=== PATIENT | female | born 1965 ===

== ENCOUNTER 2021-04-27 13:39 | Emergency (ER) | payer OTHER, SELFPAY ==
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
[2021-04-27 13:58] VITALS: BP 181/94; PULSE 96; RESP 19; TEMP 36.1; O2SAT 95; BMI 24.3
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
== END 2021-04-27 16:57 | disposition home or self-care (01) ==
PROVIDERS: Emergency Provider Emergency Medicine
DX: S39.012A Strain of muscle, fascia and tendon of lower back, initial encounter (principal); S39.011A Strain of muscle, fascia and tendon of abdomen, initial encounter; V43.62XA Car passenger injured in collision with other type car in traffic accident, initial encounter; Y93.89 Activity, other specified; Y92.414 Local residential or business street as the place of occurrence of the external cause; Y99.9 Unspecified external cause status
CPT/HCPCS: 74176; 99283; 99284

== ENCOUNTER 2021-10-04 08:56 | Outpatient (REF) | payer MEDICAID, SELFPAY ==
[2021-10-04 09:34] LABS: MANUAL DIFF FLAG NO
[2021-10-04 10:18] LABS: Basophils Percent Auto 0.4 % (0-2); Eosinophils Absolute Auto 0.1 X10*3/uL (0.0-0.4); Eosinophils Percent Auto 1.7 % (0-4); Hematocrit 46.7 % (37.0-47.0); Hemoglobin 15.2 g/dl (12.0-16.0); Imm Gran Abs Auto 0.02 X10*3/uL (0.00-0.03); Imm Gran Pct Auto 0.3 % (0.0-0.4); Lymphocytes Absolute Auto 2.1 X10*3/uL (1.2-4.9); Lymphocytes Percent Auto 29.7 % (20-40); Mean Corpuscular HGB Conc 32.5 g/dl (31.0-35.0); Mean Corpuscular Hemoglobin 27.6 pg (27.0-33.0); Mean Corpuscular Volume 84.9 fL (80.0-98.0); Mean Platelet Volume 9.5 fL (9.4-12.3); Monocytes Absolute Auto 0.4 X10*3/uL (0.1-1.2); Monocytes Percent Auto 5.3 % (2-11); Neutrophils Absolute Auto 4.3 x10*3/uL (2.0-8.3); Neutrophils Percent Auto 62.6 % (45-73); Platelet Count 249 X10*3/uL (160-400); Red Cell Distribution Width 12.8 % (11.0-16.0); White Blood Count 6.9 X10*3/uL (4.8-10.8)
[2021-10-04 10:41] LABS: Alanine Aminotransferase 21 U/L (0-31); Albumin Level 4.3 g/dL (3.5-5.0); Alkaline Phosphatase 98 U/L (39-117); Anion Gap 15 (12-20); Aspartate Amino Transferase 17 U/L (5-31); Blood Urea Nitrogen 14 mg/dL (9-16); Calcium 9.6 mg/dL (8.4-10.2); Carbon Dioxide 23 mmol/L (22-29); Chloride 106 mmol/L (96-108); Cholesterol 237 mg/dL; Estimated Glomerular Filt Rate > 60; Glucose Random 147 mg/dL (60-115); HDL Cholesterol 43 mg/dL; LDL Cholesterol Calculated 138 mg/dl; Potassium 4.4 mmol/L (3.3-5.1); Sodium 140 mmol/L (135-145); Total Protein 7.5 g/dL (6.5-8.0); Triglycerides 283 mg/dL
[2021-10-04 10:48] LABS: Bilirubin Total 0.9 mg/dL (0.0-1.0)
[2021-10-04 10:58] LABS: HIV AB/AG Nonreactive (Nonreactive); HIV Num 1 0.08 S/CO (0.00-0.99)
[2021-10-04 10:59] LABS: ~HepC Num1 0.19 S/CO (0.00-0.79); ~Hepatitis C Antibody Nonreactive (Nonreactive)
[2021-10-04 11:12] LABS: Creatinine Urine 111.68 mg/dL; Microalbum/Creatinine Ratio Ur 42.9 ug/mg cr
== END 2021-10-04 08:57 | disposition home or self-care (01) ==
LOC: HO.CT 08:56
PROVIDERS: PCP Internal Medicine; Visit Provider Internal Medicine
DX: Z11.4 Encounter for screening for human immunodeficiency virus [HIV] (principal); R10.32 Left lower quadrant pain; R19.04 Left lower quadrant abdominal swelling, mass and lump; E11.9 Type 2 diabetes mellitus without complications; E78.5 Hyperlipidemia, unspecified; F33.0 Major depressive disorder, recurrent, mild; I10 Essential (primary) hypertension
CPT/HCPCS: 36415; 80053; 80061; 82043; 84443; 85025; 86803; 87389

== ENCOUNTER 2021-10-26 08:22 | Outpatient (REF) | payer MEDICAID, SELFPAY ==
--- NOTE | ~2021-10-26 | CT_ITS ---
EXAMINATION: CT ABDOMEN AND PELVIS WITH CONTRAST CLINICAL INFORMATION: Left lower quadrants swelling, mass COMPARISON: 04/27/2021 TECHNIQUE: Multidetector volumetric images were obtained from the superior aspect of the liver through the pubic symphysis following administration 85 mL of Omnipaque 350 intravenous contrast. Sagittal and coronal reformatted images were obtained on the technologist's workstation. Oral contrast: No This CT examination was performed using dose optimization techniques as appropriate, variously including the following: *Automated exposure control *Adjustment of mA and/or kV according to patient size (this includes techniques or standardized protocols for targeted exams where dose is matched to indication/reason for exam; i.e. extremities or head) *Use of iterative reconstruction technique DLP: 407 mGy-cm FINDINGS: LUNG BASES: No suspicious finding LIVER, GALLBLADDER, AND BILIARY TREE: Liver is incompletely visualized. The superior aspect of the right lobe is not included in the imaging. On the imaging submitted there is no suspicious finding. Status post cholecystectomy PANCREAS: Unremarkable. SPLEEN: Unremarkable. ADRENAL GLANDS: Unremarkable. KIDNEYS AND URETERS: 3 mm nonobstructing calculus mid to upper pole right kidney. There is no hydronephrosis. BLADDER: Unremarkable. GASTROINTESTINAL TRACT: Nonobstructing bowel pattern. ABDOMINAL WALL: No significant hernia is appreciated. LYMPH NODES: Normal. VASCULAR: Atherosclerotic changes. No aneurysmal change PELVIC VISCERA: Once again mildly prominent uterus for age. Associated with the uterine structure in the area with peripheral calcification extending off the fundal region on the left. This measures 3.2 x 2.1 cm. Etiology indeterminate OSSEOUS STRUCTURES: Unremarkable. CT/CT abdomen pelvis w con IMPRESSION: Liver is incompletely imaged. Again prominent uterus for age. In addition extending off the superior lateral aspect of the uterus on the left is a solid-appearing structure which with a peripheral calcification. This could be related to the uterus, ligament or ovarian in etiology. Consider ultrasound to further evaluate. Otherwise as described the bowel pattern is within normal limits. Also partially imaged here is a fatty density within the anterior musculature anterior to the proximal left femur. This was partially imaged here previously. No change in this partially imaged appearance which is likely lipomatous change but again the entire area is not seen and is only seen on the inferior most cuts. If further evaluation is warranted consider MR Medeiros guidelines were followed.
[2021-10-26] MEDS: iohexoL 350 MG/ML 100 ML INFUS..BTL IV (11:14)
[2021-10-26] MEDS: Barium Sulfate Oral (Berry) 450 ML ORAL.SUSP 900 ML PO (11:15)
== END 2021-10-26 08:23 | disposition home or self-care (01) ==
LOC: HO.CT 08:22
PROVIDERS: PCP Internal Medicine; Visit Provider Internal Medicine
DX: R10.32 Left lower quadrant pain (principal); R19.04 Left lower quadrant abdominal swelling, mass and lump; E11.9 Type 2 diabetes mellitus without complications; E78.5 Hyperlipidemia, unspecified; F33.0 Major depressive disorder, recurrent, mild; I10 Essential (primary) hypertension
CPT/HCPCS: 74177; Q9967

== ENCOUNTER 2022-01-27 15:56 | Emergency (ER) | payer MEDICAID, SELFPAY ==
--- NOTE | ~2022-01-27 | XR_ITS ---
EXAMINATION: XR KNEE, LEFT CLINICAL INFORMATION: Pain COMPARISON: None TECHNIQUE: Four views of the left knee. FINDINGS: Bones and soft tissues are normal. There is a small knee joint effusion.. Alignment is anatomic. Joint spaces are well maintained. No abnormal soft tissue calcification. XR/XR knee LT 4V IMPRESSION: Small knee joint effusion. No fracture.
[2022-01-27 16:10] VITALS: BP 198/93; PULSE 85; RESP 18; TEMP 36.2; O2SAT 98; BMI 28.8
[2022-01-27] MEDS: Ketorolac Tromethamine 15 MG/ML VIAL 30 MG IM (21:04)
--- NOTE | 2022-01-27 21:14 | ED.EXTPRO ---
HPI - Extremity Problem General Chief complaint: Extremity Problem Stated complaint: L Knee Pain S/P Fall 01/24/22 Time Seen by Provider: 01/27/22 20:40 Source: patient Mode of arrival: ambulatory Limitations: no limitations History of Present Illness HPI Narrative: 56 year old female presents to the emergency department with complaints of a atraumatic left knee pain X3 days. Reports this has happened before. Patient tells me she is able to walk however has some discomfort. She notices that her left knee is more swollen on the right. Denies fevers, chills, numbness, tingling. Denies blunt trauma to the area. MD Complaint: joint swelling Related Data Previous Rx's Medication Instructions Recorded acetaminophen 500 mg tablet 1,000 mg PO QID PRN fever or pain 04/27/21 (Tylenol Extra Strength) #14 tabs cyclobenzaprine 10 mg tablet 10 mg PO Q8H PRN Muscle spasm #14 04/27/21 tabs ibuprofen 800 mg tablet 800 mg PO Q8H PRN pain #14 tabs 04/27/21 prednisone 20 mg tablet 40 mg PO DAILY 5 days #10 tabs 01/27/22 Allergies Allergy/AdvReac Type Severity Reaction Status Date / Time No Known Allergies Allergy Verified 04/27/21 14:00 Review of Systems Review of Systems: Constitutional : No Weight loss, No Fever, No Chills, No Fatigue, No Malaise ENT/Mouth : No sore throat, No Rhinorrhea Eyes: No Eye Pain, No Swelling, No Redness Cardiovascular : No Chest Pain, No SOB, No Dyspnea on Exertion, No Orthopnea, No Edema, No Palpitations Respiratory : No Cough, No Sputum, No Wheezing Gastrointestinal : No Nausea, No Vomiting, No Diarrhea, No Constipation, No abdominal Pain, No Hematochezia, No Melena Genitourinary : No Dysuria, No Urinary Frequency, No Hematuria, Musculoskeletal : + joint pain, No Myalgias, + Joint Swelling Skin : No Skin Lesions, No rash Neuro : No Weakness, No Numbness, No Dizziness, No Headache Psych : No Anxiety/Panic, No Depression All other systems reviewed and are negative Yes all other systems are reviewed and are negative PMFSH Past Medical History Attestation statement: The following information was validated with the patient. Source: old records reviewed and nursing notes reviewed Medical History Diabetes High blood pressure Social History Social History (Updated 10/30/21 @ 09:44 by Fernanda Quinonez) Household Members: Family Patient Tobacco Use Status: Current everyday Tobacco user Advance Directives: No Advance Directives Information Provided: No Physical Exam Vital Signs: Vital Signs: Last Vital Signs Temp 97.2 F 01/27/22 16:10 Pulse 85 01/27/22 16:10 Resp 18 01/27/22 16:10 BP 198/93 H 01/27/22 16:10 Pulse Ox 98 01/27/22 16:10 O2 Del Method 01/27/22 16:10 BMI result Body Mass Index 28.8 Vital signs stable Appearance: Alert.? Oriented X3.? No acute distress.? Head: Normocephalic, atraumatic, no step-offs or deformities Eyes: Pupils equal, round and reactive to light.? CVS: Normal heart rate and rhythm.? Pulses normal.? Respiratory: No respiratory distress.? Breath sounds normal.? Abdomen: Soft and nontender.? Skin: Skin warm and dry.? Normal skin color.? Normal skin turgor.? Extremities: No lower extremity edema.? No calf ttp. 5/5 strength to bilateral upper and lower extremities full range of motion to bilateral knees. Left knee appears to have a small joint effusion, slightly more swollen than the right. 2+ patellar pulses equal bilateral. 2+ dorsalis pedis, posterior tibialis and anterior tibialis pulses. No evidence of ligament or tendon injury on exam. Back: No midline tenderness, no C-spine tenderness, full range of motion, no CVA tenderness bilaterally Neuro: Oriented X 3.? No motor deficit.? No sensory deficit. CN 2-12 intact. Patient ambulating with steady gait. Course Reevaluation(s) Reevaluation #1: Patient was given an Luis Carlos wrap and Toradol. I will send patient home on prednisone, advised to take Tylenol every 4 hours, ibuprofen every 6. I advised her to follow-up with PCP and follow-up with orthopedics. At this time I feel comfortable with discharge home. Patient was able to ambulate out of the emergency department. Time: 21:19 MDM - Extremity (Nontraumatic) MDM Narrative Medical decision making narrative: 2114 56-year-old female presents with atraumatic left-sided knee pain x3 days worsening. Physical examination significant for No lower extremity edema.? No calf ttp. 5/5 strength to bilateral upper and lower extremities full range of motion to bilateral knees. Left knee appears to have a small joint effusion, slightly more swollen than the right. 2+ patellar pulses equal bilateral. 2+ dorsalis pedis, posterior tibialis and anterior tibialis pulses. No evidence of ligament or tendon injury on exam. History and physical examination likely joint effusion, unlikely that this is a septic joint. No signs of ligament or tendon injury at this time. Plan at this time is to give patient Toradol and an Luis Carlos wrap. Medical Records Attestation: I reviewed the patient's medical records. Lab Data Attestation: I reviewed the patient's lab results. Critical Care Time Critical Care Time Critical Care Time: No Discharge Plan Discharge Clinical Impression: Joint effusion Patient Disposition: Home, Self-Care Instructions: R.I.C.E. Treatment (ED) Additional Instructions: Take your medications as prescribed. If you were prescribed antibiotics today, it is important that you take your medication to their entirety, do not skip any doses, do not finish them early. Follow-up with your primary care provider this week. Return to the emergency department with new or worsening symptoms. Such as fevers, chills, chest pain, shortness of breath, nausea, vomiting, dizziness, headache, vision changes, lethargy In case of emergency call 911 You can take ibuprofen every 6 hours, Tylenol every 4 as needed for pain or discomfort. Rest, ice, compress and elevate extremity. Please follow-up with your PCP if your knee is still hurting you in a week or 2, I will also give you information for Orthopedic group, x-rays look at alignment, fractures, dislocation and significant swelling however if the pain persist you may benefit from further imaging such as an MRI. Prescriptions: New prednisone 20 mg tablet 40 mg PO DAILY 5 Days Qty: 10 0RF No Action cyclobenzaprine 10 mg tablet 10 mg PO Q8H PRN (Reason: Muscle spasm) Qty: 14 0RF ibuprofen 800 mg tablet 800 mg PO Q8H PRN (Reason: pain) Qty: 14 0RF acetaminophen [Tylenol Extra Strength] 500 mg tablet 1,000 mg PO QID PRN (Reason: fever or pain) Qty: 14 0RF Referrals: [facility] [place] [facility] [Provider Group] - 2 weeks Ricardo Farley MD [Primary Care Provider] - ED Physician,Generic [Physician] - 2 days Stand Alone Forms: Work/School Release
== END 2022-01-27 21:28 | disposition home or self-care (01) ==
PROVIDERS: Emergency Provider Student in an Organized Health Care Education/Training Program; PCP Internal Medicine
DX: M25.462 Effusion, left knee (principal); M25.562 Pain in left knee
CPT/HCPCS: 73564; 96372; 99283; 99284; J1885

== ENCOUNTER 2022-02-11 08:25 | Outpatient (REF) | payer MEDICAID, SELFPAY ==
--- NOTE | ~2022-02-11 | XR_ITS ---
EXAMINATION: 1. RADIOGRAPHS LEFT KNEE 2. RADIOGRAPHS STANDING BILATERAL KNEES CLINICAL INFORMATION: Bilateral knee pain COMPARISON: Left knee x-rays January 27, 2022 TECHNIQUE: Standing frontal views of both knees were obtained. Additional lateral and patellar sunrise views of the left knee were obtained. FINDINGS: Small left-sided suprapatellar joint effusion again appreciated. Joint spaces of the left knee are maintained. No significant osteophytes of the left knee. Standing frontal view of the right knee demonstrates minimal narrowing of the medial joint space height. XR/XR knee LT 2V IMPRESSION: -Stable small left-sided suprapatellar joint effusion. -Otherwise grossly unremarkable radiographs of the bilateral knees.
--- NOTE | ~2022-02-11 | XR_ITS ---
EXAMINATION: 1. RADIOGRAPHS LEFT KNEE 2. RADIOGRAPHS STANDING BILATERAL KNEES CLINICAL INFORMATION: Bilateral knee pain COMPARISON: Left knee x-rays January 27, 2022 TECHNIQUE: Standing frontal views of both knees were obtained. Additional lateral and patellar sunrise views of the left knee were obtained. FINDINGS: Small left-sided suprapatellar joint effusion again appreciated. Joint spaces of the left knee are maintained. No significant osteophytes of the left knee. Standing frontal view of the right knee demonstrates minimal narrowing of the medial joint space height. XR/XR knee standing BI IMPRESSION: -Stable small left-sided suprapatellar joint effusion. -Otherwise grossly unremarkable radiographs of the bilateral knees.
== END 2022-02-11 08:26 | disposition home or self-care (01) ==
LOC: HO.HOSX 08:25
PROVIDERS: Visit Provider Physician Assistant
DX: M17.12 Unilateral primary osteoarthritis, left knee (principal); M25.561 Pain in right knee
CPT/HCPCS: 73560; 73565; 99202

== ENCOUNTER 2022-03-14 11:40 | Outpatient (REF) | payer MEDICAID, SELFPAY ==
[2022-03-14 19:50] LABS: CT PCR NOT DETECTED (Not Detect.); NG PCR NOT DETECTED (Not Detect.)
[2022-03-15 09:47] LABS: BV Int Neg Control Negative (Negative); BV Int Pos Control Positive (Positive)
== END 2022-03-14 11:41 | disposition home or self-care (01) ==
LOC: HO.LNP 11:40
PROVIDERS: Visit Provider Advanced Practice Midwife
DX: Z11.3 Encounter for screening for infections with a predominantly sexual mode of transmission (principal); R10.2 Pelvic and perineal pain; Q51.9 Congenital malformation of uterus and cervix, unspecified
CPT/HCPCS: 87480; 87491; 87510; 87591; 87660; 99202

== ENCOUNTER 2022-04-22 11:19 | Outpatient (REF) | payer MEDICAID, SELFPAY ==
--- NOTE | ~2022-04-22 | US_ITS ---
EXAMINATION: US PELVIS CLINICAL INFORMATION: Leiomyoma of uterus COMPARISON: Previous CT of the abdomen and pelvis October 2021 TECHNIQUE: Ultrasound of the pelvis is performed using both transabdominal and transvaginal transducers along with Doppler. Transvaginal imaging is performed due to inadequate visualization transabdominally. FINDINGS: The uterus is anteverted and measures 10.4 x 4.3 x 5.2 cm. No focal uterine lesion is seen. Endometrial thickness is normal measuring 0.6 cm. There are nabothian cysts in the cervix. The ovaries are normal. The right ovary measures 2.4 x 2 x 1.1 cm and the left ovary measures 2 x 2.7 x 1.8 cm. There is no fluid in the pelvis. US/US pelvic and transvaginal IMPRESSION: Unremarkable exam.
== END 2022-04-22 11:20 | disposition home or self-care (01) ==
LOC: HO.US 11:19
PROVIDERS: Visit Provider Advanced Practice Midwife
DX: D25.9 Leiomyoma of uterus, unspecified (principal); R10.2 Pelvic and perineal pain; N85.2 Hypertrophy of uterus
CPT/HCPCS: 76830; 76856

== ENCOUNTER 2022-04-26 08:58 | Outpatient (REF) | payer MEDICAID, SELFPAY ==
[2022-04-30 09:02] LABS: CA-125 7 U/mL (<35)
== END 2022-04-26 08:59 | disposition home or self-care (01) ==
LOC: HO.LAB 08:58
PROVIDERS: PCP Internal Medicine; Visit Provider Advanced Practice Midwife
DX: N85.2 Hypertrophy of uterus (principal)
CPT/HCPCS: 36415; 86304

== ENCOUNTER → 2022-05-22 11:49 | Outpatient (BNVA) | payer MEDICAID, SELFPAY | PROVIDERS: PCP Internal Medicine; Referring Provider Internal Medicine; Visit Provider Nurse Practitioner Family | DX: Z12.11 Encounter for screening for malignant neoplasm of colon (principal) | CPT/HCPCS: 99202 ==

== ENCOUNTER 2022-05-27 08:47 | Outpatient (REF) | payer MEDICAID, SELFPAY ==
--- NOTE | ~2022-05-27 | MR_ITS ---
EXAMINATION: MRI FEMUR WITHOUT AND WITH CONTRAST, LEFT CLINICAL INFORMATION: Fatty density in anterior musculature proximal femur on the prior CT. COMPARISON: CT abdomen 10/26/2021 TECHNIQUE: MRI in a 1.5 Teresa magnet without and with contrast. 8 mL Gadavist. FINDINGS: There is a mass seen in the proximal vastus lateralis muscle. This measures 3.2 x 2.1 x 5.3 cm (AP, transverse, length). This mass is bright on T1, low on the T1 fat-sat sequence, low on the T2 fat-sat sequence, compatible with a fatty mass. There are subtle scattered internal low T1 signal foci, which could reflect muscle strands or perhaps thin septations. Question faint linear enhancement within the mass, which could represent a vessel versus an enhancing septation. No nodular or suspicious enhancement is identified. Margins are well-defined. No edema in the surrounding muscle. The imaging findings have the appearance of a low-grade lipomatous lesion/lipoma. Findings correlate with the fatty density seen on the prior CT scan. The remainder of the visualized musculature appears unremarkable. The visualized tendons intact. Cystic focus in the anterior femoral head and neck junction femur, suggestive of a synovial herniation pit. No suspicious marrow signal changes. No acute fracture. No groin lymphadenopathy. No acute findings in the pelvis. MR/MR femur LT wo/w con IMPRESSION: A 5.3 cm fat-containing mass in the left vastus lateralis muscle, has imaging features of a a nonaggressive fatty lesion. No suspicious lesions or suspicious enhancement is evident. Findings are suggestive of a low-grade lipomatous lesion/lipoma. Clinically correlate and manage. Recommend ongoing clinical follow-up. Follow-up imaging to ensure stability can be considered. If there is clinical concern, worrisome changes such as change in the size, consistency or symptoms related to the mass, repeat MRI should be obtained.
== END 2022-05-27 08:48 | disposition home or self-care (01) ==
LOC: HO.MRI 08:47
PROVIDERS: Visit Provider Internal Medicine
DX: M79.89 Other specified soft tissue disorders (principal)
CPT/HCPCS: 73720; A9585

== ENCOUNTER → 2022-06-13 12:59 | Outpatient (BNVA) | payer MEDICAID, SELFPAY | PROVIDERS: PCP Internal Medicine; Visit Provider Advanced Practice Midwife | DX: Z71.2 Person consulting for explanation of examination or test findings (principal); R10.2 Pelvic and perineal pain | CPT/HCPCS: 99212 ==

== ENCOUNTER 2022-07-20 22:54 | Emergency (ER) | payer MEDICAID, SELFPAY ==
--- NOTE | 2022-07-20 23:18 | ED.GENADULT ---
HPI - General Adult General Chief complaint: General Medical Stated complaint: High Bp/ Dental pain Time Seen by Provider: 07/20/22 23:16 Source: patient Mode of arrival: ambulatory Limitations: no limitations History of Present Illness HPI narrative: Patient with history of hypertension on losartan hydralazine and metoprolol been having pain in the left lower molar for last few days taking Advil 400 mg for the pain check the blood pressure was 230's/100s and patient are blood pressure of 253/124 with pulse rate of 74 no fever no chills no chest pain no headache no vomiting or abdominal pain Related Data Home Medications Medication Instructions Recorded Confirmed blood sugar diagnostic (FreeStyle #10 ea 03/14/22 Lite Strips) fluoxetine 20 mg tablet 20 mg PO QAM 03/14/22 glimepiride 2 mg tablet 2 mg PO DAILY 03/14/22 hydralazine 25 mg tablet 25 mg PO BID 03/14/22 lancets 28 gauge (FreeStyle #100 ea 03/14/22 Lancets) losartan 100 mg tablet 100 mg PO DAILY 03/14/22 metformin 500 mg tablet 500 mg PO 03/14/22 metoprolol succinate 100 mg 100 mg PO DAILY 03/14/22 tablet,extended release 24 hr trazodone 100 mg tablet 100 mg PO QPM 03/14/22 Previous Rx's Medication Instructions Recorded acetaminophen 500 mg tablet 1,000 mg PO QID PRN fever or pain 04/27/21 (Tylenol Extra Strength) #14 tabs cyclobenzaprine 10 mg tablet 10 mg PO Q8H PRN Muscle spasm #14 04/27/21 tabs prednisone 20 mg tablet 40 mg PO DAILY 5 days #10 tabs 01/27/22 bisacodyl 5 mg tablet,delayed 10 mg PO ONCE 1 day #2 tabs 05/22/22 release (Dulcolax (bisacodyl)) polyethylene glycol 3350 17 238 g PO ONCE #238 grams 05/22/22 gram/dose oral powder (Miralax) amoxicillin 875 mg-potassium 1 tab PO BID #20 tabs 07/21/22 clavulanate 125 mg tablet oxycodone 5 mg tablet 5 mg PO Q6H PRN pain #20 tabs 07/21/22 Allergies Allergy/AdvReac Type Severity Reaction Status Date / Time No Known Allergies Allergy Verified 06/13/22 13:20 Review of Systems Review of Systems: Yes all other systems are reviewed and are negative [facility] Past Medical History Medical History Diabetes Fibroid High blood pressure History of depression Surgical History Hx of appendectomy Social History Social History Household Members: Family Patient Tobacco Use Status: Current everyday Tobacco user Advance Directives: No Advance Directives Information Provided: Yes Current occupational status: unemployed 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 Oriented X3. No acute distress. Eyes: No pallor or icterus ENT: Pharynx normal. Oral Mucosa moist tender left 2nd lower molar with surrounding gum swelling no fluctuation Neck: Normal inspection. Neck supple. CVS: Normal heart rate and rhythm. Pulses normal. Respiratory: No respiratory distress. Equal air entry bilateral, no wheezing/rales/rhonchi Abdomen: Soft and nontender. Bowel sounds are present, no mass palpable, no CVA tenderness Skin: Skin warm and dry. Normal skin color. Normal skin turgor. Extremities: No lower extremity edema. No calf tenderness Neuro: Oriented X 3. No motor deficit. No sensory deficit.No cerebellar signs , cranial nerves II-XII intact Medications Administered Discontinued Medications Generic Name Dose Route Start Last Admin Trade Name Freq PRN Reason Stop Dose Admin Amoxicillin/Clavulanate Potassium 875 mg 07/21/22 00:23 07/21/22 00:35 Amoxicillin/Potassium Clav 875 Mg Tablet PO 07/21/22 00:24 875 mg ONCE ONE Administration Labetalol HCl 20 mg 07/20/22 23:29 07/20/22 23:41 Labetalol Hcl 100 Mg/20 Ml Vial IVPUSH 07/20/22 23:30 20 mg ONCE ONE Administration Morphine Sulfate 4 mg 07/20/22 23:29 07/20/22 23:41 Morphine Sulfate 4 Mg/Ml Cartridge IVPUSH 07/20/22 23:30 4 mg ONCE ONE Administration Protocol Ondansetron HCl 4 mg 07/20/22 23:29 07/20/22 23:41 Ondansetron Hcl 4 Mg/2 Ml Vial IVPUSH 07/20/22 23:30 4 mg ONCE ONE Administration Medical Decision Making Medical Decision Making [facility] Narrative: Patient with accelerated hypertension with dental caries will give her Augmentin labetalol for blood pressure control repeat blood pressure was 150/83 patient feeling much better now will decide labs are stable Lab Data [facility] Lab Attestation statement: I reviewed the patient's lab results. 07/20/22 23:37 07/20/22 23:37 Labs: Lab Results 07/20/22 07/20/22 Range/Units 23:37 23:37 WBC 7.7 (4.8-10.8) X10*3/uL RBC 5.48 (4.20-5.50) X10*6/uL Hgb 15.0 (12.0-16.0) g/dl Hct 45.5 (37.0-47.0) % MCV 83.0 (80.0-98.0) fL MCH 27.4 (27.0-33.0) pg MCHC 33.0 (31.0-35.0) g/dl RDW 12.4 (11.0-16.0) % Plt Count 293 (160-400) X10*3/uL MPV 9.0 L (9.4-12.3) fL Immature Gran % (Auto) 0.3 (0.0-0.4) % Neut % (Auto) 45.2 (45-73) % Lymph % (Auto) 44.1 H (20-40) % Dyer % (Auto) 7.0 (2-11) % Eos % (Auto) 3.0 (0-4) % Baso % (Auto) 0.4 (0-2) % Lymph # (Auto) 3.4 (1.2-4.9) X10*3/uL Dyer # (Auto) 0.5 (0.1-1.2) X10*3/uL Eos # (Auto) 0.2 (0.0-0.4) X10*3/uL Baso # (Auto) 0.0 (0.0-0.2) X10*3/uL Abs Immat Gran (auto) 0.02 (0.00-0.03) X10*3/uL Absolute Neuts (auto) 3.5 (2.0-8.3) x10*3/uL Absolute Nucleated RBC 0.000 (0.0-0.012) X10*3/uL Nucleated RBC % (auto) 0.0 (0.0-0.2) /100WBC Sodium 135 (135-145) mmol/L Potassium 4.7 (3.3-5.1) mmol/L Chloride 102 (96-108) mmol/L Carbon Dioxide 23 (22-29) mmol/L Anion Gap 15 (12-20) BUN 21 H (9-16) mg/dL Creatinine 0.86 (0.5-1.4) mg/dL Estim Creat Clear Calc 83.8 Estimated GFR > 60 Random Glucose 221 H (60-115) mg/dL Calcium 9.7 (8.4-10.2) mg/dL Discharge Plan Discharge Clinical Impression: Toothache, Hypertension Patient Disposition: Home, Self-Care Instructions: Chronic Hypertension (ED), Toothache (ED) Additional Instructions: Continue to take blood pressure medication as prescribed You may take extra dose of hydralazine 25 mg if blood pressure is higher than 160/100 and report to your PCP Antibiotic and pain medication as advised for dental caries Prescriptions: New amoxicillin-pot clavulanate 875-125 mg tablet 1 tab PO BID Qty: 20 0RF oxycodone 5 mg tablet 5 mg PO Q6H PRN (Reason: pain) Qty: 20 0RF Rx Instructions: Partial Fill upon patient request. No Action prednisone 20 mg tablet 40 mg PO DAILY 5 Days Qty: 10 0RF cyclobenzaprine 10 mg tablet 10 mg PO Q8H PRN (Reason: Muscle spasm) Qty: 14 0RF acetaminophen [Tylenol Extra Strength] 500 mg tablet 1,000 mg PO QID PRN (Reason: fever or pain) Qty: 14 0RF hydralazine 25 mg tablet 25 mg PO BID losartan 100 mg tablet 100 mg PO DAILY glimepiride 2 mg tablet 2 mg PO DAILY metformin 500 mg tablet 500 mg PO metoprolol succinate 100 mg tablet extended release 24 hr 100 mg PO DAILY fluoxetine 20 mg tablet 20 mg PO QAM trazodone 100 mg tablet 100 mg PO QPM (DME) FreeStyle Lite Strips Strip See Rx Instructions .ROUTE BID Qty: 10 Rx Instructions: As directed (DME) lancets [FreeStyle Lancets] 28 gauge misc See Rx Instructions .ROUTE BID Qty: 100 Rx Instructions: As directed bisacodyl [Dulcolax (bisacodyl)] 5 mg tablet,delayed release (DR/EC) 10 mg PO ONCE 1 Days Qty: 2 0RF Rx Instructions: take 2 tabs at noon the day before your colonoscopy polyethylene glycol 3350 [Miralax] 17 gram/dose powder 238 g PO ONCE Qty: 238 0RF Rx Instructions: As directed by gastroenterology department at [facility] Interventions: ED Discharge Assessment Last Done: 07/21/22 01:39 Discharge Date/Time: 07/21/22 01:40
[2022-07-20 23:19] VITALS: BP 253/124; PULSE 74; RESP 16; TEMP 37.2; O2SAT 98; BMI 37.8
--- NOTE | 2022-07-20 23:29 | ECG_ITS ---
Test Reason : hypertension Blood Pressure : / mmHG Vent. Rate : 071 BPM Atrial Rate : 071 BPM P-R Int : 158 ms QRS Dur : 084 ms QT Int : 398 ms P-R-T Axes : 041 -02 007 degrees QTc Int : 432 ms Normal sinus rhythm Possible Inferior infarct , age undetermined Nonspecific ST and T wave abnormality Abnormal ECG No previous ECGs available Referred By: Salty Garcia Electronically Signed By:LÁZARO BELCHER
[2022-07-20 23:41] VITALS: BP 209/104; PULSE 79; RESP 23; O2SAT 93
[2022-07-20] MEDS: ondansetron HCL 4 MG/2 ML VIAL IVPUSH (23:41)
[2022-07-20] MEDS: Labetalol HCL 100 MG/20 ML VIAL 20 MG IVPUSH (23:41)
[2022-07-20] MEDS: Morphine Sulfate 4 MG/ML CARTRIDGE IVPUSH (23:41)
[2022-07-20 23:42] LABS: MANUAL DIFF FLAG NO
[2022-07-20 23:43] LABS: Basophils Percent Auto 0.4 % (0-2); Eosinophils Absolute Auto 0.2 X10*3/uL (0.0-0.4); Hematocrit 45.5 % (37.0-47.0); Imm Gran Abs Auto 0.02 X10*3/uL (0.00-0.03); Imm Gran Pct Auto 0.3 % (0.0-0.4); Lymphocytes Absolute Auto 3.4 X10*3/uL (1.2-4.9); Lymphocytes Percent Auto 44.1 % (20-40); Mean Corpuscular Hemoglobin 27.4 pg (27.0-33.0); Monocytes Absolute Auto 0.5 X10*3/uL (0.1-1.2); Neutrophils Absolute Auto 3.5 x10*3/uL (2.0-8.3); Neutrophils Percent Auto 45.2 % (45-73); Platelet Count 293 X10*3/uL (160-400); Red Blood Count 5.48 X10*6/uL (4.20-5.50); Red Cell Distribution Width 12.4 % (11.0-16.0); White Blood Count 7.7 X10*3/uL (4.8-10.8)
--- NOTE | 2022-07-20 23:49 | PC.NURSE ---
pt resting on stretcher, respirations are even and unlabored. Labetolol, morphine and zofran administered per aug. pt tolerating well at this point. blood work and ekg complete
[2022-07-20 23:52] VITALS: BP 151/77; PULSE 81; RESP 21; O2SAT 94
[2022-07-21 00:03] LABS: Anion Gap 15 (12-20); Blood Urea Nitrogen 21 mg/dL (9-16); Calcium 9.7 mg/dL (8.4-10.2); Carbon Dioxide 23 mmol/L (22-29); Chloride 102 mmol/L (96-108); Creatinine Clr Calc Pharmacy 83.8; Estimated Glomerular Filt Rate > 60; Glucose Random 221 mg/dL (60-115); Potassium 4.7 mmol/L (3.3-5.1); Sodium 135 mmol/L (135-145)
[2022-07-21 00:19] VITALS: BP 150/83; PULSE 80; RESP 14; O2SAT 94
[2022-07-21] MEDS: Amoxicillin/Potassium Clav 875 MG TABLET PO (00:35)
[2022-07-21 00:36] VITALS: BP 164/80; PULSE 88; RESP 22; O2SAT 97
--- NOTE | 2022-07-21 00:41 | PC.NURSE ---
pt reports decreased pain in mouth, blood pressure has also decreased. pt medicated per MAR
[2022-07-21 01:32] VITALS: BP 162/73; PULSE 63; RESP 21; O2SAT 97
== END 2022-07-21 01:40 | disposition home or self-care (01) ==
PROVIDERS: Emergency Provider Internal Medicine; PCP Internal Medicine
DX: K08.89 Other specified disorders of teeth and supporting structures (principal); K02.9 Dental caries, unspecified; I10 Essential (primary) hypertension; E11.9 Type 2 diabetes mellitus without complications; F17.200 Nicotine dependence, unspecified, uncomplicated; Z79.899 Other long term (current) drug therapy; Z79.84 Long term (current) use of oral hypoglycemic drugs
CPT/HCPCS: 36415; 80048; 85025; 93005; 96374; 96375; 99284; J2270; J2405

== ENCOUNTER 2022-08-19 11:41 | Emergency (ER) | payer MEDICAID, SELFPAY ==
[2022-08-19 11:57] VITALS: BP 210/150; BP 232/111; PULSE 101; PULSE 91; RESP 18; TEMP 37; O2SAT 100; O2SAT 98; BMI 27.7
[2022-08-19 12:30] VITALS: BP 175/98; PULSE 84; RESP 18; O2SAT 98
[2022-08-19] MEDS: LORazepam 1 MG TABLET 2 MG PO (12:30)
--- NOTE | 2022-08-19 12:43 | ED_ITS ---
HPI - Anxiety General Chief Complaint: Anxiety Stated Complaint: Anxiety Time Seen by Provider: 08/19/22 12:10 Source: patient, family and EMS Mode of arrival: EMS Limitations: language barrier (Guyanese-speaking) History of Present Illness HPI narrative: 57-year-old female who is Guyanese-speaking with a past medical history of anxiety and hypertension who reports she took her blood pressure medication prior to arrival who is presenting to the ED via EMS after she had a verbal altercation with some family members prior to arrival which made her very anxious. She reports she takes anxiety medication which helps her although she does not know the name of the anxiety medication. When I look through early patient's list I do not see any anxiety medication only blood pressure medication and trazodone. She denies any dizziness, headaches, neck pain/stiffness, trouble swallowing breathing, sore throat, cough, chest pain or shortness of breath, palpitations, paresthesias, dyspnea on exertion, orthopnea, nausea/vomiting/diarrhea, abdominal pain, SI, HI, auditory or visual hallucinations thoughts of self-injury, recent drug or alcohol usage or any other symptoms complaints or concerns at this time. Reports that she feels safe at home. Family member at bedside. MD complaint: anxiety and heart racing Onset (ago): minute(s) (Prior to arrival) Severity: moderate Quality: constant Place: home History of similar episodes: Yes Provoking factors: emotional stress Relieving factors: medication Exacerbating factors: nothing Associated symptoms: denies other symptoms Related Data Home Medications Medication Instructions Recorded Confirmed blood sugar diagnostic (FreeStyle #10 ea 03/14/22 Lite Strips) fluoxetine 20 mg tablet 20 mg PO QAM 03/14/22 glimepiride 2 mg tablet 2 mg PO DAILY 03/14/22 hydralazine 25 mg tablet 25 mg PO BID 03/14/22 lancets 28 gauge (FreeStyle #100 ea 03/14/22 Lancets) losartan 100 mg tablet 100 mg PO DAILY 03/14/22 metformin 500 mg tablet 500 mg PO 03/14/22 metoprolol succinate 100 mg 100 mg PO DAILY 03/14/22 tablet,extended release 24 hr trazodone 100 mg tablet 100 mg PO QPM 03/14/22 Previous Rx's Medication Instructions Recorded acetaminophen 500 mg tablet 1,000 mg PO QID PRN fever or pain 04/27/21 (Tylenol Extra Strength) #14 tabs cyclobenzaprine 10 mg tablet 10 mg PO Q8H PRN Muscle spasm #14 04/27/21 tabs prednisone 20 mg tablet 40 mg PO DAILY 5 days #10 tabs 01/27/22 bisacodyl 5 mg tablet,delayed 10 mg PO ONCE 1 day #2 tabs 05/22/22 release (Dulcolax (bisacodyl)) polyethylene glycol 3350 17 238 g PO ONCE #238 grams 05/22/22 gram/dose oral powder (Miralax) amoxicillin 875 mg-potassium 1 tab PO BID #20 tabs 07/21/22 clavulanate 125 mg tablet oxycodone 5 mg tablet 5 mg PO Q6H PRN pain #20 tabs 07/21/22 lorazepam 2 mg tablet (Ativan) 2 mg PO TID PRN anxiety #7 tabs 08/19/22 Allergies Allergy/AdvReac Type Severity Reaction Status Date / Time No Known Allergies Allergy Verified 06/13/22 13:20 Review of Systems Review of Systems: Constitutional : No Fever, No Chills ENT/Mouth : No Ear Pain, No Nasal Congestion, No sore throat Eyes: No Eye Pain, No Swelling, No Redness Cardiovascular : No Chest Pain, No SOB Respiratory : No Cough, No Sputum, No Dyspnea Gastrointestinal : No ingestions, No Nausea, No Vomiting, No Diarrhea, No Hematochezia, No Melena Genitourinary : No Dysuria, No Urinary Frequency, No Hematuria Musculoskeletal : No Myalgias Skin : No Skin Lesions, No rash Neuro : No Weakness, No Numbness, No Paresthesias, No Dizziness, No Headache Psych : + Anxiety, No Depression, No SI/HI, No AVH, No thoughts of self injury Heme/Lymph: No Lymphadenopathy Endocrine : No Polyuria, No Polydipsia Yes all other systems are reviewed and are negative [facility] Past Medical History Attestation statement: The following information was validated with the patient. 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 Blood pressure 232/111. Heart rate normal. Respiration rate normal. Temperature normal. Oxygen saturation normal. Appearance: Alert. Oriented X3. No acute distress. Head: Normal external exam. Normocephalic. Atraumatic. No Walker signs noted. No raccoon eyes noted Eyes: PERRLA. EOMI. Conjunctiva and sclera normal. Eyelids normal. ENT: EAC normal. TM's Normal. Pharynx normal. Uvula midline. Moist mucous membranes. No trismus noted. No drooling noted. No muffled voice noted. Neck: Normal inspection. Neck supple. FROM. No adenopathy. Thyroid Normal. No meningeal signs. No neck mass noted. CVS: Normal heart rate and rhythm. Heart sound normal. No murmurs noted. Pulses normal throughout. Respiratory: No respiratory distress. Painless inspiration. Breath sounds normal. No wheezes/rales/rhonchi noted. Chest nontender. No accessory muscle usage noted or decreased air movement noted. Abdomen: Soft and nontender. Bowel sounds normal in all 4 quadrants. No distention noted. No organomegaly noted. No visible injury noted. Back: No CVA tenderness. Full range of motion noted. Skin: Skin warm and dry. Normal skin color. Normal skin turgor. No rashes/lesions/lacerations noted. Extremities: No lower extremity edema. Extremities exhibit normal range of motion. Extremities nontender. Neuro: Oriented X 3. No motor deficit. No sensory deficit. Reflexes normal. CN's II-XII intact bilaterally? Psych: Appearance grossly normal, well-kept, mental status normal, speech and movement normal, speech clear, patient appears very sad and anxious. Is cooperative. Normal thought process. Normal thought content. Normal good insight. Judgment good. Course Course Course Narrative: Patient presenting with anxiety. I gave her 2 mg of Ativan. She reports she feels much better. Her blood pressures improved. No labs or imaging indicated. Patient denies any SI or HI/auditory or visual hallucination or thoughts of self-injury. Reports she feels safe at home. Family member at bedside. Therefore at this time patient will be discharged with a short course of Ativan with instructions return if any new or worsening symptoms to follow up with primary care provider. Patient understands agrees with this plan. Medications Administered Discontinued Medications Generic Name Dose Route Start Last Admin Trade Name Freq PRN Reason Stop Dose Admin Lorazepam 2 mg 08/19/22 12:13 08/19/22 12:30 Lorazepam 1 Mg Tablet PO 08/19/22 12:14 2 mg ONCE ONE Administration Medical Decision Making Independent Historian Clinical information obtained from an independent historian. History obtained from or confirmed by: Other (Family member) Prescription Management I considered prescription management with: Other (Anxiety medication) Discharge Plan Discharge Clinical Impression: Acute anxiety Patient Disposition: Home, Self-Care Instructions: Anxiety (ED) Prescriptions: New lorazepam [Ativan] 2 mg tablet 2 mg PO TID PRN (Reason: anxiety) Qty: 7 0RF No Action prednisone 20 mg tablet 40 mg PO DAILY 5 Days Qty: 10 0RF amoxicillin-pot clavulanate 875-125 mg tablet 1 tab PO BID Qty: 20 0RF oxycodone 5 mg tablet 5 mg PO Q6H PRN (Reason: pain) Qty: 20 0RF Rx Instructions: Partial Fill upon patient request. cyclobenzaprine 10 mg tablet 10 mg PO Q8H PRN (Reason: Muscle spasm) Qty: 14 0RF acetaminophen [Tylenol Extra Strength] 500 mg tablet 1,000 mg PO QID PRN (Reason: fever or pain) Qty: 14 0RF hydralazine 25 mg tablet 25 mg PO BID losartan 100 mg tablet 100 mg PO DAILY glimepiride 2 mg tablet 2 mg PO DAILY metformin 500 mg tablet 500 mg PO metoprolol succinate 100 mg tablet extended release 24 hr 100 mg PO DAILY fluoxetine 20 mg tablet 20 mg PO QAM trazodone 100 mg tablet 100 mg PO QPM (DME) FreeStyle Lite Strips Strip See Rx Instructions .ROUTE BID Qty: 10 Rx Instructions: As directed (DME) lancets [FreeStyle Lancets] 28 gauge misc See Rx Instructions .ROUTE BID Qty: 100 Rx Instructions: As directed bisacodyl [Dulcolax (bisacodyl)] 5 mg tablet,delayed release (DR/EC) 10 mg PO ONCE 1 Days Qty: 2 0RF Rx Instructions: take 2 tabs at noon the day before your colonoscopy polyethylene glycol 3350 [Miralax] 17 gram/dose powder 238 g PO ONCE Qty: 238 0RF Rx Instructions: As directed by gastroenterology department at [facility] Referrals: Ricardo Farley MD [Primary Care Provider] - 2 days Print Language: Guyanese
== END 2022-08-19 13:26 | disposition home or self-care (01) ==
PROVIDERS: Emergency Provider Emergency Medicine; PCP Internal Medicine
DX: F41.9 Anxiety disorder, unspecified (principal); E11.9 Type 2 diabetes mellitus without complications; I10 Essential (primary) hypertension; F17.200 Nicotine dependence, unspecified, uncomplicated; Z79.899 Other long term (current) drug therapy; Z79.84 Long term (current) use of oral hypoglycemic drugs
CPT/HCPCS: 99282; 99283

== ENCOUNTER → 2022-09-17 09:39 | Outpatient (BNVA) | payer MEDICAID, SELFPAY | PROVIDERS: PCP Internal Medicine; Visit Provider Surgery | DX: M17.12 Unilateral primary osteoarthritis, left knee (principal); E11.9 Type 2 diabetes mellitus without complications | CPT/HCPCS: 99202 ==

== ENCOUNTER 2023-03-05 15:41 | Outpatient (AMB) | payer MEDICAID, SELFPAY ==
--- NOTE | 2023-03-05 15:46 | A.OFFVIS_ITS ---
Intake Vital Signs 03/05/23 15:47 Height 5 ft 5.5 in Weight 167 lb BMI 27.4 Intake Visit Reasons: OV- Lt knee oa Intake Note: Opal a 57 year old female who presents today for a follow up of left knee OA. Patient reports her knee brace is not helping her. She states having a lot of pain on her knee. She is interested in a injection. Sand Tester Name: Annamaria [id number] Allergies No Known Allergies Allergy (Verified 03/05/23 15:51) HPI OV- Lt knee oa HPI Details 57-year-old female who returns to the [facility] today for a follow-up of left knee pain. She continues to have chronic pain in her knee which is aggravated in the morning and with stair use. She finds no relief with the knee brace. She has not had physical therapy or injection in the past. She is interested in having an injection. 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 Lateral retropatellar tenderness present. ROM full with crepitus. Negative Leann's. No ligamentous laxity. NVI. Office Procedures Joint Injection/Drain Joint Injection/Drain Primary Site: left knee Prep: site was prepped using aseptic technique, ethochloride spray was applied and injection warnings given Injected: 80 mg of, DepoMedrol, with 8 mL of, 1% plain lidocaine and in the j oint Approach Used: anterolateral Procedure: The patient tolerated the procedure well and there was some relief with the local anesthesia Coding 78525 - Glenohumeral/Tronchanteric Bursa/Intraarticular Procedure code (CPT) selection complete Results Reviewed Results Reviewed: 03/05/23 15:47 Lidocaine HCl 2 % MPF [Xylocaine 2 % MPF] 5 ml .ROUTE .STK-MED ONE 03/05/23 15:48 methylPREDNISolone acetate [DEPO-MedroL] 40 mg .ROUTE .STK-MED ONE Assessment & Plan Assessment & Plan (1) Patellofemoral arthritis of left knee: Code(s): M17.12 - Unilateral primary osteoarthritis, left knee Plan We discussed options today which include steroid injection. They did consent to move forward with the left knee injection, which was tolerated well. I recommended rest, ice and elevation and OTC anti-inflammatories PRN for discomfort. She was also given a course of physical therapy in the office today. If symptoms persist or worsens over the next 6-8 weeks, patient will contact the office, otherwise follow-up as needed. Orders: Orders PT Evaluation and Treatment Today M17.12 - Unilateral primary osteoarthritis, left knee Patient Instructions: Scribed for Jericho Heredia PA-C, by [facility] director, on 03/05/2023 at 3:30 PM EST. I, Jericho Heredia PA-C, have personally reviewed and agree with the information entered by the scribe. Coding Level of Care Code Est Pt Level 3 (44922) Diagnoses Patellofemoral arthritis of left knee M17.12 CPT Codes Coding - Joint 7: 88588 - Glenohumeral/Tronchanteric Bursa/Intraarticular ([id number])
[2023-03-05 15:47] VITALS: BMI 27.4
== END 2023-03-05 16:05 | disposition home or self-care (01) ==
PROVIDERS: PCP Internal Medicine; Visit Provider Physician Assistant
DX: M17.12 Unilateral primary osteoarthritis, left knee (principal)
CPT/HCPCS: 20610; 99214

== ENCOUNTER → 2023-03-05 15:41 | Outpatient (BNVA) | payer MEDICAID, SELFPAY | PROVIDERS: PCP Internal Medicine; Visit Provider Physician Assistant | DX: M17.12 Unilateral primary osteoarthritis, left knee (principal) | CPT/HCPCS: 20610; 99214; J1020 ==

== ENCOUNTER 2023-07-05 13:11 | Emergency (ER) | payer MEDICAID, SELFPAY ==
--- NOTE | 2023-07-05 15:03 | ED_ITS ---
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 Patient denies any known cause. No changes in foods, medications, products. No recent illnesses. No pain or burning with the rash. No associated fevers or chills. Patient was seen at [facility] this last week and prescribed a topical steroid which patient tells me made the rash much worse. She is not using any [id number]-[id number] medications Related Data Home Medications Medication Instructions Recorded Confirmed blood sugar diagnostic (FreeStyle #10 ea 03/14/22 09/17/22 Lite Strips) fluoxetine 20 mg tablet 20 mg PO QAM 03/14/22 09/17/22 glimepiride 2 mg tablet 2 mg PO DAILY 03/14/22 09/17/22 hydralazine 25 mg tablet 25 mg PO BID 03/14/22 09/17/22 lancets 28 gauge (FreeStyle #100 ea 03/14/22 Lancets) losartan 100 mg tablet 100 mg PO DAILY 03/14/22 09/17/22 metformin 500 mg tablet 500 mg PO 03/14/22 09/17/22 metoprolol succinate 100 mg 100 mg PO DAILY 03/14/22 09/17/22 tablet,extended release 24 hr trazodone 100 mg tablet 100 mg PO QPM 03/14/22 09/17/22 Previous Rx's Medication Instructions Recorded acetaminophen 500 mg tablet 1,000 mg (2 x 500 mg) PO QID PRN 04/27/21 (Tylenol Extra Strength) fever or pain #14 tabs cyclobenzaprine 10 mg tablet 10 mg PO Q8H PRN Muscle spasm #14 04/27/21 tabs polyethylene glycol 3350 17 238 g PO ONCE #238 grams 05/22/22 gram/dose oral powder (Miralax) oxycodone 5 mg tablet 5 mg PO Q6H PRN pain #20 tabs 07/21/22 lorazepam 2 mg tablet (Ativan) 2 mg PO TID PRN anxiety #7 tabs 08/19/22 clotrimazole 1 % topical cream 1 appl topical BID 4 weeks #30 07/05/23 grams hydroxyzine HCl 50 mg tablet 50 mg PO Q6H PRN itching #15 tabs 07/05/23 Allergies Allergy/AdvReac Type Severity Reaction Status Date / Time No Known Allergies Allergy Verified 07/05/23 15:04 Review of Systems 2 Review of Systems: Yes all other systems are reviewed and are negative Constitutional: Constitutional: Reports no additional constitutional complaints, Denies body ache(s), Denies chills, Denies fever(s), Denies headache(s) and Denies weakness Eyes: Eyes: Reports no additional eye complaints and Denies change in vision ENT: Reports system reviewed and no additional complaints, except as documented, Denies dizziness, Denies headache(s), Denies nasal congestion, Denies nasal discharge and Denies neck pain Cardiovascular: Cardiovascular: Reports no additional cardiovascular complaints, Denies chest pain, Denies leg edema and Denies dyspnea Respiratory: Respiratory: Reports no additional respiratory complaints, Denies cough and Denies dyspnea Gastrointestinal: Gastrointestinal: Reports no additional gastrointestinal complaints, Denies abdominal pain, Denies diarrhea, Denies nausea and Denies vomiting Genitourinary: Genitourinary: Reports no additional female genitourinary complaints and Denies urinary incontinence Musculoskeletal: Musculoskeletal: Reports no additional musculoskeletal complaints, Denies back pain, Denies arthralgias, Denies joint swelling, Denies neck pain, Denies numbness and Denies tingling Integumentary/Breasts: Skin/Breast: Reports system reviewed and no additional complaints, except as docu and Reports rash Neurologic: Reports system reviewed and no additional complaints, except as documented, Denies Abnormal speech present, Denies dizziness, Denies headache(s), Denies numbness, Denies tingling and Denies weakness PMFSH Past Medical History Attestation statement: The following information was validated with the patient. Source: old records reviewed and nursing notes reviewed Onset Date is defined in the Problem List Problems that require an onset date and time if occurred within 24 hrs of arrival to the ED Aortic Dissection and Rupture; Neurologic impairment; Cardiopulmonary Arrest; Endotracheal Intubation; Insertion or Replacement of Mechanical Circulatory Assist Device Medical History Fibroid History of depression High blood pressure Diabetes Surgical History Hx of appendectomy Social History Social History Household Members: Family Patient Tobacco Use Status: Current everyday Tobacco user Advance Directives: No Advance Directives Information Provided: Yes Current occupational status: unemployed 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 Physical Exam ED Vital Signs: Vital Signs - 24 hr 07/05/23 15:04 Temperature 98.5 F Pulse Rate 79 Respiratory Rate 18 Blood Pressure 195/97 H Pulse Oximetry 97 Oxygen Delivery Method Room Air BMI result Body Mass Index 26.2 Const General: cooperative, healthy appearing, comfortable and no acute distress Orientation/consciousness: patient oriented x3 Limitations: no limitations HENMT Head: Yes normal to inspection Ears: hearing grossly normal bilaterally General nose exam: Normal external nose present Face and sinus: Yes normal facial exam Mouth: Normal oral and palatal mucosa present Throat: Yes posterior oropharynx normal Eyes General: appearance normal, both eyes and all related structures Pupils: Equal, round and reactive pupils present Neck Neck: Yes normal visual inspection Chest Chest palpation & inspection: normal inspection of the chest Resp Effort & Inspection: normal respiratory effort Auscultation: clear to auscultation bilaterally Cardio Rate: regular rate Rhythm: regular rhythm Peripheral pulses: Peripheral pulses 2+ throughout GI Inspection: Yes normal to inspection Palpation (GI): Soft to palpation and nontender Auscultation: normal bowel sounds Back/Spine/Pelvis Thoracic/Lumbar Spine: thoracic and lumbar spine normal to inspection Skin Other: blanchable, non sloughing Neuro General: patient oriented x3, no focal motor deficits and normal sensation to monofilament Cranial nerves: Yes Equal, round and reactive pupils present Cognition (Neuro): normal cognition Speech: No Abnormal speech present Gait exam (Neuro): Normal gait present Motor exam (neuro): 5/5 motor strength present throughout Extrem General: Yes normal to inspection Course Course Course Narrative: This is an RME: Additional HPI, ROS, PE not included below will be deferred to primary provider. This is a 58 [id number] presenting to the ER with a complaint of itchy rash x 3 weeks. Patient reports that the rash started in [place] and was prescribed a topical antifungal cream, triamcinolone cream, which she has been using without relief. Massive wheals noted to chest, arms and legs Plan: Basic labs, further ER evaluation needed Medical Decision Making Medical Decision Making [facility] Narrative: 58-year-old female with a history of diabetes presents to the ER with complaints of itching rash over the trunk which began approximately 3-4 weeks ago while she was in [place]. Patient denies any known cause. No changes in foods, medications, products. No recent illnesses. No pain or burning with the rash. No associated fevers or chills. Patient was seen at [facility] this last week and prescribed a topical steroid which patient tells me made the rash much worse. She is not using any [id number]-[id number] medications See photos on PE Seems like tinea Will recommend topical antifungal, supportive care. Reviewed worrisome signs/symptoms with patient and when to seek additional care. Comofortable with plan for discharge home. Differential Diagnosis Differential Diagnoses: The differential diagnosis associated with the presentation includes does not appear urticarial, does not appear to be cellulitic low concern for SJS, ten, dress syndrome Admission/Observation Consideration of admission/observation: Escalation of care including admission/observation considered no evidence of angioedema or concern for anaphylaxis requiring admission for observation Lab Data [facility] Lab Attestation statement: I reviewed the patient's lab results. 07/05/23 16:18 07/05/23 16:18 Labs: Lab Results 07/05/23 Range/Units 16:18 WBC 5.1 (4.8-10.8) X10*3/uL RBC 5.78 H (4.20-5.50) X10*6/uL Hgb 16.0 (12.0-16.0) g/dl Hct 49.2 H (37.0-47.0) % MCV 85.1 (80.0-98.0) fL MCH 27.7 (27.0-33.0) pg MCHC 32.5 (31.0-35.0) g/dl RDW 13.3 (11.0-16.0) % Plt Count 219 D (160-400) X10*3/uL MPV 9.2 L (9.4-12.3) fL Immature Gran % (Auto) 0.2 (0.0-0.4) % Neut % (Auto) 47.7 (45-73) % Lymph % (Auto) 41.9 H (20-40) % [place] % (Auto) 9.6 (2-11) % Eos % (Auto) 0.4 (0-4) % Baso % (Auto) 0.2 (0-2) % Lymph # (Auto) 2.1 (1.2-4.9) X10*3/uL [place] # (Auto) 0.5 (0.1-1.2) X10*3/uL Eos # (Auto) 0.0 (0.0-0.4) X10*3/uL Baso # (Auto) 0.0 (0.0-0.2) X10*3/uL Abs Immat Gran (auto) 0.01 (0.00-0.03) X10*3/uL Absolute Neuts (auto) 2.4 (2.0-8.3) x10*3/uL Absolute Nucleated RBC 0.000 (0.0-0.012) X10*3/uL Nucleated RBC % (auto) 0.0 (0.0-0.2) /100WBC PT 10.6 L (11.1-13.3) SEC INR 0.9 (0.9-1.1) APTT 27.4 (26.0-36.4) SEC Sodium 139 (135-145) mmol/L Potassium 4.9 (3.3-5.1) mmol/L Chloride 108 (96-108) mmol/L Carbon Dioxide 20 L (22-29) mmol/L Anion Gap 16 (12-20) BUN 15 (9-16) mg/dL Creatinine 0.89 (0.5-1.4) mg/dL Estim Creat Clear Calc 71.5 Estimated GFR > 60 Random Glucose 144 H (60-115) mg/dL Calcium 9.4 (8.4-10.2) mg/dL Total Bilirubin 0.5 (0.0-1.0) mg/dL AST 35 H (5-31) U/L ALT 32 H (0-31) U/L Alkaline Phosphatase 86 (39-117) U/L Total Protein 8.2 H (6.5-8.0) g/dL Albumin 4.1 (3.5-5.0) g/dL Independent Historian Clinical information obtained from an independent historian. History obtained from or confirmed by: Friend Prescription Management I considered prescription management with: Antibiotic Chronic Conditions Patient?s care impacted by: Diabetes Discharge Plan Discharge Clinical Impression: Tinea Patient Disposition: Home, Self-Care Instructions: Skin Yeast Infection (ED) Prescriptions: New clotrimazole 1 % cream 1 appl topical BID 28 Days Qty: 30 0RF hydroxyzine HCl 50 mg tablet 50 mg PO Q6H PRN (Reason: itching) Qty: 15 0RF No Action oxycodone 5 mg tablet 5 mg PO Q6H PRN (Reason: pain) Qty: 20 0RF Rx Instructions: Partial Fill upon patient request. cyclobenzaprine 10 mg tablet 10 mg PO Q8H PRN (Reason: Muscle spasm) Qty: 14 0RF acetaminophen [Tylenol Extra Strength] 500 mg tablet 1,000 mg PO QID PRN (Reason: fever or pain) Qty: 14 0RF lorazepam [Ativan] 2 mg tablet 2 mg PO TID PRN (Reason: anxiety) Qty: 7 0RF hydralazine 25 mg tablet 25 mg PO BID losartan 100 mg tablet 100 mg PO DAILY glimepiride 2 mg tablet 2 mg PO DAILY metformin 500 mg tablet 500 mg PO metoprolol succinate 100 mg tablet extended release 24 hr 100 mg PO DAILY fluoxetine 20 mg tablet 20 mg PO QAM trazodone 100 mg tablet 100 mg PO QPM (DME) FreeStyle Lite Strips Strip See Rx Instructions .ROUTE BID Qty: 10 Rx Instructions: As directed (DME) lancets [FreeStyle Lancets] 28 gauge misc See Rx Instructions .ROUTE BID Qty: 100 Rx Instructions: As directed polyethylene glycol 3350 [Miralax] 17 gram/dose powder 238 g PO ONCE Qty: 238 0RF Rx Instructions: As directed by gastroenterology department at [facility] Referrals: Ricardo Farley MD [Primary Care Provider] - 1 week
[2023-07-05 15:04] VITALS: BP 195/97; PULSE 79; RESP 18; TEMP 36.9; O2SAT 97; BMI 26.2
[2023-07-05 16:22] LABS: MANUAL DIFF FLAG NO
[2023-07-05 16:24] LABS: Basophils Percent Auto 0.2 % (0-2); Eosinophils Percent Auto 0.4 % (0-4); Hematocrit 49.2 % (37.0-47.0); Imm Gran Abs Auto 0.01 X10*3/uL (0.00-0.03); Imm Gran Pct Auto 0.2 % (0.0-0.4); Lymphocytes Absolute Auto 2.1 X10*3/uL (1.2-4.9); Lymphocytes Percent Auto 41.9 % (20-40); Mean Corpuscular HGB Conc 32.5 g/dl (31.0-35.0); Mean Corpuscular Hemoglobin 27.7 pg (27.0-33.0); Mean Corpuscular Volume 85.1 fL (80.0-98.0); Mean Platelet Volume 9.2 fL (9.4-12.3); Monocytes Absolute Auto 0.5 X10*3/uL (0.1-1.2); Monocytes Percent Auto 9.6 % (2-11); Neutrophils Absolute Auto 2.4 x10*3/uL (2.0-8.3); Neutrophils Percent Auto 47.7 % (45-73); Platelet Count 219 X10*3/uL (160-400); Red Blood Count 5.78 X10*6/uL (4.20-5.50); Red Cell Distribution Width 13.3 % (11.0-16.0); White Blood Count 5.1 X10*3/uL (4.8-10.8)
[2023-07-05 16:30] LABS: INTERNATIONAL NORM RATIO 0.9 (0.9-1.1); Prothrombin Time 10.6 SEC (11.1-13.3)
[2023-07-05 16:33] LABS: Partial Thromboplastin Time 27.4 SEC (26.0-36.4)
[2023-07-05 16:43] LABS: Alanine Aminotransferase 32 U/L (0-31); Albumin Level 4.1 g/dL (3.5-5.0); Alkaline Phosphatase 86 U/L (39-117); Anion Gap 16 (12-20); Aspartate Amino Transferase 35 U/L (5-31); Bilirubin Total 0.5 mg/dL (0.0-1.0); Blood Urea Nitrogen 15 mg/dL (9-16); Calcium 9.4 mg/dL (8.4-10.2); Carbon Dioxide 20 mmol/L (22-29); Chloride 108 mmol/L (96-108); Creatinine Clr Calc Pharmacy 71.5; Estimated Glomerular Filt Rate > 60; Glucose Random 144 mg/dL (60-115); Potassium 4.9 mmol/L (3.3-5.1); Sodium 139 mmol/L (135-145); Total Protein 8.2 g/dL (6.5-8.0)
== END 2023-07-05 17:58 | disposition home or self-care (01) ==
PROVIDERS: Physician Assistant Medical; Emergency Provider Internal Medicine; PCP Internal Medicine
DX: B35.9 Dermatophytosis, unspecified (principal); E11.9 Type 2 diabetes mellitus without complications; I10 Essential (primary) hypertension; Z79.4 Long term (current) use of insulin; Z79.899 Other long term (current) drug therapy
CPT/HCPCS: 36415; 80053; 85025; 85610; 85730; 99282; 99283

== ENCOUNTER 2023-08-16 16:24 | Observation (INO) | payer MEDICAID, SELFPAY ==
--- NOTE | ~2023-08-16 | CT_ITS ---
EXAMINATION: CT ANGIOGRAM HEAD CT ANGIOGRAM NECK CLINICAL INFORMATION: Reason for Exam L sided weakness COMPARISON: Same day head CT TECHNIQUE: Test bolus sequences followed by intravenous administration 70 mL of Omnipaque 350. Helical imaging was performed in the axial plane from the aortic arch to the skull vertex. Delayed postcontrast imaging of the head was also performed. The data was processed at the mri special procedures technologist's workstation for generation of MIP sequences. Angled MIPs and volume rendered reformatted images were also generated at an offline 3D workstation. Stenoses are assessed in accordance with Pena et al. Quantification of Carotid Stenosis on CT Angiography. AJR 2006. 27(1):13-19. [address] CT examination was performed using dose optimization techniques as appropriate, variously including the following: *Automated exposure control *Adjustment of mA and/or kV according to patient size (this includes techniques or standardized protocols for targeted exams where dose is matched to indication/reason for exam; i.e. extremities or head) *Use of iterative reconstruction technique DLP: 1787 mGy-cm FINDINGS: CT HEAD: Noncontrast head CT findings discussed separately. No pathologic intra-axial enhancement or regional oligemia. CTA HEAD: Venous contamination somewhat limits assessment. There is mild to moderate focal stenosis of the terminal right ICA. Patchy calcific plaque along the bilateral carotid siphons. Mild luminal narrowing of the distal left cavernous ICA. 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 No high flow vascular malformations. Timing of the contrast bolus allows assessment of the major dural venous sinuses, which all opacify normally CTA NECK: Classic 3 vessel branching pattern of the aortic arch. Partially calcified fibrofatty plaque of the aortic arch and great vessel origins. Origins of the great vessels are widely patent. Long segment eccentric fibrofatty plaque of the left common carotid artery contributing to mild luminal narrowing. The right common carotid artery is widely patent. Calcific plaque at the bilateral carotid bifurcations without associated stenosis. The left internal carotid artery is widely patent. Partially calcified plaque of the right carotid bulb and proximal right ICA with mild (less than 50%) luminal narrowing of the post bulbar segment and focal tortuosity of the mid right cervical ICA. The left vertebral artery is dominant. Nondiagnostic assessment of the left vertebral artery origin and V1/proximal V2 segment. Limited diagnostic assessment of the right vertebral artery origin however there is suspected mild luminal narrowing from calcified plaque. The extracranial right vertebral artery is widely patent. Multifocal mild luminal narrowing along the left V2 vertebral artery, most pronounced at C3-C4, presumably related to eccentric fibrofatty plaque. CT NECK: Edentulous mandibular alveolus. Asymmetric soft tissue fullness along the left floor of mouth presumably from an asymmetrically enlarged left sublingual gland effacing the adjacent fat planes. Symmetric enlargement of the palatine tonsils for age, presumably reactive. Tonsillar hyperplasia along the base of tongue projects into the bilateral vallecula. Medialization of the right aryepiglottic fold is prominence of the right piriform sinus and slight paramedian positioning of the right true vocal cord and the correlated clinically for right vocal cord paresis/paralysis. Mild cervical spondylosis. CT/CT angio head neck stroke IMPRESSION: 1. No acute intracranial findings. 2. No acute arterial occlusion or hemodynamically significant stenosis in the head or neck. Atherosclerotic disease contributes to mild (less than 50%) luminal narrowing of the post bulbar right ICA, and mild stenoses along the left V2 vertebral artery. Mild to moderate focal stenosis of the terminal right ICA and mild luminal narrowing of the distal left cavernous ICA. 3. 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
--- NOTE | ~2023-08-16 | MR_ITS ---
EXAMINATION: MR BRAIN WITHOUT CONTRAST CLINICAL INFORMATION: Question TIA versus stroke. COMPARISON: Head CT dated 08/16/2023. TECHNIQUE: Multiplanar, multisequence imaging of the brain was performed without contrast. Limited study with motion artifacts. FINDINGS: No diffusion abnormalities are identified to suggest an acute infarct; the anterior frontal lobes are partially obscured due to artifacts. No mass effect or midline shift is seen. Chronic infarct in the left basal ganglia and left farmer radiata again noted with mild chronic white matter microangiopathy elsewhere in the cerebral white matter. There is chronic ex vacuo dilatation of the left lateral ventricle; the remainder of the ventricular system is normal. Small chronic lacunar infarct visible in the dorsal right lentiform nucleus. No extra-axial fluid collections are seen. The brainstem and cerebellum are normal. The gradient refocused acquisition is normal. The craniovertebral junction, marrow signal, and midline structures are normal. The major intracranial flow voids at the level of the [place] are preserved. The dural venous sinus flow voids are maintained. The mastoid air cells are well aerated. Mild ethmoid sinus mucosal thickening noted. Submucosal retention cysts visible along the roof of the nasopharynx to the right midline. MR/MR head/brain wo con IMPRESSION: The anterior frontal lobes are partially obscured on diffusion-weighted imaging due to artifacts. Motion artifacts also limit assessment. Otherwise, no acute intracranial process. Mild chronic white matter microangiopathy. Chronic basal ganglia infarct with mild ex vacuo dilatation of the left lateral ventricle.
--- NOTE | ~2023-08-16 | CT_ITS ---
EXAMINATION: CT head for stroke CLINICAL INFORMATION: Reason for Exam L sided weakness COMPARISON: None. TECHNIQUE: Contiguous axial imaging was performed from the skull base to vertex without intravenous contrast. Sagittal and coronal reformatted images were obtained. This CT examination was performed using dose optimization techniques as appropriate, variously including the following: * Automated exposure control * Adjustment of mA and/or kV according to patient size (this includes techniques or standardized protocols for targeted exams where dose is matched to indication/reason for exam; i.e. extremities or head) Use of iterative reconstruction technique DLP: 716 mGy-cm FINDINGS: Chronic left striatocapsular infarct with associated ex vacuo dilatation of the anterior body and frontal horn of the left lateral ventricle. Otherwise, There is no territorial loss of [place]-white differentiation. No significant volume loss or hydrocephalus. No acute intracranial hemorrhage or extra-axial fluid collection. No mass lesion, significant mass effect, or herniation pattern. No hyperdense vessels sign. Calcific plaque at the carotid siphons. Empty sella. Fusiform enlargement of several bilateral extraocular muscles, most pronounced involving the inferior and medial rectus muscles that can be correlated with thyroid function tests for the possibility of thyroid eye disease. Paranasal sinuses and mastoid air cells are well aerated. Osseous structures are intact. CT/CT head for stroke IMPRESSION: Chronic left striatocapsular infarct with associated ex vacuo dilatation of the anterior body and frontal horn of the left lateral ventricle. No acute intracranial abnormality. Specifically, no CT evidence of acute intracranial hemorrhage, significant mass effect, hydrocephalus, or large territorial infarction. This critical result was discussed with at 4:42 PM on 08/16/2023 and it was ascertained that the content and urgency of the report was understood at the time of direct communication. Fusiform enlargement of several bilateral extraocular muscles, most pronounced involving the inferior and medial rectus muscles that can be correlated with thyroid function tests for the possibility of thyroid eye disease.
--- NOTE | 2023-08-16 16:27 | ECG_ITS ---
Test Reason : STROKE SYMPTONS Blood Pressure : / mmHG Vent. Rate : 087 BPM Atrial Rate : 087 BPM P-R Int : 146 ms QRS Dur : 074 ms QT Int : 374 ms P-R-T Axes : 039 -14 032 degrees QTc Int : 450 ms Normal sinus rhythm with sinus arrhythmia Septal infarct , age undetermined Abnormal ECG When compared with ECG of 20-JUL-2022 23:46, Septal infarct is now Present Nonspecific T wave abnormality, improved in Inferior leads Nonspecific T wave abnormality no longer evident in Lateral leads Referred By: Nanci Almanzar Electronically Signed By:LONDON CHASE MD
[2023-08-16 16:33] LABS: MANUAL DIFF FLAG NO
--- NOTE | 2023-08-16 16:35 | PC.NURSE ---
Pt presented to ED via EMS, STROKE ALERT. Pt Yoruba speaking only, scrum master iris. Pt coming from home, around 3PM today pt felt her left side was heavy and she did not feel right, per family she fell against a wall (no head hit or LOC). Family called for EMS. Pt is alert and oriented, breathing even and unlabored, skin WNL. Pt neg for new facial droop (has slight left sided facial droop at baseline from scar), slurred speech or unilateral weakness. Bedside exam done by MD and pt brought to CT. IV established in the left AC 20G.
[2023-08-16 16:39] LABS: Basophils Percent Auto 0.4 % (0-2); Eosinophils Absolute Auto 0.1 X10*3/uL (0.0-0.4); Eosinophils Percent Auto 1.6 % (0-4); Hematocrit 49.2 % (37.0-47.0); Hemoglobin 16.5 g/dl (12.0-16.0); Imm Gran Abs Auto 0.03 X10*3/uL (0.00-0.03); Imm Gran Pct Auto 0.4 % (0.0-0.4); Lymphocytes Absolute Auto 3.3 X10*3/uL (1.2-4.9); Lymphocytes Percent Auto 40.8 % (20-40); Mean Corpuscular HGB Conc 33.5 g/dl (31.0-35.0); Mean Corpuscular Hemoglobin 28.3 pg (27.0-33.0); Mean Corpuscular Volume 84.4 fL (80.0-98.0); Mean Platelet Volume 8.7 fL (9.4-12.3); Monocytes Absolute Auto 0.6 X10*3/uL (0.1-1.2); Monocytes Percent Auto 7.2 % (2-11); Neutrophils Percent Auto 49.6 % (45-73); Platelet Count 321 X10*3/uL (160-400); Red Blood Count 5.83 X10*6/uL (4.20-5.50); White Blood Count 8.1 X10*3/uL (4.8-10.8)
[2023-08-16] MEDS: iohexoL 350 MG/ML 100 ML INFUS..BTL IV (16:40)
--- NOTE | 2023-08-16 16:41 | ED_ITS ---
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 EMS noted her L side was weak and she had left facial droop. They gave her an ED fast score of 2. Her BP was 200/100s and 180s/100s. On arrival the patient notes weakness has improved and her L sided facial droop is chronic as she has an old facial injury that is evidenced by a scar on her face as well as her picture in the chart. We had her look at a picture of herself using her phone and she notes there is no facial droop. did not take her BP medications today. Thinks the episode of heaviness and l sided weakness lasted a few minutes Onset (ago): hour(s) (3pm today) Time: 15:00 Timing confirmed by: family member Location: left face, left arm and left leg History of same: No Severity: moderate Quality: weak and improving Relieving factors: time Exacerbating factors: none Context: sudden onset On Anticoagulants: No Associated symptoms: headaches Treatments Prior to Arrival: none Related Data Home Medications Medication Instructions Recorded Confirmed blood sugar diagnostic (FreeStyle #10 ea 03/14/22 09/17/22 Lite Strips) lancets 28 gauge (FreeStyle #100 ea 03/14/22 Lancets) losartan 100 mg tablet 100 mg PO DAILY 03/14/22 08/16/23 amlodipine 10 mg tablet 10 mg PO BEDTIME 08/16/23 08/16/23 aripiprazole 20 mg tablet 20 mg PO DAILY 08/16/23 08/16/23 atorvastatin 40 mg tablet 40 mg PO BEDTIME 08/16/23 08/16/23 chlorthalidone 25 mg tablet 25 mg PO DAILY 08/16/23 08/16/23 clonazepam 0.5 mg tablet 0.5 mg PO BID PRN Anxiety 08/16/23 08/16/23 clonidine HCl 0.1 mg tablet 0.1 mg PO BID 08/16/23 08/16/23 doxepin 50 mg capsule 50 mg PO BEDTIME PRN insomnia 08/16/23 08/16/23 dulaglutide 0.75 mg/0.5 mL 0.75 mg subcut QWEEK 08/16/23 08/16/23 subcutaneous pen injector (Trulicity) empagliflozin 5 mg-metformin ER 1 tab PO BIDWM 08/16/23 08/16/23 1,000 mg tablet,extended release 24 hr (Synjardy XR) fexofenadine 180 mg tablet 180 mg PO DAILY PRN allergies 08/16/23 08/16/23 melatonin 5 mg tablet 10 mg PO BEDTIME insomnia 08/16/23 08/16/23 metoprolol succinate 200 mg 200 mg PO DAILY 08/16/23 08/16/23 tablet,extended release 24 hr paroxetine HCl 40 mg tablet 40 mg PO DAILY 08/16/23 08/16/23 triamcinolone acetonide 0.1 % 1 appl topical BID 08/16/23 08/16/23 topical ointment zolpidem 10 mg tablet 10 mg PO BEDTIME PRN Insomnia 08/16/23 08/16/23 Allergies Allergy/AdvReac Type Severity Reaction Status Date / Time No Known Allergies Allergy Verified 07/05/23 15:04 Review of Systems 2 Review of Systems: Constitutional : No Fever, No Chills, No Fatigue ENT/Mouth : No sore throat, No Rhinorrhea Eyes: No Eye Pain, No Swelling, No Redness Cardiovascular : No Chest Pain, No SOB, No Dyspnea on Exertion Respiratory : No Cough, No Sputum Gastrointestinal : No Nausea, No Vomiting, No Diarrhea, No abdominal Pain Genitourinary : No Dysuria, No Urinary Frequency, No Hematuria, Musculoskeletal : No joint pain, No Myalgias, No Joint Swelling Skin : No Skin Lesions, No rash Neuro : pos Weakness, No Numbness, No Dizziness, positive Headache Psych : pos Anxiety/Panic, No Depression Heme/Lymph: No Bruising, No Bleeding,No Lymphadenopathy Endocrine : No Polyuria, No Polydipsia All other systems reviewed and are negative [facility] Past Medical History Attestation statement: The following information was validated with the patient. 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 Oriented X3. No acute distress. Anxious Eyes: Pupils equal, round and reactive to light. no visual field cuts ENT: Pharynx normal. Neck: Normal inspection. Neck supple. CVS: Normal heart rate and rhythm. Pulses normal. Respiratory: No respiratory distress. Breath sounds normal. Abdomen: Soft and non-tender. Skin: Skin warm and dry. Normal skin color. Normal skin turgor. Extremities: No lower extremity edema. No calf ttp Neuro: Oriented X 3. No motor deficit. No sensory deficit. chronic L sided facial droop from old scar patient looks at herself in phone and notes this is not new it is comparable to her old picture Medications Administered Generic Name Dose Route Start Last Admin Trade Name Osmin PRN Reason Stop Dose Admin Amlodipine Besylate 10 mg 08/16/23 21:00 08/16/23 21:12 Amlodipine Besylate 10 Mg Tablet PO 10 mg BEDTIME NATHAN Administration Protocol Atorvastatin Calcium 80 mg 08/16/23 21:00 08/16/23 21:12 Atorvastatin Calcium 80 Mg Tablet PO 80 mg BEDTIME NATHAN Administration Clonazepam 0.5 mg 08/16/23 19:15 08/16/23 19:57 Clonazepam 0.5 Mg Tablet PO 0.5 mg BID PRN Administration Anxiety Clonidine HCl 0.1 mg 08/16/23 21:00 08/16/23 21:12 Clonidine Hcl 0.1 Mg Tablet PO 0.1 mg BID NATHAN Administration Protocol Enoxaparin Sodium 40 mg 08/16/23 19:00 08/16/23 19:57 Enoxaparin Sodium 40 Mg/0.4 Ml Syringe SUBCUT 40 mg Q24H NATHAN Administration Losartan Potassium 100 mg 08/16/23 19:30 08/16/23 19:57 Losartan Potassium 50 Mg Tablet PO 100 mg DAILY NATHAN Administration Protocol Metoprolol Succinate 200 mg 08/16/23 19:30 08/16/23 19:57 Metoprolol Succinate Er 100 Mg Tab.Er.24h PO 200 mg DAILY NATHAN Administration Protocol Discontinued Medications Generic Name Dose Route Start Last Admin Trade Name Osmin PRN Reason Stop Dose Admin Aspirin 325 mg 08/16/23 17:26 08/16/23 17:57 Aspirin 325 Mg Tablet PO 08/16/23 17:27 325 mg ONCE ONE Administration Sodium Chloride 1,000 mls @ 999 mls/hr 08/16/23 17:00 08/16/23 18:40 Ns IV 08/16/23 18:00 Infused .Q1H1M NATHAN Infusion Iohexol 100 ml 08/16/23 16:39 08/16/23 16:40 Iohexol 350 Mg/Ml 100 Ml Infus..Btl IV 08/16/23 16:40 70 ml ONCE ONE Administration Lorazepam 1 mg 08/16/23 16:58 08/16/23 17:18 Lorazepam 1 Mg Tablet PO 08/16/23 16:59 1 mg ONCE ONE Administration Potassium Chloride 40 meq 08/16/23 16:59 08/16/23 17:18 Potassium Chloride Packet 20 Meq Packet PO 08/16/23 17:00 40 meq ONCE ONE Administration Medical Decision Making Medical Decision Making MDM Narrative: 58 yo female with PMH of HTN, DM, anxiety here with c/o resolved L sided weakness at home in setting of uncontrolled HTN with prior CVA noted on CT scan at this time she has no deficits on exam and NIH 0 - will obtain CT head and CTA she is not a TNK candidate given NIH 0 and no deficits on ED arrival. Will obtain labs and workup for TIA given complaint. PO ativan for anxiety. She did not take her BP medications today reports she did take them yesterday. Differential Diagnosis Differential Diagnoses: The differential diagnosis associated with the presentation includes TIA, HTN urgency, CVA, anxiety, non-compliance Admission/Observation Consideration of admission/observation: Escalation of care including admission/observation considered admit for TIA workup Consult Healthcare Provider Management of the patient was discussed with: Hospitalist (will admit) Lab Data MDM Lab Attestation statement: I reviewed the patient's lab results. 08/16/23 16:24 08/16/23 16:24 Labs: Lab Results 08/16/23 08/16/23 08/16/23 Range/Units 16:24 17:11 17:33 WBC 8.1 (4.8-10.8) X10*3/uL RBC 5.83 H (4.20-5.50) X10*6/uL Hgb 16.5 H (12.0-16.0) g/dl Hct 49.2 H (37.0-47.0) % MCV 84.4 (80.0-98.0) fL MCH 28.3 (27.0-33.0) pg MCHC 33.5 (31.0-35.0) g/dl RDW 13.0 (11.0-16.0) % Plt Count 321 D (160-400) X10*3/uL MPV 8.7 L (9.4-12.3) fL Immature Gran % (Auto) 0.4 (0.0-0.4) % Neut % (Auto) 49.6 (45-73) % Lymph % (Auto) 40.8 H (20-40) % [place] % (Auto) 7.2 (2-11) % Eos % (Auto) 1.6 (0-4) % Baso % (Auto) 0.4 (0-2) % Lymph # (Auto) 3.3 (1.2-4.9) X10*3/uL [place] # (Auto) 0.6 (0.1-1.2) X10*3/uL Eos # (Auto) 0.1 (0.0-0.4) X10*3/uL Baso # (Auto) 0.0 (0.0-0.2) X10*3/uL Abs Immat Gran (auto) 0.03 (0.00-0.03) X10*3/uL Absolute Neuts (auto) 4.0 (2.0-8.3) x10*3/uL Absolute Nucleated RBC 0.000 (0.0-0.012) X10*3/uL Nucleated RBC % (auto) 0.0 (0.0-0.2) /100WBC Hold Purple Top SEE NOTE PT 10.5 L (11.1-13.3) SEC INR 0.9 (0.9-1.1) Sodium 142 (135-145) mmol/L Potassium 3.2 L D (3.3-5.1) mmol/L Chloride 114 H (96-108) mmol/L Carbon Dioxide 19 L (22-29) mmol/L Anion Gap 12 (12-20) BUN 16 (9-16) mg/dL Creatinine 0.67 (0.5-1.4) mg/dL Estim Creat Clear Calc 97.3 Estimated GFR > 60 Random Glucose 118 H (60-115) mg/dL Estimat Average Glucose mg/dL Hemoglobin A1c % (<6.0) % Calcium 7.2 L D (8.4-10.2) mg/dL Magnesium 1.6 (1.6-2.6) mg/dL Total Bilirubin 0.5 (0.0-1.0) mg/dL Direct Bilirubin 0.1 (0.0-0.5) mg/dL AST 18 (5-31) U/L ALT 20 (0-31) U/L Alkaline Phosphatase 80 (39-117) U/L Troponin I High Sens < 2.7 (<3.5-17.0) ng/L Total Protein 6.2 L (6.5-8.0) g/dL Albumin 3.2 L (3.5-5.0) g/dL Triglycerides (<150) mg/dL Cholesterol (<200) mg/dL LDL Cholesterol, Calc HDL Cholesterol (>40) mg/dL Hold Red Top See Note Urine Opiates Screen Not Detected (Not Detect) Urine Fentanyl Screen Not Detected (Not Detect) Ur Barbiturates Screen Not Detected (Not Detect) Ur Phencyclidine Scrn Not Detected (Not Detect) Ur Amphetamines Screen Not Detected (Not Detect) U Benzodiazepines Scrn Not Detected (Not Detect) Urine Cocaine Screen Not Detected (Not Detect) U Marijuana (THC) Screen Not Detected (Not Detect) Ethyl Alcohol < 10 mg/dL COVID-19 ([facility]) Negative (Negative) COVID-19 Clin Com See Note 08/16/23 Range/Units 18:04 WBC (4.8-10.8) X10*3/uL RBC (4.20-5.50) X10*6/uL Hgb (12.0-16.0) g/dl Hct (37.0-47.0) % MCV (80.0-98.0) fL MCH (27.0-33.0) pg MCHC (31.0-35.0) g/dl RDW (11.0-16.0) % Plt Count (160-400) X10*3/uL MPV (9.4-12.3) fL Immature Gran % (Auto) (0.0-0.4) % Neut % (Auto) (45-73) % Lymph % (Auto) (20-40) % [place] % (Auto) (2-11) % Eos % (Auto) (0-4) % Baso % (Auto) (0-2) % Lymph # (Auto) (1.2-4.9) X10*3/uL [place] # (Auto) (0.1-1.2) X10*3/uL Eos # (Auto) (0.0-0.4) X10*3/uL Baso # (Auto) (0.0-0.2) X10*3/uL Abs Immat Gran (auto) (0.00-0.03) X10*3/uL Absolute Neuts (auto) (2.0-8.3) x10*3/uL Absolute Nucleated RBC (0.0-0.012) X10*3/uL Nucleated RBC % (auto) (0.0-0.2) /100WBC Hold Purple Top PT (11.1-13.3) SEC INR (0.9-1.1) Sodium (135-145) mmol/L Potassium (3.3-5.1) mmol/L Chloride (96-108) mmol/L Carbon Dioxide (22-29) mmol/L Anion Gap (12-20) BUN (9-16) mg/dL Creatinine (0.5-1.4) mg/dL Estim Creat Clear Calc Estimated GFR Random Glucose (60-115) mg/dL Estimat Average Glucose 111 mg/dL Hemoglobin A1c % 5.5 (<6.0) % Calcium (8.4-10.2) mg/dL Magnesium (1.6-2.6) mg/dL Total Bilirubin (0.0-1.0) mg/dL Direct Bilirubin (0.0-0.5) mg/dL AST (5-31) U/L ALT (0-31) U/L Alkaline Phosphatase (39-117) U/L Troponin I High Sens (<3.5-17.0) ng/L Total Protein (6.5-8.0) g/dL Albumin (3.5-5.0) g/dL Triglycerides 455 H (<150) mg/dL Cholesterol 241 H (<200) mg/dL LDL Cholesterol, Calc TNP HDL Cholesterol 42 (>40) mg/dL Hold Red Top Urine Opiates Screen (Not Detect) Urine Fentanyl Screen (Not Detect) Ur Barbiturates Screen (Not Detect) Ur Phencyclidine Scrn (Not Detect) Ur Amphetamines Screen (Not Detect) U Benzodiazepines Scrn (Not Detect) Urine Cocaine Screen (Not Detect) U Marijuana (THC) Screen (Not Detect) Ethyl Alcohol mg/dL COVID-19 ([facility]) (Negative) COVID-19 Clin Com Independent Interpretation I performed an independent interpretation of an: EKG and CT Scan Interpretation: Rate: 87 Rhythm: NSR [place]: left Normal P waves. Normal LIZET. Normal QRS complex. ST T wave : normal no SONDRA qTC: 450 prior studies: no acute ischemia does have q waves in inf leads The study has been interpreted contemporaneously by me. . Radiology Impression Discussion of test interpretation with radiology: I discussed test interpretation with the radiologist and I have reviewed the radiologist's reading. Radiologist Impression: 441pm: ashley no ICH does have prior stroke noted Independent Historian Clinical information obtained from an independent historian. History obtained from or confirmed by: EMS External Record Review External record reviewed: Inpatient record NIH Stroke Scale Internal: Initial- Upon Arrival Level of Consciousness: Alert Level of Consciousness Questions: Answers both questions correctly Level of Consciousness Commands: Performs both tasks correctly Best Gaze: Normal Visual: No visual loss Facial Palsy: Normal Motor Arm (Right): No drift Motor Arm (Left): No drift Motor Leg (Right): No drift Motor Leg (Left): No drift Limb Ataxia: Absent Sensory: Normal Best Language: No aphasia Dysarthia: Normal Extinction and Inattention: No abnormality Score: 0 Critical Care Time Critical Care Time Critical Care Time: Yes Total Critical Care Time: 40 Attestation: stroke protocol I attest to this time spent taking care of the patient Discharge Plan Discharge Clinical Impression: Brain TIA, Hypertension, uncontrolled, Acute hypokalemia Patient Disposition: Admitted As Inpatient
[2023-08-16 16:42] VITALS: BP 184/91; BP 210/100; PULSE 80; PULSE 85; RESP 20; TEMP 37; O2SAT 98; BMI 27.6
--- NOTE | 2023-08-16 16:45 | MHC.EDTECH ---
PT INR with test strips unable to be taken as the machine rejected three strips from two different bottles and strips seem faulty, remote recruiter Luka and ALAN Garcia were told.
[2023-08-16 16:46] LABS: INTERNATIONAL NORM RATIO 0.9 (0.9-1.1); Prothrombin Time 10.5 SEC (11.1-13.3)
--- NOTE | 2023-08-16 16:47 | PC.NURSE ---
MD at bedside arrival for EMS, see triage for prior information. IV placed by RN, labs obtained and sent, POC 153, unable to obtain POC INR, INR sent via lab work. Provider aware of current BP, Pt in CT scan to obtain CTA at this time. Interp utilized at bedside for information
[2023-08-16 16:56] LABS: Alanine Aminotransferase 20 U/L (0-31); Albumin Level 3.2 g/dL (3.5-5.0); Alkaline Phosphatase 80 U/L (39-117); Anion Gap 12 (12-20); Aspartate Amino Transferase 18 U/L (5-31); Bilirubin Direct 0.1 mg/dL (0.0-0.5); Bilirubin Total 0.5 mg/dL (0.0-1.0); Blood Urea Nitrogen 16 mg/dL (9-16); Calcium 7.2 mg/dL (8.4-10.2); Carbon Dioxide 19 mmol/L (22-29); Chloride 114 mmol/L (96-108); Creatinine Clr Calc Pharmacy 97.3; Estimated Glomerular Filt Rate > 60; Ethanol < 10 mg/dL; Glucose Random 118 mg/dL (60-115); Magnesium 1.6 mg/dL (1.6-2.6); Potassium 3.2 mmol/L (3.3-5.1); Sodium 142 mmol/L (135-145); Total Protein 6.2 g/dL (6.5-8.0)
[2023-08-16 17:00] LABS: Troponin-I High Sensitivity < 2.7 ng/L (<3.5-17.0)
[2023-08-16 17:15] VITALS: BP 206/94; PULSE 78; RESP 19; TEMP 36.7; O2SAT 98
[2023-08-16] MEDS: LORazepam 1 MG TABLET PO (17:18)
[2023-08-16] MEDS: Potassium Chloride Packet 20 MEQ PACKET 40 MEQ PO (17:18)
[2023-08-16] MEDS: 0.9 % Sodium Chloride 1,000 ML 999 ML IV (17:20)
[2023-08-16 17:28] LABS: COVID-19 Test Negative (Negative); IDNOW Serial# 58CA691E
--- NOTE | 2023-08-16 17:37 | PC.NURSE ---
Pt alert and oriented. Pt denies any pain, CP, SOB or weakness at this time. No unilateral neuro deficits noted. Pt on bedside rn integrity, NSR. Family at bedside at this time. Pt medicated per AUG.
[2023-08-16 17:48] LABS: Amphetamine Screen Urine Not Detected (Not Detect); Barbiturates, Urine Not Detected (Not Detect); Benzodiazepines Screen Urine Not Detected (Not Detect); Cannabinoid Screen Urine Not Detected (Not Detect); Cocaine Screen Urine Not Detected (Not Detect); Fentanyl, urine Not Detected (Not Detect); Opiate Screen Urine Not Detected (Not Detect); Phencyclidine Screen Urine Not Detected (Not Detect)
[2023-08-16] MEDS: Aspirin 325 MG TABLET PO (17:57)
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
[2023-08-16 18:19] LABS: Estimated Average Glucose 111 mg/dL; Hemoglobin A1c % 5.5 % (<6.0)
[2023-08-16 18:22] LABS: Cholesterol 241 mg/dL (<200); HDL Cholesterol 42 mg/dL (>40); Triglycerides 455 mg/dL (<150)
--- NOTE | 2023-08-16 18:50 | PHA.MEDREC ---
Pharmacy Consult ? Medication Reconciliation Pharmacy has completed the medication reconciliation. PT NOT ADHERENT TO MEDS. PT AND SPOUSE UNCLEAR OF WHAT MEDS PT TAKING. USED CLAIM HISTORY THROUGH MED BOX TO COMPLETE MED REC.
[2023-08-16 19:22] VITALS: BP 181/93; PULSE 91; RESP 17; TEMP 36.7; O2SAT 98
[2023-08-16 19:29] VITALS: BP 181/83; PULSE 84; RESP 18; O2SAT 98
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
[2023-08-16] MEDS: Metoprolol Succinate ER 100 MG TAB.ER.24H 200 MG PO (19:57)
[2023-08-16] MEDS: Losartan Potassium 50 MG TABLET 100 MG PO (19:57)
[2023-08-16] MEDS: clonazePAM 0.5 MG TABLET PO (19:57)
[2023-08-16] MEDS: Enoxaparin Sodium 40 MG/0.4 ML SYRINGE SUBCUT (19:57)
--- NOTE | 2023-08-16 20:14 | PC.NURSE ---
MRI screening form complete, faxed
[2023-08-16] MEDS: Atorvastatin Calcium 80 MG TABLET PO (21:12)
[2023-08-16] MEDS: cloNIDine HCL 0.1 MG TABLET PO (21:12)
[2023-08-16] MEDS: amLODIPine Besylate 10 MG TABLET PO (21:12)
[2023-08-16 22:06] VITALS: BP 163/92; PULSE 87; RESP 20; TEMP 36.7; O2SAT 98
[2023-08-16 23:34] VITALS: BP 153/90; PULSE 76; RESP 18; TEMP 36.4; O2SAT 98
--- NOTE | 2023-08-16 23:35 | MHC.EDTECH ---
Addendum entered by Sherine Montoya 08/16/23 23:36: piter-care given,and complete bed change. patient is resting and has a bed assigned at this time. Original Note: This tech took over care of pateint at 2300,hourly rounds and vitals completed. Patietn was incont. of a extra large amount of urine,patient was cleaned,peri0
[2023-08-17] VITALS (7 sets, daily range): BP systolic 130–170; BP diastolic 71–87; PULSE 60–77; RESP 18–20; TEMP 36.1–36.4; O2SAT 96–98; BMI 25.6
[2023-08-17] MEDS: 0.9 % Sodium Chloride Flush 3 ML SYRINGE IVFLUSH ×3 (01:57→23:32)
[2023-08-17 07:57] LABS: Glucose, Whole Blood 112 mg/dL (60-115)
[2023-08-17 08:12] LABS: Anion Gap 13 (12-20); Blood Urea Nitrogen 16 mg/dL (9-16); Calcium 9.1 mg/dL (8.4-10.2); Carbon Dioxide 23 mmol/L (22-29); Chloride 108 mmol/L (96-108); Creatinine Clr Calc Pharmacy 80.8; Estimated Glomerular Filt Rate > 60; Glucose Random 109 mg/dL (60-115); Potassium 3.9 mmol/L (3.3-5.1); Sodium 140 mmol/L (135-145)
[2023-08-17] MEDS: Aspirin Enteric Coated 81 MG TABLET.DR PO (08:44)
[2023-08-17] MEDS: PARoxetine HCL 40 MG TABLET PO (08:44)
[2023-08-17] MEDS: Metoprolol Succinate ER 100 MG TAB.ER.24H 200 MG PO (08:44)
[2023-08-17] MEDS: Losartan Potassium 50 MG TABLET 100 MG PO (08:44)
[2023-08-17] MEDS: hydroCHLOROthiazide 25 MG TABLET PO (08:44)
[2023-08-17] MEDS: cloNIDine HCL 0.1 MG TABLET PO ×2 (08:45→11:49)
--- NOTE | 2023-08-17 09:06 | PM.NEUROCN ---
History of Present Illness Data of Consult Service Date: 08/17/23 Primary Care Provider: Ricardo Farley MD HPI Reason for consult: Left-sided weakness 58 years old woman with underlying history of hypertension and diabetes who was in usual state of health when she developed left-sided weakness. She said that this happened at 15:00 yesterday but according to initial note, she had reported that this started when she woke up yesterday. Also, there was a reported episode by her when he found her unresponsive for about a minute and use rubbing alcohol to wake her up. Apparently she had no recollection of that episode. Her tox screen was negative when there was no obvious reason for such episode that was detected. She was not known to have seizure disorder. Her initial imaging did not reveal any obvious acute lesion. Review of Systems Review of Systems: No recent cold or flu-like illness or headache PMFSH Past Medical History Medical History Fibroid History of depression High blood pressure Diabetes Surgical History Surgical History Hx of appendectomy Social History Social History Household Members: Spouse Housing: Apartment Do you presently have visiting nurse or other home services: No Patient Tobacco Use Status: Former Tobacco user Quit Date: 07/17/23 Smoked in Last 30 Days: No Use of substances other than those prescribed or required for medical reasons: No Currently Displaying Signs/Symptoms of Drug Intoxication Withdrawal: No Have you been hit, kicked, punched, or otherwise hurt by someone within the past year? If so, by whom?: No Do you feel safe in your current relationship?: Yes Is there a partner from a previous relationship who is making you feel unsafe now?: No Are you made to feel afraid or neglected: No Faith Healthcare Practices: [facility] Advance Directives: No Advance Directives Information Provided: No Do you have thoughts of harming others: None Do you have a plan to hurt others: No Plan Recently lost weight without trying: Yes How much weight loss: 2-13 pounds Eating poorly because of decreased appetite: Yes Nutrition screen score: 4 Nutrition Risks: No Nutritional Risk Patient : No Current occupational status: unemployed 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 Meds Allergies Allergy/AdvReac Type Severity Reaction Status Date / Time No Known Allergies Allergy Verified 07/05/23 15:04 Active Medications: Current Medications Acetaminophen (Acetaminophen 325 Mg Tablet) 650 mg PO Q6H PRN PRN Reason: Pain, Mild (Pain Scale 1-3) Amlodipine Besylate (Amlodipine Besylate 10 Mg Tablet) 10 mg PO BEDTIME [facility]; Protocol Last Admin: 08/16/23 21:12 Dose: 10 mg Aripiprazole (Aripiprazole 20 Mg Tablet) 20 mg PO DAILY [facility] Aspirin (Aspirin Enteric Coated 81 Mg Tablet.Dr) 81 mg PO DAILY [facility] Last Admin: 08/17/23 08:44 Dose: 81 mg Atorvastatin Calcium (Atorvastatin Calcium 80 Mg Tablet) 80 mg PO BEDTIME [facility] Last Admin: 08/16/23 21:12 Dose: 80 mg Benzonatate (Benzonatate 100 Mg Capsule) 100 mg PO TID PRN PRN Reason: Cough Clonazepam (Clonazepam 0.5 Mg Tablet) 0.5 mg PO BID PRN PRN Reason: Anxiety Last Admin: 08/16/23 19:57 Dose: 0.5 mg Clonidine HCl (Clonidine Hcl 0.1 Mg Tablet) 0.1 mg PO BID [facility]; Protocol Last Admin: 08/17/23 08:45 Dose: 0.1 mg Docusate Sodium (Docusate Sodium 100 Mg Capsule) 100 mg PO DAILY PRN PRN Reason: Constipation Doxepin HCl (Doxepin Hcl 25 Mg Capsule) 50 mg PO BEDTIME PRN PRN Reason: insomnia Enoxaparin Sodium (Enoxaparin Sodium 40 Mg/0.4 Ml Syringe) 40 mg SUBCUT Q24H NATHNA Last Admin: 08/16/23 19:57 Dose: 40 mg Hydrochlorothiazide (Hydrochlorothiazide 25 Mg Tablet) 25 mg PO DAILY [facility] Last Admin: 08/17/23 08:44 Dose: 25 mg Insulin Human Lispro (Insulin Lispro 100 Unit/Ml 3 Ml Vial) 0 unit SUBCUT QIDACHS [facility]; Protocol Last Admin: 08/17/23 08:40 Dose: Not Given Losartan Potassium (Losartan Potassium 50 Mg Tablet) 100 mg PO DAILY [facility]; Protocol Last Admin: 08/17/23 08:44 Dose: 100 mg Melatonin (Melatonin 3 Mg Tablet) 6 mg PO BEDTIME PRN PRN Reason: Insomnia Metoprolol Succinate (Metoprolol Succinate Er 100 Mg Tab.Er.24h) 200 mg PO DAILY [facility]; Protocol Last Admin: 08/17/23 08:44 Dose: 200 mg Ondansetron HCl (Ondansetron Hcl 4 Mg/2 Ml Vial) 4 mg IVPUSH Q8H PRN PRN Reason: Nausea and Vomiting Paroxetine HCl (Paroxetine Hcl 40 Mg Tablet) 40 mg PO DAILY [facility] Last Admin: 08/17/23 08:44 Dose: 40 mg Sodium Chloride (0.9 % Sodium Chloride Flush 3 Ml Syringe) 3 ml IVFLUSH QSHIFT [facility] Last Admin: 08/17/23 08:45 Dose: 3 ml Zolpidem Tartrate (Zolpidem Tartrate 5 Mg Tablet) 5 mg PO BEDTIME PRN PRN Reason: Insomnia Home Medications Medication Instructions Recorded Confirmed Last Taken Type blood sugar diagnostic (FreeStyle #10 ea 03/14/22 09/17/22 Unknown History Lite Strips) lancets 28 gauge (FreeStyle #100 ea 03/14/22 Unknown History Lancets) losartan 100 mg tablet 100 mg PO DAILY 03/14/22 08/16/23 Unknown History amlodipine 10 mg tablet 10 mg PO BEDTIME 08/16/23 08/16/23 Unknown History aripiprazole 20 mg tablet 20 mg PO DAILY 08/16/23 08/16/23 Unknown History atorvastatin 40 mg tablet 40 mg PO BEDTIME 08/16/23 08/16/23 Unknown History chlorthalidone 25 mg tablet 25 mg PO DAILY 08/16/23 08/16/23 Unknown History clonazepam 0.5 mg tablet 0.5 mg PO BID PRN Anxiety 08/16/23 08/16/23 Unknown History clonidine HCl 0.1 mg tablet 0.1 mg PO BID 08/16/23 08/16/23 Unknown History doxepin 50 mg capsule 50 mg PO BEDTIME PRN insomnia 08/16/23 08/16/23 Unknown History dulaglutide 0.75 mg/0.5 mL 0.75 mg subcut QWEEK 08/16/23 08/16/23 Unknown History subcutaneous pen injector (Trulicity) empagliflozin 5 mg-metformin ER 1 tab PO BIDWM 08/16/23 08/16/23 Unknown History 1,000 mg tablet,extended release 24 hr (Synjardy XR) fexofenadine 180 mg tablet 180 mg PO DAILY PRN allergies 08/16/23 08/16/23 Unknown History melatonin 5 mg tablet 10 mg PO BEDTIME insomnia 08/16/23 08/16/23 Unknown History metoprolol succinate 200 mg 200 mg PO DAILY 08/16/23 08/16/23 Unknown History tablet,extended release 24 hr paroxetine HCl 40 mg tablet 40 mg PO DAILY 08/16/23 08/16/23 Unknown History triamcinolone acetonide 0.1 % 1 appl topical BID 08/16/23 08/16/23 Unknown History topical ointment zolpidem 10 mg tablet 10 mg PO BEDTIME PRN Insomnia 08/16/23 08/16/23 Unknown History Physical Exam Vital Signs: Vital Signs: Last Vital Signs Temp 97.1 F 08/17/23 07:29 Pulse 73 08/17/23 07:29 Resp 20 08/17/23 07:29 BP 170/84 H 08/17/23 07:29 Pulse Ox 97 08/17/23 07:29 O2 Del Method Room Air 08/17/23 07:29 BMI result Body Mass Index 25.6 Neuro: Other: She is alert and awake with normal spontaneity of speech fluency comprehension and affect. When asked how she was feeling, she stated she was doing very well like she was 16 years old. Affect was normal. Visual rudolph are full., there was mild left-sided central type of facial weakness. There was no pronator drift. Jmeutz-kx-dpag testing was normal. Deep tendon reflexes were trace to absent with flexor plantars. There was no obvious focal arm or leg weakness. Speech was normal. Results Labs 08/16/23 16:24 08/17/23 06:52 Labs: Short CBC 08/16/23 Range/Units 16:24 WBC 8.1 (4.8-10.8) X10*3/uL Hgb 16.5 H (12.0-16.0) g/dl Hct 49.2 H (37.0-47.0) % Plt Count 321 D (160-400) X10*3/uL BMP 08/16/23 08/17/23 16:24 06:52 Sodium 142 140 Potassium 3.2 L D 3.9 D Chloride 114 H 108 Carbon Dioxide 19 L 23 BUN 16 16 Creatinine 0.67 0.78 Calcium 7.2 L D 9.1 D Liver Function 08/16/23 Range/Units 16:24 Total Bilirubin 0.5 (0.0-1.0) mg/dL Direct Bilirubin 0.1 (0.0-0.5) mg/dL AST 18 (5-31) U/L ALT 20 (0-31) U/L Alkaline Phosphatase 80 (39-117) U/L Albumin 3.2 L (3.5-5.0) g/dL Head CT revealed a moderate size left basal ganglia area chronic ischemic infarction. There was no obvious right-sided lesion. CTA of brain and neck revealed itde-vw-nagyderq multiple areas of atherosclerotic intracranial stenotic disease. A tiny aneurysm was also detected. EKG revealed sinus rhythm. Assessment and Plan (1) Cerebral infarction: Qualifiers: Cerebral infarction mechanism: thrombosis Precerebral and cerebral artery: unspecified cerebral artery Qualified Code(s): I63.30 - Cerebral infarction due to thrombosis of unspecified cerebral artery Status: Acute 58 years old woman with quite uncontrolled hypertension and diabetes came to hospital with new onset of left-sided weakness. According to her and the family weakness lasted few minutes. Family also reported an episode of unresponsiveness that lasted for about a minute. Her examination revealed mild left-sided central type facial weakness. Her imaging revealed a chronic left basal ganglia area ischemic infarction but no obvious right-sided lesion. CTA revealed multiple areas of aonj-dh-ejsdmxfz atherosclerotic stenotic lesion. Her hemoglobin and hematocrit were high while she was not dehydrated. She probably has a small right hemispheric ischemic infarction. Initially, symptoms reportedly lasted for few minutes and there was no obvious deficit, which implied no indication for intravenous tPA or similar type of treatment. She probably has tendency for microvascular ischemic disease and also intracranial atherosclerotic disease. Mainstay of management is blood pressure control, statin to bring her LDL below 50, and anti-platelet agent. In this regard I would suggest starting her on baby aspirin and clopidogrel 75 mg daily for 3 months and then stopping clopidogrel. Proper education is needed and close follow-up with primary care physician to manage her blood pressure. I also recommend repeating her H&H to see if that is still high. If it is, it might require further investigation as hyperviscosity is another risk factor for stroke. Procedures Date of Service Date of Service: 08/17/23
[2023-08-17] MEDS: Midazolam HCl/PF 2 MG/2 ML VIAL IVPUSH (10:10)
--- NOTE | 2023-08-17 11:04 | P.PNIM_ITS ---
Subjective Subjective Date of Service: 08/17/23 Interval History: Seen and evaluated this morning Denies weakness or numbness able to ambulate steadily no recurrence of weakness incident Review of Systems Review of Systems: Yes all other systems are reviewed and are negative Physical Exam 2 Vital Signs: Vital Signs: Last Vital Signs Temp 97.1 F 08/17/23 07:29 Pulse 73 08/17/23 07:29 Resp 20 08/17/23 07:29 BP 170/84 H 08/17/23 07:29 Pulse Ox 97 08/17/23 07:29 O2 Del Method Room Air 08/17/23 07:29 BMI result Body Mass Index 25.6 Const: Other: Constitutional : Awake, interactive, not in distress Neck : Normal inspection, Supple Cardiovascular : RRR, no JVP, no lower extremity edema Respiratory : good bilateral air entry, no crackles, wheezes or rhonchi Gastrointestinal: soft, lax, Normal bowel sounds, Non tender Skin : Warm, Dry Neurological : Alert & oriented x3, No focal deficit , CN 2-12 within normal Objective Data Active Medications Acetaminophen (Acetaminophen 325 Mg Tablet) 650 mg PO Q6H PRN PRN Reason: Pain, Mild (Pain Scale 1-3) Amlodipine Besylate (Amlodipine Besylate 10 Mg Tablet) 10 mg PO BEDTIME [facility]; Protocol Last Admin: 08/16/23 21:12 Dose: 10 mg Documented By: GREG Aripiprazole (Aripiprazole 20 Mg Tablet) 20 mg PO DAILY [facility] Aspirin (Aspirin Enteric Coated 81 Mg Tablet.) 81 mg PO DAILY [facility] Last Admin: 08/17/23 08:44 Dose: 81 mg Documented By: LIBAN Atorvastatin Calcium (Atorvastatin Calcium 80 Mg Tablet) 80 mg PO BEDTIME [facility] Last Admin: 08/16/23 21:12 Dose: 80 mg Documented By: GREG Benzonatate (Benzonatate 100 Mg Capsule) 100 mg PO TID PRN PRN Reason: Cough Clonazepam (Clonazepam 0.5 Mg Tablet) 0.5 mg PO BID PRN PRN Reason: Anxiety Last Admin: 08/16/23 19:57 Dose: 0.5 mg Documented By: GREG Clonidine HCl (Clonidine Hcl 0.1 Mg Tablet) 0.1 mg PO BID [facility]; Protocol Last Admin: 08/17/23 08:45 Dose: 0.1 mg Documented By: LIBAN Docusate Sodium (Docusate Sodium 100 Mg Capsule) 100 mg PO DAILY PRN PRN Reason: Constipation Doxepin HCl (Doxepin Hcl 25 Mg Capsule) 50 mg PO BEDTIME PRN PRN Reason: insomnia Enoxaparin Sodium (Enoxaparin Sodium 40 Mg/0.4 Ml Syringe) 40 mg SUBCUT Q24H [facility] Last Admin: 08/16/23 19:57 Dose: 40 mg Documented By: GREG Hydrochlorothiazide (Hydrochlorothiazide 25 Mg Tablet) 25 mg PO DAILY [facility] Last Admin: 08/17/23 08:44 Dose: 25 mg Documented By: LIBAN Insulin Human Lispro (Insulin Lispro 100 Unit/Ml 3 Ml Vial) 0 unit SUBCUT QIDACHS [facility]; Protocol Last Admin: 08/17/23 08:40 Dose: Not Given Documented By: LIBAN Non-Admin Reason: No Insulin Coverage Losartan Potassium (Losartan Potassium 50 Mg Tablet) 100 mg PO DAILY [facility]; Protocol Last Admin: 08/17/23 08:44 Dose: 100 mg Documented By: LIBAN Melatonin (Melatonin 3 Mg Tablet) 6 mg PO BEDTIME PRN PRN Reason: Insomnia Metoprolol Succinate (Metoprolol Succinate Er 100 Mg Tab.Er.24h) 200 mg PO DAILY [facility]; Protocol Last Admin: 08/17/23 08:44 Dose: 200 mg Documented By: LIBAN Ondansetron HCl (Ondansetron Hcl 4 Mg/2 Ml Vial) 4 mg IVPUSH Q8H PRN PRN Reason: Nausea and Vomiting Paroxetine HCl (Paroxetine Hcl 40 Mg Tablet) 40 mg PO DAILY [facility] Last Admin: 08/17/23 08:44 Dose: 40 mg Documented By: LIBAN Sodium Chloride (0.9 % Sodium Chloride Flush 3 Ml Syringe) 3 ml IVFLUSH QSHIFT [facility] Last Admin: 08/17/23 08:45 Dose: 3 ml Documented By: LIBAN Zolpidem Tartrate (Zolpidem Tartrate 5 Mg Tablet) 5 mg PO BEDTIME PRN PRN Reason: Insomnia Labs 08/16/23 16:24 08/17/23 06:52 Labs: Laboratory Results - last 24 hr 08/16/23 08/16/23 08/16/23 16:24 17:11 17:33 MCV 84.4 MCH 28.3 MCHC 33.5 RDW 13.0 Plt Count 321 D MPV 8.7 L Immature Gran % (Auto) 0.4 Neut % (Auto) 49.6 Lymph % (Auto) 40.8 H [place] % (Auto) 7.2 Eos % (Auto) 1.6 Baso % (Auto) 0.4 Lymph # (Auto) 3.3 [place] # (Auto) 0.6 Eos # (Auto) 0.1 Baso # (Auto) 0.0 Abs Immat Gran (auto) 0.03 Absolute Neuts (auto) 4.0 Absolute Nucleated RBC 0.000 Nucleated RBC % (auto) 0.0 Hold Purple Top SEE NOTE PT 10.5 L INR 0.9 Anion Gap 12 Estim Creat Clear Calc 97.3 Estimated GFR > 60 POC Glucose Random Glucose 118 H Estimat Average Glucose Hemoglobin A1c % Calcium 7.2 L D Magnesium 1.6 Total Bilirubin 0.5 Direct Bilirubin 0.1 AST 18 ALT 20 Alkaline Phosphatase 80 Troponin I High Sens < 2.7 Total Protein 6.2 L Albumin 3.2 L Triglycerides Cholesterol LDL Cholesterol, Calc HDL Cholesterol Hold Red Top See Note Urine Opiates Screen Not Detected Urine Fentanyl Screen Not Detected Ur Barbiturates Screen Not Detected Ur Phencyclidine Scrn Not Detected Ur Amphetamines Screen Not Detected U Benzodiazepines Scrn Not Detected Urine Cocaine Screen Not Detected U Marijuana (THC) Screen Not Detected Ethyl Alcohol < 10 COVID-19 ([facility]) Negative COVID-19 Clin Com See Note 08/16/23 08/17/23 08/17/23 18:04 06:52 07:31 MCV MCH MCHC RDW Plt Count MPV Immature Gran % (Auto) Neut % (Auto) Lymph % (Auto) [place] % (Auto) Eos % (Auto) Baso % (Auto) Lymph # (Auto) [place] # (Auto) Eos # (Auto) Baso # (Auto) Abs Immat Gran (auto) Absolute Neuts (auto) Absolute Nucleated RBC Nucleated RBC % (auto) Hold Purple Top PT INR Anion Gap 13 Estim Creat Clear Calc 80.8 Estimated GFR > 60 POC Glucose 112 Random Glucose 109 Estimat Average Glucose 111 Hemoglobin A1c % 5.5 Calcium 9.1 D Magnesium Total Bilirubin Direct Bilirubin AST ALT Alkaline Phosphatase Troponin I High Sens Total Protein Albumin Triglycerides 455 H Cholesterol 241 H LDL Cholesterol, Calc TNP HDL Cholesterol 42 Hold Red Top Urine Opiates Screen Urine Fentanyl Screen Ur Barbiturates Screen Ur Phencyclidine Scrn Ur Amphetamines Screen U Benzodiazepines Scrn Urine Cocaine Screen U Marijuana (THC) Screen Ethyl Alcohol COVID-19 ([facility]) COVID-19 Clin Com Assessment and Plan (1) Left-sided weakness: Status: Acute (2) Acute hypokalemia: Status: Acute (3) Hypertension, uncontrolled: Status: Acute (4) Hypertensive urgency: Status: Acute Plan Pt is a 58-year-old Citizen Of [place]-speaking female with a PMH significant for?HTN, HLD, cyu-blxbzgh-erqebiikd type 2 diabetes, GERD, and mood disorder who presents to the ED with?left-sided weakness and heaviness. Patient states that when she woke up this morning the left side of her face and upper extremity felt ?heavy?. Pt will be admitted to the hospital under observation for treatment and further evaluation of possible TIA. Left-sided weakness and syncope reesolved, no recurrence of symptoms CT of head showing chronic infarct of left lateral ventricle but no acute intracranial abnormality MRI Pending aspirin 81 mg atorvastatin to 80 mg daily Lipid panel Neurology consult PT/OT evaluation Monitor on telemetry Hypokalemia resolved Follow BMP Hypertensive urgency BP remains elevated Continue home meds Increase Clonidine to 0.2 mg bid Monitor BP Ruv-cqgghiu-zeoqenyhy type 2 diabetes SSI, diabetic diet Full Code DVT Prophylaxis: Lovenox Patient be admitted to the hospital under observation for further workup of left-sided weakness concerning for TIA. Quality Stroke Does the patient have a stroke diagnosis?: No Reason for No Anti-thrombotic by Day Two: Contraindicated (NIH 0 at time of presentation) VTE Prior VTE?: No VTE Risk Level:: Medical - moderate - high VTE Device Contraindication: Treatment Not Indicated VTE Drug Contraindication: N/A - Med Ordered
[2023-08-17] MEDS: ARIPiprazole 20 MG TABLET PO (11:49)
[2023-08-17 12:28] LABS: Glucose, Whole Blood 143 mg/dL (60-115)
[2023-08-17 16:26] LABS: Glucose, Whole Blood 147 mg/dL (60-115)
[2023-08-17] MEDS: Enoxaparin Sodium 40 MG/0.4 ML SYRINGE SUBCUT (17:29)
[2023-08-17 19:45] LABS: Glucose, Whole Blood 125 mg/dL (60-115)
[2023-08-17] MEDS: Atorvastatin Calcium 80 MG TABLET PO (20:02)
[2023-08-17] MEDS: amLODIPine Besylate 10 MG TABLET PO (20:03)
[2023-08-17] MEDS: cloNIDine HCL 0.2 MG TABLET PO (20:03)
[2023-08-18 03:15] VITALS: BP 119/72; PULSE 62; RESP 20; TEMP 36.2; O2SAT 98
[2023-08-18 06:18] LABS: Anion Gap 13 (12-20); Blood Urea Nitrogen 27 mg/dL (9-16); Calcium 9.4 mg/dL (8.4-10.2); Carbon Dioxide 22 mmol/L (22-29); Chloride 106 mmol/L (96-108); Creatinine Clr Calc Pharmacy 67.8; Estimated Glomerular Filt Rate > 60; Glucose Random 119 mg/dL (60-115); Sodium 137 mmol/L (135-145)
[2023-08-18 07:08] VITALS: BP 139/77; PULSE 64; RESP 16; TEMP 36.8; O2SAT 99
[2023-08-18 07:16] LABS: Glucose, Whole Blood 153 mg/dL (60-115)
[2023-08-18 07:43] LABS: Glucose, Whole Blood 124 mg/dL (60-115)
[2023-08-18] MEDS: hydroCHLOROthiazide 25 MG TABLET PO (08:31)
[2023-08-18] MEDS: ARIPiprazole 20 MG TABLET PO (08:31)
[2023-08-18] MEDS: Losartan Potassium 50 MG TABLET 100 MG PO (08:31)
[2023-08-18] MEDS: cloNIDine HCL 0.2 MG TABLET PO (08:31)
[2023-08-18] MEDS: Metoprolol Succinate ER 100 MG TAB.ER.24H 200 MG PO (08:31)
[2023-08-18] MEDS: Aspirin Enteric Coated 81 MG TABLET.DR PO (08:31)
[2023-08-18] MEDS: 0.9 % Sodium Chloride Flush 3 ML SYRINGE IVFLUSH (08:31)
[2023-08-18] MEDS: PARoxetine HCL 40 MG TABLET PO (08:31)
--- NOTE | 2023-08-18 09:09 | MHC.CM.PN ---
CM met with Patient at bedside and addressed SANCHEZ with her with the assist of a [facility] [place](original SANCHEZ was given to Patient and a copy has been placed on the chart). Patient lives in an apartment with a Roommate, who assist with paying the rent. 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 CM has initiated and will follow for dc planning.Patient's Daughter, who is presently in [place] is the HCP and the PCP is Dr. Farley
--- NOTE | 2023-08-18 10:49 | MHC.CM.PN ---
Patient us medically cleared for dc to home today, self care.
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
[2023-08-18 11:35] LABS: Glucose, Whole Blood 109 mg/dL (60-115)
[2023-08-18] MEDS: Clopidogrel Bisulfate 75 MG TABLET PO (11:57)
[2023-08-18 12:00] VITALS: BP 134/65; PULSE 73; RESP 16; TEMP 36.6; O2SAT 99
== END 2023-08-18 13:06 | disposition home or self-care (01) ==
LOC: HO.ED 19:26 → HO.EDOVER 19:41 → HO.IMC 23:00
PROVIDERS: Admitting Provider Student in an Organized Health Care Education/Training Program; Emergency Provider Emergency Medicine; PCP Internal Medicine; Visit Provider Student in an Organized Health Care Education/Training Program
DX: G45.9 Transient cerebral ischemic attack, unspecified (principal); G81.94 Hemiplegia, unspecified affecting left nondominant side; I16.0 Hypertensive urgency; R53.1 Weakness; R29.810 Facial weakness; I10 Essential (primary) hypertension; E11.9 Type 2 diabetes mellitus without complications; E87.6 Hypokalemia; E78.5 Hyperlipidemia, unspecified; R55 Syncope and collapse; Z11.52 Encounter for screening for COVID-19
CPT/HCPCS: 36415; 70450; 70496; 70498; 70551; 80048; 80061; 80076; 80307; 82947; 83036; 83735; 84484; 85025; 85610; 87635; 93005; 96361; 96372; 96374; 97165; 99222; 99285; J1650; J2250; Q9957; Q9967

== ENCOUNTER → 2023-08-16 16:27 | Outpatient (BNV) | payer MEDICAID, SELFPAY | PROVIDERS: Admitting Provider Student in an Organized Health Care Education/Training Program; Emergency Provider Emergency Medicine; PCP Internal Medicine; Visit Provider Internal Medicine Cardiovascular Disease | DX: R94.31 Abnormal electrocardiogram [ECG] [EKG] (principal) | CPT/HCPCS: 93010 ==

== ENCOUNTER → 2023-08-16 18:52 | Outpatient (BNV) | payer MEDICAID, SELFPAY | PROVIDERS: Admitting Provider Student in an Organized Health Care Education/Training Program; Emergency Provider Emergency Medicine; PCP Internal Medicine; Visit Provider Student in an Organized Health Care Education/Training Program | DX: R53.1 Weakness (principal); E87.6 Hypokalemia; I10 Essential (primary) hypertension; I16.0 Hypertensive urgency; G45.9 Transient cerebral ischemic attack, unspecified | CPT/HCPCS: 99222; 99232; 99238 ==

== ENCOUNTER → 2023-08-16 18:52 | Outpatient (BNV) | payer MEDICAID, SELFPAY | PROVIDERS: Admitting Provider Student in an Organized Health Care Education/Training Program; Emergency Provider Emergency Medicine; PCP Internal Medicine; Visit Provider Psychiatry & Neurology Neurology | DX: I63.30 Cerebral infarction due to thrombosis of unspecified cerebral artery (principal) | CPT/HCPCS: 99223 ==

== ENCOUNTER 2023-09-09 16:00 | Outpatient (REF) | payer SELFPAY ==
[2023-09-09 18:08] LABS: TSH reflex Free T4 1.19 uIU/mL (0.32-4.0)
== END 2023-09-09 16:01 | disposition home or self-care (01) ==
LOC: HO.HHCL 16:00
PROVIDERS: Visit Provider Internal Medicine
DX: I10 Essential (primary) hypertension (principal)
CPT/HCPCS: 36415; 84443

== ENCOUNTER 2024-01-21 10:27 | Outpatient (AMB) | payer MEDICAID, SELFPAY ==
--- NOTE | 2024-01-21 10:38 | HO.NEPHOV_ITS ---
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 She is known to have hypertension and diabetes for some time. She checks her blood pressure and blood sugar every day at home. Her blood pressures are better ever since her amlodipine dose has been increased recently. She claims to be compliant with her medications. She denies eating excess salt in the food. She continues to be a smoker. She is on multiple blood sugar lowering medications and blood sugar has been well controlled lately. She denies any retinopathy, proteinuria, renal dysfunction, hypokalemia, hypercalcemia, headache, new onset weakness, weight gain, palpitation, orthostatic symptoms, tachycardia. She denies chest pain, shortness of breath, paroxysmal nocturnal dyspnea, orthopnea, pedal edema or urinary symptoms. She has history of CVA. Her renal functions had been at baseline. 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 Review of Systems Const All systems reviewed & are unremarkable except as noted in HPI and below Physical Exam Vital Signs: Last Vital Signs Pulse 69 01/21/24 10:40 BP 124/90 H 01/21/24 10:40 Pulse Ox 98 01/21/24 10:40 Oxygen Delivery Method Room Air 01/21/24 10:40 BMI result Body Mass Index 26.0 Const General: comfortable and no acute distress Orientation/consciousness: patient oriented x3 HEENT Head: Yes normocephalic Mouth: Normal oral and palatal mucosa present Eyes EOM: EOMs intact bilaterally Neck Neck: Yes supple Resp Auscultation: clear to auscultation bilaterally Cardio Jugular venous distension: no JVD Rate: regular rate GI Palpation (GI): Soft to palpation Auscultation: normal bowel sounds General: Yes no CVA tenderness Back/Spine/Pelvis Back: no CVA tenderness Skin General skin exam: no rashes or lesions noted Neuro General: patient oriented x3 and moves all extremities Extrem General: Yes no pedal edema Results Reviewed Nephrology Results: Hgb 16.5 g/dl (12.0-16.0) H 08/16/23 WBC 8.1 X10*3/uL (4.8-10.8) 08/16/23 Plt Count 321 X10*3/uL (160-400) 08/16/23 Sodium 137 mmol/L (135-145) 08/18/23 Potassium 4.0 mmol/L (3.3-5.1) 08/18/23 Chloride 106 mmol/L (96-108) 08/18/23 Carbon Dioxide 22 mmol/L (22-29) 08/18/23 BUN 27 mg/dL (9-16) H 08/18/23 Creatinine 0.93 mg/dL (0.5-1.4) 08/18/23 Calcium 9.4 mg/dL (8.4-10.2) 08/18/23 Assessment & Plan Assessment & Plan (1) High blood pressure: Code(s): I10 - Essential (primary) hypertension Category: Medical Qualifiers: Hypertension type: primary hypertension Qualified Code(s): I10 - Essential (primary) hypertension Plan Opal has longstanding hypertension and is on multiple antihypertensive medications. She monitors her blood pressure closely at home now. Her blood pressure is currently at goal. She does not consume excess sodium in the diet. She is not gaining weight. She is a smoker. She is on statins. She has history of CVA. She is not known to have any hypokalemia, retinopathy, hypercalcemia, uncontrolled thyroid disorders or sleep apnea. I asked her to bring her blood pressure monitor at the next office visit. I plan to check renin, aldosterone, TSH, cortisol, metanephrines and do a Doppler of her renal arteries. I suspect she has vascular disease causing her resistant hypertension given history of CVA. Her blood pressure was at goal during this office visit. Her renal functions have been at baseline. She should continue lifestyle modifications. Time spent for the patient encounter, data retrieval, documentation and talking to family 62 minutes. Follow-up given. Orders: Orders TSH reflex Free T4 Today I10 - Essential (primary) hypertension Aldosterone Today I10 - Essential (primary) hypertension Renin Today I10 - Essential (primary) hypertension Cortisol Random Today I10 - Essential (primary) hypertension Aldost/Renin Today I10 - Essential (primary) hypertension Metanephrines, Plasma Today I10 - Essential (primary) hypertension US renal doppler Today I10 - Essential (primary) hypertension US renal BI Today I10 - Essential (primary) hypertension Coding Level of Care Code New Pt Level 5 (16807) Diagnoses Primary hypertension I10 Hypertension type: primary hypertension
[2024-01-21 10:40] VITALS: BP 124/90; PULSE 69; O2SAT 98; BMI 26.0
== END 2024-01-21 11:13 | disposition home or self-care (01) ==
PROVIDERS: PCP Internal Medicine; Referring Provider Internal Medicine; Visit Provider Internal Medicine Nephrology
DX: I10 Essential (primary) hypertension (principal)
CPT/HCPCS: 99205

== ENCOUNTER → 2024-01-21 10:27 | Outpatient (BNVA) | payer MEDICAID, SELFPAY | PROVIDERS: PCP Internal Medicine; Referring Provider Internal Medicine; Visit Provider Internal Medicine Nephrology | DX: I10 Essential (primary) hypertension (principal) | CPT/HCPCS: 99202 ==

== ENCOUNTER 2024-01-26 13:50 | Outpatient (AMB) | payer MEDICAID, SELFPAY ==
[2024-01-26 13:53] VITALS: BP 140/82; PULSE 67; BMI 26.2
--- NOTE | 2024-01-26 13:53 | A.OFFVIS_ITS ---
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 Required: Yes Body Stylist Name: hiram [id number] casys Allergies No Known Allergies Allergy (Verified 01/26/24 13:55) Medication List - Last Reconciled 01/26/24 by Zoe Saleh NP-C amlodipine 10 mg PO DAILY aripiprazole 20 mg PO DAILY aspirin 81 mg PO DAILY atorvastatin 40 mg PO BEDTIME blood sugar diagnostic (FreeStyle Lite Strips) As directed chlorthalidone 25 mg PO DAILY clonazepam 0.5 mg PO BID PRN clonazepam 0.5 mg PO BID PRN clonidine HCl 0.2 mg See Protocol PO BID doxepin 50 mg PO BEDTIME PRN dulaglutide (Trulicity) 0.75 mg subcut QWEEK empagliflozin-metformin 5-1,000 mg ER (Synjardy XR) 1 tab PO BIDWM fexofenadine 180 mg PO DAILY PRN gabapentin 300 mg PO BEDTIME lancets (FreeStyle Lancets) As directed losartan 100 mg PO DAILY melatonin 5 mg PO BEDTIME PRN metoprolol succinate ER 200 mg PO DAILY paroxetine HCl 40 mg PO DAILY zolpidem 10 mg PO BEDTIME PRN HPI 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 Today she presents for cardiology consultation. She tells me she has no known cardiac history. She denies chest discomfort at rest or with activity. No shortness of breath, PND, orthopnea or edema. No lightheadedness, presyncope, syncope, falls. She has never had syncope in the past. No known family history of heart disease. She tells me she smokes 4 cigarettes a day and has done that amount for many years. She reports good activity tolerance. She follows with Dr. Little for Nephrology. 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 Review of Systems Const All systems reviewed & are unremarkable except as noted in HPI and below ENT Denies dizziness Card Denies chest pain, Denies chest pain at rest, Denies chest pain with activity, Denies rapid heart rate, Denies pedal edema, Denies edema, Denies leg edema, Denies lightheadedness, Denies palpitations, Denies dyspnea, Denies dyspnea on exertion and Denies orthopnea Resp Denies cough, Denies dyspnea and Denies dyspnea on exertion GI Denies hematochezia and Denies change in stool character Musc Denies abnormal gait, Denies limited range of motion, Denies muscle cramps, Denies muscle weakness, Denies numbness, Denies radiating pain into limb, Denies stiffness and Denies tingling Neuro Denies abnormal gait, Denies dizziness, Denies numbness and Denies tingling Endo Denies palpitations Physical Exam Vital Signs: Last Vital Signs Pulse 67 01/26/24 13:53 BP 140/82 H 01/26/24 13:53 BMI result Body Mass Index 26.2 Const General: cooperative, healthy appearing, comfortable and no acute distress Orientation/consciousness: patient oriented x3 Neck Neck: Yes normal visual inspection and Yes no JVD Resp Effort & Inspection: normal respiratory effort Auscultation: clear to auscultation bilaterally, no crackles, no rales, no rhonchi and no wheezes Cardio Jugular venous distension: no JVD Rate: regular rate Rhythm: regular rhythm Heart sounds: S1 normal heart sound present, S2 normal heart sound present, no murmurs and no rubs Neuro General: patient oriented x3 Extrem General: Yes normal to inspection and No no pedal edema Psych Appearance: grossly normal Mental Status: mental status grossly normal Speech and movement: Normal speech and movement present Assessment & Plan Assessment & Plan (1) Abnormal EKG: Code(s): R94.31 - Abnormal electrocardiogram [ECG] [EKG] Category: Medical Plan: Referred to Cardiology for evaluation of abnormal EKG. EKG done 08/19/2023 shows sinus rhythm with sinus arrhythmia, septal Q-wave present, rate 87, normal PA, QRS and QTC intervals. Prior EKG does not state septal Q-wave but has similar appearance to the V2 lead tracing. She denies any known cardiac history. She has no reports of anginal sounding symptoms. She has cardiac risk factors of hypertension, hyperlipidemia, smoking, diabetes. Will check an echocardiogram to assess for structural heart disease. Will check a exercise nuclear stress test to evaluate for any ischemia or prior infarct. Cardiology follow-up in 6-8 weeks, sooner if needed. Signs and symptoms of angina reviewed. Emergency care if ever needed for symptoms. (2) High blood pressure: Code(s): I10 - Essential (primary) hypertension Category: Medical Qualifiers: Hypertension type: primary hypertension Qualified Code(s): I10 - Essential (primary) hypertension Plan: History of hypertension. Follows with Nephrology, Dr. Little. Blood pressure slightly elevated today at 140/82, recheck done by me, 138/80. She continues on amlodipine, chlorthalidone, losartan, metoprolol. She tells me she has an upcoming visit with Dr. Little. At this time will continue on current med management. Low-salt diet reviewed. (3) DMII (diabetes mellitus, type 2): Code(s): E11.9 - Type 2 diabetes mellitus without complications Category: Medical Plan: Hemoglobin A1c goal less than 7. Follows with PCP. (4) Smoking: Code(s): F17.200 - Nicotine dependence, unspecified, uncomplicated Category: Social Hx Plan: Smokes 4 cigarettes daily. The benefits of smoking cessation reviewed. Plan Time spent on chart review, documentation, intravenous assessment Orders: Orders CA echo transthoracic complete 01/26/24 F17.200 - Nicotine dependence, unspecified, uncomplicated, I10 - Essential (primary) hypertension, R94.31 - Abnormal electrocardiogram [ECG] [EKG] CA stress test 01/26/24 F17.200 - Nicotine dependence, unspecified, uncomplicated, I10 - Essential (primary) hypertension, R94.31 - Abnormal electrocardiogram [ECG] [EKG] NM cardiolite stress test 01/26/24 F17.200 - Nicotine dependence, unspecified, uncomplicated, I10 - Essential (primary) hypertension, R94.31 - Abnormal electrocardiogram [ECG] [EKG] Coding Level of Care Code New Pt Level 4 (44657) Diagnoses Abnormal EKG R94.31 Primary hypertension I10 Hypertension type: primary hypertension DMII (diabetes mellitus, type 2) E11.9 Smoking F17.200 Time Spent (min) 30
== END 2024-01-26 14:19 | disposition home or self-care (01) ==
PROVIDERS: PCP Internal Medicine; Visit Provider Nurse Practitioner Family
DX: R94.31 Abnormal electrocardiogram [ECG] [EKG] (principal); I10 Essential (primary) hypertension; E11.9 Type 2 diabetes mellitus without complications; F17.200 Nicotine dependence, unspecified, uncomplicated
CPT/HCPCS: 99204

== ENCOUNTER → 2024-01-26 13:50 | Outpatient (BNVA) | payer MEDICAID, SELFPAY | PROVIDERS: PCP Internal Medicine; Visit Provider Nurse Practitioner Family | DX: I10 Essential (primary) hypertension (principal); R94.31 Abnormal electrocardiogram [ECG] [EKG]; E78.5 Hyperlipidemia, unspecified; F17.210 Nicotine dependence, cigarettes, uncomplicated; E11.9 Type 2 diabetes mellitus without complications | CPT/HCPCS: 99212 ==

== ENCOUNTER 2024-01-29 08:46 | Outpatient (REF) | payer MEDICAID, SELFPAY ==
--- NOTE | ~2024-01-29 | US_ITS ---
EXAMINATION: ULTRASOUND RENAL WITH DOPPLER CLINICAL INFORMATION: Hypertension. COMPARISON: CT abdomen and pelvis dated 10/26/2021. TECHNIQUE: Real-time grayscale, color Doppler, and duplex Doppler evaluation of the kidneys and renal vasculature was performed. FINDINGS: RENAL MEASUREMENTS: Right: 10.7 x 4.6 x 4.3 cm (Sag x AP x TV) Left: 12.8 x 5.8 x 4.4 cm (Sag x AP x TV) The renal parenchyma appears normal. No hydronephrosis or nephrolithiasis. DOPPLER INTERROGATION: Aorta: 93.8 cm/sec Right Main Renal Artery: Proximal: 172.7 cm/sec Mid: 101.0 cm/sec Distal: 77.2 cm/sec Left Main Renal Artery: Proximal: 125.0 cm/sec Mid: 161.4 cm/sec Distal: 67.5 cm/sec Renal-Aortic Ratio (RAR): Right: 1.8 Left: 1.3 Bilateral upper pole, interpolar and lower pole [segmental] arteriolar resistive indices are within normal limits. Bilateral upper pole, interpolar and lower pole [segmental] arteriolar pulse doppler waveforms are unremarkable, with uniformly rapid upstrokes and no parvus et tardus configuration. US/US renal doppler IMPRESSION: No hemodynamically significant bilateral renal artery stenosis is seen.
--- NOTE | ~2024-01-29 | US_ITS ---
EXAMINATION: ULTRASOUND RENAL WITH DOPPLER CLINICAL INFORMATION: Hypertension. COMPARISON: CT abdomen and pelvis dated 10/26/2021. TECHNIQUE: Real-time grayscale, color Doppler, and duplex Doppler evaluation of the kidneys and renal vasculature was performed. FINDINGS: RENAL MEASUREMENTS: Right: 10.7 x 4.6 x 4.3 cm (Sag x AP x TV) Left: 12.8 x 5.8 x 4.4 cm (Sag x AP x TV) The renal parenchyma appears normal. No hydronephrosis or nephrolithiasis. DOPPLER INTERROGATION: Aorta: 93.8 cm/sec Right Main Renal Artery: Proximal: 172.7 cm/sec Mid: 101.0 cm/sec Distal: 77.2 cm/sec Left Main Renal Artery: Proximal: 125.0 cm/sec Mid: 161.4 cm/sec Distal: 67.5 cm/sec Renal-Aortic Ratio (RAR): Right: 1.8 Left: 1.3 Bilateral upper pole, interpolar and lower pole [segmental] arteriolar resistive indices are within normal limits. Bilateral upper pole, interpolar and lower pole [segmental] arteriolar pulse doppler waveforms are unremarkable, with uniformly rapid upstrokes and no parvus et tardus configuration. US/US renal BI IMPRESSION: No hemodynamically significant bilateral renal artery stenosis is seen.
== END 2024-01-29 08:47 | disposition home or self-care (01) ==
LOC: HO.US 08:46
PROVIDERS: PCP Internal Medicine; Visit Provider Internal Medicine Nephrology
DX: I10 Essential (primary) hypertension (principal)
CPT/HCPCS: 76775; 93975

== ENCOUNTER 2024-03-02 13:03 | Outpatient (AMB) | payer MEDICAID, SELFPAY ==
--- NOTE | 2024-03-02 13:06 | MHC.OFFVIS ---
Vital Signs 03/02/24 13:11 Height 5 ft 6 in Weight 160 lb 14.999 oz BMI 26.0 BP 142/86 H Intake Visit Reasons: condyloma acuminatum/Referral Filter Changing Technician Required: Yes Filter Changing Technician Language: Marketing Finance Specialist Services: Filter Changing Technician Present (in person) Filter Changing Technician Name: Ivonne JIMENES Information Interpreted: non-clinical & clinical Shipping Hand: Shipping Hand Present (Ivonne JIMENES) Accompanied by: Self / Same As Patient Allergies No Known Allergies Allergy (Verified 01/26/24 13:55) Post menopausal: Yes HPI Comments Details: Presenting referred from primary care physician regarding multiple bilateral vulvar lesions. The patient 1st noticed is vulvar lesion 6 months ago. Last co testing and Last mammogram? 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 Review of Systems Const All systems reviewed & are unremarkable except as noted in HPI and below Physical Exam Vital Signs: Last Vital Signs BP 142/86 H 03/02/24 13:11 BMI result Body Mass Index 26.0 General: Yes no CVA tenderness External Female Exam: normal appearance of the urethra and other (Right 0.5 cm bilobed lesions, left 4 vulvar lesion 0.3 cm each) Speculum Exam - Vagina: normal appearance of the vagina, normal palpation, no lesions and no masses Speculum Exam - Cervix: normal appearance of the cervix, normal palpation, no lesions, no masses and nontender Bimanual exam- vagina & uterus: normal bimanual exam, normal palpation, uterine size normal, normal palpation, uterine shape normal, No Cervical tenderness present and non-tender Bimanual Exam- Adnexa, other: normal adnexae Back/Spine/Pelvis Back: no CVA tenderness Assessment & Plan Assessment & Plan (1) Vulvar lesion: Comment: Right lesion bilobed 0.5 cm Left 4 lesions 0.3 cm each Code(s): N90.89 - Other specified noninflammatory disorders of vulva and perineum Category: Medical Plan: Co testing done, screening mammogram ordered Discussed with the patient the finding on pelvic exam showing right lesion that is bilobed 0.5cm in size and a left 4 lesions 0.3 cm each. Recommended vulvar lesion biopsy. Instructions given the patient to schedule a biopsy within 2 weeks Orders: Orders MM tomosynthesis screening BI Today Z12.31 - Encounter for screening mammogram for malignant neoplasm of breast Coding Level of Care Code New Pt Level 3 (16904) Diagnoses Vulvar lesion N90.89
[2024-03-02 13:11] VITALS: BP 142/86; BMI 26.0
== END 2024-03-02 13:55 | disposition home or self-care (01) ==
PROVIDERS: PCP Internal Medicine; Referring Provider Internal Medicine; Visit Provider Obstetrics & Gynecology
DX: N90.89 Other specified noninflammatory disorders of vulva and perineum (principal)
CPT/HCPCS: 99203

== ENCOUNTER 2024-03-02 13:03 | Outpatient (REF) | payer MEDICAID, SELFPAY ==
[2024-03-04 10:54] LABS: HPV mRNA E6/E7 Not Detected (Not Detected)
== END 2024-03-02 13:04 | disposition home or self-care (01) ==
LOC: HO.LNP 13:03
PROVIDERS: PCP Internal Medicine; Visit Provider Obstetrics & Gynecology
DX: R10.2 Pelvic and perineal pain (principal); N90.89 Other specified noninflammatory disorders of vulva and perineum
CPT/HCPCS: 87624; 88175; 99202

== ENCOUNTER 2024-03-23 15:11 | Outpatient (REF) | payer MEDICAID, SELFPAY | END 2024-03-23 15:12 | disposition home or self-care (01) | LOC: HO.LNP 15:11 | PROVIDERS: PCP Internal Medicine; Visit Provider Obstetrics & Gynecology | DX: A63.0 Anogenital (venereal) warts (principal) | CPT/HCPCS: 56605; 56606; 88305 ==

== ENCOUNTER 2024-03-23 15:11 | Outpatient (AMB) | payer MEDICAID, SELFPAY ==
--- NOTE | 2024-03-23 15:15 | MHC.OFFVIS ---
Vital Signs 03/23/24 15:22 Height 5 ft 6 in Weight 160 lb 14.999 oz BMI 26.0 Intake Visit Reasons: lesion biopsy Family Resource Management Professor Required: Yes Family Resource Management Professor Language: Body Shop Mechanic Services: Family Resource Management Professor Present (in person) Family Resource Management Professor Name: Ivonne JIMENES Information Interpreted: non-clinical & clinical Face Worker: Face Worker Present (Ivonne JIMENES) Accompanied by: Self / Same As Patient Allergies No Known Allergies Allergy (Verified 03/23/24 15:35) HPI Comments Details: Presenting for vulvar biopsies of perineal lesions PFSH Medical History Cerebral infarction Hypertension, uncontrolled Fibroid History of depression High blood pressure Diabetes Surgical History Hx of tubal ligation Hx of section Hx of appendectomy Family History Mother HTN (hypertension) Thrombosis Father Colon cancer Social History Household Members: Spouse Housing: Apartment Do you presently have visiting nurse or other home services: No Patient Tobacco Use Status: Former Tobacco user service: No Current occupational status: unemployed 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 Preop dx: Right upper labia majora bilobed lesion and left upper labia majora lesion Op: Right upper labia majora bilobed lesion and left upper labia majora lesio excision Post op: Same Anesthesia: Lidocaine 1% 3cc used Procedure: Using betadine the area was scrubbed and draped in the usual manner. 3 cc of lidocaine was used for anesthesia at the Right upper labia majora bilobed lesion and left upper labia majora lesion area ; using scissors and pickup the Right upper labia majora bilobed lesion and left upper labia majora lesion were excised, Vicryl was used to approximate the edges. Pressure was used for hemostasis. The patient tolerated the procedure well. Discharge Instructions: The patient was instructed to schedule an appointment in 2 weeks for follow-up and to call if temp>100.4, area of the biopsy redness or pain, nausea/vomiting. This note was generated with a voice recognition program. Some errors may have been overlooked during the review of this note. Sometimes these errors may affect the content or meaning of a given sentence. 87723-Xilumz of Vulva/Perineum 33380-Dweomn of Vulva/Perineum, additional site Procedure code (CPT) selection complete Assessment & Plan Assessment & Plan (1) Vulvar lesion: Comment: Right lesion bilobed 0.5 cm Left 4 lesions 0.3 cm each Code(s): N90.89 - Other specified noninflammatory disorders of vulva and perineum Category: Medical Plan: Excisional biopsy of 1 right upper labia majora bilobed lesion and left upper labia majora lesion done, see procedure note Orders: Orders AMB EYE SURGEON Biopsy Today N90.89 - Other specified noninflammatory disorders of vulva and perineum Coding Level of Care Code Procedure Only Diagnoses Vulvar lesion N90.89 CPT Codes EYE SURGEON Biopsy - CPT: 22397-Xldrhy of Vulva/Perineum ([id number]) EYE SURGEON Biopsy - CPT: 41440-Uyqcrm of Vulva/Perineum, additional site ([id number])
[2024-03-23 15:22] VITALS: BMI 26.0
== END 2024-03-23 15:49 | disposition home or self-care (01) ==
LOC: HO.HWS 15:11
PROVIDERS: PCP Internal Medicine; Visit Provider Obstetrics & Gynecology
DX: N90.89 Other specified noninflammatory disorders of vulva and perineum (principal)
CPT/HCPCS: 56605; 56606

== ENCOUNTER 2024-04-21 10:14 | Outpatient (AMB) | payer MEDICAID, SELFPAY ==
[2024-04-21 10:23] VITALS: BP 178/90; PULSE 74; O2SAT 98; BMI 25.3
--- NOTE | 2024-04-21 10:23 | HO.NEPHOV_ITS ---
Vital Signs 04/21/24 10:23 Height 5 ft 6 in Weight 156 lb 8 oz BMI 25.3 BP 178/90 H Blood Pressure Location Rt brachial Position Sitting Pulse 74 Pulse Source Pulse Oximeter Pulse Oximetry (%) 98 Oxygen Delivery Method Room Air Intake Visit Reasons: Htn- Unable to reach/busy tone Project Specialist Required: Yes Project Specialist Language: Home Improvement Contractor Services: Project Specialist Offered & Declined ([facility] Project Specialist services refused. Pt accompanied by daughter.) Project Specialist Name: Antonieta- Daughter Accompanied by: Daughter Allergies No Known Allergies Allergy (Verified 04/21/24 10:26) HPI Comments Details: Opal was seen for follow up of resistant hypertension. She is known to have hypertension and diabetes for some time. She checks her blood pressure and blood sugar every day at home. Her blood pressures are better recently. She claims to be compliant with her medications. She denies eating excess salt in the food. She continues to be a smoker. She is on multiple blood sugar lowering medications and blood sugar has been well controlled lately. She denies any retinopathy, proteinuria, renal dysfunction, hypokalemia, hypercalcemia, headache, new onset weakness, weight gain, palpitation, orthostatic symptoms, tachycardia. She denies chest pain, shortness of breath, paroxysmal nocturnal dyspnea, orthopnea, pedal edema or urinary symptoms. She has history of CVA. 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 Review of Systems Const All systems reviewed & are unremarkable except as noted in HPI and below Physical Exam Vital Signs: Last Vital Signs Pulse 74 04/21/24 10:23 BP 178/90 H 04/21/24 10:23 Pulse Ox 98 04/21/24 10:23 Oxygen Delivery Method Room Air 04/21/24 10:23 BMI result Body Mass Index 25.3 Const General: comfortable and no acute distress Orientation/consciousness: patient oriented x3 HEENT Head: Yes normocephalic Mouth: Normal oral and palatal mucosa present Eyes EOM: EOMs intact bilaterally Neck Neck: Yes supple Resp Auscultation: clear to auscultation bilaterally Cardio Jugular venous distension: no JVD Rate: regular rate GI Palpation (GI): Soft to palpation Auscultation: normal bowel sounds General: Yes no CVA tenderness Back/Spine/Pelvis Back: no CVA tenderness Skin General skin exam: no rashes or lesions noted Neuro General: patient oriented x3 and moves all extremities Extrem General: Yes no pedal edema Results Reviewed Nephrology Results: Renal US 01/29/24 Assessment & Plan Assessment & Plan (1) Hypertension: Code(s): I10 - Essential (primary) hypertension Category: Medical Qualifiers: Hypertension type: primary hypertension Qualified Code(s): I10 - Essential (primary) hypertension Plan Opal has longstanding hypertension and is on multiple antihypertensive medications. She monitors her blood pressure closely at home now. Her blood pressure is currently at goal at home. She does not consume excess sodium in the diet. She is a smoker. She is on statins. She has history of CVA. She is not known to have any hypokalemia, retinopathy, hypercalcemia, uncontrolled thyroid disorders or sleep apnea. I asked her to bring her home blood pressure monitor . Doppler of her renal arteries did not show EUSEBIA. I suspect she has vascular disease causing her resistant hypertension given history of CVA. Her blood pressure was at goal during this office visit. She should continue lifestyle modifications. Follow-up given Coding Level of Care Code Est Pt Level 4 (49055) Diagnoses Primary hypertension I10 Hypertension type: primary hypertension
== END 2024-04-21 11:07 | disposition home or self-care (01) ==
LOC: HO.HKA 10:14
PROVIDERS: PCP Internal Medicine; Visit Provider Internal Medicine Nephrology
DX: I1A.0 Resistant hypertension (principal); E11.8 Type 2 diabetes mellitus with unspecified complications
CPT/HCPCS: 99214

== ENCOUNTER → 2024-04-21 10:14 | Outpatient (BNVA) | payer MEDICAID, SELFPAY | PROVIDERS: PCP Internal Medicine; Visit Provider Internal Medicine Nephrology | DX: I10 Essential (primary) hypertension (principal); F17.200 Nicotine dependence, unspecified, uncomplicated; Z79.899 Other long term (current) drug therapy; Z86.73 Personal history of transient ischemic attack (TIA), and cerebral infarction without residual deficits | CPT/HCPCS: 99212 ==

== ENCOUNTER 2024-05-04 10:10 | Outpatient (AMB) | payer MEDICAID, SELFPAY ==
[2024-05-04 10:10] VITALS: BMI 24.9
--- NOTE | 2024-05-04 10:10 | MHC.OFFVIS ---
Vital Signs 05/04/24 10:10 Height 5 ft 6 in Weight 154 lb 5.177 oz BMI 24.9 Intake Visit Reasons: Biopsy results Residential Real Estate Assistant Required: Yes Residential Real Estate Assistant Language: Mink Rancher Services: Residential Real Estate Assistant Present (in person) Residential Real Estate Assistant Name: Ivonne JIMENES Information Interpreted: non-clinical & clinical Bird Tender: Bird Tender Present Accompanied by: Daughter Allergies No Known Allergies Allergy (Verified 05/04/24 10:10) Post menopausal: Yes HPI Comments Details: Presenting for follow-up post vulvar biopsy, doing well with no complaints. The pathology showed the following: A. Labia majora, right upper lesion, shave biopsy: Condyloma acuminatum. B. Labia majora, left upper lesion, shave biopsy: Condyloma acuminatum. 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 Insructions given to the pt to call if not improved, any irrtations, apply x3/week at bed time and rinse very well in am for less than 16 weeks. Coding Level of Care Code Est Pt Level 3 (39178) Diagnoses Condyloma acuminata A63.0
== END 2024-05-04 10:37 | disposition home or self-care (01) ==
LOC: HO.HWS 10:10
PROVIDERS: PCP Internal Medicine; Visit Provider Obstetrics & Gynecology
DX: A63.0 Anogenital (venereal) warts (principal)
CPT/HCPCS: 99213

== ENCOUNTER → 2024-05-04 10:10 | Outpatient (BNVA) | payer MEDICAID, SELFPAY | PROVIDERS: PCP Internal Medicine; Visit Provider Obstetrics & Gynecology | DX: A63.0 Anogenital (venereal) warts (principal) | CPT/HCPCS: 99212 ==

== ENCOUNTER 2024-05-06 10:33 | Outpatient (REF) | payer MEDICAID, SELFPAY ==
[2024-05-06 14:22] LABS: TSH reflex Free T4 1.53 uIU/mL (0.32-4.0)
[2024-05-06 18:04] LABS: Cortisol Random 12.6 ug/dL
[2024-05-06 18:47] LABS: CT PCR NOT DETECTED (Not Detect.); NG PCR NOT DETECTED (Not Detect.)
[2024-05-07 08:05] LABS: Syphilis Screen Nonreactive (Nonreactive)
[2024-05-07 08:19] LABS: HIV AB/AG Nonreactive (Nonreactive); HIV Num 1 0.07 S/CO (0.00-0.99); ~HepC Num1 0.26 S/CO (0.00-0.79); ~Hepatitis C Antibody Nonreactive (Nonreactive)
[2024-05-13 16:38] LABS: Metanephrine, Free 29 pg/mL (<=57); Normetanephrines, Free 152 pg/mL (<=148); Total Metanephrine, Free 181 pg/mL (<=205)
[2024-05-14 16:44] LABS: Aldosterone/Renin Ratio 18.9 Ratio (0.9-28.9); Plasma Renin Activity 0.37 ng/mL/h (0.25-5.82); Renin 0.37 ng/mL/h (0.25-5.82)
== END 2024-05-06 10:34 | disposition home or self-care (01) ==
LOC: HO.HHCL 10:33
PROVIDERS: Internal Medicine Nephrology; Visit Provider Internal Medicine
DX: I10 Essential (primary) hypertension (principal); A63.0 Anogenital (venereal) warts
CPT/HCPCS: 36415; 82088; 82533; 83835; 84244; 84443; 86780; 86803; 87389; 87491; 87591

== ENCOUNTER 2024-06-30 11:51 | Outpatient (AMB) | payer MEDICAID, SELFPAY ==
--- NOTE | 2024-06-30 12:01 | HO.NEPHOV_ITS ---
Vital Signs 06/30/24 12:02 Height 5 ft 6 in Weight 151 lb 6 oz BMI 24.4 BP 150/100 H Blood Pressure Location Rt brachial Position Sitting Pulse 86 Pulse Source Pulse Oximeter Pulse Oximetry (%) 99 Oxygen Delivery Method Room Air Intake Visit Reasons: missed May appt Senior Director Finance Required: Yes Senior Director Finance Language: Cnmt Services: Senior Director Finance Present Senior Director Finance Name: Imelda [id number] Accompanied by: Self / Same As Patient Allergies No Known Allergies Allergy (Verified 06/30/24 12:01) HPI Comments Details: Opal was seen for follow up of resistant hypertension. She is known to have hypertension and diabetes for some time. She checks her blood pressure and blood sugar every day at home. Her blood pressures are better recently. She claims to be compliant with her medications. She denies eating excess salt in the food. She continues to be a smoker. She is on multiple blood sugar lowering medications and blood sugar has been well controlled lately. She denies any retinopathy, proteinuria, renal dysfunction, hypokalemia, hypercalcemia, headache, new onset weakness, weight gain, palpitation, orthostatic symptoms, tachycardia. She denies chest pain, shortness of breath, paroxysmal nocturnal dyspnea, orthopnea, pedal edema or urinary symptoms. She has history of CVA. 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 Review of Systems Const All systems reviewed & are unremarkable except as noted in HPI and below Physical Exam Vital Signs: Last Vital Signs Pulse 86 06/30/24 12:02 BP 150/100 H 06/30/24 12:02 Pulse Ox 99 06/30/24 12:02 Oxygen Delivery Method Room Air 06/30/24 12:02 BMI result Body Mass Index 24.4 Const General: comfortable and no acute distress Orientation/consciousness: patient oriented x3 HEENT Head: Yes normocephalic Mouth: Normal oral and palatal mucosa present Eyes EOM: EOMs intact bilaterally Neck Neck: Yes supple Resp Auscultation: clear to auscultation bilaterally Cardio Jugular venous distension: no JVD Rate: regular rate GI Palpation (GI): Soft to palpation Auscultation: normal bowel sounds General: Yes no CVA tenderness Back/Spine/Pelvis Back: no CVA tenderness Skin General skin exam: no rashes or lesions noted Neuro General: patient oriented x3 and moves all extremities Extrem General: Yes no pedal edema Results Reviewed Nephrology Results: No Data to Display Assessment & Plan Assessment & Plan (1) Hypertension: Code(s): I10 - Essential (primary) hypertension Category: Medical Qualifiers: Hypertension type: primary hypertension Qualified Code(s): I10 - Essential (primary) hypertension Plan Opal has longstanding hypertension and is on multiple antihypertensive medications. She monitors her blood pressure closely at home now. Her blood pressure is currently not at goal at home. She does not consume excess sodium in the diet. She is a smoker. She is on statins. She has history of CVA. She is not known to have any hypokalemia, retinopathy, hypercalcemia, uncontrolled thyroid disorders or sleep apnea. W/U has been negative including Doppler of her renal arteries which did not show [place]SEB[place]. I suspect she has vascular disease causing her resistant hypertension given history of CVA. I discontinued her Amlodipine and Nifedipine 30 mg daily. She should continue lifestyle modifications. Follow-up given Orders: Orders Blood Urea Nitrogen 1 Month I10 - Essential (primary) hypertension Creatinine 1 Month I10 - Essential (primary) hypertension Electrolytes 1 Month I10 - Essential (primary) hypertension Medications: New nifedipine ER 30 mg PO DAILY 30 tabs 6RF Coding Level of Care Code Est Pt Level 4 (30082) Diagnoses Primary hypertension I10 Hypertension type: primary hypertension
[2024-06-30 12:02] VITALS: BP 150/100; PULSE 86; O2SAT 99; BMI 24.4
== END 2024-06-30 12:13 | disposition home or self-care (01) ==
PROVIDERS: PCP Internal Medicine; Visit Provider Internal Medicine Nephrology
DX: I10 Essential (primary) hypertension (principal)
CPT/HCPCS: 99214

== ENCOUNTER → 2024-06-30 11:51 | Outpatient (BNVA) | payer MEDICAID, SELFPAY | PROVIDERS: PCP Internal Medicine; Visit Provider Internal Medicine Nephrology | DX: I10 Essential (primary) hypertension (principal) | CPT/HCPCS: 99212 ==

== ENCOUNTER → 2024-07-21 11:45 | Outpatient (BNV) | payer MEDICAID, SELFPAY | PROVIDERS: PCP Internal Medicine; Visit Provider Internal Medicine | DX: Z12.31 Encounter for screening mammogram for malignant neoplasm of breast (principal) | CPT/HCPCS: 77063; 77067 ==

== ENCOUNTER 2024-07-21 11:48 | Outpatient (REF) | payer MEDICAID, SELFPAY ==
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
--- OUTSIDE RECORDS SUMMARY | 2024-07-21 14:16 | XMS_ITS | Encounter Summary ---
Author Organization [facility] Address [address] [facility] [facility] [address] [place] [address] Care Team Providers Care Tester Compressed Gases Name Role Phone Ricardo Segovia MD Primary Care Provide r Joyce Quinonez RN Unavailable [phone] Reason for Visit * Reason Comments Med Refill Encounter Details Date Type Department Care Team (Special Care Hospital Contact Info) Description 12/29/2022 Refill [facility] [address] [place] [address] Ever Crisostomo FNP Primary insomnia Social History Tobacco Use Types Packs/Day Years Used Date Smoking Tobacco: Every Day Cigarettes 0.8 20 Passive Smoke Exposure: Current Smokeless Tobacco: Never Alcohol Use Standard Drinks/Week Comments Never 0 (1 standard drink = 0.6 oz pur e alcohol) Comments Unknown Sex and Gender Information Value Date Recorded Sex Assigned at Female 04/22/2022 10:17 AM EDT Legal Sex Female 10:17 AM EDT Gender Identity Female 04/22/2022 10:17 AM EDT Sexual Orientation Straight 04/22/2022 10 :17 AM EDT COVID-19 Exposure Response Date Recorded In the last 10 days, have yo u been in contact with someone who was confirmed or suspected to have Coronavirus/COVID-19? No / Unsure 12/16/2022 11:28 AM EDT documented as of this encounter Plan of Treatment Upcoming Encounters Date Type Department Care Team (Special Care Hospital Contact Info) Description 08/16/2024 11:30 AM EST Medication Management [facility] [address] [place] [address] Kath Goff PharmD [address] [place] [address] documented as of this encounter Goals Goal [...] both eyes without macular edema No Rose Hook PharmD Quit using tobacco (cigarettes, smokeless, etc) Tobacco Use Tobacco dependence No Rose Hook PharmD documented as of this encounter Visit Diagnoses Diagnosis Primary insomnia Persistent disorder of initiating or maintaining sleep documented in this encounter Additional Health Concerns Assessment Noted Time PHQ-9 Depression Total Score: 8 12/20/19 23 9:16 AM EDT documented as of this encounter Care Teams Tester Compressed Gases Relationship Specialty Start Date End Date Ricardo Segovia MD [address] [place] [address] PCP - General Internal Medicine 08/28/21 Joyce Quinonez RN [address] [place] [id number] [employer] Hab[employer] Resource SpecialistInsurance Claims Specialist 12/23/23 04/01/24 documented as of this encounter
--- OUTSIDE RECORDS SUMMARY | 2024-07-21 14:16 | XMS_ITS | Encounter Summary ---
Author Organization [employer] Address [address] [place] [address] Care Team Providers Care Faceter Name Role Phone Ricardo Segovia MD Primary Care Provide r Joyce Quinonez RN Unavailable [phone] Reason for Visit * Reason Onset Date Comments r/s f/u appt 02/12/2023 Encounter Details Date Type Department Care Team ([facility] st Contact Info) Description 02/12/[address] [facility] MEDICINE [address] [place] [address] Ricardo Segovia MD [address] [place] [address] r/s f/u appt Social History Tobacco Use Types Packs/Day Years [...] Access Q2 Not on file 02/20/2024 Comments Unknown Sex and Gender Information Value Date Recorded Sex Assigned at Female 04/22/2022 10:17 AM EDT Legal Sex Female 10:17 AM EDT Gender Identity Female 04/22/2022 10:17 AM EDT Sexual Orientation Straight 04/22/2022 10 :17 AM EDT documented as of this encounter Miscellaneous Notes * Telephone Encounter - Jaylen Thornton - 02/12/2023 11:53 AM EDT Tc from pt requesting to r/s Follow up about 4 weeks (around 02/11/2023) for HTN appt , Cupola Operator Insulation placed pt on RECALL for March. Please contact at [phone] documented in this encounter Plan of Treatment Upcoming Encounters Date Type Department Care Team (Late st Contact Info) Description 08/16/2024 11:30 AM EST Medication Management 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 No Rose Hook PharmD Quit using tobacco (cigarettes, smokeless, etc) Tobacco Use Tobacco dependence No Rose Hook PharmD documented as of this encounter Visit Diagnoses Not on filedocumented in this encounter Additional Health Concerns Assessment Noted Time PHQ-9 Depression Total Score: 8 12/20/19 23 9:16 AM EDT documented as of this encounter Care Teams Faceter Relationship Specialty Start Date End Date Ricardo Segvoia MD [address] [place] [id number] PCP - General Internal Medicine 08/28/21 Joyce Quinonez RN [address] [place] [phone] Cleaning HandymanStocking And Box Shop Supervisor 12/23/23 04/01/24 documented as of this encounter
--- OUTSIDE RECORDS SUMMARY | 2024-07-21 14:16 | XMS_ITS | Encounter Summary ---
Author Organization [employer] Address [address] [place] [address] Care Team Providers Care Diagnostics Tech Name Role Phone Ricardo Segovia MD Primary Care Provide r Encounter Details Date Type Department Care Team ([facility] Contact Info) Description 07/06/2024 Telephone [facility] MEDICINE [address] [place] [address] Ricardo Segovia MD [address] [place] [address] Social History Tobacco Use Types Packs/Day Years [...] encounter Miscellaneous Notes * Telephone Encounter - Trena Ferrara - 07/06/2024 10:27 AM EST Pharmacy is requesting an updated CDTM referral with a diagnosis of smoking cessation / tobacco dependence F17.200 This is to replace existing referral that no longer meets visit requirements. Pleasesend at your earliest convenience. Thank you! documented in this encounter Plan of Treatment Upcoming Encounters Date Type Department Care Team (Late st Contact Info) Description 08/16/2024 11:30 AM EST Medication Management [facility] MEDICINE [address] [place] [address] Kath Goff PharmD [address] [place] [address] documented as of this encounter Goals Goal Patient Goal Type Associated Problems Recent Progress Patient-Stated? Author Blood Pressure < 140/90 Blood Pressure 160/84(07/08 1:23 PM EST) No Rose Hook, Erik Short-term: Promote adherence to treatment regimen General [...] documented as of this encounter Care Teams Diagnostics Tech Relationship Specialty Start Date End Date Ricardo Segovia MD [address] [place] [address] PCP - General Internal Medicine 08/28/21 documented as of this encounter
--- OUTSIDE RECORDS SUMMARY | 2024-07-21 14:16 | XMS_ITS | Encounter Summary ---
Author Organization [employer] Address [address] [facility] [address] [place] [address] Care Team Providers Care Senior Bioinformatics Scientist Name Role Phone Ricardo Segovia MD Primary Care Provide r Reason for Visit * Reason Onset Date Comments Chart Prep 06/24/2024 Encounter Details Date Type Department Care Team ([facility] st Contact Info) Description 06/24/2024 Telephone [facility] MEDICINE [address] [place] [address] Ricardo Segovia MD [address] [place] [address] Chart Prep Social History Tobacco Use Types Packs/Day Years [...] encounter Miscellaneous Notes * Telephone Encounter - Oksana Ann MA - 06/24/2024 10:54 AM EST Chart Prep Labs: done Images: not applicable Vaccines due: Covid Due, Hep A Due, and Hep B Due Referrals: Neurology faxed request for notes in case pt kept appt on 06/02/2024. Screenings: Colonoscopy , Mammogram, Eye Exam, and Foot Exam Overdue care gaps: A1C, Glucose, Sbirt, PHQ-9, and Oral Health Chart prep for upcoming appt with Dr.Esparza das. LB documented in this encounter Plan of Treatment Upcoming Encounters Date Type Department Care Team (Late st Contact Info) Description 08/16/2024 11:30 AM EST Medication Management [facility] MEDICINE [address] [place] [address] Kath Goff, PharmD [address] [place] [address] documented as of this encounter Goals Goal [...] documented as of this encounter Care Teams Senior Bioinformatics Scientist Relationship Specialty Start Date End Date Ricardo Segovia MD [address] [place] [id number] PCP - General Internal Medicine 08/28/21 documented as of this encounter
--- OUTSIDE RECORDS SUMMARY | 2024-07-21 14:16 | XMS_ITS | Encounter Summary ---
Demographics Address [address] [facility] [address] [place] [address] Mobile Phone Home Phone Email Address Preferred Language es Marital Status Methodist Affiliation Unknown Race Other Race Ethnic Group or Author Organization [employer] Address [address] [facility] [address] [place] [address] Care Team Providers Care Tag Meter Operator Name Role Phone Ricardo Segovia MD Primary Care Provide r Joyce Quinonez RN Unavailable [phone] Reason for Visit * Reason Comments Med Refill Encounter Details Date Type Department Care Team ([facility] st Contact Info) Description 05/07/[address] [facility] MEDICINE [address] [place] [address] Ricardo Segovia MD [address] [place] [address] Essential hypertension Social History Tobacco Use Types Packs/Day Years Used Date Smoking Tobacco: Every Day Cigarettes 0.3 20 Passive Smoke Exposure: Current Smokeless Tobacco: Never Alcohol Use Standard Drinks/Week Comments Never 0 (1 standard drink = 0.6 oz pur e alcohol) Depression Answer Date Recorded Patient Health Questionnaire-9 Score 8 05/08/2023 Patient Health Questionnaire-9 Score 8 05/08/2023 Last PHQ-9: Questionnaire Data Not on file 1 07/08/2022 Housing Stability Answer Date Recorded What is your housing situation today? I have samm juan 03/30/[address] you li ve. Do you have problems with any of the following? Pests such as bugs, ants, or mice 03/30/2023 Food Insecurity Answer Date Recorded Within the [...] Answer Date Recorded Patient Health Questionnaire-2 Score 2 05/08/2023 Comments Unknown Sex and Gender Information Value [...] AM EST Medication Management [facility] MEDICINE [address] [place] [address] Kath Goff PharmD [address] [place] [address] documented as of this encounter Goals Goal [...] eyes without macular edema No Rose Hook, PharmElizabet Quit using tobacco (cigarettes, smokeless, etc) Tobacco Use Tobacco dependence No Rose Hook JoseD documented as of this encounter Visit Diagnoses Diagnosis Essential hypertension Unspecified essential hypertension documented in this encounter Additional Health Concerns Assessment Noted Time PHQ-9 Depression Total Score: 12 023 9:34 AM EDT documented as of this encounter Care Teams Tag Meter Operator Relationship Specialty Start Date End Date Ricardo Segovia MD [address] [place] [address] PCP - General Internal Medicine 08/28/21 Joyce Quinonez, ALAN [address] [place] [phone] OrientorLaboratory Operations Coordinator 12/23/23 04/01/24 documented as of this encounter
--- OUTSIDE RECORDS SUMMARY | 2024-07-21 14:16 | XMS_ITS | Clinical Summary ---
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 thoughts but no ideation. Previously he expressed interest in seeing a Psychotherapist, was referred to our [facility] clinician who referred her to [facility] and our Psychopharmacology clinic. Patient did not tolerate Fluoxetine 20 mg po daily and her symptoms did not improve despite Paxil 20 mg po daily ( This was discontinue by Nicole Hutchison back in May ) She was subsequently started on Trazodone 100 mg po qhs In the ER she was given 2 mg Ativan with good results. Today she tells me that she has yet to hear from a psychotherapist. Plan: Refer back to our [facility] clinician and Psychopharmacology clinic Pt denies any suicidal ideation. Encounters Date Type Department Care Team Description 07/08/2024 1:00 PM EST Office Visit [facility] [address] Ricardo Segovia MD Type 2 diabetes mellitus with both eyes [...] mellitus (CMS/HCC); Breast cancer screening by mammogram 07/08/2024 Telephone [facility] [address] [place] [address] Ricardo Segovia MD 07/08/2024 Telephone [facility] [address] [place] [address] Ricardo Segovia MD 07/08/2024 Telephone [facility] [address] [facility] [place] [address] Ricardo Segovia MD Referral 07/08/2024 Travel 07/06/2024 Telephone [facility] [address] [place] [address] Ricardo Segovia MD 06/29/2024 Telephone [facility] [address] [facility] [place] [address] Ricardo Segovia MD Referral 06/24/2024 Telephone [facility] [address] [facility] [place] [address] Ricardo Segovia MD Chart Prep 06/22/2024 Refill [facility] [address] [place] [address] Alicia Crawford MD 05/23/2024 Refill [facility] [address] [place] [address] Ricardo Segovia MD Essential hypertension 05/12/2024 Telephone [facility] [address] [place], [place] [phone] Ricardo Segovia MD 05/06/2024 Orders Only GENERIC EXTERNAL DATA DEPARTMENT Provider, Generic External Data 04/25/2024 Refill [facility] [address] [place] [address] Ricardo Segovia MD Recurrent major depressive episodes, mild (CMS/HCC) 04/23/2024 Refill [facility] [address] [place] [address] Ricardo Segovia MD from Last 3 Months Immunizations Name Administration Dates Next Due Influenza injectable quadrivalent preservative f ree 05/29/2023 Influenza, seasonal, injectable, preservative fr ee 03/11/2024 Moderna Covid-19 Vaccine 12+ 03/03/2021,02/04/20 21 Pneumococcal Conjugate PCV 20 11/12/2022 Tdap 11/12/2022 Zoster, Recombinant 01/14/2023,11/12/2022 Family History Medical History Relation Name Comments Cataracts Mother Relation Name Status Comments Mother Social History Tobacco Use Types Packs/Day Years Used Date Smoking Tobacco: Every Day Cigarettes Passive Smoke Exposure: Current Smokeless Tobacco: Never Tobacco Cessation:Ready to Q uit: Yes; Counseling Given: Yes Comments:As of 03/22/24 - smoking 2 cigarettes per day; down from prior [...] Orientation Straight 04/22/2022 10 :17 AM EDT Last Filed Vital Signs Vital Sign Reading [...] Mass Index 24.53 07/08/2024 12:55 PM EST Plan of Treatment Upcoming Encounters Date Type Department Care Team (Late st Contact Info) Description 08/16/2024 11:30 AM EST Medication Management [facility] [address] [place] [address] Kath Goff, PharmD [address] [place] [address] Health Maintenance Due Date Last Done Comments CT Colonography 1966 Colonoscopy 1966 Colorectal Cancer Screening 1966 FIT DNA/Cologuard 1966 FIT 1966 FOBT 1966 Sigmoidoscopy 1966 Diabetes: Foot Exam 1976 Alcohol/Substance Use Screening 1978 Hepatitis A Vaccines (1 of 2 - Risk 2-dose series) 1985 Hepatitis B Vaccines (1 of 3 - 19+ 3-dose series) 1985 Mammogram 2006 Diabetes: Urine Protein Screening 10/01/2023 09/30/2022, 10/04/2021 Eye Exam 01/17/2024 01/16/2023, 12/22, 01/16/2023, Additional history exists COVID-19 Vaccine ( season) 2024 08/31/2021, 03/03/2021, 02/03/2021 Depression Screening 07/10/2024 07/10/2023, 07/10/19 24 Lipid Panel 08/16/2024 08/16/2023, 04, 10/04/2021 Pap Smear 10/03/2024 10/03/2021 Diabetes: Hemoglobin A1C 10/06/2024 025, 03/11/2024, 08/16/2023, Additional history exists SDOH Screening 12/30/2024 12/31/2023 Tobacco Screening 03/22/2025 03/22/2024 Cervical Cancer Screening 10/03/2026 HPV/Cotest 10/03/2026 10/03/2021 DTaP/Tdap/Td Vaccines (2 - Td or Tdap) 11/12/2032 11/12/2022 RSV Patients and Patients Aged 60 years or older (1 - 1-dose 75+ series) 2041 Pneumococcal Vaccine: 50+ Years Completed 11/12/2022 Zoster Vaccines Completed 01/14/2023, 11/12/2022 Influenza Vaccine Completed 03/11/2024, 05/29/2023 HIV Screening Completed 05/06/2024, 10/04/2021 Hepatitis C Screening Completed 05/06/2024, 022 HIB Vaccines Aged Out No longer eligi ble based on patient's age to complete this topic HPV Vaccines Aged Out No longer eligi ble based on patient's age to complete this topic IPV Vaccines Aged Out No longer eligi ble based on patient's age to complete this topic Meningococcal Vaccine Aged Out No jeanette ariel eligible based on patient's age to complete this topic RSV under 20 months Aged Out No longe r eligible based on patient's age to complete this topic Rotavirus Vaccines Aged Out No longer eligible based on patient's age to complete this topic Goals Goal Patient Goal Type Associated Problems [...] etc) Tobacco Use Tobacco dependence No [place], Erik Procedures Procedure Name Priority Date/Time Associated Diagnosis Comments POCT GLYCATED HEMOGLOBIN, TOTAL Routine 07/08/2024 1:27 PM EST Type 2 diabetes mellitus with both eyes affected by mild nonproliferative retinopathy without macular edema, without long-term current use of insulin ([facility]) POCT GLUCOSE Routine 07/08/2024 1:27 PM EST Type 2 diabetes mellitus with both eyes affected by mild nonproliferative retinopathy without macular edema, without long-term current use of insulin ([facility]) ALDOSTERONE, LC/MS/MS Routine 05/06/2024 10:36 AM EST PLASMA RENIN ACTIVITY, LC/MS/MS Routine 05/06/2024 10:36 AM EST ALDOSTERONE/PLASMA RENIN ACTIVITY RATIO, LC/MS/MS Routine 05/06/2024 10:36 AM EST METANEPHRINES, FRACT, FREE, LC/MS/MS, PLASMA Routine 05/06/2024 10:36 AM EST CORTISOL RANDOM Routine 05/06/2024 10:36 AM EST TSH W/REFLEX TO FT4 Routine 05/06/2024 1 0:36 AM EST HIV 1/2 ANTIGEN/ANTIBODY, FOURTH GENERATION W/RFL Routine 05/06/2024 10:36 AM EST Condyloma acuminatum in female HEPATITIS C AB W/REFL TO HCV RNA, QN, PCR Routine 05/06/2024 10:36 AM EST Condyloma acuminatum in female SYPHILIS SCREEN Routine 05/06/2024 10:36 AM EST Condyloma acuminatum in female CHLAMYDIA/N. GONORRHOEAE RNA, TMA, UROGENITAL Routine 05/06/2024 10:36 AM EST Condyloma acuminatum in female LIPID PANEL, STANDARD Routine 08/16/2023 6:04 PM EST ALBUMIN, RANDOM URINE W/O CREATININE Routine 09/30/2022 9:46 AM EDT Type 2 diabetes mellitus without complication, without long-term current use of insulin ([facility]) THINPREP IMAGING PAP AND HPV MRNA E6/E7 WITH REFLEX TO HPV 16,18/45 Routine 10/03/2021 2:01 PM EDT from Last 3 Months or Most Recently Relevant to Health Maintenance Results * (ABNORMAL) POCT HGB A1C (07/08/2024 1:27 PM EST) Pathologist [facility] Hemoglobin A1C 7.0(A) 4.0 - 6.0 % QC Media Lot # [id number] Lot# Expiration Date , Blood 07/08/2024 1:27 PM EST Ricardo Anaya MD POINT OF CARE TEST EN TER/EDIT ORDERABLES Final Result * POCT Glucose (07/08/2024 1:27 PM EST) Pathologist [facility] Glucose Blood, POC 129 60 - 200 mg/dL QC Media Lot # [id number] Lot# Expiration Date ,025 Blood Capillary blood specimen / Unknown 07/08/2024 1:27 PM EST Ricardo Anaya MD POINT OF CARE TEST EN TER/EDIT ORDERABLES Final Result * (ABNORMAL) Metanephrines, Fractionated, Free, LC/MS/MS, Plasma (05/06/2024 10:36 AM EST) Pathologist [facility] Metanephrine, Free 29 <=57 pg/mL [facility] Comment:This test was develo ped and its analytical performancecharacteristics have been determined by [place]. It hasnot been cleared or approved by the U.S. Food and DrugAdministration. This assay has been validated pursuantto the CLIA regulations and is used for clinicalpurposes. Normetanephrine, Free 152(A) <=148 pg/mL [facility] Comment:This test was develo ped and its analytical performancecharacteristics have been determined by [employer] [place], [place]. It hasnot been cleared or approved by the U.S. Food and DrugAdministration. This assay has been validated pursuantto the CLIA regulations and is used for clinicalpurposes. Total, Free (MN+NMN) 181 <=205 pg/mL [facility] Comment: For additional information, please refer tohttp://education.DeYapa/faq/MetFractFree(This link is being provided for informational/educatioinformational/educational purposes only.)Elevations >4-fold upper reference range: stronglysuggestive of a pheochromocytoma(1).Elevations >1- 4-fold upper reference range:significant but not diagnostic, may be due tomedications or stress. Suggest running 24 hr urinefractionated metanephrines and/or serum Chromagranin Afor confirmation.Reference:(1)Hussein Ko et al, Plasma Chromogranin Aor Urine Fractionated Metanephrines Follow-Up TestingImproves the Diagnostic Accuracy of Plasma FractionatedMetanephrines for Pheochromocytoma. The Journal ofClinical Endocrinology # Metabolism 93(1), 91-95, 2007.This test was developed and its analytical performancecharacteristics have been determined by [employer] [place], [place]. It hasnot been cleared or approved by the U.S. Food and DrugAdministration. This assay has been validated pursuantto the CLIA regulations and is used for clinicalpurposes.THIS TEST WAS PERFORMED AT:[facility] [place], [place] ??[address]XZTNTLL W. MASON,MD,PHD 05/06/2024 10:3 6 AM EST 05/06/2024 1:19 PM EST us Generic External Data Provider LAB BLOOD ORDERAB LES Final Result [facility] [address] [place] [address] [phone] * Cortisol Random (05/06/2024 10:36 AM EST) Cortisol Random 12.6 ug/dL [facility] Comment:Reference Range*: Be fore 10 am 6.2-19.4 ug/dL After 5 pm 2.3-11.9 ug/dL*Please interpret above results accordingly.This test was performed using the Selby chemiluminescentmethod. Values obtained from different assay methods cannotbe used interchangeably.Patients receiving fludrocortisone, prednisolone orprednisone may show artificially elevated cortisol valuesdue to cross-reactivity. 05/06/2024 10:3 6 AM EST 05/06/2024 1:19 PM EST us Generic External Data Provider LAB BLOOD ORDERAB LES Final Result Performing Organization Address City/[facility]/ZIP Co de Phone Number [facility] [address] [place] [phone] * Syphilis Screen (05/06/2024 10:36 AM EST) Pathologist [facility] Syphilis Screen Nonreactive Nonreactive [facility] Blood 05/06/2024 10:3 6 AM EST 05/06/2024 1:19 PM EST us Ricardo Anaya MD LAB BLOOD ORDERABLES Final Result Performing Organization Address City/[facility]/ZIP Co de Phone Number [facility] [address] [place] [phone] * TSH with Reflex to Free T4 (05/06/2024 10:36 AM EST) Pathologist [facility] TSH reflex Free T4 1.53 0.32 - 4.0 uIU/mL [facility] 05/06/2024 10:3 6 AM EST 05/06/2024 1:19 PM EST us Generic External Data Provider LAB BLOOD ORDERAB LES Final Result Performing Organization Address City/[facility] Co de Phone Number [facility] [address] [place] [phone] * Aldosterone/Plasma Renin Activity Ratio, LC/MS/MS (05/06/2024 10:36 AM EST) Pathologist [facility] Aldosterone 7 see note ng/dL [facility] Comment:Unable to flag abnor mal result(s), please refer to reference range(s) below:Adult Reference Ranges for Aldosterone, LC/MS/MS: Upright 8:00 - 10:00 am < or = 28 ng/dL Upright 4:00 - 6:00 pm < or = 21 ng/dL Supine 8:00 - 10:00 am 3 - 16 ng/dLTHIS TEST WAS PERFORMED AT:[employer]/[employer] [id number] [place] [address]FJYCFVPJANA MARIO MD,PHD Plasma Renin Activity 0.37 0.25 - 5.82 ng/mL/h [facility] Aldosterone/Renin Ratio 18.9 0.9 - 28.9 Ratio [facility] Comment:This test was develo ped and its analytical performancecharacteristics have been determined by [employer] [place], [place]. It hasnot been cleared or approved by the U.S. Food and DrugAdministration. This assay has been validated pursuantto the CLIA regulations and is used for clinicalpurposes.THIS TEST WAS PERFORMED AT:[employer] [place] [address]ECKSWSHJANA MARIO MD,PHD 05/06/2024 10:3 6 AM EST 05/06/2024 1:19 PM EST us Generic External Data Provider LAB BLOOD ORDERAB LES Final Result [facility] [address] [place] [phone] * Hepatitis C Antibody with Reflex to HCV, RNA, Quantitative, Real-Time PCR (05/06/2024 10:36 AM EST) Pathologist [facility] Hepatitis C Antibody Nonreactive Nonreactive [facility] Comment:Antibodies to HCV no t detected; does not exclude early acuteHCV infection. Blood Venous blood specimen / Unknown 05/06/2024 10:36 AM EST 05/06/2024 1:19 PM EST us Ricardo Anaya MD LAB BLOOD ORDERABLES Final Result Performing Organization Address City/[facility]/ZIP Co de Phone Number [facility] [address] [place] [phone] * Aldosterone, LC/MS/MS (05/06/2024 10:36 AM EST) Pathologist [facility] Aldosterone, LC/MS/MS MIP [facility] 05/06/2024 10:3 6 AM EST 05/06/2024 1:19 PM EST us Generic External Data Provider LAB BLOOD ORDERAB LES Final Result Performing Organization Address [place]/[facility] Co de Phone Number [facility] [address] [place] [phone] * Chlamydia/N. Gonorrhoeae RNA, TMA, Urogenitial (05/06/2024 10:36 AM EST) [facility] CT PCR NOT DETECTED Not Detect. [facility] Comment:A not detected test result does not exclude the possibilityof infection because test results can be affected byimproper specimen collection, concurrent antibiotic therapy,or the number of organisms in the specimen which may bebelow the sensitivity of the test. As with many diagnostictests, results from the Xpert CT/NG assay should beinterpreted in conjunction with other laboratory andclinical data available to the clinician.Xpert CT/NG performance has not been evaluated in patientsless than 14 years of age. The assay should not be used forthe evaluationof suspected sexual abuse or for other medico-legalindications. Additional testing is recommended in anycircumstance when false positive or false negative resultscould lead to adverse medical, social or psychologicalconsequences. NG PCR NOT DETECTED Not Detect. [facility] Comment:A not detected test result does not exclude the possibilityof infection because test results can be affected byimproper specimen collection, concurrent antibiotic therapy,or the number of organisms in the specimen which may bebelow the sensitivity of the test. As with many diagnostictests, results from the Xpert CT/NG assay should beinterpreted in conjunction with other laboratory andclinical data available to the clinician.Xpert CT/NG performance has not been evaluated in patientsless than 14 years of age. The assay should not be used forthe evaluationof suspected sexual abuse or for other medico-legalindications. Additional testing is recommended in anycircumstance when false positive or false negative resultscould lead to adverse medical, social or psychologicalconsequences. Urine, Random 05/06/2024 10: 36 AM EST 05/06/2024 1:06 PM EST Narrative [facility] - 05/06/2024 6:47 PM EST Urine us Ricardo Anaya MD LAB MICROBIOLOGY - GE NERAL ORDERABLES Final Result [facility] [address] [place] [phone] * Plasma Renin Activity, LC/MS/MS (05/06/2024 10:36 AM EST) Plasma Renin Activity, LC/MS/MS 0.37 0.25 - 5.82 ng/mL/h [facility] Comment:This test was develo ped and its analytical performancecharacteristics have been determined by [employer] [place], [place]. It hasnot been cleared or approved by the U.S. Food and DrugAdministration. This assay has been validated pursuantto the CLIA regulations and is used for clinicalpurposes.THIS TEST WAS PERFORMED AT:[facility] [place] [address]LKPHIAWJANA MARIO MD,PHD 05/06/2024 10:3 6 AM EST 05/06/2024 1:26 PM EST us Generic External Data Provider LAB BLOOD ORDERAB LES Final Result [facility] [address] [place] [phone] [phone] * HIV-1/2 Antigen and Antibodies, Fourth Generation, with Reflexes (05/06/2024 10:36 AM EST) HIV AB/AG Nonreactive Nonreactive [facility] Comment:HIV-1 p24 Ag and/or HIV-1/HIV-2 Ab not detected.A test result that is nonreactive does not exclude thepossibility of exposure to or infection with HIV-1 and/orHIV-2. Nonreactive results in this assay for individualswith prior exposure to HIV-1 and/or HIV-2 may be due toantigen and antibody levels that are below the limit ofdetection of this assay.[employer] HIV Ag/Ab Combo assay result andsupplemental assay results should be interpreted inconjunction with the patient's clinical presentation,history and other laboratory results. If the results areinconsistent with clinical evidence, additional testing issuggested to confirm the result. Blood Venous blood specimen / Unknown 05/06/2024 10:36 AM EST 05/06/2024 1:19 PM EST us Ricardo Anaya MD LAB BLOOD ORDERABLES Final Result [facility] [address] [place] [phone] * (ABNORMAL) Lipid Panel, Standard (08/16/2023 6:04 PM EST) Triglycerides 455(H) <150 mg/dL [facility] Comment:Desirable Triglyceri de: less than 150 mg/dLBorderline High Triglyceride 150-199 mg/dLHigh Triglyceride: 200-499 mg/dLVery High Triglyceride: greater than or equal to 5OO mg/dL Cholesterol 241(H) <200 mg/dL [facility] Comment:Desirable Cholestero l: less than 200 mg/dLBorderline High Cholesterol: 200-239 mg/dLHigh Cholesterol: greater than 239 mg/dL LDL Cholesterol Calculated TNP <100 mg/dL [facility] Comment:Unable to calculate the LDL. The formula of Friedwald,Shine, and Abdulkadir is only valid if the triglycerides areless than 400 mg/dl. HDL Cholesterol 42 >40 mg/dL [facility] Comment:Desirable HDL: great er than 40 mg/dL Note: This HDL assay may give artificially low results in patients with liver disease. 08/16/2023 6:04 PM EST 08/16/2023 6:06 PM EST us Generic External Data Provider LAB BLOOD ORDERAB LES Final Result Performing Organization Address [place]/[facility]/ZIP Co de Phone Number [facility] [address] [place] [phone] [phone] * Albumin, Random Urine W/O Creatinine (09/30/2022 9:46 AM EDT) Albumin, Urine 4.9 See Note: mg/dL [facility] Comment: Reference Range: Reference Range Not established [facility] [employer] [facility] Comment: The ADA defines abnormalities in albumin excretion as follows: Albuminuria Category ? Result (mcg/mg creatinine) Normal to Mildly increased ?<30 Moderately increased ?30-299 Severely increased ?> OR = 300 The ADA recommends that at least two of three specimens collected within a 3-6 month period be abnormal before considering a patient to be within a diagnostic category. Urine Urine specimen obtained by clean catch procedure / Unknown 09/30/2022 9:46 AM EDT 09/30/2022 9:46 AM EDT Narrative [facility] - 10/01/2022 4:25 PM EDT FASTING:NO FASTING: NO us Ricardo Anaya MD LAB URINE ORDERABLES Final Result Performing Organization Address City/[facility]/ZIP Co de Phone Number [facility] [address], [place] [address] [facility] [phone] * THINPREP TIS PAP AND HPV mRNA E6/E7 WITH REFLEX TO HPV 16,18/45 (10/03/2021 2:01 PM EDT) Clinical Information: None given [facility] COMMENT SEE COMMENT [facility] Comment: EXPLANATORY NOTE: ? The Pap is a screening test for cervical cancer. It is ?? not a diagnostic test and is subject to false negative ?? and false positive results. It is most reliable when a ?? satisfactory sample, regularly obtained, is submitted ?? with relevant clinical findings and history, and when ?? the Pap result is evaluated along with historic and ?? current clinical information. ?? COMMENT: This Pap test has been evaluated with computer assisted technology. [facility] Cart Driver: SEE COMMENT [facility] Comment: DMM, CT(ASCP) CT screening location: [address] ??[phone] HPV nRNA E6/E7 Not Detected Not Detected [facility] Comment: Methodology: Engineering Designer-Mediated Amplification This assay detects E6/E7 viral messenger RNA (mRNA) from 14 high-risk HPV types (16,18,31,33,35,39,45,51,52,56,58,59,66,68). ? The analytical performance characteristics of this assay have been determined by [facility]. The modifications have not been cleared or approved by the FDA. This assay has been validated pursuant to the CLIA regulations and is used for clinical purposes. ?? For additional information, please refer to http://education.SEElogix.[employer]ilytics/faq/LYL694n9 (This link if provided for information/ educational purposes only.) Interpretation/Res ult: SEE COMMENT [facility] Comment: Negative for intraepithelial lesion or malignancy. Atrophic pattern; predominantly parabasal cells LMP: 53 YRS [facility] Prev. BX: NONE [facility]IV[facility] Prev. PAP: NONE [facility]IV[facility] SOURCE: None given [facility] Statement Of Adequacy: SATISFACTORY FOR EVALUATION [facility] 10/03/2021 2:01 PM EDT Mary Kay CNM LAB PATHOLOGY ORDERABLES Final Result [facility] [address] from Last 3 Months or Most Recently Relevant to Health Maintenance Insurance [facility] C3 HSN FULL Care Teams Film Crew Member Relationship Specialty Start Date End Date Ricardo Segovia MD [address] [place] [address] PCP - General Internal Medicine 08/28/21
--- OUTSIDE RECORDS SUMMARY | 2024-07-21 14:16 | XMS_ITS | Encounter Summary ---
Author Organization [employer] Address [address] 7t [place] [address] Care Team Providers Care Entry Level Recruiter Name Role Phone Ricardo Segovia MD Primary Care Provide r Encounter Details Date Type Department Care Team (Latest Contact Info) Description 07/08/2024 Travel Social History Tobacco Use Types Packs/Day Years [...] is your housing situation today? I have sammangelic juan 12/31/[address] you [...] Description 08/16/2024 11:30 AM EST Medication Management [facility] [address] [place] [address] Kath Goff PharmD 230 [place] [address] documented as of this encounter Goals Goal [...] documented as of this encounter Care Teams Entry Level Recruiter Relationship Specialty Start Date End Date Ricardo Segovia MD 230 [place] [address] PCP - General Internal Medicine 08/28/21 documented as of this encounter
--- OUTSIDE RECORDS SUMMARY | 2024-07-21 14:16 | XMS_ITS | Encounter Summary ---
Author Organization [employer] Address [address] [facility] 7t [place] [address] Care Team Providers Care Maintenance And Utilities Supervisor Name Role Phone Ricardo Segovia MD Primary Care Provide r Reason for Visit * Reason Onset Date Comments Referral 07/08/2024 Encounter Details Date Type Department Care Team ([facility] st Contact Info) Description 07/08/2024 Telephone [facility] MEDICINE [address] [place] [address] Ricardo Segovia MD 230 [place] [address] Referral Social History Tobacco Use Types Packs/Day Years [...] Telephone Encounter - Oksana Ann [place] - 07/08/2024 2:04 PM EST Contacted pt's daughter in regards to Cardiology referral and Mammogram. I expressed the importanceof being aware of the incoming phone calls she may receive in regards to scheduling these appointments. I explained the two tests that the patient will be going through which is an ECHO and a Stress Test. I stated that there could be a possibility that these tests are scheduled for the same day or that they might not. I had documented in the notes of the referral for the office that she will be referred to, for them to call Gsselda and not the patient. Giovani was very understanding and cooperative and expressed that she will pay attention to these phone calls since they are very important and the pt can not miss these. Lastly, I made it aware to Giovani that sent three lab orders and that the pt can come in at any time to get those completed. I also expressed this to the patient as well before she left her visit. Daughter's personal cell phone is now in the patients chart asprimary point of contact per the patients verbal consent and pcp's request for the sake of keeping up with her health. LB documented in this encounter Plan of Treatment Upcoming Encounters Date Type Department Care Team (Late st Contact Info) Description 08/16/2024 11:30 AM EST Medication Management [facility] MEDICINE [address] [place] [address] Kath Goff PharmD 230 [place] [address] documented as of this encounter Goals Goal [...] eyes without macular edema No Rose Hook PharmElizabet Quit using tobacco (cigarettes, smokeless, etc) Tobacco Use Tobacco dependence No Rose Hook PharmD documented as of this encounter Visit Diagnoses Not on filedocumented in this encounter Additional Health Concerns Assessment Noted Time PHQ-9 Depression Total Score: 8 07/10/19 24 9:25 AM EST documented as of this encounter Care Teams Maintenance And Utilities Supervisor Relationship Specialty Start Date End Date Ricardo Segovia MD 230 [place] [address] PCP - General Internal Medicine 08/28/21 documented as of this encounter
--- OUTSIDE RECORDS SUMMARY | 2024-07-21 14:16 | XMS_ITS | Encounter Summary ---
Author Organization [employer] Address [address] 7t [place] [address] Care Team Providers Care Stummel Selector Name Role Phone Ricardo Segovia MD Primary Care Provide r Encounter Details Date Type Department Care Team ([facility] Contact Info) Description 07/08/2024 Telephone [facility] MEDICINE 230 [place] [address] Ricardo Segovia MD [address] [place] [address] Social History Tobacco Use Types Packs/Day Years [...] Description 08/16/2024 11:30 AM EST Medication Management [facility] MED[facility]INE 230 [place] [address] Kath Goff PharmD [address] [place] [address] documented as of this encounter Goals Goal [...] 70 and 130 Result Component No Rose Hook, PharmD Keep fasting blood glucose between 70 and 130 Result Component 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
--- OUTSIDE RECORDS SUMMARY | 2024-07-21 14:16 | XMS_ITS | Encounter Summary ---
Author Organization [employer] [facility] Address [address] [place] [address] 7t [place] [address] Care Team Providers Care Furnace Converter Name Role Phone Ricardo Segovia MD Primary Care Provide r Joyce Quinonez RN Unavailable [phone] Encounter Details Date Type Department Care Team (Late st Contact Info) Description 06/07/2022 Orders Only [facility] [address] [place] [address] Mary Ellen Martines, RN Social History Tobacco Use Types Packs/Day Years Used Date Smoking Tobacco: Never Assessed Comments Unknown Sex and Gender Information Value [...] Description 08/16/2024 11:30 AM EST Medication Management [facility] [address] [place] [address] Kath Goff, JoseD [address] [place] [address] documented as of this encounter Visit Diagnoses Not on filedocumented in this encounter Care Teams Furnace Converter Relationship Specialty Start Date End Date Ricardo Segovia MD [address] [place] [address] PCP - General Internal Medicine 08/28/21 Joyce Quinonez RN [address] [place] [address] Internet ConsultantGuide Changer 12/23/23 04/01/24 documented as of this encounter
--- OUTSIDE RECORDS SUMMARY | 2024-07-21 14:16 | XMS_ITS | Encounter Summary ---
Author Organization [employer] Address [address] 7t [place] [address] Care Team Providers Care Disaster Recovery Specialist Name Role Phone Ricardo Segovia MD Primary Care Provide r Encounter Details Date Type Department Care Team ([facility] Contact Info) Description 07/08/2024 Telephone [facility] MEDICINE 230 [place] [address] Ricardo Segovia MD 230 [place] [address] Social History Tobacco Use Types Packs/Day Years [...] encounter Miscellaneous Notes * Telephone Encounter - Kavya Benjamin - 07/08/2024 2:05 PM EST Error documented in this encounter Plan of Treatment Upcoming Encounters Date Type Department Care Team (Late st Contact Info) Description 08/16/2024 11:30 AM EST Medication Management [facility]INE [address] [place] [address] Kath Goff PharmD 230 [place] [address] documented as of this encounter Goals Goal [...] documented as of this encounter Care Teams Disaster Recovery Specialist Relationship Specialty Start Date End Date Ricardo Segovia MD [address] [place] [address] PCP - General Internal Medicine 08/28/21 documented as of this encounter
--- OUTSIDE RECORDS SUMMARY | 2024-07-21 14:16 | XMS_ITS | Encounter Summary ---
Demographics Address [address] [facility] [address] [place] [address] Mobile Phone Home Phone Email Address Preferred Language es Marital Status Judaism Affiliation Unknown Race Other Race Ethnic Group or Author Organization [employer] [facility] Address [address] [place] [address] Care Team Providers Care Administrative Underwriter Name Role Phone Ricardo Segovia MD Primary Care Provide r Joyce Quinonez RN Unavailable [phone] Reason for Visit * Reason Onset Date Comments Glucose Meter 11/25/2022 Encounter Details Date Type Department Care Team ([facility] st Contact Info) Description 11/25/2022 Telephone [facility] MEDICINE 230 [place] [address] Ricardo Segovia MD 230 [place] [address] Glucose Meter Social History Tobacco Use Types Packs/Day Years Used Date Smoking Tobacco: Every Day Cigarettes 0.5 20 Passive Smoke Exposure: Current Smokeless Tobacco: [...] suspected to have Coronavirus/COVID-19? No / Unsure 11/21/2022 10:04 AM EDT documented as of this encounter Miscellaneous Notes * Telephone Encounter - No Blackwell - 11/25/2022 10:09 AM EDT Tc from pt requesting status on Glucose Meter ask on last visit with provider (November 21, 2022) Please contact pt at [phone] documented in this encounter Plan of Treatment Upcoming Encounters Date Type Department Care Team (Late st Contact Info) Description 08/16/2024 11:30 AM EST Medication Management [facility] MEDICINE 230 [place] [address] Kath Goff PharmD 230 [place], [place] [phone] documented as of this encounter Goals Goal [...] without macular edema No Rose Hook PharmD documented as of this encounter Visit Diagnoses Diagnosis Type 2 diabetes mellitus without complication, without long-term current use of insulin ([facility])- Primary documented in this encounter Additional Health Concerns Assessment Noted Time PHQ-9 Depression Total Score: 11 023 11:16 AM EDT documented as of this encounter Care Teams Administrative Underwriter Relationship Specialty Start Date End Date Ricardo Segovia MD 230 [place] [address] PCP - General Internal Medicine 08/28/21 Joyce Quinonez RN [address] [place] [address] [place] [address] Sorority SupervisorAlkylation Operator 12/23/23 04/01/24 documented as of this encounter
--- OUTSIDE RECORDS SUMMARY | 2024-07-21 14:16 | XMS_ITS | Encounter Summary ---
Author Organization [employer] [facility] Address [address] 7t [place] [address] Care Team Providers Care Relocation Commissioner Name Role Phone Ricardo Segovia MD Primary Care Provide r Joyce Qunionez RN Unavailable [phone] Encounter Details Date Type Department Care Team ([facility] st Contact Info) Description 01/19/2024 Abstract [facility]INE 230 [place] [address] Rose Hook, PharmD 230 [place] [address] Social History Tobacco Use Types Packs/Day Years [...] Recorded Patient Health Questionnaire-2 Score 4 07/10/2023 Comments Unknown Sex and Gender Information Value [...] Description 08/16/2024 11:30 AM EST Medication Management [facility] 230 [place] [address] Kath Goff PharmD 230 [place] [address] documented as of this encounter Goals Goal Patient Goal Type Associated Problems Recent Progress Patient-Stated? Author Blood Pressure < 140/90 Blood Pressure 160/84(07/08 1:23 PM EST) No Rose Hook, PharmElizabet Short-term: Promote adherence to treatment regimen General Essential hypertension On track(2022 4:07 PM EDT) No Rose Hook PharmElizabet Note: Goal is to reduce 7 day [...] Tobacco Use Tobacco dependence No Rose Hook PharmElizabet documented as of this encounter Visit Diagnoses Not on filedocumented in this encounter Additional Health Concerns Assessment Noted Time PHQ-9 Depression Total Score: 8 07/10/19 24 9:25 AM EST documented as of this encounter Care Teams Relocation Commissioner Relationship Specialty Start Date End Date Ricardo Segovia MD 230 [place] [address] PCP - General Internal Medicine 08/28/21 Joyce Quinonez RN [address] [place] [address] BusserBakery Team Leader 12/23/23 04/01/24 documented as of this encounter
--- OUTSIDE RECORDS SUMMARY | 2024-07-21 14:16 | XMS_ITS | Encounter Summary ---
Author Organization [employer] [facility] Address [address] [facility] 7t [place] [address] Care Team Providers Care Movie Operator Name Role Phone Ricardo Segovia MD Primary Care Provide r Joyce Quinonez RN Unavailable [phone] Reason for Visit * Reason Comments Med Refill Encounter Details Date Type Department Care Team ([facility] Contact Info) Description 01/09/2023 Refill [facility] MEDICINE 230 [place] [address] Rose Hook, PharmD 230 [place] [address] Essential hypertension Social History Tobacco Use Types [...] Upcoming Encounters Date Type Department Care Team ([facility] Contact Info) Description 08/16/2024 11:30 AM EST Medication Management [facility]INE 230 [place] [address] Kath Goff PharmD 230 [place] [address] documented as of this encounter Goals Goal [...] documented as of this encounter Care Teams Movie Operator Relationship Specialty Start Date End Date Ricardo Segovia MD 230 [place] [address] PCP - General Internal Medicine 08/28/21 Joyce Quinonez RN [address] [place] [address] Electronic WirerPrize Jacker 12/23/23 04/01/24 documented as of this encounter
--- OUTSIDE RECORDS SUMMARY | 2024-07-21 14:16 | XMS_ITS | Encounter Summary ---
Author Organization [employer] Address [address] [facility] 7t [place] [address] Care Team Providers Care Weave Defect Charting Clerk Name Role Phone Ricardo Segovia MD Primary Care Provide r Reason for Visit * Reason Onset Date Comments Referral 06/29/2024 Encounter Details Date Type Department Care Team ([facility] st Contact Info) Description 06/29/2024 Telephone [facility] MEDICINE 230 [place] [address] Ricardo Segovia MD 230 [place] [address] Referral Social History Tobacco Use Types Packs/Day [...] Telephone Encounter - Oksana Ann [place] - 06/29/2024 9:06 AM EST Pt has appt with Neurology on 07/22/2024. LB documented in this encounter Plan of Treatment Upcoming Encounters Date Type Department Care Team (Late st Contact Info) Description 08/16/2024 11:30 AM EST Medication Management [facility] [address] [place] [address] Kath Goff PharmD [address] [place] [address] documented as of this encounter Goals Goal Patient Goal Type Associated Problems Recent Progress Patient-Stated? Author Blood Pressure < 140/90 Blood Pressure 160/84(07/08 1:23 PM EST) No Rose Hook PharmD Short-term: Promote adherence to treatment regimen General Essential hypertension On track(2022 4:07 PM EDT) No Hook, Jerril, PharmD Note: Goal is to reduce 7 [...] documented as of this encounter Care Teams Weave Defect Charting Clerk Relationship Specialty Start Date End Date Ricardo Segovia MD 230 [place] [address] PCP - General Internal Medicine 08/28/21 documented as of this encounter
--- OUTSIDE RECORDS SUMMARY | 2024-07-21 14:16 | XMS_ITS | Encounter Summary ---
Author Organization [employer] Address [address] [facility] 7t [place] [address] Care Team Providers Care Bulb Sorter Name Role Phone Ricardo Segovia MD Primary Care Provide r Reason for Visit * Reason Comments Med Refill Encounter Details Date Type Department Care Team ([facility] st Contact Info) Description 06/22/2024 Refill [facility] [address] [place] [address] Alicia Crawford MD [address] [place] [address] Social History Tobacco Use Types Packs/Day Years [...] Description 08/16/2024 11:30 AM EST Medication Management [facility]INE 230 [place] [address] Kath Goff PharmD [address] [place] [address] documented as of this encounter Goals Goal [...] documented as of this encounter Care Teams Bulb Sorter Relationship Specialty Start Date End Date Ricardo Segovia MD [address] [place] [address] PCP - General Internal Medicine 08/28/21 documented as of this encounter
== END 2024-07-21 11:49 | disposition home or self-care (01) ==
LOC: HO.MAMMO 11:48
PROVIDERS: PCP Internal Medicine; Visit Provider Internal Medicine
DX: Z12.31 Encounter for screening mammogram for malignant neoplasm of breast (principal)
CPT/HCPCS: 77063; 77067

== ENCOUNTER 2024-08-04 09:27 | Outpatient (REF) | payer MEDICAID, SELFPAY ==
--- OUTSIDE RECORDS SUMMARY | 2024-08-04 10:39 | XMS_ITS | Encounter Summary ---
Author Organization [employer] Address [address] [place] [address] Care Team Providers Care Crossband Layer Name Role Phone Ricardo Segovia MD Primary Care Provide r Encounter Details Date Type Department Care Team ([facility] Contact Info) Description 07/08/[address] [facility] MEDICINE 230 [place] [address] Ricardo Segovia MD 230 [place] [address] Social History Tobacco Use Types Packs/Day Years [...] Care Team (Late st Contact Info) Description 09/06/2024 11:30 AM EDT Medication Management [facility] MEDICINE [address] [place] [address] Kath Goff PharmD 230 [place] [address] documented as of this encounter Goals Goal [...] documented as of this encounter Care Teams Crossband Layer Relationship Specialty Start Date End Date Ricardo Segovia MD 230 [place] [address] PCP - General Internal Medicine 08/28/21 documented as of this encounter
--- OUTSIDE RECORDS SUMMARY | 2024-08-04 10:39 | XMS_ITS | Encounter Summary ---
Author Organization [employer] [facility] Address [address] [facility] 7t [place] [address] Care Team Providers Care Sales Representative Church Furniture Name Role Phone Ricardo Segovia MD Primary Care Provide r Joyce Quinonez RN Unavailable [phone] Reason for Visit * Reason Comments Med Refill Encounter Details Date Type Department Care Team ([facility] Contact Info) Description 01/09/2023 Refill [facility] MEDICINE 230 [place] [address] Rsoe Hook, PharmD 230 [place] [address] Essential hypertension Social History Tobacco Use Types [...] Upcoming Encounters Date Type Department Care Team ([facility] Contact Info) Description 09/06/2024 11:30 AM EDT Medication Management [facility] MEDICINE [address] [place] [address] Kath Goff PharmD 230 [place] [address] documented as of this encounter Goals Goal [...] documented as of this encounter Care Teams Sales Representative Church Furniture Relationship Specialty Start Date End Date Ricardo Segovia MD 230 [place] [address] PCP - General Internal Medicine 08/28/21 Joyce Quinonez RN [address] [place] [address] Black Leather BufferIndustrial Economist 12/23/23 04/01/24 documented as of this encounter
--- OUTSIDE RECORDS SUMMARY | 2024-08-04 10:39 | XMS_ITS | Encounter Summary ---
Demographics Address [address] [facility] [address] [place] [address] Mobile Phone Home Phone Email Address Preferred Language es Marital Status Hindu Affiliation Unknown Race Other Race Ethnic Group or Author Organization [employer] [facility] Address [address] [facility] [address] [facility] [address] [place] [address] Care Team Providers Care Building Maintenance Repairer Name Role Phone Ricardo Segovia MD Primary Care Provide r Joyce Quinonez RN Unavailable [phone] Reason for Visit * Reason Onset Date Comments Glucose Meter 11/25/2022 Encounter Details Date Type Department Care Team ([facility] st Contact Info) Description 11/25/2022 Telephone [facility] MEDICINE 230 [place] [address] Ricardo Segovia MD 230 [place] [address] Glucose Meter Social History Tobacco Use Types [...] (November 21, 2022) Please contact pt at [phone] documented in this encounter Plan of Treatment Upcoming Encounters Date Type Department Care Team (Late st Contact Info) Description 09/06/2024 11:30 AM EDT Medication Management [facility] MEDICINE 230 [place] [address] Kath Goff PharmD 230 [place], [place] [phone] documented as of this encounter Goals Goal [...] complication, without long-term current use of insulin ([facility])- Primary documented in this encounter Additional Health Concerns Assessment Noted Time PHQ-9 Depression Total Score: 11 023 11:16 AM EDT documented as of this encounter Care Teams Building Maintenance Repairer Relationship Specialty Start Date End Date Ricardo Segovia MD 230 [place] [address] PCP - General Internal Medicine 08/28/21 Joyce Quinonez RN [address] [place] [address] Nuclear Plant Instrument TechnicianSet Designer 12/23/23 04/01/24 documented as of this encounter
--- OUTSIDE RECORDS SUMMARY | 2024-08-04 10:39 | XMS_ITS | Encounter Summary ---
Author Organization [employer] Address [address] [facility] 7t [place] [address] Care Team Providers Care Application Coordinator Name Role Phone Ricardo Segovia MD Primary Care Provide r Reason for Visit * Reason Onset Date Comments Referral 07/08/2024 Encounter Details Date Type Department Care Team ([facility] st Contact Info) Description 07/08/2024 Telephone [facility] MEDICINE 230 [place] [address] Ricardo Segovia MD 230 [place] [address] Referral Social History Tobacco Use Types Packs/Day [...] Description 09/06/2024 11:30 AM EDT Medication Management [facility] MEDICINE 230 [place] [address] Kath Goff PharmD 230 [place] [address] documented as of this encounter Goals Goal [...] documented as of this encounter Care Teams Application Coordinator Relationship Specialty Start Date End Date Ricardo Segovia MD 230 [place] [address] PCP - General Internal Medicine 08/28/21 documented as of this encounter
--- OUTSIDE RECORDS SUMMARY | 2024-08-04 10:39 | XMS_ITS | Encounter Summary ---
Author Organization [employer] Address [address] 7t [place] [address] Care Team Providers Care Aircraft Structure Mechanic Name Role Phone Ricardo Segovia MD Primary Care Provide r Joyce Quinonez RN Unavailable [phone] Reason for Visit * Reason Onset Date Comments r/s f/u appt 02/12/2023 Encounter Details Date Type Department Care Team ([facility] st Contact Info) Description 02/12/2023 Telephone [facility] MEDICINE 230 [place] [address] Ricardo Segovia MD 230 [place] [address] r/s f/u appt Social History Tobacco Use [...] weeks (around 02/11/2023) for HTN appt , Farmworker placed pt on RECALL for March. Please contact at [phone] documented in this encounter Plan of Treatment Upcoming Encounters Date Type Department Care Team (Late st Contact Info) Description 09/06/2024 11:30 AM EDT Medication Management [facility] MEDICINE [address] [place] [address] Kath Goff, PharmD 230 [place] [address] documented as of this encounter Goals Goal [...] documented as of this encounter Care Teams Aircraft Structure Mechanic Relationship Specialty Start Date End Date Ricardo Segovia MD [address] [place] [address] PCP - General Internal Medicine 08/28/21 Joyce Quinonez RN [address] [place] [address] Packing Machine TenderChuck Wagon Driver 12/23/23 04/01/24 documented as of this encounter
--- OUTSIDE RECORDS SUMMARY | 2024-08-04 10:39 | XMS_ITS | Encounter Summary ---
Author Organization [employer] Address [address] [place] [address] Care Team Providers Care Client Executive Name Role Phone Ricardo Segovia MD Primary [...] Description 09/06/2024 11:30 AM EDT Medication Management [facility] [address] [place] [address] Kath Goff PharmD [address] [place] [address] documented as of this encounter Goals Goal [...] documented as of this encounter Care Teams Client Executive Relationship Specialty Start Date End Date Ricardo Segovia MD [address] [place] [address] PCP - General Internal Medicine 08/28/21 documented as of this encounter
--- OUTSIDE RECORDS SUMMARY | 2024-08-04 10:39 | XMS_ITS | Encounter Summary ---
Demographics Address [address] [facility] [address] [place] [address] Mobile Phone Home Phone Email Address Preferred Language es Marital Status Temple Affiliation Unknown Race Other Race Ethnic Group or Author Organization [facility] [facility] Address [address] [facility] 7t [place] [address] Care Team Providers Care Supply Room Clerk Name Role Phone Ricardo Segovia MD Primary Care Provide r Joyce Quinonez RN Unavailable [phone] Reason for Visit * Reason Comments Med Refill Encounter Details Date Type Department Care Team ([facility] st Contact Info) Description 05/07/2023 Refill [facility] [address] [place] [address] Ricardo Segovia MD [address] [place] [address] Essential hypertension Social History Tobacco Use Types [...] 09/06/2024 11:30 AM EDT Medication Management [facility] [address] [place] [address] Kath Goff PharmD [address] [place] [address] documented as of this encounter Goals Goal [...] documented as of this encounter Care Teams Supply Room Clerk Relationship Specialty Start Date End Date Ricardo Segovia MD [address] [place] [address] PCP - General Internal Medicine 08/28/21 Joyce Quinonez, ALAN [address] [place] [address] Cake StripperAssistant Operations Manager 12/23/23 04/01/24 documented as of this encounter
--- OUTSIDE RECORDS SUMMARY | 2024-08-04 10:39 | XMS_ITS | Encounter Summary ---
Author Organization [facility] [facility] Address [address] 7[address] [place] [address] Care Team Providers Care Bowling Pin Refinisher Name Role Phone Ricardo Segovia MD Primary Care Provide r Joyce Quinonez RN Unavailable [phone] Encounter Details Date Type Department Care Team ([facility] st Contact Info) Description 01/19/2024 Abstract [facility] [address] [place] [address] Rose Hook, PharmD 230 [place] [address] Social History Tobacco Use Types Packs/Day Years [...] Description 09/06/2024 11:30 AM EDT Medication Management [facility] [address] [place] [address] Kath Goff PharmD [address] [place] [address] documented as of this encounter Goals Goal Patient Goal Type Associated Problems Recent Progress Patient-Stated? Author Blood Pressure < 140/90 Blood Pressure 160/84(07/08 1:23 PM EST) No Rose Hook, PharmElizabet Short-term: Promote adherence to treatment regimen General Essential hypertension On track(2022 4:07 PM EDT) No Rose Hook, PharmD Note: Goal is to reduce 7 [...] documented as of this encounter Care Teams Bowling Pin Refinisher Relationship Specialty Start Date End Date Ricardo Segovia MD [address] [place] [address] PCP - General Internal Medicine 08/28/21 Joyce Quinonez RN [address] [place] [id number] Flag DecoratorCommand And Control 12/23/23 04/01/24 documented as of this encounter
--- OUTSIDE RECORDS SUMMARY | 2024-08-04 10:39 | XMS_ITS | Encounter Summary ---
Author Organization [employer] [facility] Address [address] [facility] 7t [place] [address] Care Team Providers Care Supervisor Lace Tearing Name Role Phone Ricardo Segovia MD Primary Care Provide r Joyce Quinonez RN Unavailable [phone] Reason for Visit * Reason Comments Med Refill Encounter Details Date Type Department Care Team ([facility] Contact Info) Description 12/29/2022 Refill [facility] [address] [place] [address] Ever Crisostomo FNP Primary insomnia Social History [...] Upcoming Encounters Date Type Department Care Team ([facility] Contact Info) Description 09/06/2024 11:30 AM EDT Medication Management [facility] [address] [place] [address] Kath Goff PharmD [address] [place] [address] documented as of this encounter Goals Goal [...] documented as of this encounter Care Teams Supervisor Lace Tearing Relationship Specialty Start Date End Date Ricardo Segovia MD [address] [place] [address] PCP - General Internal Medicine 08/28/21 Joyce Quinonez RN [address] [place] [address] Swiss MachinistBlasting Coal Miner 12/23/23 04/01/24 documented as of this encounter
--- OUTSIDE RECORDS SUMMARY | 2024-08-04 10:39 | XMS_ITS | Encounter Summary ---
Author Organization [employer] Address [address] 7[address] [place] [address] Care Team Providers Care Candy Spreader Helper Name Role Phone Ricardo Segovia MD Primary Care Provide r Encounter Details Date Type Department Care Team ([facility] Contact Info) Description 07/08/2024 Telephone [facility] [address] [place] [address] Ricardo Segovia MD [address] [place] [address] Social History Tobacco Use Types Packs/Day Years [...] Description 09/06/2024 11:30 AM EDT Medication Management [facility] [address] [place] [address] Kath Goff PharmD [address] [place] [address] documented as of this encounter Goals Goal [...] and 130 Result Component No Rose Hook, PharmElizabet Keep fasting blood glucose between 70 and [...] documented as of this encounter Care Teams Candy Spreader Helper Relationship Specialty Start Date End Date Ricardo Segovia MD [address] [place] [address] PCP - General Internal Medicine 08/28/21 documented as of this encounter
--- OUTSIDE RECORDS SUMMARY | 2024-08-04 10:39 | XMS_ITS | Encounter Summary ---
Author Organization [facility] [facility] Address [address] [facility] 7t [place] [address] Care Team Providers Care Industrial Cleaning Technician Name Role Phone Luis Miguel Segovia MD Primary Care Provide r Reason for Referral * Consultation (Urgent) - Closed Specialty Diagnoses / Procedures Referred By Kevin taylor Referred To Contact Cardiology Diagnoses Abnormal EKG Luis Miguel Segovia MD [address] [place] [address] Phone: tel: fax: [facility] Referral ID Status Reason Start Date Expiration Date V isits Requested Visits Authorized [id number] Closed Specialty Services Required 07/08/2024 07/08/2025 1 1 Scheduling Instructions Please make sure that the office contacts her daughter to schedule appointment * Imaging (Routine) - Closed Specialty Diagnoses / Procedures Referred By Kevin taylor Referred To Contact Radiology Diagnoses Breast cancer screening by mammogram Procedures BI Mammogram Screening Tomosynthesis Bilateral Luis Miguel Segovia MD [address] [place] [address] Phone: tel: fax: [facility] [address] [place] [address] Phone: tel: fax: Referral ID Status Reason Start Date Expiration Date Visits Re quested Visits Authorized [id number] Closed 07/08/2024 07/08/2025 1 1 Encounter Details Date Type Department Care Team (Latest Contact Info) Description 07/08/2024 1:00 PM EST Office Visit [facility] [address] [place] [address] Luis Miguel Segovia MD [address] [place] [address] Type 2 diabetes mellitus with both eyes [...] documented in this encounter Progress Notes * Luis Miguel Anaya MD - 07/08/2024 1:00 PM EST [...] 03/08. 05/18 , missed again. Unfortunately the steam shovelman office declined to re-schedule her appointment. I have placed a referral to a different steam shovelman. I discussed with pt's daughter tom the [...] regimen Eye exam was last done in [place], Microalbumin 10/04/2021 was 48 Pt on an [...] (CMS/HCC) Last note on record from Retina Noc Engineer 02/19/2023 Infectious/Inflammatory Condyloma acuminatum in female Pt with c/o multiple lesions on her vulva and c/o itchiness outside her vulva On exam Multiple vaginal warts Evaluated by UROLOGIC NURSE, last seen 05/04/2024 s/p biopsies that confirmed [...] BPD. Patient was seeing a therapist at [facility] but this organization closed and she is now following at [facility] care, has a new therapist and is [...] Notes * Assessment & Plan Note - Luis Miguel Anaya MD - 07/08/2024 1:26 PM EST Associated Problem(s): Breast cancer screening by mammogram referred * Assessment & Plan Note - Luis Miguel Anaya MD - 07/08/2024 1:02 PM EST Associated Problem(s): Mild nonproliferative diabetic retinopathy of both eyes without macular edema associated with type 2 diabetes mellitus (CMS/HCC) Last note on record from Retina Noc Engineer 02/19/2023 * Assessment & Plan Note - Luis Miguel Anaya MD - 07/08/2024 1:00 PM EST [...] BPD. Patient was seeing a therapist at [facility] but this organization closed and she is now following at [facility], has a new therapist and is awaiting [...] therapist as usual. * Addendum Note - Luis Miguel Anaya MD - 07/08/2024 1:00 PM ESTAddended by: LUIS MIGUEL SANABRIA on: 07/08/2024 01:55 PM Modules accepted: Orders * Assessment & Plan Note - Luis Miguel Anaya MD - 07/08/2024 12:58 PM EST [...] profile * Assessment & Plan Note - Luis Miguel Anaya MD - 07/08/2024 12:57 PM EST [...] year * Assessment & Plan Note - Luis Miguel Anaya MD - 07/08/2024 12:57 PM EST Associated Problem(s): Abnormal EKG Seen by Cardiology 01/2024 Patient was scheduled for a stress test and Echo Patient missed echo appointment on 02/26. and04/07 . Patient missed stress test on 03/08. 05/18 , missed again. Unfortunately the steam shovelman office declined to re-schedule her appointment. I have placed a referral to a different steam shovelman. I discussed with pt's daughter tom the importance of making sure she has a stress test and sees cardiology. She verbalized she will make sure that patient would go. I have as my MA to contact daughter tom to let her know she will need to be referred somewhereelse for ECHO and Stress Echo * Assessment & Plan Note - Luis Miguel Anaya MD - 07/08/2024 12:55 PM EST Associated Problem(s): Preventative health care Mammogram: 10/10/2021, referred multiple times, pt missed appointments Pap Smear: 10/03/2021 Colonoscopy: referred, pt had an appointment in December 19 2022, * Assessment & Plan Note - Luis Miguel Anaya MD - 07/08/2024 12:50 PM EST [...] regimen Eye exam was last done in [place], Microalbumin 10/04/2021 was 48 Pt on an ARB Foot check today is risk of: zero Pt reports compliance with Asa 81 mg po daily Pt adviced to: adhere to diabetic diet check your blood sugars regularly check your feet on a daily basis. * Assessment & Plan Note - Luis Miguel Anaya MD - 07/08/2024 12:47 PM EST Associated Problem(s): Condyloma acuminatum in female Pt with c/o multiple lesions on her vulva and c/o itchiness outside her vulva On exam Multiple vaginal warts Evaluated by UROLOGIC NURSE, last seen 05/04/2024 s/p biopsies that confirmed diagnosis of condyloma acuminata They discussed different treatment options and pt opted for Aldara cream * Assessment & Plan Note - Luis Miguel Anaya MD - 07/08/2024 12:45 PM EST [...] Description 09/06/2024 11:30 AM EDT Medication Management [facility] [address] [place] [address] Kath Goff PharmD [address] [place] [address] Scheduled Orders Name Type Priority Associated Diagnoses Orde r Schedule Comprehensive Metabolic Panel Lab Routine Essential hypertension Ordered: 07/08/2024 Lipid Panel, Standard Lab Routine Mixed hyperlipidemia Ordered: 07/08/2024 Albumin, Random Urine W/Creatinine Lab Routine Type 2 diabetes mellitus with both eyes affected by mild nonproliferative retinopathy without macular edema, without long-term current use of insulin ([facility]) Ordered: 07/08/2024 Scheduled Referrals Name Type Priority Associated Diagnoses [...] Procedure Name Priority Date/Time Associated Diagnosis Comments BI MAMMOGRAM SCREENING TOMOSYNTHESIS BILATERAL Routine 07/21/2024 11:55 AM EST Breast cancer screening by mammogram POCT GLYCATED HEMOGLOBIN, TOTAL Routine 07/08/2024 1:27 PM EST Type 2 diabetes mellitus with both eyes affected by mild nonproliferative retinopathy without macular edema, without long-term current use of insulin ([facility]) POCT GLUCOSE Routine 07/08/2024 1:27 PM EST 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 [facility] ? [address] ?[place] [address] ? Mammography Report ? Signed ? Patient: Velasquez Rachael,Opal I ?MR#: [id number] ?? [id number] ? : 1965 ?Acct:[id number] ? Age/Sex: 59 / F ?ADM Date: 07/21/ ? Loc: HO.MAMMO ? Attending Dr: Luis Miguel Farley MD ? Ordering Physician: Luis Miguel Farley MD ?Resu ?? lts: 1Negative ? Date of Service: 07/21/ ?Follow Up: 1 Year From Orig ?? inal Mammogram ? Procedure(s): MM tomosynthesis screening BI ?? Accession Number(s): [id number] ? cc: Luis Miguel Farley MD ? EXAMINATION: ?? MM SCREENING DIGITAL BREAST TOMOSYNTHESIS, BILATERAL ? CLINICAL INFORMATION: ? Screening. Asymptomatic. ? COMPARISON: ?? Mammography: Baseline. ? TECHNIQUE: ?? Digital breast mammography with tomosynthesis is performed in both the ?? craniocaudal and mediolateral oblique views along with computer-aided ?? detection (CAD). ? FINDINGS: ?? There are scattered areas of fibroglandular density (ACR BI-RADS breast ?? composition Category b). ? There are no significant masses, abnormal calcifications, or other ?? abnormalities. ? MM/MM tomosynthesis screening BI ?? IMPRESSION: ?? No mammographic evidence of malignancy. ? ASSESSMENT: ? BI-RADS BI-RADS 1 - Negative ? RECOMMENDATION: ?? Routine annual mammography screening. ? 1 year F/U ? This examination should not preclude the clinical evaluation of a ?? suspicious palpable abnormality. ? This patient's information was entered into a reminder system with a ?? target due date for their next mammogram. ? Electronically signed by: ??Sara Martin DO ??07/31/2024 11:11 AM EST ?? RP ? Dictated By: ?Sara Martin DO ? Signed By: ?<Electronically signed by Sara Martin DO in OV> ? 07/31/24 1111 ? DD/ 1155 ? TD/TT: 07/21/24 1205 ? Skirt Trimmer: ? Procedure Note Franco, Alice - 07/31/2024 [facility] [address] [place] [address] Dr. Sanders, EDELMIRA [address] Mammography Report Signed Patient: Opal Bangura IMR#: [id number] : 1965Acct:[id number] Age/Sex: 59 / FADM Date: 07/21/24 Loc: HO.MAMMO Attending Dr: Luis Miguel Farley MD Ordering Physician: Luis Miguel Farley MDResu lts: 1Negative Date of Service: 07/21/24Follow Up: 1 Year From Orig ina Mammogram Procedure(s): MM tomosynthesis screening BI Accession Number(s): [id number] cc: Luis Miguel Farley MD EXAMINATION: MM SCREENING DIGITAL BREAST TOMOSYNTHESIS, BILATERAL CLINICAL INFORMATION: Screening. Asymptomatic. COMPARISON: Mammography: Baseline. TECHNIQUE: Digital breast mammography with tomosynthesis is performed in both the craniocaudal and mediolateral oblique views along with computer-aided detection (CAD). FINDINGS: There are scattered areas of fibroglandular density (ACR BI-RADS breast composition Category b). There are no significant masses, abnormal calcifications, or other abnormalities. MM/MM tomosynthesis screening BI IMPRESSION: No mammographic evidence of malignancy. ASSESSMENT: BI-RADS BI-RADS 1 - Negative RECOMMENDATION: Routine annual mammography screening. 1 year F/U This examination should not preclude the clinical evaluation of a suspicious palpable abnormality. This patient's information was entered into a reminder system with a target due date for their next mammogram. Electronically signed by: Sara Martin DO 07/31/2024 11:11 AM EST Dictated By: Sara Martin DO Signed By: <Electronically signed by Sara Martin DO in OV> 07/31/24 1111 DD/ 1155 TD/TT: 07/21/24 1205 Skirt Trimmer: us Luis Miguel Anaya MD IMG BI PROCEDURES Abraham jorje Result - Final * (ABNORMAL) POCT HGB A1C (07/08/2024 1:27 PM EST) Hemoglobin A1C 7.0(A) 4.0 - 6.0 % QC Media Lot # [id number] Lot# Expiration Date Blood 07/08/2024 1:27 PM EST Luis Miguel Anaya MD POINT OF CARE TEST EN TER/EDIT ORDERABLES Final Result * POCT Glucose (07/08/2024 1:27 PM EST) Glucose Blood, POC 129 60 - 200 mg/dL QC Media Lot # [id number] Lot# Expiration Date [id number] Blood Capillary blood specimen / Unknown 07/08/2024 1:27 PM EST Luis Miguel Anaya MD POINT OF CARE TEST EN TER/EDIT ORDERABLES Final Result documented in this encounter Visit Diagnoses Diagnosis Type 2 diabetes mellitus with both eyes affected by mild nonproliferative retinopathy without macular edema, without long-term current use of insulin (CMS/HCC)- Primary Essential hypertension Unspecified essential hypertension Condyloma [...] documented as of this encounter Care Teams Industrial Cleaning Technician Relationship Specialty Start Date End Date Luis Miguel Segovia MD [address] [place] [address] PCP - General Internal Medicine 08/28/21 documented as of this encounter
--- OUTSIDE RECORDS SUMMARY | 2024-08-04 10:39 | XMS_ITS | Encounter Summary ---
Author Organization [employer] [facility] Address [address] [place] [address] 7t [place] [address] Care Team Providers Care Washer And Crusher Tender Name Role Phone Ricardo Segovia MD Primary Care Provide r Joyce Quinonez RN Unavailable [phone] Encounter Details Date Type Department Care Team (Late st Contact Info) Description 06/07/2022 Orders Only [facility] MEDICINE [address] [place] [phone] Mary Ellen Martines, RN Social History Tobacco [...] Management [facility]INE [address] [place] [address] Kath Goff, Erik [address] [place] [address] documented as of this encounter Visit Diagnoses Not on filedocumented in this encounter Care Teams Washer And Crusher Tender Relationship Specialty Start Date End Date Ricardo Segovia MD [address] [place] [address] PCP - General Internal Medicine 08/28/21 Joyce Quinonez RN [address] [place] [address] Sheepskin PicklerHand Edger 12/23/23 04/01/24 documented as of this encounter
--- OUTSIDE RECORDS SUMMARY | 2024-08-04 10:39 | XMS_ITS | Encounter Summary ---
Author Organization [employer] Address [address]t [place] [address] Care Team Providers Care Engineering Mathematician Name Role Phone Ricardo Segovia MD Primary Care Provide r Encounter Details Date Type Department Care Team ([facility] Contact Info) Description 07/06/[address] [facility] [address] [place] [address] Ricardo Segovia MD [address] [place] [address] Social History Tobacco Use Types Packs/Day Years [...] Description 09/06/2024 11:30 AM EDT Medication Management [facility] [address] [place] [address] Kath Goff PharmD [address] [place] [address] documented as of this encounter Goals Goal [...] documented as of this encounter Care Teams Engineering Mathematician Relationship Specialty Start Date End Date Ricardo Segovia MD [address] [place] [address] PCP - General Internal Medicine 08/28/21 documented as of this encounter
--- OUTSIDE RECORDS SUMMARY | 2024-08-04 10:39 | XMS_ITS | Clinical Summary ---
Demographics Address [address] [place] [address] Mobile Phone Home Phone Email Address Preferred Language es Marital Status Latter-Day Affiliation Unknown Race Other Race Ethnic Group or Author Organization [employer] Address [address] [place] [address] Care Team Providers Care Wet Finisher Name Role Phone Ricardo Segovia MD Primary Care Provide r Allergies No known active allergies Medications * This document contains information received from the source organization and may not represent a complete record from that organization. [facility] Devices (Pill Box 7 Day) [facility] USE DIRECTED 023 Active Blood Glucose Monitoring Suppl (FreeStyle Lite) w/Device kitIndications: Type 2 diabetes mellitus without complication, without long-term current use of insulin ([facility]) 1 Units 2 times daily. 1 kit 023 Active triamcinolone (Kenalog) 0.1 % ointmentIndicat ions:Skin rash Apply topically 2 times daily. To mix w/ a 1 lb jar of Cerave to apply on the skin after shower. 80 g 024 Active TRUEplus Lancets 33G [facility] USE TO TEST BLOOD SUGAR TWICE A [...] complication, without long-term current use of insulin ([facility]) TEST BLOOD SUGAR TWICE DAILY 100 strip [...] eorder (will not trigger notification to Pharmacy)) Active Problems Problem Noted Date Diagnosed Date Mild nonproliferative diabet ic retinopathy of both eyes without macular edema associated with type 2 diabetes mellitus 07/08/2024 Assessment & Plan (07/08/2024 1:02 PM EST): Last note on record from [employer] 02/19/2023 Condyloma acuminatum in female 12/09/2023 Assessment & Plan (07/08/2024 12:47 PM EST): Pt with c/o multiple lesions on her vulva and c/o itchiness outside her vulva On exam Multiple vaginal warts Evaluated by HEEL BRUSHER, last seen 05/04/2024 s/p biopsies that confirmed diagnosis of condyloma acuminata They discussed different treatment options and pt opted for Aldara cream Assessment & Plan (12/09/2023 11:05 AM EDT): Pt with c/o multiple lesions on her vulva and c/o itchiness outside her vulva On exam Multiple vaginal warts Plan: HEEL BRUSHER referral. She also seems to have a [...] here for a follow up Admitted to [facility] from 08/14-08/16/2023 She presented to the ED [...] is here for a HDF Admitted to [facility] from 08/14-08/16/2023 She presented to the ED [...] 03/08. 05/18 , missed again. Unfortunately the [employer] [employer] office declined to re-schedule her appointment. I have placed a referral to a different [employer]. I discussed with pt's daughter tom the [...] BPD. Patient was seeing a therapist at [facility] but this organization closed and she is now following at [facility], has a new therapist and is awaiting [...] mental health. PLAN: 1. Follow up with [facility]: Not recommended 2. Patient goal to maintain diminished symptoms 3. Behavioral Recommendations a. Patient will comply with medication b. Patient will attend psychopharmacology appointments c. Patient will continue to engage in activities d. Patient will engage in OP therapy, once appointment is provided e. Patient may reach out to [facility], if needed. Assessment & Plan (12/19/2022 10:07 [...] counseling and will also have F/U with [facility] clinician. F/U with me in approx. 1 [...] encounters ?? PLAN: 1. Follow up with [facility]: Recommended for follow-up: November 28, 2022 at 11 am telehealth 2. Patient goal is reduce intensity and frequency of symptoms 3. Behavioral Recommendations a. Patient will try using coping skills on a regular basis b. Patient will look into connecting with a Anabaptist or day program c. Patient will continue complying with medication d. Patient will reach out to [facility], if needed Assessment & Plan (11/07/2022 1:00 [...] counseling and will also have F/U with [facility] clinician. F/U with me in approx. 1 [...] is warranted consider MR Pt already seeing HEEL BRUSHER last seen 03/14 Pt under the care of [facility], seen last by KYAW Birch 03/14/2022 She [...] is warranted consider MR Pt already seeing HEEL BRUSHER last seen 03/14 Pt under the care of [facility], seen last by KYAW Birch 03/14/2022 She [...] similar to ringworm following recent trip to [place]. Patient deferred to seek care at walk-in [...] the systolic range of 130-140 Follow up [facility] in 4 months patient advised to adhere [...] were made last seen 11/2023 [facility] months patient advised to adhere to a low sodium diet, encouraged about medication compliance Assessment & Plan (01/19/2024 5:14 PM EDT): Assessment: - BP is NOT at goal of less than 140/90 per JNC8 guidelines Plan/ Recommendations: - Continue with current therapy, f/u in 2 months with new [facility] Monitoring: Potassium (mmol/L) Date Value 07/05/2023 4.9 [...] followed by our CD Program Follow up [facility] in 3 months patient advised to adhere [...] mg po BID (increased during last hospitalization) [facility] 06/2023 was wnl Plan: Previously referred to [...] followed by our CDTM Program Follow up [facility] in 3 months patient advised to adhere [...] followed by our [facility] Program [facility] 3 months patient advised to adhere [...] Patient with Hypertension currently uncontrolled , pt jorgears she is compliant with medical regimen She is suppossed to be on a regimen of: Metoprolol XL 100 mg po daily, Losartan 100 mg po daily, Amlodipine 10 mg po daily and Chlortalidone 25 mg po daily BMP 09/30/2022 was wnl Plan: Referred to Nephrology [...] followed by our CDTM Program Follow up [facility] in 3 months patient advised to adhere [...] daily and Chlortalidone 25 mg po daily BMP 09/30/2022 was wnl Plan: Increase Amlodpine to 10 mg po daily discussed with patient importance of medication adherence if we are to control her Blood pressure since this is putting her at risk of a heart attack, stroke or even . Pt verbalized understanding and promised to do better She is being followed by our [facility] Program Follow up [facility] in 1 month patient advised to adhere [...] Diabetes was not controlled when first enrolled. 5--23. Started trulicity and switched to Synjardy. BG [...] regimen Eye exam was last done in [place], Microalbumin 10/04/2021 was 48 Pt on an [...] regimen Eye exam was last done in [place], Microalbumin 10/04/2021 was 48 Pt on an [...] regimen Eye exam was last done in [place], Microalbumin 10/04/2021 was 48 Pt on an [...] regimen Eye exam was last done in [place], Microalbumin 10/04/2021 was 48 Pt on an [...] regimen Eye exam was last done in [place], Microalbumin 10/04/2021 was 48 Pt on an [...] 7.6 Eye exam was last done in [place], Microalbumin 10/04/2021 was 48 Pt on an [...] 7.6 Eye exam was last done in [place], Microalbumin 10/04/2021 was 48 Pt on an [...] ordered Eye exam was last done in [place], will refer today Microalbumin 10/04/2021 was 48 [...] seeing a Psychotherapist, was referred to our [facility] clinician who referred her to [facility] and our Psychopharmacology clinic. Patient did not [...] a psychotherapist. Plan: Refer back to our [facility] clinician and Psychopharmacology clinic Pt denies any suicidal ideation. Encounters Date Type Department Care Team Description 07/08/2024 1:00 PM EST Office Visit [facility] [address] [facility] [place] [address] Ricardo Segovia MD Type 2 diabetes mellitus [...] Breast cancer screening by mammogram 07/08/[address] [facility] [address] [place] [address] Ricardo Segovia MD 07/08/[address] [facility] [address] [place] [address] Ricardo Segovia MD 07/08/[address] [facility] [address] [place] [phone] Ricardo Segovia MD Referral 07/08/2024 Travel 07/06/[address] [facility] [address] [place] [address] Ricardo Segovia MD 06/29/[address] [facility] [address] [place] [address] Ricardo Segovia MD Referral 06/24/[address] [facility] [address] [place] [address] Ricardo Segovia MD Chart Prep 06/22/[address] [facility] [address] [place] [address] Alicia Crawford MD 05/23/[address] [facility] [address] [facility] [place] [address] Ricardo Segovia MD Essential hypertension 05/12/[address] [facility] [address] [place] [address] Ricardo Segovia MD 05/06/2024 Orders Only GENERIC EXTERNAL DATA DEPARTMENT Provider, Generic External Data from Last 3 Months Immunizations Name Administration [...] Description 09/06/2024 11:30 AM EDT Medication Management [facility] [address] [place] [address] Kath Goff, PharmD [address] [place] [address] Health Maintenance Due Date Last Done Comments CT Colonography 1966 Colonoscopy 1966 Colorectal Cancer Screening 1966 FIT DNA/Cologuard 1966 FIT 1966 FOBT 1966 Sigmoidoscopy 1966 Diabetes: Foot Exam 1976 Alcohol/Substance Use Screening 1978 Hepatitis A Vaccines (1 of 2 - Risk 2-dose series) 1985 Hepatitis B Vaccines (1 of 3 - 19+ 3-dose series) 1985 Diabetes: Urine Protein Screening 10/01/2023 09/30/2022, 10/04/2021 Eye Exam 01/17/2024 01/16/2023, 12/22, 01/16/2023, Additional history exists COVID-19 Vaccine ( season) 2024 08/31/2021, 03/03/2021, 02/03/2021 Depression Screening 07/10/2024 07/10/2023, 07/10/19 24 Lipid Panel 08/16/2024 08/16/2023, 09/21, 10/04/2021 Pap Smear 10/03/2024 10/03/2021 Diabetes: Hemoglobin A1C 10/06/2024 025, 03/11/2024, 08/16/2023, Additional history exists SDOH Screening 12/30/2024 12/31/2023 Tobacco Screening 03/22/2025 03/22/2024 Mammogram 07/21/2025 07/21/2024 Cervical Cancer Screening 10/03/2026 HPV/Cotest 10/03/2026 10/03/2021 [...] Use Tobacco dependence No [place] PharmD Procedures Procedure Name Priority Date/Time Associated Diagnosis Comments BI MAMMOGRAM SCREENING TOMOSYNTHESIS BILATERAL Routine 07/21/2024 11:55 AM EST Breast cancer screening by mammogram POCT GLYCATED HEMOGLOBIN, TOTAL Routine 07/08/2024 1:27 PM EST Type 2 diabetes mellitus with both eyes affected by mild nonproliferative retinopathy without macular edema, without long-term current use of insulin ([facility]) POCT GLUCOSE Routine 07/08/2024 1:27 PM EST Type 2 diabetes mellitus with both eyes affected by mild nonproliferative retinopathy without macular edema, without long-term current use of insulin ([facility]) ALDOSTERONE, LC/MS/MS Routine 05/06/2024 10:36 AM EST [...] complication, without long-term current use of insulin ([facility]) THINPREP IMAGING PAP AND HPV MRNA E6/E7 WITH REFLEX TO HPV 16,18/45 Routine 10/03/2021 2:01 PM EDT from Last 3 Months or Most Recently Relevant to Health Maintenance Results * BI Mammogram Screening Tomosynthesis Bilateral (07/21/2024 11:55 AM EST) Anatomical Region Laterality Modality Breast Bilateral Mammography 07/21/2024 11:5 5 AM EST Narrative 07/31/2024 11:14 AM EST ? [facility] ? [address] ?[place] [address] ? Mammography Report ? Signed ? Patient: Velasquez Rachael,Opal I ?MR#: MM ?? [id number] ? : 1965 ?Acct:[id number] ? Age/Sex: 59 / F ?ADM Date: 07/21/24 ? Loc: HO.MAMMO ? Attending Dr: Ricardo Farley MD ? Ordering Physician: Ricardo Farley MD ?Resu ?? lts: 1Negative ? Date of Service: 07/21/24 ?Follow Up: 1 Year From Orig ?? inal Mammogram ? Procedure(s): MM tomosynthesis screening BI ?? Accession Number(s): [id number] ? cc: Ricardo Farley MD ? EXAMINATION: ?? MM SCREENING [...] ??Sara Martin DO ??07/31/2024 11:11 AM EST ? Dictated By: ?Sara Martin DO ? Signed By: ?<Electronically signed by Sara Martin, DO in OV> ? 07/31/24 1111 ? DD/ 1155 ? TD/TT: 07/21/24 1205 ? Manager Of Regulatory Affairs: ? Procedure Note Franco, Image - 07/31/2024 [facility] [address] [place] [address] Mammography Report Signed Patient: Opal Bangura IMR#: [id number] : 1965Acct:[id number] Age/Sex: 59 / FADM Date: 07/21/24 Loc: HO.MAMMO Attending Dr: Ricardo Farley MD Ordering Physician: Ricardo Farley MDResu lts: 1Negative Date of Service: 07/21/24Follow Up: 1 Year From Orig ina Mammogram Procedure(s): MM tomosynthesis screening BI Accession Number(s): [id number] cc: Ricardo Farley MD EXAMINATION: MM SCREENING DIGITAL BREAST [...] 07/31/24 1111 DD/ 1155 TD/TT: 07/21/24 1205 Manager Of Regulatory Affairs: us Ricardo Anaya MD IMG BI PROCEDURES Abraham jorje Result - Final * (ABNORMAL) POCT HGB A1C (07/08/2024 1:27 PM EST) Hemoglobin A1C 7.0(A) 4.0 - 6.0 % QC Media Lot # [id number] Lot# Expiration Date , Blood 07/08/2024 1:27 PM EST us Ricardo Anaya MD POINT OF CARE TEST EN TER/EDIT ORDERABLES Final Result * POCT Glucose (07/08/2024 1:27 PM EST) Glucose Blood, POC 129 60 - 200 mg/dL QC Media Lot # [id number] Lot# Expiration Date ,025 Blood Capillary blood specimen / Unknown 07/08/2024 1:27 PM EST us Ricardo Anaya MD POINT OF CARE TEST EN TER/EDIT ORDERABLES Final Result * (ABNORMAL) Metanephrines, Fractionated, Free, LC/MS/MS, Plasma (05/06/2024 10:36 AM EST) Metanephrine, Free 29 <=57 pg/mL [facility] Comment:This test was develo ped and its analytical performancecharacteristics have been determined by [employer] [place], [place]. It hasnot been cleared or approved by the U.S. Food and DrugAdministration. This assay has been validated pursuantto the CLIA regulations and is used for clinicalpurposes. Normetanephrine, Free 152(A) <=148 pg/mL [facility] Comment:This test was develo ped and its analytical performancecharacteristics have been determined by [employer]. It hasnot been cleared or approved by the [employer] and DrugAdministration. This assay has been validated pursuantto the CLIA regulations and is used for clinicalpurposes. Total, Free (MN+NMN) 181 <=205 pg/mL [facility] Comment: For additional information, please refer tohttp://education.Trackway/faq/MetFractFree(This link is being provided for informational/educatioinformational/educational purposes only.)Elevations >4-fold upper reference range: stronglysuggestive of a pheochromocytoma(1).Elevations >1- 4-fold upper reference range:significant but not diagnostic, may be due tomedications or stress. Suggest running 24 hr urinefractionated metanephrines and/or serum Chromagranin Afor confirmation.Reference:(1)Hussein Oquendo et al, Plasma Chromogranin Aor Urine Fractionated Metanephrines Follow-Up TestingImproves the Diagnostic Accuracy of Plasma FractionatedMetanephrines for Pheochromocytoma. The Journal ofClinical Endocrinology # Metabolism 93(1), 91-95, 2008.This test was developed and its analytical performancecharacteristics have been determined by [place]. It hasnot been cleared or approved by the U.S. Food and DrugAdministration. This assay has been validated pursuantto the CLIA regulations and is used for clinicalpurposes.THIS TEST WAS PERFORMED AT:[employer]/[id number] [place], [place] ??[id number] MARIO MD,PHD 05/06/2024 10:3 6 AM EST 05/06/2024 1:19 PM EST us Generic External Data Provider LAB BLOOD ORDERAB LES Final Result Performing Organization Address [facility] de Phone Number [facility] [address] [place] [phone] * Cortisol Random (05/06/2024 10:36 AM EST) Cortisol Random 12.6 ug/dL [facility] Comment:Reference Range*: Be fore 10 am 6.2-19.4 ug/dL After 5 pm 2.3-11.9 ug/dL*Please interpret above results accordingly.This test was performed using the [employer] chemiluminescentmethod. Values obtained from different assay methods cannotbe used interchangeably.Patients receiving fludrocortisone, prednisolone orprednisone may show artificially elevated cortisol valuesdue to cross-reactivity. 05/06/2024 10:3 6 AM EST 05/06/2024 1:19 PM EST us Generic External Data Provider LAB BLOOD ORDERAB LES Final Result Performing Organization Address [facility] Co de Phone Number [facility] [address] [place] [phone] * Syphilis Screen (05/06/2024 10:36 AM EST) Syphilis Screen Nonreactive Nonreactive [facility] Blood 05/06/2024 10:3 6 AM EST 05/06/2024 1:19 PM EST us Ricardo Anaya MD LAB BLOOD ORDERABLES Final Result Performing Organization Address [facility] Co de Phone Number [facility] [address] [place] [phone] * TSH with Reflex to Free T4 (05/06/2024 10:36 AM EST) TSH reflex Free T4 1.53 0.32 - 4.0 uIU/mL [facility] 05/06/2024 10:3 6 AM EST 05/06/2024 1:19 PM EST us Generic External Data Provider LAB BLOOD ORDERAB LES Final Result [facility] [address] [place] [address] [phone] * Aldosterone/Plasma Renin Activity Ratio, LC/MS/MS (05/06/2024 10:36 AM EST) Aldosterone 7 see note ng/dL [facility] Comment:Unable to flag abnor mal result(s), please refer to reference range(s) below:Adult Reference Ranges for Aldosterone, LC/MS/MS: Upright 8:00 - 10:00 am < or = 28 ng/dL Upright 4:00 - 6:00 pm < or = 21 ng/dL Supine 8:00 - 10:00 am 3 - 16 ng/dLTHIS TEST WAS PERFORMED AT:[employer] [address] [id number] MARIO MD,PHD Plasma Renin Activity 0.37 0.25 - 5.82 ng/mL/h [facility] Aldosterone/Renin Ratio 18.9 0.9 - 28.9 Ratio [facility] Comment:This test was develo ped and its analytical performancecharacteristics have been determined by [employer] [place], [place]. It hasnot been cleared or approved by the U.S. Food and DrugAdministration. This assay has been validated pursuantto the CLIA regulations and is used for clinicalpurposes.THIS TEST WAS PERFORMED AT:[employer] [id number] [place] [id number] MARIO MD,PHD 05/06/2024 10:3 6 AM EST 05/06/2024 1:19 PM EST Generic External Data Provider LAB BLOOD ORDERAB LES Final Result Performing Organization Address [facility]/ZIP Co de Phone Number [facility] [address] [place] [phone] * Hepatitis C Antibody with Reflex to HCV, RNA, Quantitative, Real-Time PCR (05/06/2024 10:36 AM EST) [facility] Hepatitis C Antibody Nonreactive Nonreactive [facility] Comment:Antibodies to HCV no t detected; does not exclude early acuteHCV infection. Blood Venous blood specimen / Unknown 05/06/2024 10:36 AM EST 05/06/2024 1:19 PM EST Ricardo Anaya MD LAB BLOOD ORDERABLES Final Result Performing Organization Address [facility]/ZIP Co de Phone Number [facility] [address] [place] [phone] * Aldosterone, LC/MS/MS (05/06/2024 10:36 AM EST) [facility] Aldosterone, LC/MS/MS TNP [facility] 05/06/2024 10:3 6 AM EST 05/06/2024 1:19 PM EST Generic External Data Provider LAB BLOOD ORDERAB LES Final Result Performing Organization Address [facility]/ZIP Co de Phone Number [facility] [address] [place] [phone] * Chlamydia/N. Gonorrhoeae RNA, TMA, Urogenitial (05/06/2024 10:36 AM EST) [facility] CT PCR NOT DETECTED Not Detect. [facility] Comment:A not detected test result does [...] psychologicalconsequences. NG PCR NOT DETECTED Not Detect. [facility] Comment:A not detected test result does [...] AM EST 05/06/2024 1:06 PM EST Narrative [facility] - 05/06/2024 6:47 PM EST Urine us Ricardo Anaya MD LAB MICROBIOLOGY - NERAL ORDERABLES Final Result [facility] [address] [place] [phone] * Plasma Renin Activity, LC/MS/MS (05/06/2024 10:36 AM EST) Plasma Renin Activity, LC/MS/MS 0.37 0.25 - 5.82 ng/mL/h [facility] Comment:This test was develo ped and its analytical performancecharacteristics have been determined by [employer] [place], [place]. It hasnot been cleared or approved by the U.S. Food and DrugAdministration. This assay has been validated pursuantto the CLIA regulations and is used for clinicalpurposes.THIS TEST WAS PERFORMED AT:[employer]/[id number] [place] [address]PBPOCJOJANA MARIO MD,PHD 05/06/2024 10:3 6 AM EST 05/06/2024 1:26 PM EST us Generic External Data Provider LAB BLOOD ORDERAB LES Final Result [facility] [address] [place] [phone] * HIV-1/2 Antigen and Antibodies, Fourth Generation, with Reflexes (05/06/2024 10:36 AM EST) HIV AB/AG Nonreactive Nonreactive [facility] Comment:HIV-1 p24 Ag and/or HIV-1/HIV-2 Ab not detected.A test result that is nonreactive does not exclude thepossibility of exposure to or infection with HIV-1 and/orHIV-2. Nonreactive results in this assay for individualswith prior exposure to HIV-1 and/or HIV-2 may be due toantigen and antibody levels that are below the limit ofdetection of this assay.The [employer]yo HIV Ag/Ab Combo assay result andsupplemental assay results should be interpreted inconjunction with the patient's clinical presentation,history and other laboratory results. If the results areinconsistent with clinical evidence, additional testing issuggested to confirm the result. Blood Venous blood specimen / Unknown 05/06/2024 10:36 AM EST 05/06/2024 1:19 PM EST us Ricardo Anaya MD LAB BLOOD ORDERABLES Final Result Performing Organization Address [facility] de Phone Number [facility] [address] [place] [phone] [phone] * (ABNORMAL) Lipid Panel, Standard (08/16/2023 6:04 PM EST) Triglycerides 455(H) <150 mg/dL [facility] Comment:Desirable Triglyceri de: less than 150 mg/dLBorderline High Triglyceride 150-199 mg/dLHigh Triglyceride: 200-499 mg/dLVery High Triglyceride: greater than or equal to 5OO mg/dL Cholesterol 241(H) <200 mg/dL [facility] Comment:Desirable Cholestero l: less than 200 mg/dLBorderline High Cholesterol: 200-239 mg/dLHigh Cholesterol: greater than 239 mg/dL LDL Cholesterol Calculated TNP <100 mg/dL [facility] Comment:Unable to calculate the LDL. The formula of Friedwald,Shine, and Abdulkadir is only valid if the triglycerides areless than 400 mg/dl. HDL Cholesterol 42 >40 mg/dL [facility] Comment:Desirable HDL: great er than 40 mg/dL Note: This HDL assay may give artificially low results in patients with liver disease. 08/16/2023 6:04 PM EST 08/16/2023 6:06 PM EST us Generic External Data Provider LAB BLOOD ORDERAB LES Final Result Performing Organization Address [facility] de Phone Number [facility] [address] [place] [address] [phone] * Albumin, Random Urine W/O Creatinine (09/30/2022 9:46 AM EDT) Albumin, Urine 4.9 See Note: mg/dL [facility] Comment: Reference Range: Reference Range Not established BRIANNA [facility] Comment: The ADA defines abnormalities in albumin [...] Anaya MD LAB URINE ORDERABLES Final Result [address], [place] [address] [facility] [address] [place] [phone] * THINPREP TIS PAP AND HPV mRNA E6/E7 WITH REFLEX TO HPV 16,18/45 (10/03/2021 2:01 PM EDT) Clinical Information: None given [facility] COMMENT SEE COMMENT [facility] [...] has been evaluated with computer assisted technology. [facility] Microfiche Duplicator: SEE COMMENT [facility] Comment: DMM, CT(ASCP) CT screening location: [address] ??[address] HPV nRNA E6/E7 Not Detected Not Detected [email or web address] Comment: Methodology: Tool Straightener-Mediated Amplification This assay detects E6/E7 viral messenger RNA (mRNA) from 14 high-risk HPV types (16,18,31,33,35,39,45,51,52,56,58,59,66,68). ? The analytical performance characteristics of this assay have been determined by [facility]. The modifications have not been cleared or approved by the FDA. This assay has been validated pursuant to the CLIA regulations and is used for clinical purposes. ?? For additional information, please refer to http://education.Trackway/faq/OUC974e7 (This link if provided for information/ educational purposes only.) Interpretation/Res ult: SEE COMMENT [facility] Comment: Negative for intraepithelial lesion or malignancy. Atrophic pattern; predominantly parabasal cells LMP: 53 YRS [facility] Prev. BX: NONE GIVEN [facility] Prev. PAP: NONE GIVEN [facility] SOURCE: None given [facility] Statement Of Adequacy: SATISFACTORY FOR EVALUATION [facility] 10/03/2021 2:01 PM EDT us Mary Kay CNM LAB PATHOLOGY ORDERABLES Final Result [facility] [address] from Last 3 Months or Most Recently Relevant to Health Maintenance Insurance * Guarantor: Opal Bangura I Account Type Relation to Patient Date of Phone Billing Address Personal/Family Self 1965 [address] [facility] [address] [place] [address] [facility] C3 HSN FULL * Guarantor: Opal Bangura I Account Type Relation to Patient Date of Phone Billing Address Personal/Family Self [address] [facility] [address] [place] [address] Care Teams Wet Finisher Relationship Specialty Start Date End Date Riacrdo Segovia MD [address] [place] [address] PCP - General Internal Medicine 08/28/21
[2024-08-04 11:59] LABS: Creatinine Urine 110.15 mg/dL
[2024-08-04 12:00] LABS: Alanine Aminotransferase 27 U/L (0-31); Albumin Level 4.2 g/dL (3.5-5.0); Alkaline Phosphatase 104 U/L (39-117); Anion Gap 12 (12-20); Aspartate Amino Transferase 31 U/L (5-31); Bilirubin Total 0.9 mg/dL (0.0-1.0); Blood Urea Nitrogen 11 mg/dL (9-16); Calcium 9.5 mg/dL (8.4-10.2); Carbon Dioxide 25 mmol/L (22-29); Chloride 109 mmol/L (96-108); Cholesterol 228 mg/dL (<200); Estimated Glomerular Filt Rate > 60; Glucose Random 94 mg/dL (60-115); HDL Cholesterol 51 mg/dL (>40); LDL Cholesterol Calculated 154 mg/dL (<100); Sodium 142 mmol/L (135-145); Total Protein 8.5 g/dL (6.5-8.0); Triglycerides 115 mg/dL (<150)
== END 2024-08-04 09:28 | disposition home or self-care (01) ==
LOC: HO.HHCL 09:27
PROVIDERS: Internal Medicine; Visit Provider Internal Medicine Nephrology
DX: I10 Essential (primary) hypertension (principal); E11.3293 Type 2 diabetes mellitus with mild nonproliferative diabetic retinopathy without macular edema, bilateral; E78.2 Mixed hyperlipidemia
CPT/HCPCS: 36415; 80053; 80061; 82043; 82570

== ENCOUNTER 2024-08-11 11:09 | Outpatient (AMB) | payer MEDICAID, SELFPAY ==
--- NOTE | 2024-08-11 11:14 | HO.NEPHOV ---
Vital Signs 08/11/24 11:15 Height 5 ft 6 in Weight 144 lb 2 oz BMI 23.3 BP 164/100 H Blood Pressure Location Lt brachial Position Sitting Pulse 92 Pulse Source Pulse Oximeter Pulse Oximetry (%) 98 Oxygen Delivery Method Room Air Intake Visit Reasons: 1 mnth/ Conf State Historical Society Director Required: Yes State Historical Society Director Language: Wire Coiner Services: State Historical Society Director Present State Historical Society Director Name: Emily [id number] Accompanied by: Self / Same As Patient Allergies No Known Allergies Allergy (Verified 08/11/24 11:14) HPI Comments Details: Opal was seen for follow up of resistant hypertension. She is known to have hypertension and diabetes for some time. She checks her blood pressure and blood sugar every day at home. Her blood pressures are better . She claims to be compliant with her medications. She denies eating excess salt in the food. She continues to be a smoker. She is on multiple blood sugar lowering medications and blood sugar has been well controlled lately. She denies any retinopathy, proteinuria, renal dysfunction, hypokalemia, hypercalcemia, headache, new onset weakness, weight gain, palpitation, orthostatic symptoms, tachycardia. She denies chest pain, shortness of breath, paroxysmal nocturnal dyspnea, orthopnea, pedal edema or urinary symptoms. She has history of CVA. 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 Review of Systems Const All systems reviewed & are unremarkable except as noted in HPI and below Physical Exam Vital Signs: Last Vital Signs Pulse 92 08/11/24 11:15 BP 164/100 H 08/11/24 11:15 Pulse Ox 98 08/11/24 11:15 Oxygen Delivery Method Room Air 08/11/24 11:15 BMI result Body Mass Index 23.3 Const General: comfortable and no acute distress Orientation/consciousness: patient oriented x3 HEENT Head: Yes normocephalic Mouth: Normal oral and palatal mucosa present Eyes EOM: EOMs intact bilaterally Neck Neck: Yes supple Resp Auscultation: clear to auscultation bilaterally Cardio Jugular venous distension: no JVD Rate: regular rate GI Palpation (GI): Soft to palpation Auscultation: normal bowel sounds General: Yes no CVA tenderness Back/Spine/Pelvis Back: no CVA tenderness Skin General skin exam: no rashes or lesions noted Neuro General: patient oriented x3 and moves all extremities Extrem General: Yes no pedal edema Results Reviewed Nephrology Results: Sodium 142 mmol/L (135-145) 08/04/24 Potassium 4.0 mmol/L (3.3-5.1) 08/04/24 Chloride 109 mmol/L (96-108) H 08/04/24 Carbon Dioxide 25 mmol/L (22-29) 08/04/24 BUN 11 mg/dL (9-16) 08/04/24 Creatinine 0.75 mg/dL (0.5-1.4) 08/04/24 Calcium 9.5 mg/dL (8.4-10.2) 08/04/24 Urine Creatinine 110.15 mg/dL 08/04/24 Assessment & Plan Assessment & Plan (1) Hypertension: Code(s): I10 - Essential (primary) hypertension Category: Medical Qualifiers: Hypertension type: primary hypertension Qualified Code(s): I10 - Essential (primary) hypertension Plan Opal has longstanding hypertension and is on multiple antihypertensive medications. She monitors her blood pressure closely at home now. Her blood pressure is currently at goal at home. She does not consume excess sodium in the diet. She is a smoker. She is on statins. She has history of CVA. She is not known to have any hypokalemia, retinopathy, hypercalcemia, uncontrolled thyroid disorders or sleep apnea. W/U has been negative including Doppler of her renal arteries which did not show [place]. I suspect she has vascular disease causing her resistant hypertension given history of CVA. I increased her Nifedipine to 60 mg daily. She should continue lifestyle modifications. Follow-up given Coding Level of Care Code Est Pt Level 4 (72975) Diagnoses Primary hypertension I10 Hypertension type: primary hypertension
[2024-08-11 11:15] VITALS: BP 164/100; PULSE 92; O2SAT 98; BMI 23.3
--- OUTSIDE RECORDS SUMMARY | 2024-08-11 11:53 | XMS_ITS | Encounter Summary ---
Author Organization [employer] Address [address] [facility] 7t [place] [address] Care Team Providers Care Principal Web Developer Name Role Phone Ricardo Segovia MD Primary Care Provide r Reason for Visit * Reason Onset Date Comments May Recall 08/06/2024 Encounter Details Date Type Department Care Team ([facility] st Contact Info) Description 08/06/2024 Telephone [facility] [address] [place] [address] Ricardo Segovia MD [address] [place] [address] May Recall Social History Tobacco Use Types Packs/Day Years [...] Telephone Encounter - Oksana Ann MA - 08/06/2024 3:29 PM EST Telephone call to patient to schedule a recall appointment. No answer, unable to leave voicemail (not set up).. Recall letter sent. Visit type: Office visit Appointment notes: DM due: October With: Diane Please schedule appointment above if patient returns call documented in this encounter Plan of Treatment Upcoming Encounters Date Type Department Care Team (Late st Contact Info) Description 09/06/2024 11:30 AM EDT Medication Management [facility] [address] [place] [address] Kath Goff PharmD [address] [place] [address] documented as of this encounter Goals Goal [...] documented as of this encounter Care Teams Principal Web Developer Relationship Specialty Start Date End Date Ricardo Segovia MD [address] [place] [address] PCP - General Internal Medicine 08/28/21 documented as of this encounter
--- OUTSIDE RECORDS SUMMARY | 2024-08-11 11:53 | XMS_ITS | Encounter Summary ---
Demographics Address [address] [facility] [address] [place] [address] Mobile Phone Home Phone Email Address Preferred Language es Marital Status Taoist Affiliation Unknown Race Other Race Ethnic Group or Author Organization [employer] [facility] Address [address] [facility] 7[address] [place] [address] Care Team Providers Care Lead Electrical Engineer Name Role Phone Ricardo Segovia MD Primary Care Provide r Joyce Quinonez RN Unavailable [phone] Reason for Visit * Reason Comments Med Refill Encounter Details Date Type Department Care Team ([facility] st Contact Info) Description 05/07/2023 Refill [facility] [address] [place] [address] Ricardo Segovia MD [address] [place] [address] Essential hypertension Social History Tobacco Use Types [...] Description 09/06/2024 11:30 AM EDT Medication Management [facility] [address] [place] [address] Kath Goff PharmD [address] [place] [address] documented as of this encounter Goals Goal [...] documented as of this encounter Care Teams Lead Electrical Engineer Relationship Specialty Start Date End Date Ricardo Segovia MD [address] [place] [address] PCP - General Internal Medicine 08/28/21 Joyce Quinonez, ALAN [address] [place] [address] Casino Cage ManagerHouse Principal 12/23/23 04/01/24 documented as of this encounter
--- OUTSIDE RECORDS SUMMARY | 2024-08-11 11:53 | XMS_ITS | Encounter Summary ---
Author Organization [email or web address] [facility] Address [address] [facility] [address] [address] [place] [address] Care Team Providers Care Malt Loader Name Role Phone Ricardo Segovia MD Primary Care Provide r Joyce Quinonez RN Unavailable [phone] Encounter Details Date Type Department Care Team ([facility] st Contact Info) Description 01/19/2024 Abstract [facility] MED[facility]INE [address] [place] [address] Rose Hook, PharmD [address] [place] [address] Social History Tobacco Use Types Packs/Day Years [...] 11:30 AM EDT Medication Management [facility] [address] [place] [address] Kath Goff PharmD [address] [place] [address] documented as of this encounter Goals Goal [...] documented as of this encounter Care Teams Malt Loader Relationship Specialty Start Date End Date Ricardo Segovia MD [address] [place] [address] PCP - General Internal Medicine 08/28/21 Joyce Quinonez RN [address] [place] [address] Vehicle Fuel Systems ConverterSea Kayaking Guide 12/23/23 04/01/24 documented as of this encounter
--- OUTSIDE RECORDS SUMMARY | 2024-08-11 11:53 | XMS_ITS | Encounter Summary ---
Demographics Address [address] [facility] [address] [place] [address] Mobile Phone Home Phone Email Address Preferred Language es Marital Status Pentecostal Affiliation Unknown Race Other Race Ethnic Group or Author Organization [employer] [facility] Address [address] [facility] [address] [place] [address] Care Team Providers Care Audio Visual Tech Name Role Phone Ricardo Segovia MD Primary Care Provide r Joyce Quinonez RN Unavailable [phone] Reason for Visit * Reason Onset Date Comments Glucose Meter 11/25/2022 Encounter Details Date Type Department Care Team ([facility] st Contact Info) Description 11/25/2022 Telephone [facility] MEDICINE [address] [place] [address] Ricardo Segovia MD [address] [place] [address] Glucose Meter Social History Tobacco Use Types [...] (November 21, 2022) Please contact pt at [phone] documented in this encounter Plan of Treatment Upcoming Encounters Date Type Department Care Team (Late st Contact Info) Description 09/06/2024 11:30 AM EDT Medication Management [facility]INE [address] [place] [address] Kath Goff PharmD [address] [place], [place] [phone] documented as of this encounter Goals Goal [...] use of insulin ([facility])- Primary documented in this encounter Additional Health Concerns Assessment Noted Time PHQ-9 Depression Total Score: 11 023 11:16 AM EDT documented as of this encounter Care Teams Audio Visual Tech Relationship Specialty Start Date End Date Ricardo Segovia MD [address] [place] [address] PCP - General Internal Medicine 08/28/21 Joyce Quinonez RN [address] [place] [address] Oil Field WorkerSkein Yarn Dyer 12/23/23 04/01/24 documented as of this encounter
--- OUTSIDE RECORDS SUMMARY | 2024-08-11 11:53 | XMS_ITS | Encounter Summary ---
Author Organization [employer] [facility] Address [address] [place] [address] 7t [place] [address] Care Team Providers Care Director Process Improvement Name Role Phone Ricardo Segovia MD Primary Care Provide r Joyce Quinonez RN Unavailable [phone] Encounter Details Date Type Department Care Team (Late st Contact Info) Description 06/07/2022 Orders Only [facility] [address] [place] [address] Mary Ellen Martines, RN Social History Tobacco [...] Description 09/06/2024 11:30 AM EDT Medication Management [facility] [address] [place] [address] Kath Goff, Erik [address] [place] [address] documented as of this encounter Visit Diagnoses Not on filedocumented in this encounter Care Teams Director Process Improvement Relationship Specialty Start Date End Date Ricardo Segovia MD [address] [place] [address] PCP - General Internal Medicine 08/28/21 Joyce Quinonez RN [address] [place] [address] Registered Route AssociatePatch Washer 12/23/23 04/01/24 documented as of this encounter
--- OUTSIDE RECORDS SUMMARY | 2024-08-11 11:54 | XMS_ITS | Encounter Summary ---
Author Organization [employer] [facility] Address [address] [facility] 7[address] [place] [address] Care Team Providers Care Sterilisation Technician Name Role Phone Ricardo Segovia MD Primary Care Provide r Joyce Quinonez RN Unavailable [phone] Reason for Visit * Reason Comments Med Refill Encounter Details Date Type Department Care Team ([facility] Contact Info) Description 12/29/2022 Refill [facility] [address] [place] [address] Ever Crisostomo FNP Primary insomnia Social History [...] Upcoming Encounters Date Type Department Care Team ([facility] Contact Info) Description 09/06/2024 11:30 AM EDT Medication Management [facility] MEDICINE [address] [place] [address] Kath Goff PharmD [address] [place] [address] documented as of this encounter Goals Goal [...] documented as of this encounter Care Teams Sterilisation Technician Relationship Specialty Start Date End Date Ricardo Segovia MD [address] [place] [address] PCP - General Internal Medicine 08/28/21 Joyce Quinonez RN [address] [place] [id number] Senior Analytic ConsultantFilament Welder 12/23/23 04/01/24 documented as of this encounter
--- OUTSIDE RECORDS SUMMARY | 2024-08-11 11:54 | XMS_ITS | Clinical Summary ---
Author Organization [employer] Address [address] [place] [address] Care Team Providers Care Parachute Repairer Name Role Phone Ricardo Segovia MD Primary Care Provide r Allergies No known active allergies Medications * This document contains information received from the source organization and may not represent a complete record from that organization. Misc. Devices (Pill Box 7 Day) [facility] USE DIRECTED 08/22/19 23 Active Blood Glucose Monitoring Suppl (FreeStyle Lite) w/Device kitIndications:T ype 2 diabetes mellitus without complication, without long-term current use of insulin ([facility]) 1 Units 2 times daily. 1 kit 11/29/19 23 Active triamcinolone (Kenalog) 0.1 % ointmentIndicati ons:Skin rash Apply topically 2 times daily. To mix w/ a 1 lb jar of Cerave to apply on the skin after shower. 80 g 06/30/19 24 Active TRUEplus Lancets 33G [facility] USE TO TEST BLOOD SUGAR TWICE A DAY 100 each 3 07/24/19 24 Active fexofenadine (Mala) 180 MG tabletIndication s:Skin rash TAKE 1 TABLET BY MOUTH DAILY NEEDED FOR ALLERGIES 90 tablet 08/07/19 24 Active Trulicity 0.75 MG/0.5ML solution pen-injector INJECT ONE PEN (=0.75MG) SUBCUTANEOUSLY ONCE A WEEK DIRECTED 2 mL 11 09/01/19 24 Active clopidogrel (Plavix) 75 MG tablet Take 75 mg by mouth in the morning. 08/18/19 24 Active Aspirin Low Dose 81 MG EC tabletIndication s:Type 2 diabetes mellitus without complication, without long-term current use of insulin ([facility]) Take 1 tablet (81 mg) by mouth in the morning. 30 tablet 11 09/09/19 24 Active clonazePAM (KlonoPIN) 0.5 MG tablet Take 1 tablet by mouth if needed in the morning and at bedtime. 08/06/19 24 Active empagliflozin-me tFORMIN ER (Synjardy XR) 5-1000 MG 24 hr tabletIndication s:Type 2 diabetes mellitus without complication, without long-term current use of insulin ([facility]) TAKE 1 TABLET BY MOUTH TWICE DAILY IN THE MORNING AND IN THE EVENING WITH FOOD 60 tablet 11 11/28/19 24 025 Active terbinafine (LamISIL AT) 1 % creamIndications :Ringworm of body,Tinea cruris Apply topically 2 times daily. 42 g 3 12/09/19 24 Active glucose blood (FREESTYLE LITE) test stripIndications :Type 2 diabetes mellitus without complication, without long-term current use of insulin ([facility]) TEST BLOOD SUGAR TWICE DAILY 100 strip 11 12/24/19 24 Active chlorthalidone (Hygroton) 25 MG tablet TAKE 1 TABLET BY MOUTH EVERY MORNING 90 tablet 3 02/02/20 24 Active Blood Pressure kitIndications:E ssential hypertension Use every other day 1 kit 03/11/20 24 Active losartan (Cozaar) 100 MG tabletIndication s:Essential hypertension TAKE 1 TABLET BY MOUTH EVERY MORNING 90 tablet 1 04/01/20 24 Active gabapentin (Neurontin) 400 MG capsule Take 400 mg by mouth at bedtime. 03/25/20 24 Active melatonin 5 MG tabletIndication s:Recurrent major depressive episodes, mild ([facility]) TAKE 2 TABLETS BY MOUTH EVERY DAY AT BEDTIME FOR SLEEP 180 tablet 1 04/27/20 24 Active amLODIPine (Norvasc) 10 MG tabletIndication s:Essential hypertension TAKE 1 TABLET BY MOUTH EVERY EVENING 90 tablet 05/25/20 24 Active atorvastatin (Lipitor) 80 MG tablet TAKE 1 TABLET BY MOUTH AT BEDTIME 90 tablet 05/25/20 24 Active metoprolol succinate XL (Toprol-XL) 200 MG 24 hr tabletIndication s:Essential hypertension TAKE 1 TABLET BY MOUTH EVERY MORNING 90 tablet 05/25/20 24 Active cloNIDine (Catapres) 0.2 MG tablet TAKE 1 TABLET BY MOUTH TWICE DAILY IN THE MORNING AND AT BEDTIME 60 tablet 1 06/22/20 24 Active escitalopram (Lexapro) 10 MG tabletIndication s:Major depressive disorder, recurrent episode, severe with mood-congruent psychotic features (CMS/HCC) Take 1 tablet (10 mg) by mouth in the morning. 30 tablet 07/08/19 25 Active zolpidem (Ambien) 10 MG tabletIndication s:Major depressive disorder, recurrent episode, severe with mood-congruent psychotic features (CMS/HCC) Take 1 tablet (10 mg) by mouth if needed at bedtime for sleep. 30 tablet 07/08/19 25 Active doxepin (SINEquan) 50 MG capsuleIndicatio ns:Major depressive disorder, recurrent episode, severe with mood-congruent psychotic features (CMS/HCC) Take 1 capsule (50 mg) by mouth if needed at bedtime for sleep. 30 capsule 07/08/19 25 Active Active Problems Problem Noted Date Diagnosed Date Mild nonproliferative diabet ic retinopathy of both eyes without macular edema associated with type 2 diabetes mellitus 07/08/2024 Assessment & Plan (07/08/2024 1:02 PM EST): Last note on record from [facility] 02/19/2023 Condyloma acuminatum in female 12/09/2023 Assessment & Plan (07/08/2024 12:47 PM EST): Pt with c/o multiple lesions on her vulva and c/o itchiness outside her vulva On exam Multiple vaginal warts Evaluated by WEB SEARCH EVALUATOR, last seen 05/04/2024 s/p biopsies that confirmed diagnosis of condyloma acuminata They discussed different treatment options and pt opted for Aldara cream Assessment & Plan (12/09/2023 11:05 AM EDT): Pt with c/o multiple lesions on her vulva and c/o itchiness outside her vulva On exam Multiple vaginal warts Plan: WEB SEARCH EVALUATOR referral. She also seems to have a [...] here for a follow up Admitted to [facility] [place] 08/14-08/16/2023 She presented to the ED [...] is here for a HDF Admitted to [facility] from 08/14-08/16/2023 She presented to the ED [...] 03/08. 05/18 , missed again. Unfortunately the clinical engineering director office declined to re-schedule her appointment. I have placed a referral to a different clinical engineering director. I discussed with pt's daughter tom the [...] BPD. Patient was seeing a therapist at [facility] but this organization closed and she is now following at [facility], has a new therapist and is awaiting [...] mental health. PLAN: 1. Follow up with [facility]: Not recommended 2. Patient goal to maintain diminished symptoms 3. Behavioral Recommendations a. Patient will comply with medication b. Patient will attend psychopharmacology appointments c. Patient will continue to engage in activities d. Patient will engage in OP therapy, once appointment is provided e. Patient may reach out to [facility], if needed. Assessment & Plan (12/19/2022 10:07 [...] counseling and will also have F/U with [facility] clinician. F/U with me in approx. [...] encounters ?? PLAN: 1. Follow up with [facility]: Recommended for follow-up: November 28, 2022 at 11 am telehealth 2. Patient goal is reduce intensity and frequency of symptoms 3. Behavioral Recommendations a. Patient will try using coping skills on a regular basis b. Patient will look into connecting with a [facility]ast[facility] or day program c. Patient will continue complying with medication d. Patient will reach out to [facility], if needed Assessment & Plan (11/07/2022 1:00 [...] counseling and will also have F/U with [facility] clinician. F/U with me in approx. [...] is warranted consider MR Pt already seeing WEB SEARCH EVALUATOR last seen 03/14 Pt under the care of [facility], seen last by KYAW Birch 03/14/2022 She [...] is warranted consider MR Pt already seeing WEB SEARCH EVALUATOR last seen 03/14 Pt under the care of [facility], seen last by KYAW Birch 03/14/2022 She [...] similar to ringworm following recent trip to [place]. Patient deferred to seek care at walk-in [...] the systolic range of 130-140 Follow up up health system in 4 months patient advised to adhere [...] were made last seen 11/2023 Follow up up health system in 3 months patient advised to adhere to a low sodium diet, encouraged about medication compliance Assessment & Plan (01/19/2024 5:14 PM EDT): Assessment: - BP is NOT at goal of less than 140/90 per JNC8 guidelines Plan/ Recommendations: - Continue with current therapy, f/u in 2 months with new [facility] Monitoring: Potassium (mmol/L) Date Value 07/05/2023 4.9 [...] followed by our [facility] Program Follow up up health system in 3 months patient advised to adhere to a low sodium diet, encouraged about medication compliance Assessment & Plan (09/09/2023 3:44 PM EDT): Patient with Hypertension currently improved , pt roshan she is compliant with [...] followed by our [facility] Program Follow up up health system in 3 months patient advised to adhere [...] followed by our [facility] Program Follow up up health system in 3 months patient advised to adhere [...] followed by our [facility] Program Follow up up health system in 3 months patient advised to adhere [...] followed by our CD Program Follow up wt me in 1 month patient advised to adhere [...] Diabetes was not controlled when first enrolled. 5-6-23. Started trulicity and switched to Synjardy. BG [...] regimen Eye exam was last done in [place], Microalbumin 10/04/2021 was 48 Pt on an [...] regimen Eye exam was last done in [place], Microalbumin 10/04/2021 was 48 Pt on an [...] regimen Eye exam was last done in [place], Microalbumin 10/04/2021 was 48 Pt on an [...] regimen Eye exam was last done in [place], Microalbumin 10/04/2021 was 48 Pt on an [...] regimen Eye exam was last done in [place], Microalbumin 10/04/2021 was 48 Pt on an [...] 7.6 Eye exam was last done in [place], Microalbumin 10/04/2021 was 48 Pt on an [...] 7.6 Eye exam was last done in [place], Microalbumin 10/04/2021 was 48 Pt on an [...] ordered Eye exam was last done in [place], will refer today Microalbumin 10/04/2021 was 48 [...] seeing a Psychotherapist, was referred to our [facility] clinician who referred her to [facility] and our Psychopharmacology clinic. Patient did not [...] a psychotherapist. Plan: Refer back to our [facility] clinician and Psychopharmacology clinic Pt denies any suicidal ideation. Encounters Date Type Department Care Team Description 08/06/2024 Telephone [facility] [address] [place] [address] Ricardo Segovia MD October Recall 07/08/2024 1:00 PM EST Office Visit [facility] [address] [place] [address] Ricardo Segovia MD Type 2 diabetes mellitus with both eyes affected by mild nonproliferative retinopathy without macular edema, without long-term current use of insulin ([facility]) (Primary Dx); Essential hypertension; Condyloma acuminatum in female; Screening for colon cancer; Preventative health care; Abnormal EKG; Nonruptured cerebral aneurysm, internal carotid artery, intracranial portion; Mixed hyperlipidemia; Major depressive disorder, recurrent episode, severe with mood-congruent psychotic features (CMS/HCC); Mild nonproliferative diabetic retinopathy of both eyes without macular edema associated with type 2 diabetes mellitus (CMS/HCC); Breast cancer screening by mammogram 07/08/2024 Telephone [facility] [address] [place] [address] Ricardo Segovia MD 07/08/2024 Telephone [facility] [address] [place] [address] Ricardo Segovia MD 07/08/2024 Telephone [facility] [address] [place] [address] Ricardo Segovia MD Referral 07/08/2024 Travel 07/06/2024 Telephone [facility] [address] [place] [address] Ricardo Segovia MD 06/29/2024 Telephone [facility] [address] [place] [address] Ricardo Segovia MD Referral 06/24/2024 Telephone [facility] [address] [place] [address] Ricardo Segovia MD Chart Prep 06/22/2024 Refill [facility] [address] [place] [address] Alicia Crawford MD 05/23/2024 Refill [facility] [address] [place] [address] Ricardo Segovia MD Essential hypertension 05/12/2024 Telephone [facility] [address] [place] [address] Ricardo Segovia MD from Last 3 Months [...] your housing situation today? I have samm drake 12/31/[address] you li [...] the past 12 months, has t he [place], gas, oil or water [employer] threatened to shut off services in your [...] Medication Management [facility] [address] [place] [address] Kath Goff, PharmD [address] [place] [address] Health Maintenance Due Date Last Done Comments CT Colonography 1966 Colonoscopy 1966 Colorectal Cancer Screening 1966 FIT DNA/Cologuard 1966 FIT 1966 FOBT 1966 Sigmoidoscopy 1966 Diabetes: Foot Exam 1976 Alcohol/Substance Use Screening 1978 Hepatitis A Vaccines (1 of 2 - Risk 2-dose series) 1985 Hepatitis B Vaccines (1 of 3 - 19+ 3-dose series) 1985 Eye Exam 01/17/2024 01/16/2023, 12/22, 01/16/2023, Additional history exists COVID-19 Vaccine ( season) 2024 08/31/2021, 03/03/2021, 02/03/2021 Depression Screening 07/10/2024 07/10/2023, 07/10/19 24 Pap Smear 10/03/2024 10/03/2021 Diabetes: Hemoglobin A1C 10/06/2024 025, 03/11/2024, 08/16/2023, Additional history exists SDOH Screening 12/30/2024 12/31/2023 Tobacco Screening 03/22/2025 03/22/2024 Mammogram 07/21/2025 07/21/2024 Diabetes: Urine Protein Screening 08/04/2025 08/04/2024, 09/30/2022, 10/04/2021 Lipid Panel 08/04/2025 08/04/2024, 07/25, 09/30/2022, Additional history exists Cervical Cancer Screening 10/03/2026 HPV/Cotest 10/03/2026 10/03/2021 [...] Procedure Name Priority Date/Time Associated Diagnosis Comments ALBUMIN, RANDOM URINE W/CREATININE Routine 08/04/2024 9:30 AM EST Type 2 diabetes mellitus with both eyes affected by mild nonproliferative retinopathy without macular edema, without long-term current use of insulin (CMS/HCC) LIPID PANEL, STANDARD Routine 08/04/2024 9:30 AM EST Mixed hyperlipidemia COMPREHENSIVE METABOLIC PANEL Routine 08/04/2024 9:30 AM EST Essential hypertension BI MAMMOGRAM SCREENING TOMOSYNTHESIS BILATERAL Routine 07/21/2024 11:55 AM EST Breast cancer screening by mammogram POCT GLYCATED HEMOGLOBIN, TOTAL Routine 07/08/2024 1:27 PM EST Type 2 diabetes mellitus with both eyes affected by mild nonproliferative retinopathy without macular edema, without long-term current use of insulin (CMS/HCC) POCT GLUCOSE Routine 07/08/2024 1:27 PM EST Type 2 diabetes mellitus with both eyes affected by mild nonproliferative retinopathy without macular edema, without long-term current use of insulin (CMS/HCC) HEPATITIS C AB W/REFL TO HCV RNA, QN, PCR Routine 05/06/2024 10:36 AM EST Condyloma acuminatum in female HIV 1/2 ANTIGEN/ANTIBODY, FOURTH GENERATION W/RFL Routine 05/06/2024 10:36 AM EST Condyloma acuminatum in female THINPREP IMAGING PAP AND HPV MRNA E6/E7 WITH REFLEX TO HPV 16,18/45 Routine 10/03/2021 2:01 PM EDT from Last 3 Months or Most Recently Relevant to Health Maintenance Results * Albumin, Random Urine W/Creatinine (08/04/2024 9:30 AM EST) Creatinine, Urine 110.15 mg/dL [facility] Microalbumin Urine 32.0 mg/L [facility] Microalbum Creatinine Ratio Ur 29.0 <30 ug/mg cr [facility] Comment:Albumin/Creatinine R atio Reference Ranges: Normal: < 30 ug/mg creatinine Microalbuminuria: 30 - 300 ug/mg creatinineClinical Albuminuria: > 300 ug/mg creatinine Urine (Urine, Random) 08/04/2024 9:30 AM EST 08/04/2024 11:14 AM EST us Ricardo Anaya MD LAB URINE ORDERABLES Final Result [facility] [address] [place] [phone] * (ABNORMAL) Lipid Panel, Standard (08/04/2024 9:30 AM EST) Triglycerides 115 <150 mg/dL [facility] Comment:Desirable Triglyceri de: less than 150 mg/dLBorderline High Triglyceride 150-199 mg/dLHigh Triglyceride: 200-499 mg/dLVery High Triglyceride: greater than or equal to 5OO mg/dL Cholesterol 228(H) <200 mg/dL [facility] Comment:Desirable Cholestero l: less than 200 mg/dLBorderline High Cholesterol: 200-239 mg/dLHigh Cholesterol: greater than 239 mg/dL LDL Cholesterol Calculated 154(H) <100 mg/dL [facility] Comment:Desirable LDL: less than 100 mg/dLNear Optimal/Above Optimal LDL: 110- 129 mg/dLBorderline High LDL: 130-159 mg/dLHigh LDL: 160-189 mg/dLVery High LDL: greater than or equal to 190 mg/dL HDL Cholesterol 51 >40 mg/dL [facility] Comment:Desirable HDL: great er than 40 mg/dL Note: This HDL assay may give artificially low results in patients with liver disease. Blood Venous blood specimen / Unknown 08/04/2024 9:30 AM EST 08/04/2024 11:18 AM EST us Ricardo Anaya MD LAB BLOOD ORDERABLES Final Result [facility] [address], [place] [phone] * (ABNORMAL) Comprehensive Metabolic Panel (08/04/2024 9:30 AM EST) Sodium 142 135 - 145 mmol/L [facility] Potassium 4.0 3.3 - 5.1 mmol/L [facility] Chloride 109(H) 96 - 108 mmol/L [facility] Carbon Dioxide 25 22 - 29 mmol/L [facility] Anion Gap 12 12 - 20 [facility] Urea Nitrogen (BUN) 11 9 - 16 mg/dL [facility] Creatinine, Serum 0.75 0.5 - 1.4 mg/dL [facility] Estimated Glomerular Filt Rate >60 [facility] Comment:Chronic Kidney Disea se: Estimated GFR < 60 mL/min/1.01l4Stvquw Kidney Disease: Estimated GFR < 15 mL/min/1.73m2 Glucose 94 60 - 115 mg/dL [facility] Calcium 9.5 8.4 - 10.2 mg/dL [facility] Bilirubin, Total 0.9 0.0 - 1.0 mg/dL [facility] Aspartate Amino Transferase 31 5 - 31 U/L [facility] Alanine Aminotransferase 27 0 - 31 U/L [facility] Total Protein 8.5(H) 6.5 - 8.0 g/dL [facility] Albumin Level 4.2 3.5 - 5.0 g/dL [facility] Alkaline Phosphatase 104 39 - 117 U/L [facility] Blood Venous blood specimen / Unknown 08/04/2024 9:30 AM EST 08/04/2024 11:18 AM EST us Ricardo Anaya MD LAB BLOOD ORDERABLES Final Result [facility] [address] [place] [phone] * BI Mammogram Screening Tomosynthesis Bilateral (07/21/2024 11:55 AM EST) Anatomical Region Laterality Modality Breast Bilateral Mammography 07/21/2024 11:5 5 AM EST Narrative 07/31/2024 11:14 AM EST ? [facility] [place] ? [address] ?[place] [id number] ? Mammography Report ? Signed ? Patient: Ron CanoOpal I ?MR#: MM ?? [id number] ? : 1965 ?Acct:[id number] ? Age/Sex: 59 / F ?ADM Date: 07/21/24 ? Loc: HO.MAMMO ? Attending Dr: Ricardo Farley MD ? Ordering Physician: Ricardo Farley MD ?Resu ?? lts: 1Negative ? Date of Service: 07/21/24 ?Follow Up: 1 Year From Orig ?? inal Mammogram ? Procedure(s): MM tomosynthesis screening BI ?? Accession Number(s): [id number] ? cc: Ricardo Farley MD ? EXAMINATION: [...] DD/ 1155 ? TD/TT: 07/21/24 1205 ? Apprentice Jockey: ? Procedure Note Franco, Image - 07/31/2024 [facility] [address] [place] [address] [address]. [place], [place] [address] Mammography Report Signed Patient: Opal Bangura [facility]#: [id number] : 1965Acct:[id number] Age/Sex: 59 / FADM Date: 07/21/24 Loc: HO.MAMMO Attending Dr: Ricardo Farley MD Ordering Physician: Ricardo Farleyu lts: 1Negative Date of Service: 07/21/24Follow Up: 1 Year From Orig inal Mammogram Procedure(s): MM tomosynthesis screening BI Accession Number(s): [id number] cc: Ricardo Farley MD EXAMINATION: MM SCREENING [...] 07/31/24 1111 DD/ 1155 TD/TT: 07/21/24 1205 Apprentice Jockey: Ricardo Anaya MD IMG BI PROCEDURES Abraham jorje Result - Final * (ABNORMAL) POCT HGB A1C (07/08/2024 1:27 PM EST) Hemoglobin A1C 7.0(A) 4.0 - 6.0 % QC Media Lot # [id number] Lot# Expiration Date Blood 07/08/2024 1:27 PM EST Ricardo Anaya MD POINT OF CARE TEST EN TER/EDIT ORDERABLES Final Result * POCT Glucose (07/08/2024 1:27 PM EST) [facility] Glucose Blood, POC 129 60 - 200 mg/dL QC Media Lot # [id number] Lot# Expiration Date [id number] Blood Capillary blood specimen / Unknown 07/08/2024 1:27 PM EST Ricardo Anaya MD POINT OF CARE TEST EN TER/EDIT ORDERABLES Final Result * Hepatitis C Antibody with Reflex to HCV, RNA, Quantitative, Real-Time PCR (05/06/2024 10:36 AM EST) [facility] Hepatitis C Antibody Nonreactive Nonreactive [facility] Comment:Antibodies to HCV no t detected; does not exclude early acuteHCV infection. Blood Venous blood specimen / Unknown 05/06/2024 10:36 AM EST 05/06/2024 1:19 PM EST Ricardo Anaya MD LAB BLOOD ORDERABLES Final Result [facility] [address] [place] [phone] * HIV-1/2 Antigen and Antibodies, Fourth Generation, with Reflexes (05/06/2024 10:36 AM EST) [facility] HIV AB/AG Nonreactive Nonreactive [facility] Comment:HIV-1 p24 Ag and/or HIV-1/HIV-2 Ab not detected.A test result that is nonreactive does not exclude thepossibility of exposure to or infection with HIV-1 and/orHIV-2. Nonreactive results in this assay for individualswith prior exposure to HIV-1 and/or HIV-2 may be due toantigen and antibody levels that are below the limit ofdetection of this assay.The Sols HIV Ag/Ab Combo assay result andsupplemental assay results should be interpreted inconjunction with the patient's clinical presentation,history and other laboratory results. If the results areinconsistent with clinical evidence, additional testing issuggested to confirm the result. Blood Venous blood specimen / Unknown 05/06/2024 10:36 AM EST 05/06/2024 1:19 PM EST Ricardo Anaya MD LAB BLOOD ORDERABLES Final Result [facility] [address] [place] [phone] * THINPREP TIS PAP AND HPV mRNA E6/E7 WITH REFLEX TO HPV 16,18/45 (10/03/2021 2:01 PM EDT) Clinical Information: None given [facility] COMMENT SEE COMMENT [facility] [...] has been evaluated with computer assisted technology. [facility] Take Down Inspector: SEE COMMENT [facility] Comment: SAMIR CT(ASCP) CT screening location: [address] ??[id number] HPV nRNA E6/E7 Not Detected Not Detected [facility] Comment: Methodology: Sheetmetal Patternmaker-Mediated Amplification This assay detects E6/E7 viral messenger RNA (mRNA) from 14 high-risk HPV types (16,18,31,33,35,39,45,51,52,56,58,59,66,68). ? The analytical performance characteristics of this assay have been determined by [employer] ([employer]). The modifications have not been cleared or approved by the FDA. This assay has been validated pursuant to the CLIA regulations and is used for clinical purposes. ?? For additional information, please refer to http://education.[employer] Info/faq/HDZ682j3 (This link if provided for information/ educational purposes only.) Interpretation/Res ult: SEE COMMENT [facility] Comment: Negative for intraepithelial lesion or malignancy. Atrophic pattern; predominantly parabasal cells LMP: 53 YRS [facility] Prev. BX: NONE GIVEN [facility] Prev. PAP: NONE GIVEN [facility] SOURCE: None given [facility] Statement Of Adequacy: SATISFACTORY FOR EVALUATION [facility] 10/03/2021 2:01 PM EDT Mary Kay CNM LAB PATHOLOGY ORDERABLES Final Result [facility] [address] from Last 3 Months or Most Recently Relevant to Health Maintenance Insurance [facility] C3 HSN FULL Care Teams Parachute Repairer Relationship Specialty Start Date End Date Ricardo Segovia MD [address] [place] [id number] PCP - General Internal Medicine 08/28/21
--- OUTSIDE RECORDS SUMMARY | 2024-08-11 11:54 | XMS_ITS | Encounter Summary ---
Author Organization [employer] Address [address] [place] [address] Care Team Providers Care Yarding And Folding Machine Operator Name Role Phone Ricardo Segovia MD Primary Care Provide r Joyce Quinonez RN Unavailable [phone] Reason for Visit * Reason Onset Date Comments r/s f/u appt 02/12/2023 Encounter Details Date Type Department Care Team ([facility] st Contact Info) Description 02/12/2023 Telephone [facility] [address] [place] [address] Ricadro Segovia MD [address] [place] [address] r/s f/u appt Social History Tobacco Use [...] weeks (around 02/11/2023) for HTN appt , Healthcare Specialist placed pt on RECALL for March. Please contact at [phone] documented in this encounter Plan of Treatment Upcoming Encounters Date Type Department Care Team (Late st Contact Info) Description 09/06/2024 11:30 AM EDT Medication Management [facility] [address] [place] [address] Kath Goff, PharmD [address] [place] [address] documented as of this encounter Goals Goal [...] documented as of this encounter Care Teams Yarding And Folding Machine Operator Relationship Specialty Start Date End Date Ricardo Segovia MD [address] [place] [address] PCP - General Internal Medicine 08/28/21 Joyce Quinonez RN [address] [place] [address] Java Golden Gate DeveloperDiffusion Operator 12/23/23 04/01/24 documented as of this encounter
--- OUTSIDE RECORDS SUMMARY | 2024-08-11 11:54 | XMS_ITS | Encounter Summary ---
Author Organization [employer] [facility] Address [address] [facility] 7t [place] [address] Care Team Providers Care Caustic Plant Worker Name Role Phone Ricardo Segovia MD Primary Care Provide r Joyce Quinonez RN Unavailable [phone] Reason for Visit * Reason Comments Med Refill Encounter Details Date Type Department Care Team ([facility] Contact Info) Description 01/09/2023 Refill [facility] [address] [place] [address] Rose Hook, PharmD [address] [place] [address] Essential hypertension Social History Tobacco Use Types [...] Upcoming Encounters Date Type Department Care Team ([facility] Contact Info) Description 09/06/2024 11:30 AM EDT Medication Management [facility] [address] [place] [address] Kath Goff PharmD [address] [place] [address] documented as of this encounter Goals Goal [...] documented as of this encounter Care Teams Caustic Plant Worker Relationship Specialty Start Date End Date Ricardo Segovia MD [address] [place] [address] PCP - General Internal Medicine 08/28/21 Joyce Quinonez RN [address] [place] [id number] Pipeline DispatcherFront Desk Supervisor 12/23/23 04/01/24 documented as of this encounter
== END 2024-08-11 11:37 | disposition home or self-care (01) ==
PROVIDERS: PCP Internal Medicine; Visit Provider Internal Medicine Nephrology
DX: I10 Essential (primary) hypertension (principal)
CPT/HCPCS: 99214

== ENCOUNTER → 2024-08-11 11:09 | Outpatient (BNVA) | payer MEDICAID, SELFPAY | PROVIDERS: PCP Internal Medicine; Visit Provider Internal Medicine Nephrology | DX: I10 Essential (primary) hypertension (principal); E11.9 Type 2 diabetes mellitus without complications | CPT/HCPCS: 99212 ==

== ENCOUNTER 2024-10-28 11:39 | Outpatient (AMB) | payer MEDICAID, SELFPAY ==
--- NOTE | 2024-10-28 11:47 | MHC.OFFVIS ---
Vital Signs 10/28/24 11:48 Height 5 ft 6 in Weight 139 lb BMI 22.4 BP 128/70 Intake Visit Reasons: vaginal warts follow up Configuration Manager Required: Yes Configuration Manager Language: Public Health Advisor Services: Configuration Manager Present (in person) Configuration Manager Name: Ivonne JIMENES Information Interpreted: non-clinical & clinical Post Office Manager: Post Office Manager Present (Ivonne JIMENES) Accompanied by: Self / Same As Patient Allergies No Known Allergies Allergy (Verified 10/28/24 11:51) Post menopausal: Yes HPI Comments Details: Presenting for follow-up 4 months after Aldara cream for condyloma acuminata on bilateral vulva. 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 Review of Systems Const All systems reviewed & are unremarkable except as noted in HPI and below Physical Exam Vital Signs: Last Vital Signs BP 128/70 10/28/24 11:48 BMI result Body Mass Index 22.4 General: Yes no CVA tenderness External Female Exam: normal external appearance (Bilateral multiple condylomas seen) and normal appearance of the urethra Speculum Exam - Vagina: normal appearance of the vagina, normal palpation, no lesions and no masses Speculum Exam - Cervix: normal appearance of the cervix, normal palpation, no lesions, no masses and nontender Bimanual exam- vagina & uterus: normal bimanual exam, normal palpation, uterine size normal, normal palpation, uterine shape normal, No Cervical tenderness present and non-tender Bimanual Exam- Adnexa, other: normal adnexae Back/Spine/Pelvis Back: no CVA tenderness Assessment & Plan Assessment & Plan (1) Condyloma acuminata: Code(s): A63.0 - Anogenital (venereal) warts Category: Medical Plan: Discussed with the patient the options of treatment including excision, Podofilox, cryoablation, laser ablation, electrocautery, TCA application or others; all pros and cons, risks and benefits of each approach were discussed with the patient, the patient prefers to go ahead with laser treatment will refer to [facility] for further management Instructed the patient to call our office back in case a referral appointment is not scheduled, missed or canceled so that we will assist on rescheduling another appointment, the patient verbalized understanding agreed with the plan. Coding Level of Care Code Est Pt Level 3 (87310) Diagnoses Condyloma acuminata A63.0
[2024-10-28 11:48] VITALS: BP 128/70; BMI 22.4
--- OUTSIDE RECORDS SUMMARY | 2024-10-28 13:11 | XMS_ITS | Encounter Summary ---
Author Organization [employer] Address [address] [place] [address] Care Team Providers Care Mold Filler Plastic Dolls Name Role Phone Ricardo Segovia MD Primary Care Provide r Joyce Quinonez RN Unavailable [phone] Reason for Visit * Reason Comments Med Refill Encounter Details Date Type Department Care Team (Late Contact Info) Description 01/09/2023 Refill [facility] MED[facility]INE [address] [place] [address] Rose Hook, PharmD [address] [place] [address] Essential hypertension Social History Tobacco Use Types [...] Upcoming Encounters Date Type Department Care Team ([facility] Contact Info) Description 11/25/2024 1:15 PM EDT Office Visit [facility] [address] [place] [address] Ricardo Segovia MD [address] [place] [address] documented as of this encounter Goals Goal [...] documented as of this encounter Care Teams Mold Filler Plastic Dolls Relationship Specialty Start Date End Date Ricardo Sgeovia MD [address] [place] [address] PCP - General Internal Medicine 08/28/21 Joyce Quinonez RN [address] [place] [address] Jazz MusicianAssociate Field Service Engineer 12/23/23 04/01/24 documented as of this encounter
--- OUTSIDE RECORDS SUMMARY | 2024-10-28 13:11 | XMS_ITS | Encounter Summary ---
Author Organization [employer] Address [address] [place] [address] Care Team Providers Care Cardio Clinician Name Role Phone Ricardo Segovia MD Primary Care Provide r Joyce Quinonez RN Unavailable [phone] Reason for Visit * Reason Comments Med Refill Encounter Details Date Type Department Care Team ([facility] Contact Info) Description 12/29/2022 Refill [facility] [address] [place] [address] Ever Crisostomo FNP Primary insomnia Social History [...] Upcoming Encounters Date Type Department Care Team ([facility] Contact Info) Description 11/25/2024 1:15 PM EDT Office Visit [facility] [address] [place] [address] Ricardo Segovia MD [address] [place] [address] documented as of this encounter Goals Goal [...] documented as of this encounter Care Teams Cardio Clinician Relationship Specialty Start Date End Date Ricardo Segovia MD [address] [place] [address] PCP - General Internal Medicine 08/28/21 Joyce Quinonez, ALAN [address] [place] [address] Driller Multiple SpindleInstrument Inspector 12/23/23 04/01/24 documented as of this encounter
--- OUTSIDE RECORDS SUMMARY | 2024-10-28 13:11 | XMS_ITS | Encounter Summary ---
Author Organization [employer] Address [address] [place] [address] Care Team Providers Care Earth Sciences Professor Name Role Phone Ricardo Segovia MD Primary Care Provide r Joyce Quinonez RN Unavailable [phone] Encounter Details Date Type Department Care Team ([facility] st Contact Info) Description 01/19/2024 Abstract [facility] [address] [place] [address] Rose Hook, PharmD [address] [place] [address] Social History Tobacco Use Types Packs/Day Years [...] Care Team (Late st Contact Info) Description 11/25/2024 1:15 PM EDT Office Visit [facility] [address] [place] [address] Ricardo Segovia MD [address] [place] [address] documented as of this encounter Goals Goal Patient Goal Type Associated Problems Recent Progress Patient-Stated? Author Blood Pressure < 140/90 Blood Pressure 160/84(07/08 1:23 PM EST) No Rose Hook, PharmD Short-term: Promote adherence to treatment regimen [...] Tobacco Use Tobacco dependence No Rose Hook, PharmD documented as of this encounter Visit Diagnoses Not on filedocumented in this encounter Additional Health Concerns Assessment Noted Time PHQ-9 Depression Total Score: 8 07/10/19 24 9:25 AM EST documented as of this encounter Care Teams Earth Sciences Professor Relationship Specialty Start Date End Date Ricardo Segovia MD [address] [place] [address] PCP - General Internal Medicine 08/28/21 Joyce Quinonez RN [address] [place] [address] Third LoaderSoftware Developer Mid Level 12/23/23 04/01/24 documented as of this encounter
--- OUTSIDE RECORDS SUMMARY | 2024-10-28 13:11 | XMS_ITS | Encounter Summary ---
Author Organization [employer] Address [address] [place] [address] Care Team Providers Care Gold Miner Name Role Phone Ricardo Segovia MD Primary Care Provide r Joyce Quinonez RN Unavailable [phone] Reason for Visit * Reason Comments Med Refill Encounter Details Date Type Department Care Team ([facility] st Contact Info) Description 05/07/2023 Refill [facility]INE [address] [place] [address] Ricardo Segovia MD [address] [place] [address] Essential hypertension Social History Tobacco Use Types [...] Description 11/25/2024 1:15 PM EDT Office Visit [facility] [address] [place] [address] Ricardo Segovia MD [address] [place] [address] documented as of this encounter Goals Goal [...] and 130 Result Component No Rose Hook PharmElizabet Keep fasting blood glucose between 70 [...] documented as of this encounter Care Teams Gold Miner Relationship Specialty Start Date End Date Ricardo Segovia MD [address] [place] [address] PCP - General Internal Medicine 08/28/21 Joyce Quinonez, ALAN [address] [place] [address] Supervisor Elementary EducationWildlife Removal Specialist 12/23/23 04/01/24 documented as of this encounter
--- OUTSIDE RECORDS SUMMARY | 2024-10-28 13:11 | XMS_ITS | Encounter Summary ---
Author Organization [employer] Address [address] [facility] [address] [facility] [address] 7[address] [place] [address] Care Team Providers Care Service Worker Name Role Phone Ricardo Segovia MD Primary Care Provide r Joyce Quinonez RN Unavailable [phone] Reason for Visit * Reason Onset Date Comments Glucose Meter 11/25/2022 Encounter Details Date Type Department Care Team ([facility] st Contact Info) Description 11/25/2022 Telephone [facility] [address] [place] [address] Ricardo Segovia MD [address] [place] [address] Glucose Meter Social History Tobacco Use Types [...] (November 21, 2022) Please contact pt at [phone] documented in this encounter Plan of Treatment Upcoming Encounters Date Type Department Care Team (Late st Contact Info) Description 11/25/2024 1:15 PM EDT Office Visit [facility] [address] [place] [address] Ricardo Segovia MD [address] [place], [place] [phone] documented as of this encounter Goals Goal [...] without macular edema No Rose Hook PharmElizabet documented as of this encounter Visit Diagnoses Diagnosis Type 2 diabetes mellitus without complication, without long-term current use of insulin ([facility])- Primary documented in this encounter Additional Health Concerns Assessment Noted Time PHQ-9 Depression Total Score: 11 023 11:16 AM EDT documented as of this encounter Care Teams Service Worker Relationship Specialty Start Date End Date Ricardo Segovia MD [address] [place] [address] PCP - General Internal Medicine 08/28/21 Jocye Quinonez RN [address] [place] [address] Senior Trial AttorneyPrepared Foods Supervisor 12/23/23 04/01/24 documented as of this encounter
--- OUTSIDE RECORDS SUMMARY | 2024-10-28 13:11 | XMS_ITS | Encounter Summary ---
Author Organization [employer] Address [address] [facility] 7t [place] [address] Care Team Providers Care Diamond Wheel Edger Name Role Phone Ricardo Segovia MD Primary Care Provide r Joyce Quinonez RN Unavailable [phone] Encounter Details Date Type Department Care Team (Late st Contact Info) Description 06/07/2022 Orders Only [facility] MED[facility]INE [address] [place] [address] Mary Ellen Martines RN Social History Tobacco Use Types Packs/Day [...] Description 11/25/2024 1:15 PM EDT Office Visit [facility] [address] [place] [address] Ricardo Segovia MD [address] [place] [address] documented as of this encounter Visit Diagnoses Not on filedocumented in this encounter Care Teams Diamond Wheel Edger Relationship Specialty Start Date End Date Ricardo Segovia MD [address] [place] [address] PCP - General Internal Medicine 08/28/21 Joyce Quinonez RN [address] [place] [address] C Application DeveloperVocational Ed Instructor 12/23/23 04/01/24 documented as of this encounter
--- OUTSIDE RECORDS SUMMARY | 2024-10-28 13:12 | XMS_ITS | Clinical Summary ---
Author Organization [employer] Address [address] [place] [address] Care Team Providers Care Project Management Professor Name Role Phone Ricardo Segovia MD Primary Care Provide r Allergies No known active allergies Medications * This document contains information received from the source organization and may not represent a complete record from that organization. Misc. Devices (Pill Box 7 Day) [facility] USE DIRECTED 023 Active Blood Glucose Monitoring Suppl (FreeStyle Lite) w/Device kitIndications:Type 2 diabetes mellitus without complication, without long-term current use of insulin (CMS/[facility]) 1 Units 2 times daily. 1 kit 023 Active triamcinolone (Kenalog) 0.1 % ointmentIndications :Skin rash Apply topically 2 times daily. To mix w/ a 1 lb jar of Cerave to apply on the skin after shower. 80 g 024 Active fexofenadine (Mala) 180 MG tabletIndications:S kin rash TAKE 1 TABLET BY MOUTH DAILY NEEDED FOR ALLERGIES 90 tablet 024 Active clopidogrel (Plavix) 75 MG tablet Take 75 mg by mouth in the morning. 024 Active Aspirin Low Dose 81 MG EC tabletIndications:T ype 2 diabetes mellitus without complication, without long-term current use of insulin (CMS/HCC) Take 1 tablet (81 mg) by mouth in the morning. 30 tablet 11 024 Active clonazePAM (KlonoPIN) 0.5 MG tablet Take 1 tablet by mouth if needed in the morning and at bedtime. 024 Active empagliflozin-metFO RMIN ER (Synjardy XR) 5-1000 MG 24 hr tabletIndications:T ype 2 diabetes mellitus without complication, without long-term current use of insulin ([facility]) TAKE 1 TABLET BY MOUTH TWICE DAILY IN THE MORNING AND IN THE EVENING WITH FOOD 60 tablet 11 024 2024 Active terbinafine (LamISIL AT) 1 % creamIndications:Ri ngworm of body,Tinea cruris Apply topically 2 times daily. 42 g 3 024 Active glucose blood (FREESTYLE LITE) test stripIndications:Ty pe 2 diabetes mellitus without complication, without long-term current use of insulin (CMS/HCC) TEST BLOOD SUGAR TWICE DAILY 100 strip Active chlorthalidone (Hygroton) 25 MG tablet TAKE 1 TABLET BY MOUTH EVERY MORNING 90 tablet 3 024 Active Blood Pressure kitIndications:Esse ntial hypertension Use every other day 1 kit 024 Active gabapentin (Neurontin) 400 MG capsule Take 400 mg by mouth at bedtime. 024 Active cloNIDine (Catapres) 0.2 MG tablet TAKE 1 TABLET BY MOUTH TWICE DAILY IN THE MORNING AND AT BEDTIME 60 tablet 1 Active zolpidem (Ambien) 10 MG tabletIndications:M ajor depressive disorder, recurrent episode, severe with mood-congruent psychotic features (CMS/HCC) TAKE 1 TABLET BY MOUTH AT BEDTIME NEEDED FOR SLEEP 30 tablet Active atorvastatin (Lipitor) 80 MG tablet TAKE 1 TABLET BY MOUTH AT BEDTIME 90 tablet Active metoprolol succinate XL (Toprol-XL) 200 MG 24 hr tabletIndications:E ssential hypertension Take 1 tablet (200 mg) by mouth in the morning. 90 tablet Active Dulaglutide 0.75 MG/0.5ML solution auto-injectorIndica tions:Type 2 diabetes mellitus with both eyes affected by mild nonproliferative retinopathy without macular edema, without long-term current use of insulin (CMS/[facility]) Inject 0.75 mg under the skin 1 (one) time per week. 2 mL 11 025 Active TRUEplus Lancets 33G miscIndications:Typ e 2 diabetes mellitus without complication, without long-term current use of insulin (CMS/HCC) USE TO TEST BLOOD SUGAR TWICE A DAY 100 each 3 Active sertraline (Zoloft) 50 MG tablet Take 1 tablet by mouth Once per day. Active NIFEdipine XL (Procardia XL) 30 MG 24 hr tablet Take 30 mg by mouth at bedtime. Active melatonin 5 MG tabletIndications:R ecurrent major depressive episodes, mild (CMS/HCC) TAKE 2 TABLETS BY MOUTH EVERY DAY AT BEDTIME FOR SLEEP 180 tablet 1 Active losartan (Cozaar) 100 MG tabletIndications:E ssential hypertension TAKE 1 TABLET BY MOUTH EVERY MORNING 90 tablet 1 Active doxepin (SINEquan) 50 MG capsuleIndications: Major depressive disorder, recurrent episode, severe with mood-congruent psychotic features (CMS/HCC) TAKE 1 CAPSULE BY MOUTH AT BEDTIME NEEDED FOR SLEEP 30 capsule 1 Active losartan (Cozaar) 100 MG tabletIndications:E ssential hypertension TAKE 1 TABLET BY MOUTH EVERY MORNING 90 tablet 1 024 2024 Discontinued melatonin 5 MG tabletIndications:R ecurrent major depressive episodes, mild (CMS/HCC) TAKE 2 TABLETS BY MOUTH EVERY DAY AT BEDTIME FOR SLEEP 180 tablet 1 024 2024 Discontinued amLODIPine (Norvasc) 10 MG tabletIndications:E ssential hypertension TAKE 1 TABLET BY MOUTH EVERY EVENING 90 tablet 024 2024 Discontinued(M ed list cleanup (will not trigger notification to Pharmacy)) doxepin (SINEquan) 50 MG capsuleIndications: Major depressive disorder, recurrent episode, severe with mood-congruent psychotic features (CMS/HCC) TAKE 1 CAPSULE BY MOUTH AT BEDTIME NEEDED FOR SLEEP 30 capsule 025 2024 Discontinued escitalopram (Lexapro) 10 MG tabletIndications:M ajor depressive disorder, recurrent episode, severe with mood-congruent psychotic features (CMS/HCC) TAKE 1 TABLET BY MOUTH EVERY MORNING 30 tablet 025 2024 Discontinued(M ed list cleanup (will not trigger notification to Pharmacy)) Active Problems Problem Noted Date Diagnosed Date Mild nonproliferative diabet ic retinopathy of both eyes without macular edema associated with type 2 diabetes mellitus 07/08/2024 Assessment & Plan (07/08/2024 1:02 PM EST): Last note on record from Ret[facility] Principal Consultant 02/19/2023 Condyloma acuminatum in female 12/09/2023 Assessment & Plan (07/08/2024 12:47 PM EST): Pt with c/o multiple lesions on her vulva and c/o itchiness outside her vulva On exam Multiple vaginal warts Evaluated by FINISHER TAILOR APPRENTICE, last seen 05/04/2024 s/p biopsies that confirmed diagnosis of condyloma acuminata They discussed different treatment options and pt opted for Aldara cream Assessment & Plan (12/09/2023 11:05 AM EDT): Pt with c/o multiple lesions on her vulva and c/o itchiness outside her vulva On exam Multiple vaginal warts Plan: FINISHER TAILOR APPRENTICE referral. She also seems to have a [...] here for a follow up Admitted to [facility] from 08/14-08/16/2023 She presented to the ED [...] is here for a HDF Admitted to [facility] from 08/14-08/16/2023 She presented to the ED [...] 03/08. 05/18 , missed again. Unfortunately the assistant cook office declined to re-schedule her appointment. I have placed a referral to a different assistant cook. I discussed with pt's daughter tom the [...] BPD. Patient was seeing a therapist at [facility] but this organization closed and she is now following at [facility], has a new therapist and is awaiting [...] mental health. PLAN: 1. Follow up with [facility]: Not recommended 2. Patient goal to maintain diminished symptoms 3. Behavioral Recommendations a. Patient will comply with medication b. Patient will attend psychopharmacology appointments c. Patient will continue to engage in activities d. Patient will engage in OP therapy, once appointment is provided e. Patient may reach out to [facility], if needed. Assessment & Plan [...] counseling and will also have F/U with [facility] clinician. F/U with me in approx. 1 [...] encounters ?? PLAN: 1. Follow up with [facility]: Recommended for follow-up: November 28, 2022 at 11 am telehealth 2. Patient goal is reduce intensity and frequency of symptoms 3. Behavioral Recommendations a. Patient will try using coping skills on a regular basis b. Patient will look into connecting with a Jew or day program c. Patient will continue complying with medication d. Patient will reach out to [facility], if needed Assessment & Plan (11/07/2022 1:00 [...] counseling and will also have F/U with [facility] clinician. F/U with me in approx. 1 [...] is warranted consider MR Pt already seeing FINISHER TAILOR APPRENTICE last seen 03/14 Pt under the care of [facility], seen last by [facility] [...] is warranted consider MR Pt already seeing FINISHER TAILOR APPRENTICE last seen 03/14 Pt under the care of [facility], seen last by [facility] [...] similar to ringworm following recent trip to [place]. Patient deferred to seek care at walk-in [...] of soft tissue of left lower extremity 03/1 11/2022 Assessment & Plan (11/21/2022 11:09 AM EDT): [...] the systolic range of 130-140 Follow up wt me in 4 months patient advised to [...] were made last seen 11/2023 Follow up [facility] in 3 months patient advised to adhere to a low sodium diet, encouraged about medication compliance Assessment & Plan (01/19/2024 5:14 PM EDT): Assessment: - BP is NOT at goal of less than 140/90 per JNC8 guidelines Plan/ Recommendations: - Continue with current therapy, f/u in 2 months with new [facility] Monitoring: Potassium (mmol/L) Date Value 07/05/2023 4.9 [...] mg po BID (increased during last hospitalization) [facility] 06/2023 was wnl Plan: Previously referred to [...] better She is being followed by our [facility] Program Follow up [facility] in 3 months patient advised to adhere [...] followed by our [facility] Program Follow up [facility] in 3 months patient advised to adhere [...] followed by our [facility] Program Follow up [facility] in 3 months patient advised to adhere [...] followed by our [facility] Program Follow up [facility] in 3 months patient advised to adhere [...] daily and Chlortalidone 25 mg po daily [facility] 09/30/2022 was wnl Plan: Increase Amlodpine to 10 mg po daily discussed with patient importance of medication adherence if we are to control her Blood pressure since this is putting her at risk of a heart attack, stroke or even . Pt verbalized understanding and promised to do better She is being followed by our [facility] Program Follow up [facility] in 1 month patient advised to adhere [...] regimen Eye exam was last done in [place], Microalbumin 10/04/2021 was 48 Pt on an [...] regimen Eye exam was last done in [place], Microalbumin 10/04/2021 was 48 Pt on an [...] regimen Eye exam was last done in [place], Microalbumin 10/04/2021 was 48 Pt on an [...] regimen Eye exam was last done in [place], Microalbumin 10/04/2021 was 48 Pt on an [...] regimen Eye exam was last done in [place], Microalbumin 10/04/2021 was 48 Pt on an [...] 7.6 Eye exam was last done in [place], Microalbumin 10/04/2021 was 48 Pt on an [...] 7.6 Eye exam was last done in [place], Microalbumin 10/04/2021 was 48 Pt on an [...] ordered Eye exam was last done in [place], will refer today Microalbumin 10/04/2021 was 48 [...] seeing a Psychotherapist, was referred to our [facility] clinician who referred her to [facility] and our Psychopharmacology clinic. Patient did not [...] a psychotherapist. Plan: Refer back to our [facility] clinician and Psychopharmacology clinic Pt denies any suicidal ideation. Encounters Date Type Department Care Team Description 10/13/2024 Refill [facility] [address] [place] [phone] Ricardo Segovia MD Essential hypertension; Major depressive disorder, recurrent episode, severe with mood-congruent psychotic features (CMS/HCC) 10/11/2024 Refill [facility] [address] [place], [place] [phone] Ricardo Segovia MD Recurrent major depressive episodes, mild (CMS/HCC) 09/30/2024 Telephone [facility] [address] [place] [address] Ricardo Segovia MD 09/28/2024 Refill [facility] [address] [place] [address] Ricardo Segovia MD Type 2 diabetes mellitus without complication, without long-term current use of insulin (CMS/HCC) 09/06/2024 Telephone [facility] [address] [place] [address] Ricardo Segovia MD 09/03/2024 Telephone [facility] [address] [place] [address] Ricardo Segovia MD Appointment Request 09/03/2024 Population Health Risk Score [facility] (C[facility]) Department [address] [phone] Provider, Population Health Generic 08/26/2024 Refill [facility] [address] [place] [address] Ricardo Segovia MD Type 2 diabetes mellitus with both eyes affected by mild nonproliferative retinopathy without macular edema, without long-term current use of insulin ([facility]) (Primary Dx) 08/20/2024 Refill [facility] [address] [place] [address] Rose [place], PharmD 08/17/2024 Refill [facility] [address] [place] [address] Ricardo Segovia MD Essential hypertension 08/16/2024 Refill [facility] [address] [place], [place] [phone] Ricardo Segovia MD Major depressive disorder, recurrent episode, severe with mood-congruent psychotic features (CMS/HCC) 08/12/2024 Refill [facility] [address] [place] [address] Ricardo Segovia MD 08/06/2024 Telephone [facility] [address] [place], [place] [phone] Ricardo Segovia MD May Recall from Last 3 Months Immunizations Name Administration [...] Description 11/25/2024 1:15 PM EDT Office Visit [facility] [address] [place] [address] Ricardo Segovia MD [address] [place] [address] Health Maintenance Due Date Last Done Comments CT Colonography 1965 Colonoscopy 1966 Colorectal Cancer Screening 1965 FIT DNA/Cologuard 1966 FIT 1966 FOBT 1966 Sigmoidoscopy 1966 Diabetes: Foot Exam 1976 Alcohol/Substance Use Screening 1978 Hepatitis B Vaccines (1 of 3 - 19+ 3-dose series) 1985 Eye Exam 01/17/2024 01/16/2023, 12/22, 01/16/2023, Additional history exists COVID-19 Vaccine ( season) 2024 08/31/2021, 03/03/2021, 02/03/2021 Depression Screening 07/10/2024 07/10/2023, 07/10/19 Diabetes: Hemoglobin A1C 10/06/2024 025, 03/11/2024, 08/16/2023, Additional history exists SDOH Screening 12/30/2024 12/31/2023 Tobacco Screening 03/22/2025 03/22/2024 Mammogram 07/21/2025 07/21/2024 Diabetes: Urine Protein Screening 08/04/2025 08/04/2024, 09/30/2022, 10/04/2021 Lipid Panel 08/04/2025 08/04/2024, 07/25, 09/30/2022, Additional history exists Cervical Cancer Screening 10/03/2026 HPV/Cotest 10/03/2026 10/03/2021 Pap Smear 10/03/2026 10/03/2021 DTaP/Tdap/Td Vaccines (2 - Td [...] on patient's age to complete this topic Hepatitis A Vaccines Aged Out No long er eligible based on patient's age to complete [...] 9:30 AM EST) Creatinine, Urine 110.15 mg/dL [facility] Microalbumin Urine 32.0 mg/L [facility] Microalbum Creatinine Ratio Ur 29.0 <30 ug/mg cr [facility] Comment:Albumin/Creatinine R atio Reference Ranges: Normal: < 30 ug/mg creatinine Microalbuminuria: 30 - 300 ug/mg creatinineClinical Albuminuria: > 300 ug/mg creatinine Urine (Urine, Random) 08/04/2024 9:30 AM EST 08/04/2024 11:14 AM EST us Ricardo Anaya MD LAB URINE ORDERABLES Final Result Performing Organization Address City/[facility]/ZIP Co de Phone Number [facility] [address] [place] [phone] [phone] * (ABNORMAL) Lipid Panel, Standard (08/04/2024 9:30 AM EST) Triglycerides 115 <150 mg/dL [facility] Comment:Desirable Triglyceri de: less than 150 mg/dLBorderline High Triglyceride 150-199 mg/dLHigh Triglyceride: 200-499 mg/dLVery High Triglyceride: greater than or equal to 5OO mg/dL Cholesterol 228(H) <200 mg/dL [facility] Comment:Desirable Cholestero l: less than 200 mg/dLBorderline High Cholesterol: 200-239 mg/dLHigh Cholesterol: greater than 239 mg/dL LDL Cholesterol Calculated 154(H) <100 mg/dL [facility] Comment:Desirable LDL: less than 100 mg/dLNear Optimal/Above Optimal LDL: 110- 129 mg/dLBorderline High LDL: 130-159 mg/dLHigh LDL: 160-189 mg/dLVery High LDL: greater than or equal to 190 mg/dL HDL Cholesterol 51 >40 mg/dL [facility] Comment:Desirable HDL: great er than 40 mg/dL Note: This HDL assay may give artificially low results in patients with liver disease. Blood Venous blood specimen / Unknown 08/04/2024 9:30 AM EST 08/04/2024 11:18 AM EST us Ricardo Anaya MD LAB BLOOD ORDERABLES Final Result [facility] [address] [place] [phone] * (ABNORMAL) Comprehensive Metabolic Panel (08/04/2024 9:30 AM EST) Sodium 142 135 - 145 mmol/L [facility] Potassium 4.0 3.3 - 5.1 mmol/L [facility] Chloride 109(H) 96 - 108 mmol/L [facility] Carbon Dioxide 25 22 - 29 mmol/L [facility] Anion Gap 12 12 - 20 [facility] Urea Nitrogen (BUN) 11 9 - 16 mg/dL [facility] Creatinine, Serum 0.75 0.5 - 1.4 mg/dL [facility] Estimated Glomerular Filt Rate >60 [facility] Comment:Chronic Kidney Disea se: Estimated GFR < 60 mL/min/1.36m5Fcrnzw Kidney Disease: Estimated GFR < 15 mL/min/1.73m2 Glucose 94 60 - 115 mg/dL [facility] Calcium 9.5 8.4 - 10.2 mg/dL [facility] Bilirubin, Total 0.9 0.0 - 1.0 mg/dL [facility] Aspartate Amino Transferase 31 5 - 31 U/L [facility] Alanine Aminotransferase 27 0 - 31 U/L [facility] Total Protein 8.5(H) 6.5 - 8.0 g/dL [facility] Albumin Level 4.2 3.5 - 5.0 g/dL [facility] Alkaline Phosphatase 104 39 - 117 U/L [facility] Blood Venous blood specimen / Unknown 08/04/2024 9:30 AM EST 08/04/2024 11:18 AM EST us Ricardo Anaya MD LAB BLOOD ORDERABLES Final Result Performing Organization Address City/State/[facility] Co de Phone Number [facility] [address] [place] [phone] * BI Mammogram Screening Tomosynthesis Bilateral (07/21/2024 11:55 AM EST) Anatomical Region Laterality Modality Breast Bilateral Mammography 07/21/2024 11:5 5 AM EST Narrative 07/31/2024 11:14 AM EST ? [facility] ? [address] ?[place] [address] ? Mammography Report ? Signed ? Patient: Velasquez Rachael,Opal I ?MR#: [id number] ?? [id number] ? : 1965 ?Acct:[id number] ? Age/Sex: 59 / F ?ADM Date: 07/21/24 ? Loc: HO.MAMMO ? Attending Dr: Ricardo Farley MD ? Ordering Physician: Ricardo Farley MD ?Resu ?? lts: 1Negative ? Date of Service: 07/21/24 ?Follow Up: 1 Year From Orig ?? inal Mammogram ? Procedure(s): MM tomosynthesis screening BI ?? Accession Number(s): [id number] ? cc: Ricardo Farley MD ? EXAMINATION: [...] DD/ 1155 ? TD/TT: 07/21/24 1205 ? Painter And Decorator: ? Procedure Note Donroyal, Image - 07/31/2024 Tommy [facility] [address] [place] [address] Mammography Report Signed Patient: Opal Bangura IMR#: [id number] : 1965Acct:[id number] Age/Sex: 59 / FADM Date: 07/21/24 Loc: HO.MAMMO Attending Dr: Ricardo Farley MD Ordering Physician: Ricardo Farley MDResu lts: 1Negative Date of Service: 07/21/24Follow Up: 1 Year From Orig inal Mammogram Procedure(s): MM tomosynthesis screening BI Accession Number(s): [id number] cc: Riacrdo Farley MD EXAMINATION: MM SCREENING DIGITAL BREAST [...] 07/31/24 1111 DD/ 1155 TD/TT: 07/21/24 1205 Painter And Decorator: us Ricardo Anaya MD IMG BI PROCEDURES Abraham jorje Result - Final * (ABNORMAL) POCT HGB A1C (07/08/2024 1:27 PM EST) Hemoglobin A1C 7.0(A) 4.0 - 6.0 % QC Media Lot # [id number] Lot# Expiration Date [id number] Blood 07/08/2024 1:27 PM EST us Ricardo Anaya MD POINT OF CARE TEST EN TER/EDIT ORDERABLES Final Result * Hepatitis C Antibody with Reflex to HCV, RNA, Quantitative, Real-Time PCR (05/06/2024 10:36 AM EST) Hepatitis C Antibody Nonreactive Nonreactive [facility] Comment:Antibodies to HCV no t detected; does not exclude early acuteHCV infection. Blood Venous blood specimen / Unknown 05/06/2024 10:36 AM EST 05/06/2024 1:19 PM EST us Ricardo Anaya MD LAB BLOOD ORDERABLES Final Result [facility] [address] [place] [phone] * HIV-1/2 Antigen and Antibodies, Fourth Generation, with Reflexes (05/06/2024 10:36 AM EST) HIV AB/AG Nonreactive Nonreactive [facility] Comment:HIV-1 p24 Ag and/or HIV-1/HIV-2 Ab not detected.A test result that is nonreactive does not exclude thepossibility of exposure to or infection with HIV-1 and/orHIV-2. Nonreactive results in this assay for individualswith prior exposure to HIV-1 and/or HIV-2 may be due toantigen and antibody levels that are below the limit ofdetection of this assay.The Makstr HIV Ag/Ab Combo assay result andsupplemental assay results should be interpreted inconjunction with the patient's clinical presentation,history and other laboratory results. If the results areinconsistent with clinical evidence, additional testing issuggested to confirm the result. Blood Venous blood specimen / Unknown 05/06/2024 10:36 AM EST 05/06/2024 1:19 PM EST us Ricardo Anaya MD LAB BLOOD ORDERABLES Final Result [facility] [address] [place] [phone] * THINPREP TIS PAP AND HPV mRNA E6/E7 WITH REFLEX TO HPV 16,18/45 (10/03/2021 2:01 PM EDT) Pathologist [facility] Clinical Information: None given [facility] COMMENT SEE COMMENT [facility] [...] has been evaluated with computer assisted technology. [facility] Cytology Manager: SEE COMMENT [facility] Comment: DMM, CT(ASCP) CT screening location: [address] ??[phone] HPV nRNA E6/E7 Not Detected Not Detected [facility] Comment: Methodology: Horticulture Superintendent-Mediated Amplification This assay detects E6/E7 viral messenger RNA (mRNA) from 14 high-risk HPV types (16,18,31,33,35,39,45,51,52,56,58,59,66,68). ? The analytical performance characteristics of this assay have been determined by [employer]. The modifications have not been cleared or approved by the FDA. This assay has been validated pursuant to the CLIA regulations and is used for clinical purposes. ?? For additional information, please refer to http://education.Tapatap/faq/AXT292t6 (This link if provided for information/ educational [...] Kay CNM LAB PATHOLOGY ORDERABLES Final Result [facility] [address] from Last 3 Months or Most Recently Relevant to Health Maintenance Insurance * Guarantor: Opal Bangura I Account Type Relation to Patient Date of Phone Billing Address Personal/Family Self 1965 [address] [facility] [address] [facility] [address] [place] [address] [facility] C3 HSN FULL Care Teams Project Management Professor Relationship Specialty Start Date End Date Ricardo Segovia MD [address] [place] [phone] PCP - General Internal Medicine 08/28/21
== END 2024-10-28 11:59 | disposition home or self-care (01) ==
LOC: HO.HWS 11:39
PROVIDERS: PCP Internal Medicine; Visit Provider Obstetrics & Gynecology
DX: A63.0 Anogenital (venereal) warts (principal)
CPT/HCPCS: 99213

== ENCOUNTER → 2024-10-28 11:39 | Outpatient (BNVA) | payer MEDICAID, SELFPAY | PROVIDERS: PCP Internal Medicine; Visit Provider Obstetrics & Gynecology | DX: A63.0 Anogenital (venereal) warts (principal) | CPT/HCPCS: 99212 ==

== ENCOUNTER 2024-11-12 15:01 | Outpatient (AMB) | payer MEDICAID, SELFPAY ==
--- OUTSIDE RECORDS SUMMARY | 2024-11-12 15:04 | XMS_ITS | Encounter Summary ---
Author Organization [employer] Address [address] [place] [address] Care Team Providers Care Service Support Representative Name Role Phone Ricardo Segovia MD Primary Care Provide r Reason for Visit * Reason Comments Med Refill Encounter Details Date Type Department Care Team ([facility] st Contact Info) Description 11/07/2024 Refill [facility] [address] [place] [address] Ricardo Segovia MD [address] [place] [address] Type 2 diabetes mellitus without complication, without long-term current use of insulin ([facility]) Social History Tobacco Use Types Packs/Day Years [...] Office Visit [facility] [address] [place] [address] Ricardo Segovia MD [address] [place] [address] documented as of this encounter Goals Goal [...] complication, without long-term current use of insulin ([facility]) documented in this encounter Additional Health Concerns Assessment Noted Time PHQ-9 Depression Total Score: 8 07/10/19 24 9:25 AM EST documented as of this encounter Care Teams Service Support Representative Relationship Specialty Start Date End Date Ricardo Segovia MD [address] [place] [address] PCP - General Internal Medicine 08/28/21 documented as of this encounter
[2024-11-12 15:40] VITALS: BP 160/90; PULSE 64; O2SAT 98; BMI 20.7
--- NOTE | 2024-11-12 15:40 | HO.NEPHOV ---
Vital Signs 11/12/24 15:40 Height 5 ft 6 in Weight 128 lb 4 oz BMI 20.7 BP 160/90 H Blood Pressure Location Lt brachial Position Sitting Pulse 64 Pulse Source Pulse Oximeter Pulse Oximetry (%) 98 Oxygen Delivery Method Room Air Intake Visit Reasons: Hypertension-Conf w/daughter Central Office Mechanic Required: Yes Central Office Mechanic Language: [employer]: Central Office Mechanic Present Central Office Mechanic Name: Sharmaine [id number] Information Interpreted: clinical only Accompanied by: Self / Same As Patient Allergies No Known Allergies Allergy (Verified 11/12/24 15:40) HPI Comments Details: Opal was seen for follow up of resistant hypertension. She is known to have hypertension and diabetes for some time. She checks her blood pressure and blood sugar every day at home. Her blood pressures are better . She claims to be compliant with her medications. She denies eating excess salt in the food. She continues to be a smoker. She is on multiple blood sugar lowering medications and blood sugar has been well controlled lately. She denies any retinopathy, proteinuria, renal dysfunction, hypokalemia, hypercalcemia, headache, new onset weakness, weight gain, palpitation, orthostatic symptoms, tachycardia. She denies chest pain, shortness of breath, paroxysmal nocturnal dyspnea, orthopnea, pedal edema or urinary symptoms. She has history of CVA. Her renal functions had been at baseline. 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 Review of Systems Const All systems reviewed & are unremarkable except as noted in HPI and below Physical Exam Vital Signs: Last Vital Signs Pulse 64 11/12/24 15:40 BP 160/90 H 11/12/24 15:40 Pulse Ox 98 11/12/24 15:40 Oxygen Delivery Method Room Air 11/12/24 15:40 BMI result Body Mass Index 20.7 Const General: comfortable and no acute distress Orientation/consciousness: patient oriented x3 HEENT Head: Yes normocephalic Mouth: Normal oral and palatal mucosa present Eyes EOM: EOMs intact bilaterally Neck Neck: Yes supple Resp Auscultation: clear to auscultation bilaterally Cardio Jugular venous distension: no JVD Rate: regular rate GI Palpation (GI): Soft to palpation Auscultation: normal bowel sounds General: Yes no CVA tenderness Back/Spine/Pelvis Back: no CVA tenderness Skin General skin exam: no rashes or lesions noted Neuro General: patient oriented x3 and moves all extremities Extrem General: Yes no pedal edema Results Reviewed Nephrology Results: Sodium 142 mmol/L (135-145) 08/04/24 Potassium 4.0 mmol/L (3.3-5.1) 08/04/24 Chloride 109 mmol/L (96-108) H 08/04/24 Carbon Dioxide 25 mmol/L (22-29) 08/04/24 BUN 11 mg/dL (9-16) 08/04/24 Creatinine 0.75 mg/dL (0.5-1.4) 08/04/24 Calcium 9.5 mg/dL (8.4-10.2) 08/04/24 Urine Creatinine 110.15 mg/dL 08/04/24 Assessment & Plan Assessment & Plan (1) Hypertension: Code(s): I10 - Essential (primary) hypertension Category: Medical Qualifiers: Hypertension type: primary hypertension Qualified Code(s): I10 - Essential (primary) hypertension Plan Opal has longstanding hypertension and is on multiple antihypertensive medications. She monitors her blood pressure closely at home now. Her blood pressure is currently at goal at home. She does not consume excess sodium in the diet. She is a smoker. She is on statins. She has history of CVA. She is not known to have any hypokalemia, retinopathy, hypercalcemia, uncontrolled thyroid disorders or sleep apnea. W/U has been negative including Doppler of her renal arteries which did not show EUSEBIA. I suspect she has vascular disease causing her resistant hypertension given history of CVA. I increased her Nifedipine to 90 mg daily. She should continue lifestyle modifications. Follow-up given Medications: Changed From nifedipine ER 30 mg PO DAILY 30 tabs 6RF To nifedipine ER 90 mg PO DAILY 30 tabs 6RF 30 days Coding Level of Care Code Est Pt Level 4 (39186) Diagnoses Primary hypertension I10 Hypertension type: primary hypertension
== END 2024-11-12 15:49 | disposition home or self-care (01) ==
PROVIDERS: PCP Internal Medicine; Visit Provider Internal Medicine Nephrology
DX: I10 Essential (primary) hypertension (principal)
CPT/HCPCS: 99214

== ENCOUNTER → 2024-11-12 15:01 | Outpatient (BNVA) | payer MEDICAID, SELFPAY | PROVIDERS: PCP Internal Medicine; Visit Provider Internal Medicine Nephrology | DX: I10 Essential (primary) hypertension (principal) | CPT/HCPCS: 99212 ==

== ENCOUNTER 2024-11-25 13:35 | Outpatient (REF) | payer MEDICAID, SELFPAY ==
[2024-11-25 16:09] LABS: MANUAL DIFF FLAG NO
[2024-11-25 16:16] LABS: Basophils Percent Auto 0.5 % (0-2); Eosinophils Absolute Auto 0.1 X10*3/uL (0.0-0.4); Eosinophils Percent Auto 1.7 % (0-4); Hematocrit 44.5 % (37.0-47.0); Hemoglobin 14.2 g/dl (12.0-16.0); Imm Gran Abs Auto 0.01 X10*3/uL (0.00-0.03); Imm Gran Pct Auto 0.2 % (0.0-0.4); Lymphocytes Absolute Auto 2.5 X10*3/uL (1.2-4.9); Lymphocytes Percent Auto 43.8 % (20-40); Mean Corpuscular HGB Conc 31.9 g/dl (31.0-35.0); Mean Corpuscular Hemoglobin 28.1 pg (27.0-33.0); Mean Corpuscular Volume 87.9 fL (80.0-98.0); Monocytes Absolute Auto 0.4 X10*3/uL (0.1-1.2); Monocytes Percent Auto 7.5 % (2-11); Neutrophils Absolute Auto 2.7 x10*3/uL (2.0-8.3); Neutrophils Percent Auto 46.3 % (45-73); Platelet Count 250 X10*3/uL (160-400); Red Blood Count 5.06 X10*6/uL (4.20-5.50); Red Cell Distribution Width 13.2 % (11.0-16.0); White Blood Count 5.7 X10*3/uL (4.8-10.8)
[2024-11-25 16:49] LABS: Anion Gap 11 (12-20); Blood Urea Nitrogen 17 mg/dL (9-16); Carbon Dioxide 26 mmol/L (22-29); Chloride 107 mmol/L (96-108); Estimated Glomerular Filt Rate > 60; Potassium 3.9 mmol/L (3.3-5.1); Sodium 140 mmol/L (135-145)
[2024-11-25 17:10] LABS: TSH reflex Free T4 1.24 uIU/mL (0.32-4.0)
[2024-11-26 05:36] LABS: HIV AB/AG Nonreactive (Nonreactive); HIV Num 1 0.05 S/CO (0.00-0.99)
== END 2024-11-25 13:36 | disposition home or self-care (01) ==
LOC: HO.HHCL 13:35
PROVIDERS: Internal Medicine Nephrology; Visit Provider Internal Medicine
DX: R63.4 Abnormal weight loss (principal); I10 Essential (primary) hypertension
CPT/HCPCS: 36415; 80051; 82565; 84443; 84520; 85025; 87389

== ENCOUNTER 2025-01-29 11:13 | Emergency (ER) | payer MEDICAID, SELFPAY ==
--- NOTE | 2025-01-29 | ECG_ITS ---
Test Reason : DIZZINESS Blood Pressure : */* mmHG Vent. Rate : 60 BPM Atrial Rate : 60 BPM P-R Int : 154 ms QRS Dur : 82 ms QT Int : 414 ms P-R-T Axes : 61 -12 41 degrees QTcB Int : 414 ms Normal sinus rhythm Possible Left atrial enlargement Septal infarct (cited on or before 16-Aug-2023) Abnormal ECG When compared with ECG of 16-Aug-2023 16:58, No significant change was found Referred By: Generic ED Physician Electronically Signed By: LÁZARO BELCHER
[2025-01-29 11:21] VITALS: BP 196/103; PULSE 67; O2SAT 99
--- NOTE | 2025-01-29 11:22 | PC.NURSE ---
charge manager placed EKG order for triage, pt to be external triage, triage tech/ RN aware, removed from ems stretcher to to await EKG at this time. IV line pulled by EMS for waiting room protocol
[2025-01-29 11:30] VITALS: BP 185/86; PULSE 66; RESP 18; TEMP 37.1; O2SAT 100; BMI 21.6
--- NOTE | 2025-01-29 11:30 | ED.GENADULT ---
HPI - General Adult General Chief complaint: General Medical Stated complaint: DIZZY/CRAIN HTN (HX OF) Time Seen by Provider: 01/29/25 14:01 Source: patient and family Mode of arrival: EMS History of Present Illness ED Provider: Lisa FRASER narrative: 59-year-old female with presentation of dizziness, anxiety, reports that her sugars been low, daughter is requesting to translate at this time and states that she has also had weight loss, patient reports that she is completely asymptomatic at the time of my evaluation. She reports feeling much better and states that she did not have anything to eat prior to going to bed last night, she was started on Trulicity but states that since she was started on this medication she has had significant problems with nausea, low appetite and diarrhea. She denies any history of alcohol intake or drug use but does report being an everyday heavy smoker. Related Data Home Medications ?Medication ?Instructions ?Recorded ?Confirmed blood sugar diagnostic (FreeStyle #10 ea 03/14/22 01/26/24 Lite Strips) lancets 28 gauge (FreeStyle #100 ea 03/14/22 01/26/24 Lancets) losartan 100 mg tablet 100 mg PO DAILY 03/14/22 01/26/24 dulaglutide 0.75 mg/0.5 mL 0.75 mg subcut QWEEK 08/16/23 01/26/24 subcutaneous pen injector (Trulicity) empagliflozin 5 mg-metformin ER 1 tab PO BIDWM 08/16/23 01/26/24 1,000 mg tablet,extended release 24 hr (Synjardy XR) aripiprazole 20 mg tablet 20 mg PO DAILY 01/21/24 01/26/24 atorvastatin 40 mg tablet 40 mg PO BEDTIME 01/21/24 01/26/24 chlorthalidone 25 mg tablet 25 mg PO DAILY 01/21/24 01/26/24 clonazepam 0.5 mg tablet 0.5 mg PO BID PRN 01/21/24 01/26/24 doxepin 50 mg capsule 50 mg PO BEDTIME PRN 01/21/24 01/26/24 fexofenadine 180 mg tablet 180 mg PO DAILY PRN 01/21/24 01/26/24 gabapentin 300 mg capsule 300 mg PO BEDTIME 01/21/24 01/26/24 melatonin 5 mg tablet 5 mg PO BEDTIME PRN 01/21/24 01/26/24 metoprolol succinate 200 mg 200 mg PO DAILY 01/21/24 01/26/24 tablet,extended release 24 hr paroxetine HCl 40 mg tablet 40 mg PO DAILY 01/21/24 01/26/24 zolpidem 10 mg tablet 10 mg PO BEDTIME PRN 01/21/24 01/26/24 Previous Rx's ?Medication ?Instructions ?Recorded aspirin 81 mg tablet,delayed 81 mg PO DAILY #90 tabs 08/18/23 release clonidine HCl 0.2 mg tablet 0.2 mg PO BID #60 tabs 08/18/23 imiquimod 5 % topical cream packet 1 appl topical 3XW 16 weeks #24 ea 05/10/24 nifedipine 90 mg tablet,extended 90 mg PO DAILY 30 days #30 tabs 11/12/24 release 24 hr Allergies Allergy/AdvReac Type Severity Reaction Status Date / Time No Known Allergies Allergy Verified 01/29/25 11:34 Review of Systems Review of Systems: Pertinent positives and negatives as stated in HPI [facility] Past Medical History Source: nursing notes reviewed Medical History Cerebral infarction Hypertension, uncontrolled Fibroid History of depression High blood pressure Diabetes Surgical History Hx of tubal ligation Hx of section Hx of appendectomy Family History Family History Mother HTN (hypertension) Thrombosis Father Colon cancer Social History Social History Household Members: Spouse Housing: Apartment Do you presently have visiting nurse or other home services: No Patient Tobacco Use Status: Former Tobacco user Smoked in Last 30 Days: Yes Use of substances other than those prescribed or required for medical reasons: No Advance Directives: No Advance Directives Information Provided: Yes Do you have a plan to hurt others: No Plan Patient : No service: No Current occupational status: unemployed 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 GENERAL: Well developed, well nourished, in no acute distress. HEAD: Normocephalic/atraumatic EYES: PERRLA, EOMI EARS: Ext canals without abnormality NOSE: Nares patent bilateral OROPHARYNX: no oral lesions noted, posterior pharynx clear NECK: Supple, no adenopathy LUNGS: Normal breath sounds. No adventitious sounds or accessory muscle use. CARDIOVASCULAR: Regular rate and rhythm without noted murmurs. ABDOMEN: Soft, non-tender, non-distended with bowel sounds. MUSCULOSKELETAL: No tenderness, deformities, or effusions noted on gross inspection. EXTREMITIES: No cyanosis, clubbing or edema. SKIN: Inspection of the skin reveals no rashes NEUROLOGIC: Alert and oriented x 4. Strength and sensation to light touch were grossly intact x 4, no facial asymmetry, no pronator drift, cranial nerves 2-12 are grossly intact.. Vital Signs: Vital Signs - 24 hr 01/29/25 11:30 01/29/25 15:27 Temperature 98.8 F 0 F L Pulse Rate 66 0 L Respiratory Rate 18 0 L Blood Pressure 185/86 H 00/00 L Pulse Oximetry 100 Oxygen Delivery Method Room Air BMI result Body Mass Index 21.6 Course Course Course Narrative: This is an RME: Additional HPI, ROS, PE not included below will be deferred to primary provider. RME assessment and note performed by: Rebecca Lai PA-C This is a 52-mtgu-gmm-female, with a PMHx of HTN, DM on trulicity and metformin, anxiety, who presents to the ER via EMS, with a complaint of hypoglycemia. Reports this morning her sugar was low at 72. She took a coffee that was very sweet. Reports afterwards she felt dizzy. Reports that the dizziness occurs with laying down. Reports that she is not dizzy when sitting up right. neurologically intact. Plan: Labs, EKG, POC glucose Medical Decision Making Medical Decision Making MDM Narrative: 59-year-old female with history and clinical presentation, DD DX: Will evaluate for evidence of possible arrhythmia, infection, hypoglycemia, hypovolemia, no clinical suspicion at this time for stroke-like symptoms or TIA. EKG interpreted by me: Freddy rhythm, HR-60, no STEMI, IA/QRS/QTC is otherwise within normal limits. 1453: Patient is requesting to leave, I did review and interpret her laboratory investigations which do not demonstrate any leukocytosis, anemia, or thrombocytopenia. There is no evidence of TULIO/electrolyte or liver enzyme derangements. Patient does not provide any urinalysis. Patient is well-appearing/completely asymptomatic/nontoxic and there is no evidence of underlying infection, anemia, electrolyte or arrhythmia etiologies for her presentation. I did recommend that at present she needs to aggressively rehydrate herself, and she needs to stop the Trulicity until her primary care doctor re-evaluate her as this may be an underlying source of mild dehydration. Differential Diagnosis Differential Diagnoses: The differential diagnosis associated with the presentation includes See above Admission/Observation Consideration of admission/observation: Escalation of care including admission/observation considered Patient does not meet inpatient level of care at this time. Lab Data MDM Lab Attestation statement: I reviewed the patient's lab results. See above 01/29/25 11:50 01/29/25 11:50 Labs: Lab Results 01/29/25 Range/Units 11:50 WBC 5.8 (4.8-10.8) X10*3/uL RBC 5.51 H (4.20-5.50) X10*6/uL Hgb 15.9 (12.0-16.0) g/dl Hct 46.5 (37.0-47.0) % MCV 84.4 (80.0-98.0) fL MCH 28.9 (27.0-33.0) pg MCHC 34.2 (31.0-35.0) g/dl RDW 13.2 (11.0-16.0) % Plt Count 203 (160-400) X10*3/uL MPV 8.8 L (9.4-12.3) fL Immature Gran % (Auto) 0.2 (0.0-0.4) % Neut % (Auto) 63.0 (45-73) % Lymph % (Auto) 28.6 (20-40) % [place] % (Auto) 6.5 (2-11) % Eos % (Auto) 1.4 (0-4) % Baso % (Auto) 0.3 (0-2) % Lymph # (Auto) 1.7 (1.2-4.9) X10*3/uL [place] # (Auto) 0.4 (0.1-1.2) X10*3/uL Eos # (Auto) 0.1 (0.0-0.4) X10*3/uL Baso # (Auto) 0.0 (0.0-0.2) X10*3/uL Abs Immat Gran (auto) 0.01 (0.00-0.03) X10*3/uL Absolute Neuts (auto) 3.7 (2.0-8.3) x10*3/uL Absolute Nucleated RBC 0.000 (0.0-0.012) X10*3/uL Nucleated RBC % (auto) 0.0 (0.0-0.2) /100WBC Sodium 142 (135-145) mmol/L Potassium 3.7 (3.3-5.1) mmol/L Chloride 106 (96-108) mmol/L Carbon Dioxide 27 (22-29) mmol/L Anion Gap 13 (12-20) BUN 13 (9-16) mg/dL Creatinine 0.68 (0.5-1.4) mg/dL Estim Creat Clear Calc 77.9 Estimated GFR > 60 Random Glucose 132 H (60-115) mg/dL Calcium 9.3 (8.4-10.2) mg/dL Magnesium 2.0 (1.6-2.6) mg/dL Total Bilirubin 0.9 (0.0-1.0) mg/dL Direct Bilirubin 0.2 (0.0-0.5) mg/dL AST 20 (5-31) U/L ALT 13 (0-31) U/L Alkaline Phosphatase 83 (39-117) U/L Troponin I High Sens 3.6 (<3.5-17.0) ng/L Total Protein 7.5 (6.5-8.0) g/dL Albumin 4.3 (3.5-5.0) g/dL Independent Interpretation I performed an independent interpretation of an: EKG Interpretation: See above External Record Review External record reviewed: Prior outpatient labs Chronic Conditions Patient?s care impacted by: Diabetes Discharge Plan Discharge Clinical Impression: Dizziness, Dehydration Patient Disposition: Home, Self-Care Instructions: Dehydration (ED), Dizziness (ED) Additional Instructions: Resume all home medications as prescribed, recommend stopping Trulicity until you are re-evaluated by your primary care doctor. Continue to drink plenty of water throughout the day, please follow-up with your primary care doctor on Friday morning. Do not hesitate to return to the emergency room should you experience any acute worsening of your symptoms. Prescriptions: No Action imiquimod 5 % cream in packet 1 appl topical 3XW 112 Days Qty: 24 0RF Rx Instructions: Apply to the affected area 3 times a week overnight followed by rinsing very well in the morning for no more than 16 weeks Trulicity 0.75 mg/0.5 mL pen injector 0.75 mg subcut QWEEK Synjardy XR 5-1,000 mg tablet, IR - ER, biphasic 24hr 1 tab PO BIDWM aspirin 81 mg Tablet,Delayed Release (Dr/Ec) 81 mg PO DAILY Qty: 90 0RF clonidine HCl 0.2 mg Tablet 0.2 mg PO BID Qty: 60 0RF Protocol: Hold for SBP< HOLD for SBP < : 90 losartan 100 mg tablet 100 mg PO DAILY (DME) FreeStyle Lite Strips Strip See Rx Instructions .ROUTE BID Qty: 10 Rx Instructions: As directed (DME) lancets [FreeStyle Lancets] 28 gauge misc See Rx Instructions .ROUTE BID Qty: 100 Rx Instructions: As directed gabapentin 300 mg capsule 300 mg PO BEDTIME aripiprazole 20 mg tablet 20 mg PO DAILY atorvastatin 40 mg tablet 40 mg PO BEDTIME chlorthalidone 25 mg tablet 25 mg PO DAILY clonazepam 0.5 mg tablet 0.5 mg PO BID PRN doxepin 50 mg capsule 50 mg PO BEDTIME PRN fexofenadine 180 mg tablet 180 mg PO DAILY PRN melatonin 5 mg tablet 5 mg PO BEDTIME PRN metoprolol succinate 200 mg tablet extended release 24 hr 200 mg PO DAILY paroxetine HCl 40 mg tablet 40 mg PO DAILY zolpidem 10 mg tablet 10 mg PO BEDTIME PRN nifedipine 90 mg tablet extended release 24hr 90 mg PO DAILY 30 Days Qty: 30 6RF Referrals: Ricardo Farley MD [Primary Care Provider, Medical] Interventions: ED Discharge Assessment Last Done: 01/29/25 15:27 Discharge Date/Time: 01/29/25 15:28 Print Language: Turkmen
[2025-01-29 11:54] LABS: MANUAL DIFF FLAG NO
[2025-01-29 11:56] LABS: Hematocrit 46.5 % (37.0-47.0); Hemoglobin 15.9 g/dl (12.0-16.0); Imm Gran Abs Auto 0.01 X10*3/uL (0.00-0.03); Imm Gran Pct Auto 0.2 % (0.0-0.4); Lymphocytes Absolute Auto 1.7 X10*3/uL (1.2-4.9); Mean Corpuscular HGB Conc 34.2 g/dl (31.0-35.0); Mean Corpuscular Hemoglobin 28.9 pg (27.0-33.0); Mean Corpuscular Volume 84.4 fL (80.0-98.0); NRBC Abs Auto 0.000 X10*3/uL (0.0-0.012); NRBC Pct Auto 0.0 /100WBC (0.0-0.2); Platelet Count 203 X10*3/uL (160-400); Red Blood Count 5.51 X10*6/uL (4.20-5.50); White Blood Count 5.8 X10*3/uL (4.8-10.8)
[2025-01-29 12:28] LABS: Alanine Aminotransferase 13 U/L (0-31); Albumin Level 4.3 g/dL (3.5-5.0); Alkaline Phosphatase 83 U/L (39-117); Anion Gap 13 (12-20); Aspartate Amino Transferase 20 U/L (5-31); Blood Urea Nitrogen 13 mg/dL (9-16); Calcium 9.3 mg/dL (8.4-10.2); Carbon Dioxide 27 mmol/L (22-29); Chloride 106 mmol/L (96-108); Creatinine Clr Calc Pharmacy 77.9; Estimated Glomerular Filt Rate > 60; Magnesium 2.0 mg/dL (1.6-2.6); Potassium 3.7 mmol/L (3.3-5.1); Sodium 142 mmol/L (135-145); Total Protein 7.5 g/dL (6.5-8.0)
[2025-01-29 12:38] LABS: Troponin-I High Sensitivity 3.6 ng/L (<3.5-17.0)
--- NOTE | 2025-01-29 14:29 | PC.NURSE ---
Pt uses call cornejo to call this RN to the bedside. Daughter translates for Pt reporting Pt wishes to be discharged at this time. Pt reports she feels well at this time and no longer wishes to be seen. Advised that ED provider will be notified.
[2025-01-29 15:27] VITALS: BP 00/00; PULSE 0; RESP 0; TEMP -17.7; TEMP 0
== END 2025-01-29 15:28 | disposition home or self-care (01) ==
PROVIDERS: Physician Assistant Medical; Emergency Provider Student in an Organized Health Care Education/Training Program; PCP Internal Medicine
DX: R42 Dizziness and giddiness (principal); E86.0 Dehydration; F41.9 Anxiety disorder, unspecified; E11.9 Type 2 diabetes mellitus without complications; I10 Essential (primary) hypertension; F17.210 Nicotine dependence, cigarettes, uncomplicated; Z79.02 Long term (current) use of antithrombotics/antiplatelets; Z79.85 Long-term (current) use of injectable non-insulin antidiabetic drugs; Z79.82 Long term (current) use of aspirin; Z79.84 Long term (current) use of oral hypoglycemic drugs
CPT/HCPCS: 36415; 80048; 80076; 83735; 84484; 85025; 93005; 99283; 99284

== ENCOUNTER → 2025-01-29 11:20 | Outpatient (BNV) | payer MEDICAID, SELFPAY | PROVIDERS: Emergency Provider Student in an Organized Health Care Education/Training Program; PCP Internal Medicine; Visit Provider Internal Medicine | DX: R42 Dizziness and giddiness (principal); R94.31 Abnormal electrocardiogram [ECG] [EKG] | CPT/HCPCS: 93010 ==

== ENCOUNTER 2025-02-14 16:03 | Outpatient (AMB) | payer MEDICAID, SELFPAY ==
--- NOTE | 2025-02-14 16:05 | HO.NEPHOV_ITS ---
Vital Signs 02/14/25 16:06 Height 5 ft 4 in Weight 131 lb 6 oz BMI 22.5 BP 160/90 H Blood Pressure Location Lt brachial Position Sitting Intake Visit Reasons: 3 MO FU- Conf w/daughter Manual Equipment Mechanic Required: Yes Manual Equipment Mechanic Language: [employer]: Manual Equipment Mechanic Present Manual Equipment Mechanic Name: Fernanda [id number] Information Interpreted: clinical only Accompanied by: Self / Same As Patient Allergies No Known Allergies Allergy (Verified 02/14/25 16:05) HPI Comments Details: Opal was seen for follow up of resistant hypertension. She is known to have hypertension and diabetes for some time. She checks her blood pressure and blood sugar every day at home. Her blood pressures are better . She claims to be compliant with her medications. She denies eating excess salt in the food. She continues to be a smoker. She is on multiple blood sugar lowering medications and blood sugar has been well controlled lately. She denies any retinopathy, proteinuria, renal dysfunction, hypokalemia, hypercalcemia, headache, new onset weakness, weight gain, palpitation, orthostatic symptoms, tachycardia. She denies chest pain, shortness of breath, paroxysmal nocturnal dyspnea, orthopnea, pedal edema or urinary symptoms. She has history of CVA. Her renal functions had been at baseline. 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 Review of Systems Const All systems reviewed & are unremarkable except as noted in HPI and below Physical Exam Vital Signs: Last Vital Signs BP 160/90 H 02/14/25 16:06 BMI result Body Mass Index 22.5 Const General: comfortable and no acute distress Orientation/consciousness: patient oriented x3 HEENT Head: Yes normocephalic Mouth: Normal oral and palatal mucosa present Eyes EOM: EOMs intact bilaterally Neck Neck: Yes supple Resp Auscultation: clear to auscultation bilaterally Cardio Jugular venous distension: no JVD Rate: regular rate GI Palpation (GI): Soft to palpation Auscultation: normal bowel sounds General: Yes no CVA tenderness Back/Spine/Pelvis Back: no CVA tenderness Skin General skin exam: no rashes or lesions noted Neuro General: patient oriented x3 and moves all extremities Extrem General: Yes no pedal edema Results Reviewed Nephrology Results: Hgb, (12.0-16.0) 15.9 g/dl 01/29/25 WBC, (4.8-10.8) 5.8 X10*3/uL 01/29/25 Plt Count, (160-400) 203 X10*3/uL 01/29/25 Sodium, (135-145) 142 mmol/L 01/29/25 Potassium, (3.3-5.1) 3.7 mmol/L 01/29/25 Chloride, (96-108) 106 mmol/L 01/29/25 Carbon Dioxide, (22-29) 27 mmol/L 01/29/25 BUN, (9-16) 13 mg/dL 01/29/25 Creatinine, (0.5-1.4) 0.68 mg/dL 01/29/25 Calcium, (8.4-10.2) 9.3 mg/dL 01/29/25 Renal US 01/29/24 Assessment & Plan Assessment & Plan (1) Hypertension: Code(s): I10 - Essential (primary) hypertension Category: Medical Qualifiers: Hypertension type: primary hypertension Qualified Code(s): I10 - Essential (primary) hypertension Plan Opal has longstanding hypertension and is on multiple antihypertensive medications. She monitors her blood pressure closely at home now. Her blood pressure is currently at goal at home. She does not consume excess sodium in the diet. She is a smoker. She is on statins. She has history of CVA. She is not known to have any hypokalemia, retinopathy, hypercalcemia, uncontrolled thyroid disorders or sleep apnea. W/U has been negative including Doppler of her renal arteries which did not show EUSEBIA. I suspect she has vascular disease causing her resistant hypertension given history of CVA. I increased her Nifedipine to 120 mg daily. She should continue lifestyle modifications. Follow- up given Medications: Changed From nifedipine ER 90 mg PO DAILY 30 days 30 tabs 6RF To nifedipine ER 120 mg (2 x 60 mg) PO DAILY 60 tabs 6RF 30 days Coding Level of Care Code Est Pt Level 4 (34983) Diagnoses Primary hypertension I10 Hypertension type: primary hypertension
[2025-02-14 16:06] VITALS: BP 160/90; BMI 22.5
--- OUTSIDE RECORDS SUMMARY | 2025-02-14 18:00 | XMS_ITS | Encounter Summary ---
Author Organization [employer] Address [address] [address] [place] [address] Care Team Providers Care Membership Counselor Name Role Phone Ricardo Segovia MD Primary Care Provide r Joyce Quinonez RN Unavailable [phone] Encounter Details Date Type Department Care Team (Late st Contact Info) Description 06/07/2022 Orders Only [facility] [address] [place] [id number] Mary Ellen Martines, RN Social History Tobacco [...] Care Team (Late st Contact Info) Description 03/15/2025 10:15 AM EDT Office Visit [facility] [address] [place] [id number] Ricardo Segovia MD [address] [place] [id number] 03/21/2025 1:30 PM EDT Telemedicine [facility] [address] [place] [address] Kath Goff, Erik [address] [place] [address] 03/24/2025 10:00 AM EDT Office Visit [facility] [address] [place], [place] [id number] Kaelyn Yi OD [address] [place] [address] documented as of this encounter Visit Diagnoses Not on filedocumented in this encounter Care Teams Membership Counselor Relationship Specialty Start Date End Date Ricardo Segovia MD [address] [place] [address] PCP - General Internal Medicine 08/28/21 Joyce Quinonez RN [address] [place] [id number] Sheep [employer]arer[employer]ty Mixer And Applier 12/23/23 04/01/24 documented as of this encounter
--- OUTSIDE RECORDS SUMMARY | 2025-02-14 18:00 | XMS_ITS | Encounter Summary ---
Author Organization [employer] Address [address] [facility] [address] [place] [address] Care Team Providers Care Dispatcher Street Department Name Role Phone Ricardo Segovia MD Primary Care Provide r Joyce Quinonez RN Unavailable [phone] Encounter Details Date Type Department Care Team ([facility] st Contact Info) Description 01/19/2024 Abstract [facility] [address] [place] [address] Rose Hook, PharmD [address] [place] [address] Social History Tobacco Use Types Packs/Day Years [...] Description 03/15/2025 10:15 AM EDT Office Visit [facility] [address] [place] [address] Ricardo Segovia MD [address] [place] [address] 03/21/2025 1:30 PM EDT Telemedicine [facility] [address] [place] [address] Kath Goff, Erik [address] [place] [address] 03/24/2025 10:00 AM EDT Office Visit [facility] [address] [place] [address] Kaelyn Yi, NEL [address] [place] [address] documented as of this encounter Goals Goal Patient Goal Type Associated Problems Recent Progress Patient-Stated? Author Blood Pressure < 140/90 Blood Pressure 140/88(11/25 1:24 PM EDT) No Rose Hook, PharmD Short-term: Promote adherence [...] documented as of this encounter Care Teams Dispatcher Street Department Relationship Specialty Start Date End Date Ricardo Segovia MD [address] [place] [address] PCP - General Internal Medicine 08/28/21 Joyce Quinonez RN [address] [place] [id number] Termination ClerkTime Clock Mechanic 12/23/23 04/01/24 documented as of this encounter
--- OUTSIDE RECORDS SUMMARY | 2025-02-14 18:00 | XMS_ITS | Encounter Summary ---
Author Organization [employer] Address [address] [facility] [address] [place] [address] Care Team Providers Care Commercial Lending Relationship Manager Name Role Phone Ricardo Segovia MD Primary Care Provide r Joyce Quinonez RN Unavailable [phone] Reason for Visit * Reason Comments Med Refill Encounter Details Date Type Department Care Team ([facility] Contact Info) Description 12/29/2022 Refill [facility] [address] [place] [address] Ever Crisostomo FNP Primary insomnia Social History [...] Upcoming Encounters Date Type Department Care Team ([facility] Contact Info) Description 03/15/2025 10:15 AM EDT Office Visit [facility] [address] [place] [address] Ricardo Segovia MD [address] [place] [address] 03/21/2025 1:30 PM EDT Telemedicine [facility] [address] [place] [address] Kath Goff, JoseD [address] [place] [address] 03/24/2025 10:00 AM EDT Office Visit [facility] [address] [place] [address] Kaelyn Yi, OD [address] [place] [address] documented as of this encounter Goals Goal Patient Goal Type Associated Problems Recent Progress Patient-Stated? Author Blood Pressure < 140/90 Blood Pressure 140/88(11/25 1:24 PM EDT) No Rose Hook PharmD Short-term: Promote adherence [...] documented as of this encounter Care Teams Commercial Lending Relationship Manager Relationship Specialty Start Date End Date Ricardo Segovia MD [address] [place], [place] [phone] PCP - General Internal Medicine 3/8/22 Joyce Quinonez RN [address] [place] [address] Oleo Hasher And RendererGas Appliance Adjuster 12/23/23 04/01/24 documented as of this encounter
--- OUTSIDE RECORDS SUMMARY | 2025-02-14 18:00 | XMS_ITS | Encounter Summary ---
Demographics Address [address] [facility] [address] [place] [address] Mobile Phone Home Phone Email Address Preferred Language es Marital Status Baptism Affiliation Unknown Race Other Race Ethnic Group Unknown Author Organization [employer] Address [address] [facility] [address] [place] [address] Care Team Providers Care Grain Broker And Market Operator Name Role Phone Ricardo Segovia MD Primary Care Provide r Joyce Quinonez RN Unavailable [phone] Reason for Visit * Reason Onset Date Comments Glucose Meter 11/25/2022 Encounter Details Date Type Department Care Team ([facility] st Contact Info) Description 11/25/2022 Telephone [facility] [address] [place] [address] Ricardo Segovia MD [address] [place] [address] Glucose Meter Social History Tobacco Use Types [...] AM EDT documented as of this encounter Functional Status * Over the past 2 weeks, how often have you been bothered by any of the following problems? Question Answer Date of Assessment Author Patient Health Questionnaire-2 Score 4 11/28/2022 2:09 PM EDT Arturo Zamorano LICSW * If you checked off any problems on this questionnaire so far, Question Answer Date of Assessment Author How difficult have these problems made it for you to do your work, take care of things at home, or get along with other people? Extremely difficult 11/28/2022 2:09 PM EDT Sharron Zamorano LICSW * Over the last 2 weeks, how often have you been bothered by any of the following problems? Question Answer Date of Assessment Author Feeling nervous, anxious, or on edge 3 11/28/2022 2:09 PM EDT Awa Zamorano LICSW Not being able to stop or control worrying 3 11/28/2022 2:09 PM EDT Awa Zamorano LICSW Worrying too much about different things 3 11/28/2022 2:09 PM EDT Awa Zamorano LICSW Trouble relaxing 3 11/28/2022 2:09 PM EDT Sharron Dumont LICSW Being so restless that it is hard to sit still 3 11/28/2022 2:09 PM EDT Awa Zamorano LICSW Becoming easily annoyed or irritable 3 11/28/2022 2:09 PM EDT Awa Zamorano SILK WEAVER Feeling afraid as if something awful might happen 3 11/28/2022 2:09 PM EDT Sharron Zamorano LICSW REGIS-7 Total Score 21 11/28/2022 2:09 PM EDT Sharron Zamorano LICSW * Over the past 2 weeks, how often have you been bothered by any of the following problems? Question Answer Date of Assessment Author Little interest or pleasure in doing things More than half the days 11/28/2022 2:09 PM EDT Sharron Zamorano LICSW Feeling down, depressed, or hopeless More than half the days 11/28/2022 2:09 PM EDT Sharron Zamorano LICSW Trouble falling or staying asleep, or sleeping too much Nearly every day 11/28/2022 2:09 PM EDT Sharron Zamorano LICSW Feeling tired or having little energy More than half the days 11/28/2022 2:09 PM EDT Sharron Zamorano LICSW Poor appetite or overeating Not at all 11/28/2022 2:09 PM EDT Sharron Zamorano LICSW Feeling bad about yourself - or that you are a failure or have let yourself or your family down Nearly every day 11/28/2022 2:09 PM EDT Sharron Zamorano LICSW Trouble concentrating on things, such as reading the newspaper or watching television Several days 11/28/2022 2:09 PM EDT Sharron Zamorano LICSW Moving or speaking so slowly that other people could have noticed? Or the opposite - being so fidgety or restless that you have been moving around a lot more than usual. Not at all 11/28/2022 2:09 PM EDT Sharron Zamorano LICSW Thoughts that you would be better off or hurting yourself in some way Not at all 11/28/2022 2:09 PM EDT Sharron Zamorano LICSW Patient Health Questionnaire-9 Score 13 11/28/2022 2:09 PM EDT Sharron Zamorano LICSW documented as of this encounter Miscellaneous Notes * Telephone Encounter - No Blackwell - 11/25/2022 10:09 AM EDT Tc from pt requesting status on Glucose Meter ask on last visit with provider (November 21, 2022) Please contact pt at [phone] documented in this encounter Plan of Treatment Upcoming Encounters Date Type Department Care Team (Late st Contact Info) Description 03/15/2025 10:15 AM EDT Office Visit [facility] [address] [place] [address] Ricardo Segovia MD [address] [place] [address] 03/21/2025 1:30 PM EDT Telemedicine [facility] [address] [place] [address] Kath Goff PharmD [address] [place] [address] 03/24/2025 10:00 AM EDT Office Visit [facility] [address] [place] [address] Kaelyn Yi, OD [address] [place] [address] documented as of this encounter Goals Goal [...] without long-term current use of insulin ([facility])- Primary documented in this encounter Additional Health Concerns Assessment Noted Time PHQ-9 Depression Total Score: 11 023 11:16 AM EDT documented as of this encounter Care Teams Grain Broker And Market Operator Relationship Specialty Start Date End Date Ricardo Segovia MD [address] [place] [address] PCP - General Internal Medicine 08/28/21 Joyce Quinonez RN [address] [place] [address] Asset Protection AssociateMolder Labels 12/23/23 04/01/24 documented as of this encounter
--- OUTSIDE RECORDS SUMMARY | 2025-02-14 18:00 | XMS_ITS | Clinical Summary ---
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 result that is nonreactive does not exclude thepossibility of exposure to or infection with HIV-1 and/orHIV-2. Nonreactive results in this assay for individualswith prior exposure to HIV-1 and/or HIV-2 may be due toantigen and antibody levels that are below the limit ofdetection of this assay.The [employer] HIV Ag/Ab Combo assay result andsupplemental assay results should be interpreted inconjunction with the patient's clinical presentation,history and other laboratory results. If the results areinconsistent with clinical evidence, additional testing issuggested to confirm the result. Blood Venous blood specimen / Unknown 11/25/2024 1:38 PM EDT 11/25/2024 4:03 PM EDT Ricardo Anaya MD LAB BLOOD ORDERABLES Final Result Performing Organization Address [facility]/ZIP Co de Phone Number [facility] [address] [place] [phone] * (ABNORMAL) BUN (Blood Urea Nitrogen) (11/25/2024 1:38 PM EDT) Urea Nitrogen (BUN) 17(H) 9 - 16 mg/dL [facility] 11/25/2024 1:38 PM EDT 11/25/2024 4:03 PM EDT Generic External Data Provider LAB BLOOD ORDERAB LES Final Result Performing Organization Address [facility] Co de Phone Number [facility] [address] [place] [phone] * (ABNORMAL) Electrolyte Panel (11/25/2024 1:38 PM EDT) Sodium 140 135 - 145 mmol/L [facility] Potassium 3.9 3.3 - 5.1 mmol/L [facility] Chloride 107 96 - 108 mmol/L [facility] Carbon Dioxide 26 22 - 29 mmol/L [facility] Anion Gap 11(L) 12 - 20 [facility] 11/25/2024 1:38 PM EDT 11/25/2024 4:03 PM EDT Generic External Data Provider LAB BLOOD ORDERAB LES Final Result Performing Organization Address [facility] de Phone Number [facility] [address] [place] [phone] * POCT HGB A1C (11/25/2024 1:18 PM EDT) Hemoglobin A1C 4.9 4.0 - 6.0 % QC Media Lot # [id number] Lot# Expiration Date Blood 11/25/2024 1:18 PM EDT Ricardo nAaya MD POINT OF CARE TEST EN TER/EDIT ORDERABLES Final Result * POCT Glucose (11/25/2024 1:16 PM EDT) Glucose Blood, POC 130 60 - 200 mg/dL QC Media Lot # [id number] Lot# Expiration Date Blood Capillary blood specimen / Unknown 11/25/2024 1:16 PM EDT Ricardo Anaya MD POINT OF CARE TEST EN TER/EDIT ORDERABLES Final Result * Albumin, Random Urine W/Creatinine (08/04/2024 9:30 AM EST) Creatinine, Urine 110.15 mg/dL [facility] Microalbumin Urine 32.0 mg/L [facility] Microalbum Creatinine Ratio Ur 29.0 <30 ug/mg cr [facility] Comment:Albumin/Creatinine R atio Reference Ranges: Normal: < 30 ug/mg creatinine Microalbuminuria: 30 - 300 ug/mg creatinineClinical Albuminuria: > 300 ug/mg creatinine Urine (Urine, Random) 08/04/2024 9:30 AM EST 08/04/2024 11:14 AM EST Ricardo Anaya MD LAB URINE ORDERABLES Final Result [facility] [address] [place] [phone] * (ABNORMAL) Lipid Panel, Standard (08/04/2024 9:30 AM EST) Triglycerides 115 <150 mg/dL [facility] Comment:Desirable Triglyceri de: less than 150 mg/dLBorderline High Triglyceride 150-199 mg/dLHigh Triglyceride: 200-499 mg/dLVery High Triglyceride: greater than or equal to 5OO mg/dL Cholesterol 228(H) <200 mg/dL [facility] Comment:Desirable Cholestero l: less than 200 mg/dLBorderline High Cholesterol: 200-239 mg/dLHigh Cholesterol: greater than 239 mg/dL LDL Cholesterol Calculated 154(H) <100 mg/dL [facility] Comment:Desirable LDL: less than 100 mg/dLNear Optimal/Above Optimal LDL: 110- 129 mg/dLBorderline High LDL: 130-159 mg/dLHigh LDL: 160-189 mg/dLVery High LDL: greater than or equal to 190 mg/dL HDL Cholesterol 51 >40 mg/dL [facility] Comment:Desirable HDL: great er than 40 mg/dL Note: This HDL assay may give artificially low results in patients with liver disease. Blood Venous blood specimen / Unknown 08/04/2024 9:30 AM EST 08/04/2024 11:18 AM EST us Ricardo Anaya MD LAB BLOOD ORDERABLES Final Result [facility] [address] [place] [phone] * BI Mammogram Screening Tomosynthesis Bilateral (07/21/2024 11:55 AM EST) Anatomical Region Laterality Modality Breast Bilateral Mammography 07/21/2024 11:5 5 AM EST Narrative 07/31/2024 11:14 AM EST [facility] [address] [place] [address] Mammography Report Signed Patient: Opal Bangura I MR#: [id number] : 1965 Acct:[id number] Age/Sex: 59 / F ADM Date: 07/21/24 Loc: HO.MAMMO Attending Dr: Ricardo Farley MD Ordering Physician: Ricardo Farley MD Resu lts: 1Negative Date of Service: 07/21/24 Follow Up: 1 Year From [facility] Mammogram Procedure(s): MM tomosynthesis screening BI Accession Number(s): [id number] cc: Ricardo Farley MD EXAMINATION: MM SCREENING [...] by: Sara Martin DO 07/31/2024 11:11 AM [facility] Dictated By: Sara Martin DO Signed By: <Electronically signed by Sara Martin DO in OV> 07/31/24 1111 DD/ 1155 TD/TT: 07/21/24 1205 Pre Sales Network Engineer: Procedure Note Donotgloriainterpreter, Image - [facility] [address] [place] [address] Mammography Report Signed Patient: Opal Bangura IMR#: [id number] : 1965Acct:[id number] Age/Sex: 59 / FADM Date: 07/21/24 Loc: HO.MAMMO Attending Dr: Ricardo Farley MD Ordering Physician: Ricardo Farley MDResu lts: 1Negative Date of Service: 07/21/24Follow Up: 1 Year From Orig inal Mammogram Procedure(s): MM tomosynthesis screening BI Accession Number(s): [id number] cc: Ricardo Farley MD EXAMINATION: MM SCREENING [...] 07/31/24 1111 DD/ 1155 TD/TT: 07/21/24 1205 Pre Sales Network Engineer: Ricardo Anaya MD IMG BI PROCEDURES Abraham jorje Result - Final * Hepatitis C Antibody with Reflex to HCV, RNA, Quantitative, Real-Time PCR (05/06/2024 10:36 AM EST) Hepatitis C Antibody Nonreactive Nonreactive [facility] Comment:Antibodies to HCV no t detected; does not exclude early acuteHCV infection. Blood Venous blood specimen / Unknown 05/06/2024 10:36 AM EST 05/06/2024 1:19 PM EST Ricardo Anaya MD LAB BLOOD ORDERABLES Final Result [facility] [address] [place] [phone] * THINPREP TIS PAP AND HPV mRNA E6/E7 WITH REFLEX TO HPV 16,18/45 (10/03/2021 2:01 PM EDT) Clinical Information: None given [facility] COMMENT SEE [facility]MENT [facility] Comment: EXPLANATORY NOTE: The Pap is a screening test for cervical cancer. It is not a diagnostic test and is subject to false negative and false positive results. It is most reliable when a satisfactory sample, regularly obtained, is submitted with relevant clinical findings and history, and when the Pap result is evaluated along with historic and current clinical information. COMMENT: This Pap test has been evaluated with computer assisted technology. [facility] [employer] SYSTEM Team Coordinator: SEE COMMENT [facility] Comment: DMM, CT(ASCP) CT screening location: [address] [address] HPV nRNA E6/E7 Not Detected Not Detected [facility] Comment: Methodology: Loom Fixer Supervisor-Mediated Amplification This assay detects E6/E7 viral messenger RNA (mRNA) from 14 high-risk HPV types (16,18,31,33,35,39,45,51,52,56,58,59,66,68). The analytical performance characteristics of this assay have been determined by [employer]. The modifications have not been cleared or approved by the FDA. This assay has been validated pursuant to the CLIA regulations and is used for clinical purposes. For additional information, please refer to http://education.[employer] [place]/faq/UWK345a9 (This link if provided for information/ educational [...] LAB SYSTEM 10/03/2021 2:01 PM EDT Mary NUÑEZ LAB PATHOLOGY ORDERABLES Final Result [facility] [address] from Last 3 Months or Most Recently Relevant to Health Maintenance Insurance [facility] Care Teams Clinic Mgr Relationship Specialty Start Date End Date Ricardo Segovia MD [address] [place] [address] PCP - General Internal Medicine 08/28/21
--- OUTSIDE RECORDS SUMMARY | 2025-02-14 18:00 | XMS_ITS | Encounter Summary ---
Author Organization [employer] Address [address] [place] [address] Care Team Providers Care Car Construction Superintendent Name Role Phone Ricardo Segovia MD Primary Care Provide r Joyec Quinonez RN Unavailable [phone] Reason for Visit * Reason Comments Med Refill Encounter Details Date Type Department Care Team ([facility] st Contact Info) Description 05/07/2023 Refill [facility] [address] [place] [address] Ricardo Segovia MD [address] [place] [address] Essential hypertension Social History Tobacco Use Types [...] housing situation today? I have sammangelic juan 03/30/[address] you [...] Answer Date of Assessment Author Patient Health Questionnaire -2 Score 2 05/08/2023 2:09 PM Nannette Arteaga [place] * If you checked off any problems on this questionnaire so far, Question Answer Date of Assessment Author How difficult have these problems made it for you to do your work, take care of things at home, or get along with other people? Somewhat difficult 05/08/2023 2:09 PM Nannette Arteaga [place] * Over the past 2 weeks, how often have you been bothered by any of the following problems? Question Answer Date of Assessment Author Little interest or pleasure in doing things Several days 05/08/2023 2:09 PM Nannette Arteaga MA Feeling down, depressed, or hopeless Several days 05/08/2023 2:09 PM Nannette Arteaga [place] Trouble falling or staying asleep, or sleeping too much Several days 05/08/2023 2:09 PM Farhana Arteaga MA Feeling tired or having little energy Several days 05/08/2023 2:09 PM Nannette Arteaga [place] Poor appetite or overeating Several days 05/08/2023 2: 09 PM Farhana Arteaga MA Feeling bad about yourself - or that you are a failure or have let yourself or your family down Several days 05/08/2023 2:09 PM Nannette Arteaga [place] Trouble concentrating on things, such as reading the newspaper or watching television Several days 05/08/2023 2:09 PM Nannette Arteaga MA Moving or speaking so slowly that other people could have noticed? Or the opposite - being so fidgety or restless that you have been moving around a lot more than usual. Several days 05/08/2023 2:09 PM Nannette Arteaga MA Thoughts that you would be better off or hurting yourself in some way Not at all 05/08/2023 2:09 PM Marcello Arteaga MA Patient Health Questionnaire-9 Score 8 05/08/2023 2:09 PM eLna Arteaga MA documented as of this encounter Plan of Treatment Upcoming Encounters Date Type Department Care Team (Late st Contact Info) Description 03/15/2025 10:15 AM EDT Office Visit [facility] [address] [place] [address] Ricardo Segovia MD [address] [place] [address] 03/21/2025 1:30 PM EDT Telemedicine [facility] [address] [place] [address] Kath Goff, JoseD [address] [place] [address] 03/24/2025 10:00 AM EDT Office Visit [facility] OPTOMETRY [address] [place] [address] Kaelyn Yi, OD [address] [place] [address] documented as of this encounter Goals Goal [...] documented as of this encounter Care Teams Car Construction Superintendent Relationship Specialty Start Date End Date Ricardo Segovia MD [address] [place] [address] PCP - General Internal Medicine 08/28/21 Joyce Quinonez RN [address] [place] [phone] Be[employer] Cattle Farm 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
--- OUTSIDE RECORDS SUMMARY | 2025-02-14 18:00 | XMS_ITS | Encounter Summary ---
Author Organization [employer] Address [address] [place] [address] Care Team Providers Care Group Fitness Department Head Name Role Phone Ricardo Segovia MD Primary Care Provide r Joyce Quinonez RN Unavailable [phone] Reason for Visit * Reason Comments Med Refill Encounter Details Date Type Department Care Team ([facility] Contact Info) Description 01/09/2023 Refill [facility] [address] [place] [address] Rose Hook, PharmD [address] [place] [address] Essential hypertension Social History Tobacco Use Types [...] Upcoming Encounters Date Type Department Care Team ([facility] Contact Info) Description 03/15/2025 10:15 AM EDT Office Visit [facility] [address] [place] [address] Ricardo Segovia MD [address] [place] [address] 03/21/2025 1:30 PM EDT Telemedicine [facility] [address] [place] [address] Kath Goff, PharmD [address] [place] [address] 03/24/2025 10:00 AM EDT Office Visit [facility] OPTOMETRY [address] [place] [address] Kaelyn Yi, OD [address] [place] [address] documented as of this encounter Goals Goal [...] documented as of this encounter Care Teams Group Fitness Department Head Relationship Specialty Start Date End Date Ricardo Segovia MD [address] [place] [address] PCP - General Internal Medicine 08/28/21 Joyce Quinonez RN [address] [place] [phone] System Software DeveloperPlating And Point Assembly Supervisor 12/23/23 04/01/24 documented as of this encounter
== END 2025-02-14 16:33 | disposition home or self-care (01) ==
LOC: HO.HKA 16:03
PROVIDERS: PCP Internal Medicine; Visit Provider Internal Medicine Nephrology
DX: I10 Essential (primary) hypertension (principal)
CPT/HCPCS: 99214

== ENCOUNTER → 2025-02-14 16:03 | Outpatient (BNVA) | payer MEDICAID, SELFPAY | PROVIDERS: PCP Internal Medicine; Visit Provider Internal Medicine Nephrology | DX: I10 Essential (primary) hypertension (principal); Z86.73 Personal history of transient ischemic attack (TIA), and cerebral infarction without residual deficits | CPT/HCPCS: 99212 ==

== ENCOUNTER 2025-05-08 11:55 | Emergency (ER) | payer MEDICAID, SELFPAY ==
--- NOTE | 2025-05-08 12:02 | ED.EAR ---
HPI - Ear Problem General Chief complaint: Ear Problems Stated complaint: left ear pain Time Seen by Provider: 05/08/25 12:09 Source: patient and aircraft instrument tester (malaysian - VOYCE) Mode of arrival: ambulatory Limitations: language barrier (malaysian) History of Present Illness ED Provider: GREG RUDD PA-C HPI Narrative: 59 year old female presents to the ED today for evaluation of left ear pain x1 week. Admits to clear discharge from the ear. Recently returned home from [place]. Denies recent swimming. Denies hearing changes, fever/chills, jaw pain, ear swelling, neck pain. Denies FB. Related Data Home Medications ?Medication ?Instructions ?Recorded ?Confirmed blood sugar diagnostic (FreeStyle #10 ea 03/14/22 01/26/24 Lite Strips) lancets 28 gauge (FreeStyle #100 ea 03/14/22 01/26/24 Lancets) losartan 100 mg tablet 100 mg PO DAILY 03/14/22 01/26/24 dulaglutide 0.75 mg/0.5 mL 0.75 mg subcut QWEEK 08/16/23 01/26/24 subcutaneous pen injector (Trulicity) empagliflozin 5 mg-metformin ER 1 tab PO BIDWM 08/16/23 01/26/24 1,000 mg tablet,extended release 24 hr (Synjardy XR) aripiprazole 20 mg tablet 20 mg PO DAILY 01/21/24 01/26/24 atorvastatin 40 mg tablet 40 mg PO BEDTIME 01/21/24 01/26/24 chlorthalidone 25 mg tablet 25 mg PO DAILY 01/21/24 01/26/24 clonazepam 0.5 mg tablet 0.5 mg PO BID PRN 01/21/24 01/26/24 doxepin 50 mg capsule 50 mg PO BEDTIME PRN 01/21/24 01/26/24 fexofenadine 180 mg tablet 180 mg PO DAILY PRN 01/21/24 01/26/24 gabapentin 300 mg capsule 300 mg PO BEDTIME 01/21/24 01/26/24 melatonin 5 mg tablet 5 mg PO BEDTIME PRN 01/21/24 01/26/24 metoprolol succinate 200 mg 200 mg PO DAILY 01/21/24 01/26/24 tablet,extended release 24 hr paroxetine HCl 40 mg tablet 40 mg PO DAILY 01/21/24 01/26/24 zolpidem 10 mg tablet 10 mg PO BEDTIME PRN 01/21/24 01/26/24 Previous Rx's ?Medication ?Instructions ?Recorded aspirin 81 mg tablet,delayed 81 mg PO DAILY #90 tabs 08/18/23 release clonidine HCl 0.2 mg tablet 0.2 mg PO BID #60 tabs 08/18/23 imiquimod 5 % topical cream packet 1 appl topical 3XW 16 weeks #24 ea 05/10/24 nifedipine 60 mg tablet,extended 120 mg (2 x 60 mg) PO DAILY 30 02/14/25 release 24 hr days #60 tabs amoxicillin 875 mg-potassium 1 tab PO BID 7 days #14 tabs 05/08/25 clavulanate 125 mg tablet ciprofloxacin 0.3 %-dexamethasone 4 drp otic (ear) left BID 7 days 05/08/25 0.1 % ear drops,suspension #7.5 mL Allergies Allergy/AdvReac Type Severity Reaction Status Date / Time No Known Allergies Allergy Verified 05/08/25 12:04 Review of Systems Review of Systems: Constitutional: No fever, chills, fatigue, night sweats, weight changes ENT/Mouth: No hearing loss, nasal congestion, sinus pain, rhinorrhea, sore throat, +ear pain Eyes: No eye pain, swelling, redness, vision changes, discharge Cardio: No chest pain, palpitations, STARR, orthopnea, peripheral edema Pulm: No SOB, cough, sputum, wheezing, dyspnea, hemoptysis GI: No nausea, vomiting, hematemesis, abdominal pain, diarrhea, constipation, hematochezia, melena : No irregular bleeding, dysuria, frequency, urgency, hesitancy, hematuria, flank pain, urinary flow changes, urinary incontinence or retention MSK: No back pain, neck pain, joint pain, myalgias Skin: No lesions, rashes Neuro: No weakness, numbness, paresthesias, LOC, dizziness, headache Psych: No anxiety/panic, depression, SI/HI, AH/VH All other systems reviewed and are negative. [facility] Past Medical History Attestation statement: The following information was validated with the patient. Source: old records reviewed and nursing notes reviewed Medical History Cerebral infarction Hypertension, uncontrolled Fibroid History of depression High blood pressure Diabetes Surgical History Hx of tubal ligation Hx of section Hx of appendectomy Family History Family History Mother HTN (hypertension) Thrombosis Father Colon cancer Social History Social History Household Members: Spouse Housing: Apartment Do you presently have visiting nurse or other home services: No Patient Tobacco Use Status: Former Tobacco user Advance Directives: No Advance Directives Information Provided: Yes Do you have a plan to hurt others: No Plan service: No Current occupational status: unemployed 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 No mastoid tenderness, fluctuance or protrusion of the auricle. Left EAC erythematous, edematous, no obvious discharge/drainage. TM intact without erythema, effusion, or bulging. + No pain on manipulation of right pinna or tragus. No mastoid tenderness. Right EAC without erythema, edema or discharge. TM intact without erythema, effusion, or bulging. Head: Yes normal to inspection, Yes No palpable skull fracture present, Yes normocephalic and Yes atraumatic Ears: hearing grossly normal bilaterally Face and sinus: Yes normal facial exam and Yes sinuses nontender Eyes: General: appearance normal, both eyes and all related structures Pupils: Equal, round and reactive pupils present Neck: Neck: Yes normal visual inspection and Yes no lymphadenopathy Resp: Effort & Inspection: normal respiratory effort and able to speak in complete sentences Auscultation: clear to auscultation bilaterally Cardio: Rate: regular rate Rhythm: regular rhythm Skin: General skin exam: no rashes or lesions noted Neuro: General: patient oriented x3 and gait normal Cranial nerves: Yes Equal, round and reactive pupils present Course Course Course Narrative: Physical exam is consistent with otitis externa - able to only partially visualize TM d/t left EAC edema. I did discuss this with patient. Will send both ciprodex and augmentin to pharmacy for treatment. Advised to take tylenol/ motrin at home for pain/ discomfort. Patient has remained stable throughout ED visit today. Discussed worrisome signs and symptoms and when to return to the ED. All questions answered at this time. Patient is agreeable with disposition and stable for discharge. Medical Decision Making Medical Decision Making MDM Narrative: 59 year old female presents to the ED today for evaluation of left ear pain x1 week. patient is quite hypertensive - states she did not take her BP meds this morning. she is asymptomatic. on exam, there is pain on manipulation of left pinna. No mastoid tenderness, fluctuance or protrusion of the auricle. Left EAC erythematous, edematous, no obvious discharge/drainage. TM intact without erythema, effusion, or bulging. Differential diagnosis includes otitis media, otitis externa. Unlikely mastoiditis, malignant otitis externa. Plan for discharge home w/ antibiotics. Differential Diagnosis Differential Diagnoses: The differential diagnosis associated with the presentation includes as above. Admission/Observation Not indicated External Record Review External record reviewed: Inpatient record Tests considered The following testing was considered but not selected: I considered obtaining imaging however no suspicion for deep tissue infection, not warranted at this time Prescription Management I considered prescription management with: Antibiotic (ciprodex/augmentin) Chronic Conditions Patient?s care impacted by: Diabetes Social Determinants Patient?s care significantly limited by Social Determinants of Health including: Other Social Determinant of Health Critical Care Time Critical Care Time Critical Care Time: No Discharge Plan Discharge Clinical Impression: Acute otitis externa of left ear Patient Disposition: Home, Self-Care Instructions: [facility] (ED) Additional Instructions: You presented to the ED today for evaluation of ear pain. You have an outer ear infection, called otitis externa. see home care instructions. Treatment for this is with antibiotics. I am sending you ear drops (ciprodex). Instill these into your left ear over the next week. Augmentin is an antibiotic that has been sent to the pharmacy for treatment. Please take this twice a day (every 12 hours) for 7 days. Take both of these medications to completion. Take tylenol/ motrin for fevers. Please follow up with PCP/ gore maker. Return with new or worsening symptoms. In the case of an emergency call 911. Prescriptions: New amoxicillin-pot clavulanate 875-125 mg tablet 1 tab PO BID 7 Days Qty: 14 0RF ciprofloxacin-dexamethasone 0.3-0.1 % drops,suspension 4 drp otic (ear) left BID 7 Days Qty: 7.5 0RF No Action imiquimod 5 % cream in packet 1 appl topical 3XW 112 Days Qty: 24 0RF Rx Instructions: Apply to the affected area 3 times a week overnight followed by rinsing very well in the morning for no more than 16 weeks Trulicity 0.75 mg/0.5 mL pen injector 0.75 mg subcut QWEEK Synjardy XR 5-1,000 mg tablet, IR - ER, biphasic 24hr 1 tab PO BIDWM aspirin 81 mg Tablet,Delayed Release (Dr/Ec) 81 mg PO DAILY Qty: 90 0RF clonidine HCl 0.2 mg Tablet 0.2 mg PO BID Qty: 60 0RF Protocol: Hold for SBP< HOLD for SBP < : 90 losartan 100 mg tablet 100 mg PO DAILY (DME) FreeStyle Lite Strips Strip See Rx Instructions .ROUTE BID Qty: 10 Rx Instructions: As directed (DME) lancets [FreeStyle Lancets] 28 gauge misc See Rx Instructions .ROUTE BID Qty: 100 Rx Instructions: As directed gabapentin 300 mg capsule 300 mg PO BEDTIME aripiprazole 20 mg tablet 20 mg PO DAILY atorvastatin 40 mg tablet 40 mg PO BEDTIME chlorthalidone 25 mg tablet 25 mg PO DAILY clonazepam 0.5 mg tablet 0.5 mg PO BID PRN doxepin 50 mg capsule 50 mg PO BEDTIME PRN fexofenadine 180 mg tablet 180 mg PO DAILY PRN melatonin 5 mg tablet 5 mg PO BEDTIME PRN metoprolol succinate 200 mg tablet extended release 24 hr 200 mg PO DAILY paroxetine HCl 40 mg tablet 40 mg PO DAILY zolpidem 10 mg tablet 10 mg PO BEDTIME PRN nifedipine 60 mg tablet extended release 24hr 120 mg PO DAILY 30 Days Qty: 60 6RF Referrals: Ricardo Farley MD [Primary Care Provider, Medical] Interventions: ED Discharge Assessment Last Done: 05/08/25 12:15 Discharge Date/Time: 05/08/25 12:16 Print Language: Swedish
[2025-05-08 12:04] VITALS: BP 199/84; PULSE 76; RESP 16; TEMP 36.7; O2SAT 97; BMI 20.8
--- NOTE | 2025-05-08 12:05 | PC.NURSE ---
resource recovery engineer resource recovery engineer number [id number]
[2025-05-08 12:15] VITALS: BP 199/84; PULSE 76; RESP 16; TEMP 36.7; O2SAT 97
== END 2025-05-08 12:16 | disposition home or self-care (01) ==
PROVIDERS: Emergency Provider Emergency Medicine; PCP Internal Medicine
DX: H60.502 Unspecified acute noninfective otitis externa, left ear (principal); I10 Essential (primary) hypertension; E11.9 Type 2 diabetes mellitus without complications
CPT/HCPCS: 99282; 99283

== ENCOUNTER 2025-05-25 11:17 | Outpatient (AMB) | payer MEDICAID, SELFPAY ==
--- NOTE | 2025-05-25 11:58 | HO.NEPHOV ---
Vital Signs 05/25/25 12:03 Height 5 ft 4 in Weight 130 lb 6 oz BMI 22.4 BP 152/80 H Blood Pressure Location Rt brachial Position Sitting Pulse 57 Pulse Source Pulse Oximeter Pulse Oximetry (%) 96 Oxygen Delivery Method Room Air Intake Visit Reasons: Per MD High BP Military Equipment Specialist Required: Yes Military Equipment Specialist Language: Raw[place] Trimmer Services: Military Equipment Specialist Present Military Equipment Specialist Name: Kianna [id number] Information Interpreted: clinical only Accompanied by: Self / Same As Patient Allergies No Known Allergies Allergy (Verified 05/25/25 12:03) HPI Comments Details: Opal was seen for follow up of resistant hypertension. She is known to have hypertension and diabetes for some time. She checks her blood pressure and blood sugar every day at home. Her blood pressures are better . She claims to be compliant with her medications. She denies eating excess salt in the food. She continues to be a smoker. She is on multiple blood sugar lowering medications and blood sugar has been well controlled lately. She denies any retinopathy, proteinuria, renal dysfunction, hypokalemia, hypercalcemia, headache, new onset weakness, weight gain, palpitation, orthostatic symptoms, tachycardia. She denies chest pain, shortness of breath, paroxysmal nocturnal dyspnea, orthopnea, pedal edema or urinary symptoms. She has history of CVA. Her renal functions had been at baseline. 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 Review of Systems Const All systems reviewed & are unremarkable except as noted in HPI and below Physical Exam Vital Signs: Last Vital Signs Pulse 57 05/25/25 12:03 BP 152/80 H 05/25/25 12:03 Pulse Ox 96 05/25/25 12:03 Oxygen Delivery Method Room Air 05/25/25 12:03 BMI result Body Mass Index 22.4 Const General: comfortable and no acute distress Orientation/consciousness: patient oriented x3 HEENT Head: Yes normocephalic Mouth: Normal oral and palatal mucosa present Eyes EOM: EOMs intact bilaterally Neck Neck: Yes supple Resp Auscultation: clear to auscultation bilaterally Cardio Jugular venous distension: no JVD Rate: regular rate GI Palpation (GI): Soft to palpation Auscultation: normal bowel sounds General: Yes no CVA tenderness Back/Spine/Pelvis Back: no CVA tenderness Skin General skin exam: no rashes or lesions noted Neuro General: patient oriented x3 and moves all extremities Extrem General: Yes no pedal edema Results Reviewed Nephrology Results: Hgb, (12.0-16.0) 15.9 g/dl 01/29/25 WBC, (4.8-10.8) 5.8 X10*3/uL 01/29/25 Plt Count, (160-400) 203 X10*3/uL 01/29/25 Sodium, (135-145) 142 mmol/L 01/29/25 Potassium, (3.3-5.1) 3.7 mmol/L 01/29/25 Chloride, (96-108) 106 mmol/L 01/29/25 Carbon Dioxide, (22-29) 27 mmol/L 01/29/25 BUN, (9-16) 13 mg/dL 01/29/25 Creatinine, (0.5-1.4) 0.68 mg/dL 01/29/25 Calcium, (8.4-10.2) 9.3 mg/dL 01/29/25 Renal US 01/29/24 Assessment & Plan Assessment & Plan (1) Hypertension: Code(s): I10 - Essential (primary) hypertension Category: Medical Qualifiers: Hypertension type: primary hypertension Qualified Code(s): I10 - Essential (primary) hypertension Plan Opal has longstanding hypertension and is on multiple antihypertensive medications. She monitors her blood pressure closely at home now. Her blood pressure is currently not at goal at home. She does not consume excess sodium in the diet. She is a smoker. She is on statins. She has history of CVA. She is not known to have any hypokalemia, retinopathy, hypercalcemia, uncontrolled thyroid disorders or sleep apnea. W/U has been negative including Doppler of her renal arteries which did not show [place]. I started her on Spironolactone 25 mg daily. F/U labs ordered. She should continue lifestyle modifications. Follow-up given Orders: Orders Blood Urea Nitrogen 1 Month I10 - Essential (primary) hypertension Electrolytes 1 Month I10 - Essential (primary) hypertension Creatinine 1 Month I10 - Essential (primary) hypertension Medications: New spironolactone 25 mg PO DAILY 90 tabs 3RF Coding Level of Care Code Est Pt Level 4 (41283) Diagnoses Primary hypertension I10 Hypertension type: primary hypertension
[2025-05-25 12:03] VITALS: BP 152/80; PULSE 57; O2SAT 96; BMI 22.4
--- OUTSIDE RECORDS SUMMARY | 2025-05-25 13:34 | XMS_ITS | Clinical Summary ---
Author Organization [employer] Address [address] [place] [address] Care Team Providers Care Computer Technology Trainer Name Role Phone Ricardo Segovia MD Primary Care Provide r Ana March PharmD Unavailable [phone] Allergies No known active allergies Medications * This document contains information received from the source organization and may not represent a complete record from that organization. Misc. Devices (Pill Box 7 Day) mis USE DIRECTED 08/22/19 23 Active Blood Glucose Monitoring Suppl (FreeStyle Lite) w/Device kitIndications: Type 2 diabetes mellitus without complication, without long-term current use of insulin (HCC) 1 Units 2 times daily. 1 kit 11/29/19 23 Active triamcinolone (Kenalog) 0.1 % ointmentIndicat ions:Skin rash Apply topically 2 times daily. To mix w/ a 1 lb jar of Cerave to apply on the skin after shower. 80 g 06/30/19 24 Active fexofenadine (Mala) 180 MG tabletIndicatio ns:Skin rash TAKE 1 TABLET BY MOUTH DAILY NEEDED FOR ALLERGIES 90 tablet 08/07/19 24 Active clonazePAM (KlonoPIN) 0.5 MG tablet Take 1 tablet by mouth if needed in the morning and at bedtime. 08/06/19 24 Active terbinafine (LamISIL AT) 1 % creamIndication s:Ringworm of body,Tinea cruris Apply topically 2 times daily. 42 g 3 12/09/19 24 Active glucose blood (FREESTYLE LITE) test stripIndication s:Type 2 diabetes mellitus without complication, without long-term current use of insulin ([facility]) TEST BLOOD SUGAR TWICE DAILY 100 strip 11 12/24/19 24 Active TRUEplus Lancets 33G miscIndications :Type 2 diabetes mellitus without complication, without long-term current use of insulin ([facility]) USE TO TEST BLOOD SUGAR TWICE A DAY 100 each 3 09/29/19 25 Active melatonin 5 MG tabletIndicatio ns:Recurrent major depressive episodes, mild (CMS/HCC) TAKE 2 TABLETS BY MOUTH EVERY DAY AT BEDTIME FOR SLEEP 180 tablet 1 10/13/19 25 Active Aspirin Low Dose 81 MG EC tabletIndicatio ns:Type 2 diabetes mellitus without complication, without long-term current use of insulin ([facility]) TAKE 1 TABLET BY MOUTH EVERY MORNING 90 tablet 3 5 1:44 PM EST 11/10/19 25 Active metoprolol succinate XL (Toprol-XL) 200 MG 24 hr tabletIndicatio ns:Essential hypertension TAKE 1 TABLET BY MOUTH EVERY MORNING 90 tablet 1 5 1:44 PM EST 11/13/19 25 Active atorvastatin (Lipitor) 80 MG tablet TAKE 1 TABLET BY MOUTH AT BEDTIME 90 tablet 1 5 1:44 PM EST 11/13/19 25 Active zolpidem (Ambien) 10 MG tabletIndicatio ns:Major depressive disorder, recurrent episode, severe with mood-congruent psychotic features (CMS/HCC) ([facility]) TAKE 1 TABLET BY MOUTH AT BEDTIME NEEDED FOR SLEEP 30 tablet 12/19/19 25 Active chlorthalidone (Hygroton) 25 MG tablet TAKE 1 TABLET BY MOUTH EVERY MORNING 90 tablet 3 01/12/20 25 Active senna-docusate sodium (Senokot-S) 8.6-50 MG tabletIndicatio ns:Constipation , unspecified constipation type Take 1 tablet by mouth Once per day. 30 tablet 3 03/15/20 25 026 Active NIFEdipine XL (Procardia XL) 60 MG 24 hr tablet TAKE 2 TABLETS BY MOUTH EVERY DAY IN THE EVENING 02/15/20 25 Active sertraline (Zoloft) 100 MG tablet Take 100 mg by mouth in the morning. 02/18/20 25 Active metFORMIN XR (Glucophage-XR) 500 MG 24 hr tablet Take 1 tablet (500 mg) by mouth 2 times daily. Do not crush, chew, or split. 180 tablet 3 5 1:44 PM EST 03/21/20 25 026 Active cloNIDine (Catapres) 0.2 MG tablet TAKE 1 TABLET BY MOUTH TWICE DAILY IN THE MORNING AND AT BEDTIME 60 tablet 1 5 1:44 PM EST 04/11/20 25 Active doxepin (SINEquan) 50 MG capsuleIndicati ons:Major depressive disorder, recurrent episode, severe with mood-congruent psychotic features (CMS/HCC) (HCC) TAKE 1 CAPSULE BY MOUTH AT BEDTIME NEEDED FOR SLEEP 30 capsule 1 04/11/20 25 Active losartan (Cozaar) 100 MG tabletIndicatio ns:Essential hypertension TAKE 1 TABLET BY MOUTH EVERY MORNING 90 tablet 1 05/10/20 25 Active Blood Pressure kitIndications: Essential hypertension Use every other day 1 kit 05/13/20 25 Active gabapentin (Neurontin) 400 MG capsule Take 400 mg by mouth 3 times daily. Active clopidogrel (Plavix) 75 MG tablet Take 75 mg by mouth in the morning. 08/18/19 24 025 Discontinued(M ed list cleanup (will not trigger notification to Pharmacy)) Blood Pressure kitIndications: Essential hypertension Use every other day 1 kit 03/11/20 24 025 Discontinued(R eorder (will not trigger notification to Pharmacy)) gabapentin (Neurontin) 400 MG capsule Take 400 mg by mouth at bedtime. 03/25/20 24 025 Discontinued(M ed list cleanup (will not trigger notification to Pharmacy)) losartan (Cozaar) 100 MG tabletIndicatio ns:Essential hypertension TAKE 1 TABLET BY MOUTH EVERY MORNING 90 tablet 1 10/15/19 25 025 Discontinued neomycin-polymy mateo-hydrocortis one (Cortisporin) otic solutionIndicat ions:Acute otitis externa of left ear, unspecified type Administer 3 drops into the left ear 3 times daily for 10 days. 10 mL 5 3:08 PM EST 05/10/20 25 025 Active Problems Problem Noted Date Diagnosed Date Constipation 03/15/2025 Assessment & Plan (03/15/2025 11:42 AM EDT): Discussed dietary fiber, increase fluids Senna PRN Weight loss 11/25/2024 Assessment & Plan (11/25/2024 1:23 PM EDT): Pt tells me she decided to loose weight and has been adhering to a very strict diet and feels the best she has ever felt Mild nonproliferative diabet ic retinopathy of both eyes without macular edema associated with type 2 diabetes mellitus 07/08/2024 Assessment & Plan (03/15/2025 10:57 AM EDT): Last note on record from [facility] [employer] [employer] 02/19/2023 Assessment & Plan (07/08/2024 1:02 PM EST): Last note on record from [facility] 02/19/2023 Condyloma acuminatum in female 12/09/2023 Assessment & Plan (11/25/2024 1:12 PM EDT): Pt with c/o multiple lesions on her vulva and c/o itchiness outside her vulva On exam Multiple vaginal warts Evaluated by [facility], s/p biopsies that confirmed diagnosis of condyloma acuminata They discussed different treatment options and pt opted for Aldara cream last seen 10/28/2024 Assessment & Plan (07/08/2024 12:47 PM EST): Pt with c/o multiple lesions on her vulva and c/o itchiness outside her vulva On exam Multiple vaginal warts Evaluated by [facility], last seen 05/04/2024 s/p biopsies that confirmed diagnosis of condyloma acuminata They discussed different treatment options and pt opted for Aldara cream Assessment & Plan (12/09/2023 11:05 AM EDT): Pt with c/o multiple lesions on her vulva and c/o itchiness outside her vulva On exam Multiple vaginal warts Plan: [facility] referral. She also seems to have a [...] here for a follow up Admitted [facility] [place] 08/14-08/16/2023 She presented to the ED [...] is here for a HDF Admitted to [facility] [place] 08/14-08/16/2023 She presented to the ED [...] while) Abnormal EKG 11/21/2022 Assessment & Plan (03/15/2025 11:40 AM EDT): Unfortunately she missed the appointment with Cardiology Previously Seen by Cardiology 01/2024, back then patient was scheduled for a stress test and Echo Patient missed ECHO appointment on 02/26. and04/07 . Patient missed stress test on 03/08. 05/18 , missed again. Unfortunately back then the sonar watchstander office declined to re-schedule her appointment. On a previous visit I placed a referral to a different sonar watchstander.Daughter tells me she missed that appointment as well Today again I discussed with pt's daughter tom the importance of making sure she sees cardiology and has a stress test . Pt's daughter tells me she will contact the sonar watchstander and reschedule the appointment. Today my MA gave the information to sonar watchstander office to patient to give to daughter so she can call and schedule the appointment at a date and time that is convenient for her Assessment & Plan (07/08/2024 1:55 PM EST): Seen by Cardiology 01/2024 Patient was scheduled for a stress test and Echo Patient missed echo appointment on 02/26. and04/07 . Patient missed stress test on 03/08. 05/18 , missed again. Unfortunately the sonar watchstander office declined to re-schedule her appointment. I have placed a referral to a different sonar watchstander. I discussed with pt's daughter tom the [...] ecurrent episode, severe with mood-congruent psychotic features (CMS/HCC) 10/08/2022 Assessment & Plan (03/15/2025 11:41 AM EDT): Here for a follow up Pt tells me she has been doing well, remains under psychotherapy and psychiatric care Patient seeing a therapist at [facility] counseling She is taking Doxepin, Ambien, Lexapro and Clonazepam prescribed Dr. Murguia. She will F/U with them. Assessment & Plan (11/25/2024 1:20 PM EDT): [...] for BPD. Patient seeing a therapist at [facility] counseling She is taking Doxepin, Ambien, Lexapro and [...] BPD. Patient was seeing a therapist at [facility] but this organization closed and [...] mental health. PLAN: 1. Follow up with [facility]: Not recommended 2. Patient goal to maintain diminished symptoms 3. Behavioral Recommendations a. Patient will comply with medication b. Patient will attend psychopharmacology appointments c. Patient will continue to engage in activities d. Patient will engage in OP therapy, once appointment is provided e. Patient may reach out to [facility], if needed. Assessment & Plan (12/19/2022 10:07 [...] during encounters PLAN: 1. Follow up with [facility]: Recommended for follow-up: November 28, 2022 at 11 am telehealth 2. Patient goal is reduce intensity and frequency of symptoms 3. Behavioral Recommendations a. Patient will try using coping skills on a regular basis b. Patient will look into connecting with a Yazidism or day program c. Patient will continue complying with medication d. Patient will reach out to [facility], if needed Assessment & Plan (11/07/2022 1:00 [...] is warranted consider MR Pt already seeing [facility] last seen 03/14 Pt under the care of [facility], seen last by [facility] [...] is warranted consider MR Pt already seeing [facility] last seen 03/14 Pt under the care of [facility], seen last by [facility] [...] Preventative health care 09/05/2022 Assessment & Plan (03/15/2025 11:43 AM EDT): Mammogram: 07/21/2024 Normal Pap Smear: 10/03/2021 Colonoscopy: referred, pt had an appointment in December 19 2022, missed it. Pt wanted Cologuard instead. First attempt was not done due to improper sample collection. Pt tells me she has a new kit at home, daughter (over the phone) today told me she was going to help her get it done soon Assessment & Plan (11/25/2024 1:24 PM EDT): [...] similar to ringworm following recent trip to [place]. Patient deferred to seek care at walk-in [...] 1:26 PM EST): referred Essential hypertension 06/07/2022 Assessment & Plan (03/15/2025 11:37 AM EDT): Patient with Hypertension BP today elevated (Pt reports she gets very anxious at Dr's offices) She is on a regimen of: Metoprolol XL 200 mg po daily, Losartan 100 mg po daily, Chlortalidone 25 mg po daily and Clonidine 0.2 mg po BID and Nifedipine 120 mg po daily (recently increased by Renal ) Lab Results Component Value Date NA 140 11/25/2024 NA 142 08/04/2024 K 3.9 11/25/2024 K 4.0 08/04/2024 CL 107 11/25/2024 CL 109 (H) 08/04/2024 BUN 17 (H) 11/25/2024 BUN 11 08/04/2024 CREATININE 0.73 11/25/2024 CREATININE 0.75 08/04/2024 was wnl. Seen by Nephrology for resistant HTN, He increased her Nifedipine, last seen 02/14/2025 Pt reports that her blood pressure at home is always controlled in the systolic range of 130-150 No changes for now since Nifedipine was recently increased Continue to follow up with Nephrology Follow up [facility] in 4 months patient advised to adhere to a low sodium diet, encouraged about medication compliance Assessment & Plan (11/25/2024 1:11 PM EDT): [...] the systolic range of 130-140 Follow up [facility] in 4 months patient advised to [...] were made last seen 11/2023 Follow up [facility] in 3 months patient advised to adhere to a low sodium diet, encouraged about medication compliance Assessment & Plan (01/19/2024 5:14 PM EDT): Assessment: - BP is NOT at goal of less than 140/90 per JNC8 guidelines Plan/ Recommendations: - Continue with current therapy, f/u in 2 months with new CDTM [facility] Monitoring: Potassium (mmol/L) Date Value 07/05/2023 [...] mg po BID (increased during last hospitalization) [facility] 06/2023 was wnl Plan: Previously referred [...] followed by our CDTM Program Follow up [facility] in 3 months patient advised to adhere to a low sodium diet, encouraged about medication compliance Assessment & Plan (09/09/2023 3:44 PM EDT): Patient with Hypertension currently improved , pt swenicolasa she is compliant with medical regimen She is on a regimen of: Metoprolol XL 200 mg po daily, Losartan 100 mg po daily, Amlodipine 10 mg po daily , Chlortalidone 25 mg po daily and Clonidine 0.2 mg po BID (increased during last hospitalization) [facility] 06/2023 was wnl Plan: Previously referred to Nephrology for resistant HTN, missed the appointment due to an issue with her [employer]. Will refer back discussed with patient importance of medication adherence if we are to control her Blood pressure since this is putting her at risk of a heart attack, stroke or even . Pt verbalized understanding and promised to do better She is being followed by our CDTM Program Follow up [facility] in 3 months patient advised to [...] daily and Clonidine 0.1 mg po BID [facility] 09/30/2022 was wnl Plan: Previously referred to [...] followed by our CDTM Program Follow up [facility] in 3 months patient advised to [...] daily and Chlortalidone 25 mg po daily [facility] 09/30/2022 was wnl Plan: Referred to Nephrology [...] followed by our CDTM Program Follow up [facility] in 3 months patient advised to [...] followed by our CD Program Follow up [facility] in 1 month patient advised to [...] weight loss. Hyperlipidemia 06/07/2022 Assessment & Plan (03/15/2025 11:38 AM EDT): Patient with elevated lipids. Here for a follow up Most recent lipid profile from: Lab Results Component Value Date TRIG 115 08/04/2024 TRIG 455 (H) 08/16/2023 CHOL 228 (H) 08/04/2024 CHOL 241 (H) 08/16/2023 LDLCHOLCAL 154 (H) 08/04/2024 LDLCHOLCAL TNP 08/16/2023 HDL 51 08/04/2024 HDL 42 08/16/2023 Currently on a regimen of: Atorvastatin 80 mg po at bedtime Plan: Continue Atorvastatin to 80 mg po at bedtime, repeat Lipid profile prior to next visit advised to try to adhere to a low cholesterol diet, counseled and educated about diet and exercise, Patient encouraged to come up with a personal goal for weight loss. Assessment & Plan (11/25/2024 1:14 PM EDT): [...] of both eyes without macular edema 06/07/2022 Assessment & Plan (03/15/2025 10:53 AM EDT): Pt here for a f/u DM controlled Here for follow up in terms of her Diabetes She is on a regimen of: Synjardy XR 10/999 BID and Trulicity 0.75 mg weekly Hgb A1c 03/15/2025: 4.9 Plan: continue with current regimen Eye exam was last done in [place], Microalbumin 08/04/2024 was 32 Pt on an ARB Foot check today is risk of: zero Pt reports compliance with Asa 81 mg po daily Pt adviced to: adhere to diabetic diet check your blood sugars regularly check your feet on a daily basis. Assessment & Plan (11/25/2024 1:21 PM EDT): Pt here for a f/u DM controlled Here for follow up in terms of her Diabetes She is on a regimen of: Synjardy XR 10/999 BID and Trulicity 0.75 mg weekly Hgb A1c 10/25/2024: 4.9 from 7 Plan: continue with current regimen Eye exam was last done in [place], Microalbumin 10/04/2021 was 48 Pt on an [...] regimen Eye exam was last done in [place], Microalbumin 10/04/2021 was 48 Pt on an [...] regimen Eye exam was last done in [place], Microalbumin 10/04/2021 was 48 Pt on an [...] regimen Eye exam was last done in [place], Microalbumin 10/04/2021 was 48 Pt on an [...] regimen Eye exam was last done in [place], Microalbumin 10/04/2021 was 48 Pt on an [...] regimen Eye exam was last done in [place], Microalbumin 10/04/2021 was 48 Pt on an [...] 7.6 Eye exam was last done in [place], Microalbumin 10/04/2021 was 48 Pt on an [...] 7.6 Eye exam was last done in [place], Microalbumin 10/04/2021 was 48 Pt on an [...] ordered Eye exam was last done in [place], will refer today Microalbumin 10/04/2021 was 48 [...] [facility] who [facility] her to [facility] and our Psychopharmacology clinic. 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 Acute otitis externa of left ear, unspecified type (Primary Dx) 05/10/2025 Travel 05/10/2025 Telephone [facility] [address] [place] [address] Ricardo Segovia MD Nurse Triage; ER Follow-up 05/10/2025 Telephone [facility] [address] [place] [address] Ricardo Segovia MD ER Follow-up 05/10/2025 Refill [facility] [address] [place] [address] Ricardo Segovia MD Essential hypertension 05/02/2025 Telephone [facility] [address] [place] [address] Ricardo Segovia MD 04/27/2025 Outside Procedure [facility] OPTOMETRY [address] [place] [address] Jose Antonio Diallon, OD Presbyopia (Primary Dx) 04/26/2025 1:00 PM EST Office Visit [facility] OPTOMETRY [address] [place] [address] Jose Antonio Diallon, OD Myopia of both eyes with astigmatism and presbyopia (Primary Dx) 04/09/2025 Refill [facility] [address] [place], [place] [id number] Ricardo Segovia MD Major depressive disorder, recurrent episode, severe with mood-congruent psychotic features (CMS/HCC) (HCC) 03/24/2025 10:00 AM EDT Office Visit [facility] OPT[facility]ETRY [address] [place] [address] Kaelyn Yi, OD Mild nonproliferative diabetic retinopathy of both eyes without macular edema associated with type 2 diabetes mellitus (HCC) (Primary Dx); 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 (HCC); Myopia of both eyes with astigmatism and presbyopia 03/24/2025 Travel 03/21/2025 1:30 PM EDT Telemedicine [facility] [address] [place] [address] Kath Goff, Erik Type 2 diabetes mellitus with both eyes affected by mild nonproliferative retinopathy without macular edema, without long-term current use of insulin (CMS/[facility]) (Primary Dx); Essential hypertension; Tobacco dependence 03/21/2025 Travel 03/15/2025 10:15 AM EDT Office Visit [facility] [address] [place] [address] Ricardo Segovia MD Type 2 diabetes mellitus with both eyes affected by mild nonproliferative retinopathy without macular edema, without long-term current use of insulin (CMS/HCC) (Primary Dx); Essential hypertension; Mixed hyperlipidemia; Abnormal EKG; Mild nonproliferative diabetic retinopathy of both eyes without macular edema associated with type 2 diabetes mellitus (CMS/HCC); Major depressive disorder, recurrent episode, severe with mood-congruent psychotic features (CMS/HCC); Constipation, unspecified constipation type; Preventative health care 03/15/2025 Travel 03/14/2025 Telephone [facility] [address] [place] [address] Ricardo Segovia MD chart prep from Last 3 Months Immunizations Immunization Administration Dates Next Due Influenza injectable quadrivalent preservative f ree 05/29/2023 Influenza, seasonal, injectable, preservative fr ee 05/13/2025,03/11/2024 Moderna Covid-19 Vaccine 12+ 03/03/2021,02/04/20 21 Pneumococcal Conjugate PCV 20 11/12/2022 Tdap 11/12/2022 Zoster, Recombinant 01/14/2023,11/12/2022 Family History Medical History Relation Name Comments Cataracts Mother Relation Name Status Comments Mother Social History Tobacco Use Types Packs/Day Years Used Date Smoking Tobacco: Every Day Cigarettes Passive Smoke Exposure: Current Smokeless Tobacco: Never Tobacco Cessation:Ready to Q uit: No; Counseling Given: Yes Comments:As of 03/22/24 - [...] Sign Reading Time Taken Comments Blood Pressure 160/62 05/13/2025 3:21 PM EST Pulse 54 05/13/2025 3:16 PM EST Temperature 37 C (98.6 F) 05/10/2025 1:42 PM EST Respiratory Rate 20 05/10/2025 1:42 PM EST Oxygen Saturation 98% 03/15/2025 10: 35 AM EDT Inhaled Oxygen Concentration - - Weight 60.2 kg (132 lb 12.8 oz) 05/10/2025 1:42 PM EST Height 167.6 cm (5' 6 ) 05/10/2025 1:42 PM EST Body Mass Index 21.43 05/10/2025 1:42 PM EST Plan of Treatment Upcoming Encounters Date Type Department Care Team (Late st Contact Info) Description 06/09/2025 2:00 PM EST Office Visit [facility] [address] [place] [address] Ricardo Segovia MD [address] [place] [address] 06/27/2025 1:30 PM EST Medication Management [facility] [address] [place] [address] Ana March PharmD [address] [place] [address] 07/04/2025 11:00 AM EST Nutrition [facility] DIABETES/NUTRITION [address] [place] [address] [place], [place] [id number] Health Maintenance Due Date Last Done Comments CT Colonography 1966 Colonoscopy 1966 Colorectal Cancer Screening 1966 FIT DNA/Cologuard 1966 FIT 1966 FOBT 1966 Sigmoidoscopy 1966 Diabetes: Foot Exam 1976 Hepatitis B Vaccines (1 of 3 - 19+ 3-dose series) 1985 RSV Patients and Patients Aged 60 years or older (1 - Risk 50-74 years 1-dose series) 2016 Depression Screening 07/10/2024 07/10/2023, 07/10/19 24 COVID-19 Vaccine ( season) 2025 08/31/2021, 03/03/2021, 02/03/2021 Diabetes: Hemoglobin A1C 06/14/2025 025, 11/25/2024, 07/08/2024, Additional history exists Mammogram 07/21/2025 07/21/2024 Diabetes: Urine Protein Screening 08/04/2025 08/04/2024, 08/04/2024, 09/30/2022, Additional history exists Lipid Panel 08/04/2025 08/04/2024, 07/25, 09/30/2022, Additional history exists Alcohol/Substance Use Screening 11/25/2025 11/25/2024 Disability Screening 11/25/2025 11/25/2024 SDOH Screening 11/25/2025 11/25/2024 Eye Exam 03/24/2026 03/24/2025, 07/2024, 03/24/2025, Additional history exists Tobacco Screening 05/15/2026 05/15/2025 Cervical Cancer Screening 10/03/2026 HPV/Cotest 10/03/2026 10/03/2021 Pap Smear 10/03/2026 10/03/2021 DTaP/Tdap/Td Vaccines (2 - Td or Tdap) 11/12/2032 11/12/2022 Pneumococcal Vaccine: 50+ Years Completed 11/12/2022 Zoster Vaccines Completed 01/14/2023, 11/12/2022 Hepatitis C Screening Completed 05/06/2024, 022 HIV Screening Completed 11/25/2024, 04/23, 10/04/2021 Influenza Vaccine Completed 05/13/2025, , 05/29/2023 HIB Vaccines Aged Out No longer eligi [...] Author Blood Pressure < 140/90 Blood Pressure 160/62(04/24 3:21 PM EST) No Rose Hook, PharmElizabet Short-term: Promote adherence to treatment regimen General Essential hypertension On track(10/14 4:07 PM EDT) No Rose Hook, PharmD [...] Use Tobacco dependence No Rose Hook, JoseD Help patients manage their type 2 diabetes Care Plan Help patients manage their type 2 diabetes No Josseline Adam Weekly blood pressure task Care Plan Weekly blood pressure task No Josseline Adam Help patients manage their type 2 diabetes Care Plan Help patients manage their type 2 diabetes No Josseline Adam Patient has diabetic eye disease Care Plan Patient has diabetic eye disease No Colon Josseline Spears Help patients manage their type 2 diabetes Care Plan Help patients manage their type 2 diabetes No Josseline Adam Patient has chronic kidney disease Care Plan Patient has chronic kidney disease No Josseline Adam Weekly blood pressure task Care Plan Weekly blood pressure task No Colon Josseline Spears Weekly blood pressure task Care Plan Weekly blood pressure task No Josseline Adam Patient has diabetic eye disease Care Plan Patient has diabetic eye disease No Josseline Adam Patient has diabetic eye disease Care Plan Patient has diabetic eye disease No Josseline Adam Patient has chronic kidney disease Care Plan Patient has chronic kidney disease No Josseline Adam Patient has chronic kidney disease Care Plan Patient has chronic kidney disease No Josseline Adam Weekly blood pressure task Care Plan Weekly blood pressure task No Flip Ferrara Weekly blood pressure task Care Plan Weekly blood pressure task No Flip Ferrara Weekly blood pressure task Care Plan Weekly blood pressure task No Flip Ferrara Patient has diabetic eye disease Care Plan Patient has diabetic eye disease No Flip Ferrara Patient has diabetic eye disease Care Plan Patient has diabetic eye disease No Flip Ferrara Patient has diabetic eye disease Care Plan Patient has diabetic eye disease No Flip Ferrara Patient has chronic kidney disease Care Plan Patient has chronic kidney disease No Flip Ferrara Patient has chronic kidney disease Care Plan Patient has chronic kidney disease No Flip Ferrara Patient has chronic kidney disease Care Plan Patient has chronic kidney disease No Flip Ferrara Weekly blood pressure task Care Plan Weekly blood pressure task No Tommy Ferrara Weekly blood pressure task Care Plan Weekly blood pressure task No Tommy Ferrara Weekly blood pressure task Care Plan Weekly blood pressure task No Tommy Ferrara Patient has diabetic eye disease Care Plan Patient has diabetic eye disease No Tommy Ferrara Patient has diabetic eye disease Care Plan Patient has diabetic eye disease No Tommy Ferrara Patient has diabetic eye disease Care Plan Patient has diabetic eye disease No Tommy Ferrara Patient has chronic kidney disease Care Plan Patient has chronic kidney disease No Tommy Ferrara Patient has chronic kidney disease Care Plan Patient has chronic kidney disease No Tommy Ferrara Patient has chronic kidney disease Care Plan Patient has chronic kidney disease No Tommy Ferarra Weekly blood pressure task Care Plan Weekly blood pressure task No Abe Horn MA Weekly blood pressure task Care Plan Weekly blood pressure task No Abe Horn MA Weekly blood pressure task Care Plan Weekly blood pressure task No Abe Horn MA Patient has diabetic eye disease Care Plan Patient has diabetic eye disease No Abe Horn MA Patient has diabetic eye disease Care Plan Patient has diabetic eye disease No Abe Horn MA Patient has diabetic eye disease Care Plan Patient has diabetic eye disease No Abe Horn MA Patient has chronic kidney disease Care Plan Patient has chronic kidney disease No Abe Horn MA Patient has chronic kidney disease Care Plan Patient has chronic kidney disease No Abe Horn MA Patient has chronic kidney disease Care Plan Patient has chronic kidney disease No Abe Horn MA Weekly blood pressure task Care Plan Weekly blood pressure task No Piers-Miranda , Ana, PharmD Weekly blood pressure task Care Plan Weekly blood pressure task No Piers-Miranda , Ana, PharmD Weekly blood pressure task Care Plan Weekly blood pressure task No Piers-Miranda , Ana, PharmD Patient has diabetic eye disease Care Plan Patient has diabetic eye disease No Piers-Miranda , Ana, PharmD Patient has diabetic eye disease Care Plan Patient has diabetic eye disease No Piers-Miranda , Ana, PharmD Patient has diabetic eye disease Care Plan Patient has diabetic eye disease No Piers-Miranda , Ana, PharmD Patient has chronic kidney disease Care Plan Patient has chronic kidney disease No Ana March PharmD Patient has chronic kidney disease Care Plan Patient has chronic kidney disease No Ana March PharmD Patient has chronic kidney disease Care Plan Patient has chronic kidney disease No Ana March PharmD Procedures Procedure Name Priority Date/Time Associated Diagnosis Comments OCT, RETINA - OU - BOTH EYES Routine 03/24/2025 10:56 AM EDT 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 (HCC) POCT GLYCATED HEMOGLOBIN, TOTAL Routine 03/15/2025 10:39 AM EDT Type 2 diabetes mellitus with both eyes affected by mild nonproliferative retinopathy without macular edema, without long-term current use of insulin (CMS/HCC) POCT GLUCOSE Routine 03/15/2025 10:36 AM EDT Type 2 diabetes mellitus with both eyes affected by mild nonproliferative retinopathy without macular edema, without long-term current use of insulin (CMS/HCC) HIV 1/2 ANTIGEN/ANTIBODY, FOURTH GENERATION W/RFL Routine 11/25/2024 1:38 PM EDT Weight loss ALBUMIN, RANDOM URINE W/CREATININE Routine 08/04/2024 9:30 [...] Recently Relevant to Health Maintenance Results * OCT, Retina - OU - Both Eyes (03/24/2025 10:56 AM EDT) Marcellus Mainothy, OD - 03/24/2025 10:56 AM EDT OCT [facility] [employer] Optical Coherence Tomography Interpretation Report Measurements: OD OS Macula Thickness 218 microns 451 microns Test findings: OD: Mild heme/ma without evidence of macular edema OS: Perifoveal heme/ma with marked cystoid macular edema and hard exudates, vascular abnormalities consistent with resolving BRVO Impression and Plan: 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 Vision is reduced left eye (OS) and patient would like an ophthalmology consult. Will refer back to [facility] for evaluation and management and schedule annual JHON here or as indicated. Patient states her understanding of findings and management plan. us Kaelyn Yi OD OPHTH TOMOGRAPHY Final Result * POCT Hgb A1c (03/15/2025 10:39 AM EDT) Hemoglobin A1C 4.9 4.0 - 5.7 % QC Media Lot # [id number] Lot# Expiration Date Blood 03/15/2025 10:3 9 AM EDT Ricardo Anaya MD POINT OF CARE TEST EN TER/EDIT ORDERABLES Final Result * POCT Glucose (03/15/2025 10:36 AM EDT) Glucose Blood, POC 78 60 - 200 mg/dL QC Media Lot # [id number] Lot# Expiration Date 2530,026 Blood Capillary blood specimen / Unknown 03/15/2025 10:36 AM EDT Result [facility] Ricardo Anaya MD POINT OF CARE TEST EN TER/EDIT ORDERABLES Final Result * HIV-1/2 Antigen and Antibodies, Fourth Generation, with Reflexes (11/25/2024 1:38 PM EDT) HIV AB/AG Nonreactive Nonreactive [facility] Comment:HIV-1 p24 Ag and/or HIV-1/HIV-2 Ab not detected.A test result that is nonreactive does not exclude thepossibility of exposure to or infection with HIV-1 and/orHIV-2. Nonreactive results in this assay for individualswith prior exposure to HIV-1 and/or HIV-2 may be due toantigen and antibody levels that are below the limit ofdetection of this assay.The [employer] HIV Ag/Ab Combo assay result andsupplemental assay results should be interpreted inconjunction with the patient's clinical presentation,history and other laboratory results. If the results areinconsistent with clinical evidence, additional testing issuggested to confirm the result. Blood Venous blood specimen / Unknown 11/25/2024 1:38 PM EDT 11/25/2024 4:03 PM EDT Ricardo Anaya MD LAB BLOOD ORDERABLES Final Result [facility] [address] [place] [phone] * Albumin, Random Urine W/Creatinine (08/04/2024 9:30 AM EST) Creatinine, Urine 110.15 mg/dL [facility] Microalbumin Urine 32.0 mg/L [facility] Microalbum Creatinine Ratio Ur 29.0 <30 ug/mg cr [facility] Comment:Albumin/Creatinine R atio Reference Ranges: Normal: < 30 ug/mg creatinine Microalbuminuria: 30 - 300 ug/mg creatinineClinical Albuminuria: > 300 ug/mg creatinine Urine (Urine, Random) 08/04/2024 9:30 AM EST 08/04/2024 11:14 AM EST Ricardo Anaya MD LAB URINE ORDERABLES Final Result Performing Organization Address City/[facility]/ZIP Co de Phone Number [facility] [address] [place] [address] [phone] * (ABNORMAL) Lipid Panel, Standard (08/04/2024 9:30 AM EST) Triglycerides 115 <150 mg/dL [facility] Comment:Desirable Triglyceri de: less than 150 mg/dLBorderline High Triglyceride 150-199 mg/dLHigh Triglyceride: 200-499 mg/dLVery High Triglyceride: greater than or equal to 5OO mg/dL Cholesterol 228(H) <200 mg/dL [facility] Comment:Desirable Cholestero l: less than 200 mg/dLBorderline High Cholesterol: 200-239 mg/dLHigh Cholesterol: greater than 239 mg/dL LDL Cholesterol Calculated 154(H) <100 mg/dL [facility] Comment:Desirable LDL: less than 100 mg/dLNear Optimal/Above Optimal LDL: 110- 129 mg/dLBorderline High LDL: 130-159 mg/dLHigh LDL: 160-189 mg/dLVery High LDL: greater than or equal to 190 mg/dL HDL Cholesterol 51 >40 mg/dL [facility] Comment:Desirable HDL: great er than 40 mg/dL Note: This HDL assay may give artificially low results in patients with liver disease. Blood Venous blood specimen / Unknown 08/04/2024 9:30 AM EST 08/04/2024 11:18 AM EST Ricardo Anaya MD LAB BLOOD ORDERABLES Final Result Performing Organization Address City/[facility]/ZIP Co de Phone Number [facility] [address] [place] [address] [phone] * BI Mammogram Screening Tomosynthesis Bilateral (07/21/2024 11:55 AM EST) Anatomical Region Laterality Modality Breast Bilateral Mammography 07/21/2024 11:5 5 AM EST Narrative 07/31/2024 11:14 AM EST [facility] [address] [place] [address] Mammography Report Signed Patient: Opal Bangura I MR#: [id number] : 1965 Acct:[id number] Age/Sex: 59 / F ADM Date: 07/21/24 Loc: HO.MAMMO Attending Dr: Ricardo Farley MD Ordering Physician: Ricardo Farley MD Resu lts: 1Negative Date of Service: 07/21/24 Follow Up: 1 Year From Orig inal Mammogram Procedure(s): MM tomosynthesis screening BI Accession Number(s): [id number] cc: Ricardo Farley MD EXAMINATION: MM SCREENING [...] 07/31/24 1111 DD/ 1155 TD/TT: 07/21/24 1205 Track Oiler: Procedure Note Donotuseinterpreter, Image - 07/31/20[facility] [address] [place] [address] Mammography Report Signed Patient: Opal Bangura IMR#: [id number] : 1965Acct:[id number] Age/Sex: 59 / FADM Date: 07/21/24 Loc: HO.MAMMO Attending Dr: Ricardo Farley MD Ordering Physician: Ricardo Farley MDResu lts: 1Negative Date of Service: 07/21/24Follow Up: 1 Year From Orig inal Mammogram Procedure(s): MM tomosynthesis screening BI Accession Number(s): [id number] cc: Ricardo Farley MD EXAMINATION: MM SCREENING [...] 07/31/24 1111 DD/ 1155 TD/TT: 07/21/24 1205 Track Oiler: us Ricardo Anaya MD IMG BI PROCEDURES Abraham jorje Result - Final * Hepatitis C Antibody with Reflex to HCV, RNA, Quantitative, Real-Time PCR (05/06/2024 10:36 AM EST) Hepatitis C Antibody Nonreactive Nonreactive [facility] Comment:Antibodies to HCV no t detected; does not exclude early acuteHCV infection. Blood Venous blood specimen / Unknown 05/06/2024 10:36 AM EST 05/06/2024 1:19 PM EST us Ricardo Anaya MD LAB BLOOD ORDERABLES Final Result [facility] [address] [place] [phone] * THINPREP TIS PAP AND HPV mRNA E6/E7 WITH REFLEX TO HPV 16,18/45 (10/03/2021 2:01 PM EDT) Clinical Information: None given [facility] COMMENT SEE COMMENT [facility]OUND[facility] ON [...] along with historic and current clinical information. Comment: This Pap test has been evaluated with computer assisted technology. [facility] Rubber Stamp Dies Inspector: SEE COMMENT [facility] Comment: DMM, CT(ASCP) CT screening location: [place] [address] HPV nRNA E6/E7 Not Detected Not Detected [facility] Comment: Methodology: Hand Bobbin Cleaner-Mediated Amplification This assay detects E6/E7 viral messenger RNA (mRNA) from 14 high-risk HPV types (16,18,31,33,35,39,45,51,52,56,58,59,66,68). The analytical performance characteristics of this assay have been determined by [employer]. The modifications have not been cleared or approved by the FDA. This assay has been validated pursuant to the CLIA regulations and is used for clinical purposes. For additional information, please refer to http://education.Betabrand.GetPromotd/faq/AAO650h7 (This link if provided for information/ educational purposes only.) Interpretation/Res ult: SEE COMMENT [facility] Comment: Negative for intraepithelial lesion or malignancy. Atrophic pattern; predominantly parabasal cells LMP: 53 YRS [facility] Prev. BX: NONE GIVEN [facility] Prev. PAP: NONE GIVEN [facility] SOURCE: None given [facility] Statement Of Adequacy: SATISFACTORY FOR EVALUATION [facility] 10/03/2021 2:01 PM EDT us Mary Kay CNM LAB PATHOLOGY ORDERABLES Final Result [facility] [address] from Last 3 Months or Most Recently Relevant to Health Maintenance Additional Health Concerns Active Problems Noted Date Diagnosed Date Help patients manage their type 2 diabetes 05/10 Weekly blood pressure task 05/10/2025 Help patients manage their type 2 diabetes 05/10 Patient has diabetic eye disease 05/10/2025 Help patients manage their type 2 diabetes 05/10 Patient has chronic kidney disease 05/10/2025 Weekly blood pressure task 05/10/2025 Weekly blood pressure task 05/10/2025 Patient has diabetic eye disease 05/10/2025 Patient has diabetic eye disease 05/10/2025 Patient has chronic kidney disease 05/10/2025 Patient has chronic kidney disease 05/10/2025 Weekly blood pressure task 05/10/2025 Weekly blood pressure task 05/10/2025 Weekly blood pressure task 05/10/2025 Patient has diabetic eye disease 05/10/2025 Patient has diabetic eye disease 05/10/2025 Patient has diabetic eye disease 05/10/2025 Patient has chronic kidney disease 05/10/2025 Patient has chronic kidney disease 05/10/2025 Patient has chronic kidney disease 05/10/2025 Weekly blood pressure task 05/10/2025 Weekly blood pressure task 05/10/2025 Weekly blood pressure task 05/10/2025 Patient has diabetic eye disease 05/10/2025 Patient has diabetic eye disease 05/10/2025 Patient has diabetic eye disease 05/10/2025 Patient has chronic kidney disease 05/10/2025 Patient has chronic kidney disease 05/10/2025 Patient has chronic kidney disease 05/10/2025 Weekly blood pressure task 05/10/2025 Weekly blood pressure task 05/10/2025 Weekly blood pressure task 05/10/2025 Patient has diabetic eye disease 05/10/2025 Patient has diabetic eye disease 05/10/2025 Patient has diabetic eye disease 05/10/2025 Patient has chronic kidney disease 05/10/2025 Patient has chronic kidney disease 05/10/2025 Patient has chronic kidney disease 05/10/2025 Weekly blood pressure task 05/13/2025 Weekly blood pressure task 05/13/2025 Weekly blood pressure task 05/13/2025 Patient has diabetic eye disease 05/13/2025 Patient has diabetic eye disease 05/13/2025 Patient has diabetic eye disease 05/13/2025 Patient has chronic kidney disease 05/13/2025 Patient has chronic kidney disease 05/13/2025 Patient has chronic kidney disease 05/13/[address] [facility] C3 Care Teams Computer Technology Trainer Relationship Specialty Start Date End Date Ricardo Segovia MD [address] [place] [address] PCP - General Internal Medicine 08/28/21 Ana March, PharmD [address] [place] [address] Pharmacist Pharmacy 05/15/25
--- OUTSIDE RECORDS SUMMARY | 2025-05-25 13:34 | XMS_ITS | Encounter Summary ---
Author Organization [employer] Address [address] [place] [address] Care Team Providers Care Wellfield Technician Name Role Phone Ricardo Segovia MD Primary Care Provide r Joyce Quinonez RN Unavailable [phone] Ana March PharmD Unavailable [phone] Encounter Details Date Type Department Care Team (Late st Contact Info) Description 01/19/2024 Abstract [facility] [address] [place] [address] Rose Hook, PharmD [address] [place] [address] Social History Tobacco Use Types Packs/Day Years [...] Description 06/09/2025 2:00 PM EST Office Visit [facility] [address] [place] [phone] Ricardo Segovia MD [address] [place] [phone] 06/27/2025 1:30 PM EST Medication Management [facility] [address] [place] [phone] Ana March PharmD [address] [place] [phone] 07/04/2025 11:00 AM EST Nutrition [facility] DIABETES/NUTRITION [address] [place] [phone] [place] [address] documented as of this encounter Goals Goal Patient Goal Type Associated Problems Recent Progress Patient-Stated? Author Blood Pressure < 140/90 Blood Pressure 160/62(05/13 3:21 PM EST) Rose Arvizu, JoseD Short-term: Promote adherence to treatment regimen General [...] documented as of this encounter Care Teams Wellfield Technician Relationship Specialty Start Date End Date Ricardo Segovia MD [address] [place] [address] PCP - General Internal Medicine 08/28/21 Joyce Quinonez RN [address] [place] [phone] Recyclable Products SorterBefore And After School Daycare Worker 12/23/23 04/01/24 Ana March PharmD [address] [place] [address] Pharmacist Pharmacy 05/15/25 documented as of this encounter
--- OUTSIDE RECORDS SUMMARY | 2025-05-25 13:34 | XMS_ITS | Encounter Summary ---
Author Organization [employer] [facility] Address [address] [facility] [address] [place] [address] Care Team Providers Care Wool Washer Feeder Name Role Phone Ricardo Segovia MD Primary Care Provide r Joyce Quinonez RN Unavailable [phone] Ana March PharmD Unavailable Encounter Details Date Type Department Care Team (Late st Contact Info) Description 06/07/2022 Orders Only [facility] [address] [place] [phone] Mary Ellen Martines RN Social History Tobacco [...] Encounters Date Type Department Care Team (Late Contact Info) Description 06/09/2025 2:00 PM EST Office Visit [facility] [address] [place] [phone] Ricardo Segovia MD [address] [place] [phone] 06/27/2025 1:30 PM EST Medication Management [facility] [address] [place] [phone] Ana March, PharmD [address] [place] [address] 07/04/2025 11:00 AM EST Nutrition [facility] DIABETES/NUTRITION [address] [place], [place] [phone] Dorothy Mcnair, MILLY [address] [place] [address] documented as of this encounter Visit Diagnoses Not on filedocumented in this encounter Care Teams Wool Washer Feeder Relationship Specialty Start Date End Date Ricardo Segovia MD [address] [place] [address] PCP - General Internal Medicine 08/28/21 Joyce Quinonez, ALAN [address] [place] [phone] Spa ReceptionistCredit Front Office Developer 12/23/23 04/01/24 Ana March, JoseD [address] [place] [phone] Pharmacist Pharmacy 05/15/25 documented as of this encounter
--- OUTSIDE RECORDS SUMMARY | 2025-05-25 13:34 | XMS_ITS | Encounter Summary ---
Author Organization [employer] Address [address] [facility] [place] [address] Care Team Providers Care Pricing Director Name Role Phone Ricardo Segovia MD Primary Care Provide r Joyce Quinonez RN Unavailable [phone] Ana March PharmD Unavailable [phone] Reason for Visit * Reason Onset Date Comments Glucose Meter 11/25/2022 Encounter Details Date Type Department Care Team ([facility] st Contact Info) Description 11/25/2022 Telephone [facility] [address] [place], [place] [phone] Ricardo Segovia MD [address] [place] [address] Glucose Meter Social History Tobacco Use Types [...] 2:09 PM EDT Arturo Zamorano LICSW * How difficult have these problems made it for you to do your work, take care of things at home, or get along with other people? Answer Date of Assessment Author Extremely difficult 11/28/2022 2:09 PM EDT Sharron Acuna LICSW * Over the last 2 weeks, how often have you been bothered by any of the following problems? Question Answer Date of Assessment Author Feeling nervous, anxious, or on edge 3 11/28/2022 2:09 PM EDT Awa Zamorano LICSW Not being able to stop or control worrying 3 11/28/2022 2:09 PM EDT Awa Zamorano CARBON DIOXIDE OPERATOR Worrying too much about different things 3 11/28/2022 2:09 PM EDT Awa Zamorano CARBON DIOXIDE OPERATOR Trouble relaxing 3 11/28/2022 2:09 PM EDT Sharron Dumont CARBON DIOXIDE OPERATOR Being so restless that it is hard to sit still 3 11/28/2022 2:09 PM EDT Jon Zamorano CARBON DIOXIDE OPERATOR Becoming easily annoyed or irritable 3 11/28/2022 2:09 PM EDT Awa Zamorano CARBON DIOXIDE OPERATOR Feeling afraid as if something awful might happen 3 11/28/2022 2:09 PM EDT Sharron Zamorano LICSW REGIS-7 Total Score 21 11/28/2022 2:09 PM EDT Sharron Zamorano CARBON DIOXIDE OPERATOR * Over the past 2 weeks, how often have you been bothered by any of the following problems? Question Answer Date of Assessment Author Little interest or pleasure in doing things More than half the days 11/28/2022 2:09 PM EDT Sharron Zamorano CARBON DIOXIDE OPERATOR Feeling down, depressed, or hopeless More than half the days 11/28/2022 2:09 PM EDT Sharron Zamorano CARBON DIOXIDE OPERATOR Trouble falling or staying asleep, or sleeping [...] (November 21, 2022) Please contact pt at [phone] documented in this encounter Plan of Treatment Upcoming Encounters Date Type Department Care Team (Late st Contact Info) Description 06/09/2025 2:00 PM EST Office Visit [facility] [address] [place] [address] Ricardo Segovia MD [address] [place] [address] 06/27/2025 1:30 PM EST Medication Management [facility] [address] [place] [address] Ana March PharmD [address] [place] [address] 07/04/2025 11:00 AM EST Nutrition [facility] DIABETES/NUTRITION [address] [place] [address] Dorothy Mcnair, MILLY [address] [place] [address] documented as of this encounter Goals Goal Patient Goal Type Associated Problems Recent Progress Patient-Stated? Author Blood Pressure < 140/90 Blood Pressure 160/62(05/13 3:21 PM EST) No Rose Hook PharmD Short-term: [...] complication, without long-term current use of insulin (HCC)- Primary documented in this encounter Additional Health Concerns Assessment Noted Time PHQ-9 Depression Total Score: 11 023 11:16 AM EDT documented as of this encounter Care Teams Pricing Director Relationship Specialty Start Date End Date Ricardo Segovia MD [address] [place] [address] PCP - General Internal Medicine 08/28/21 Joyce Quinonez RN [address] [place] [phone] Jig Boring Machine Set Up OperatorDirector Of Strategic Partnerships 12/23/23 04/01/24 Ana March, JoseD [address] [place] [phone] Pharmacist Pharmacy 05/15/25 documented as of this encounter
--- OUTSIDE RECORDS SUMMARY | 2025-05-25 13:34 | XMS_ITS | Encounter Summary ---
Author Organization [employer] Address [address] [place] [address] Care Team Providers Care Heel Brusher Name Role Phone Ricardo Segovia MD Primary Care Provide r Joyce Quinonez RN Unavailable [phone] Ana March PharmD Unavailable Reason for Visit * Reason Comments Med Refill Encounter Details Date Type Department Care Team ([facility] st Contact Info) Description 05/07/2023 Refill [facility] MEDICINE [address] [place] [address] Ricardo Segovia MD [address] [place] [address] Essential hypertension Social History Tobacco Use Types [...] the past 12 months, has t he [employer], oil or [employer] threatened to shut off services in your [...] 05/08/2023 2:09 PM Nannette Arteaga MA * How difficult have these problems made it for you to do your work, take care of things at home, or get along with other people? Answer Date of Assessment Author Somewhat difficult 05/08/2023 2:09 PM Farhana Renee MA * Over the past 2 weeks, [...] energy Several days 05/08/2023 2:09 PM Nannette Arteaga, [place] Poor appetite or overeating Several days 05/08/2023 2: 09 PM Farhana Arteaga MA Feeling bad about yourself - or that you are a failure or have let yourself or your family down Several days 05/08/2023 2:09 PM EST Nannette Angulo MA Trouble concentrating on things, such as reading the newspaper or watching television Several days 05/08/2023 2:09 PM EST Nannette Angulo MA Moving or speaking so slowly that other people could have noticed? Or the opposite - being so fidgety or restless that you have been moving around a lot more than usual. Several days 05/08/2023 2:09 PM Nannette Arteaga MA Thoughts that you would be better off or hurting yourself in some way Not at all 05/08/2023 2:09 PM EST Marcello Angulo MA Patient Health Questionnaire-9 Score 8 05/08/2023 2:09 PM EST Lena Angulo MA documented as of this encounter Plan of Treatment Upcoming Encounters Date Type Department Care Team (Late st Contact Info) Description 06/09/2025 2:00 PM EST Office Visit [facility] MEDICINE [address] [place] [phone] Ricardo Segovia MD [address] [place] [address] 06/27/2025 1:30 PM EST Medication Management [facility] MEDICINE [address] [place] [phone] Ana March PharmD [address] [place] [address] 07/04/2025 11:00 AM EST Nutrition [facility] DIABETES/NUTRITION [address] [place] [phone] [place] [address] documented as of this encounter Goals Goal [...] documented as of this encounter Care Teams Heel Brusher Relationship Specialty Start Date End Date Ricardo Segovia MD [address] [place] [address] PCP - General Internal Medicine 08/28/21 Joyce Quinonez RN [address] [place] [phone] Clerical Methods AnalystWood Preserving Plant Laborer 12/23/23 04/01/24 Ana March PharmD [address] [place] [address] Pharmacist Pharmacy 05/15/25 documented as of this encounter
--- OUTSIDE RECORDS SUMMARY | 2025-05-25 13:34 | XMS_ITS | Encounter Summary ---
Author Organization [employer] Address [address] [place] [address] Care Team Providers Care Wedding Day Coordinator Name Role Phone Ricardo Segovia MD Primary Care Provide r Joyce Quinonez RN Unavailable [phone] Ana March PharmD Unavailable [phone] Reason for Visit * Reason Comments Med Refill Encounter Details Date Type Department Care Team (Late st Contact Info) Description 01/09/2023 Refill [facility] MEDICINE [address] [place] [address] Rose Hook PharmD [address] [place] [address] Essential hypertension Social History Tobacco Use Types [...] Description 06/09/2025 2:00 PM EST Office Visit [facility] MEDICINE [address] [place] [address] Ricardo Segovia MD [address] [place] [address] 06/27/2025 1:30 PM EST Medication Management [facility] MEDICINE [address] [place] [address] Ana March PharmD [address] [place] [address] 07/04/2025 11:00 AM EST Nutrition [facility] DIABETES/NUTRITION [address] [place] [address] Dorothy Mcnair, RD [address] [place] [address] documented as of this encounter Goals Goal [...] documented as of this encounter Care Teams Wedding Day Coordinator Relationship Specialty Start Date End Date Ricardo Segovia MD [address] [place] [phone] PCP - General Internal Medicine 08/28/21 Joyce Quinonez RN [address] [place] [phone] Surveillance AgentNurse Head 12/23/23 04/01/24 Ana March, PharmD [address] [place] [phone] Pharmacist Pharmacy 05/15/25 documented as of this encounter
--- OUTSIDE RECORDS SUMMARY | 2025-05-25 13:34 | XMS_ITS | Encounter Summary ---
Author Organization [employer] Address [address] [place] [address] Care Team Providers Care Sand Polisher Name Role Phone Ricardo Segovia MD Primary Care Provide r Joyce Quinonez RN Unavailable [phone] Ana March PharmD Unavailable Reason for Visit * Reason Comments Med Refill Encounter Details Date Type Department Care Team ([facility] Contact Info) Description 12/29/2022 Refill [facility] MED & PEDS [address] [place] [address] Ever Crisostomo FNP Primary insomnia Social History [...] Upcoming Encounters Date Type Department Care Team ([facility] Contact Info) Description 06/09/2025 2:00 PM EST Office Visit [facility] MEDICINE [address] [place] [address] Ricardo Segovia MD [address] [place] [address] 06/27/2025 1:30 PM EST Medication Management [facility] MEDICINE [address] [place] [address] Ana March, Erik [address] [place] [address] 07/04/2025 11:00 AM EST Nutrition [facility] DIABETES/NUTRITION [address] [place] [address] [place] [address] documented as of this encounter Goals Goal [...] documented as of this encounter Care Teams Sand Polisher Relationship Specialty Start Date End Date Ricardo Segovia MD [address] [place], [place] [phone] PCP - General Internal Medicine 08/28/21 Joyce Quinonez RN [address] [place] [phone] Director Business ManagementVarnish Maker Helper 12/23/23 04/01/24 Ana March, JoseD [address] [place] [phone] Pharmacist Pharmacy 05/15/25 documented as of this encounter
== END 2025-05-25 12:20 | disposition home or self-care (01) ==
LOC: HO.HKA 11:17
PROVIDERS: PCP Internal Medicine; Visit Provider Internal Medicine Nephrology
DX: I10 Essential (primary) hypertension (principal)
CPT/HCPCS: 99214

== ENCOUNTER → 2025-05-25 11:17 | Outpatient (BNVA) | payer MEDICAID, SELFPAY | PROVIDERS: PCP Internal Medicine; Visit Provider Internal Medicine Nephrology | DX: I10 Essential (primary) hypertension (principal); F17.210 Nicotine dependence, cigarettes, uncomplicated | CPT/HCPCS: 99212 ==